=== PATIENT | female | born 1970 | race Caucasian/White ===

== ENCOUNTER 2022-01-08 14:00 | Emergency (ER) | payer OTHER, SELFPAY ==
[2022-01-08] VITALS (8 sets, daily range): BP systolic 130–135; BP diastolic 82–87; PULSE 94–114; RESP 18–20; TEMP 36.8; O2SAT 96–99
--- NOTE | ~2022-01-08 | CT_ITS ---
EXAMINATION: CTA chest PE protocol DATE: 01/08/2022 16:32 INDICATION: Shortness of breath and cough TECHNIQUE: Computed tomography angiography (CTA) of the chest was performed with 100 mL Omnipaque-350 intravenous contrast timed to evaluate the pulmonary arteries. Coronal maximum intensity projection 3D-reconstructions were created by the technologist. The dose-length product (DLP) was 297.07 mGy-cm. Automated exposure control and iterative reconstruction technique were employed. COMPARISON: None. FINDINGS: The pulmonary arteries are well-opacified. No pulmonary embolism is identified. Respiratory motion artifact somewhat limits evaluation for emboli in the lower lung zones. There is moderate emp hysema. No pleural effusion or pneumothorax. No pathologically enlarged thoracic lymph nodes are iden tified. The heart size is normal. There is a small sliding hiatal hernia. There is moderate thoracic spondylosis. IMPRESSION: 1. No pulmonary embolism or acute cardiopulmonary abnormality. 2. Moderate emphysema. Reviewed, dictated and finalized at location B. MEN PLANT OPERATOR
--- NOTE | ~2022-01-08 | XR_ITS ---
EXAMINATION: XR chest 2V DATE: 01/08/2022 14:57 INDICATION: Shortness of breath. TECHNIQUE: Frontal and lateral views of the chest were obtained. COMPARISON: Chest single view 06/05/15 FINDINGS: There are airspace opacities in lingula. No pleural effusion or pneumothorax. The heart siz e is normal. There are surgical clips in left neck. There is a disc replacement in cervical spine. IMPRESSION: 1. Airspace opacities in lingula, consistent with atelectasis versus pneumonia. Reviewed, dictated and finalized at location A. ER MACHINE OPERATOR
--- NOTE | 2022-01-08 14:24 | ED.SOB ---
HPI - SOB/Dyspnea General Chief Complaint: Shortness of Breath/Dyspnea Stated Complaint: Trouble breathing/doctor referred Time Seen by Provider: 01/08/22 14:22 Source: patient Mode of arrival: ambulatory History of Present Illness HPI Narrative: 51-year-old female, ex-smoker with a history of COPD presents to the ER with a 10 day history of -- cough which is productive of yellow sputum -- worsening shortness of breath -- dysphonia the patient saw primary care physician and received prednisone she had a similar episode 2 months ago for which she received antibiotics and steroids. MD elicited complaint: shortness of breath, cough and anxiety Pertinent past history: COPD Onset (ago): day(s) ( Started approximately 10 days ago.) Timing: constant Severity: moderate Exacerbating factors: nothing Relieving factors: nothing Known history of: COPD Associated symptoms: denies other symptoms, cough and sputum production Treatment prior to arrival: none Related Data Home Medications Medication Instructions Recorded Confirmed albuterol sulfate 90 mcg/actuation 2 puff inhalation PRN 02/22/19 01/08/22 aerosol inhaler ipratropium bromide 17 2 puff inhalation QID 02/22/19 01/08/22 mcg/actuation HFA aerosol inhaler (Atrovent HFA) buspirone 30 mg tablet 30 mg PO BID 01/08/22 01/08/22 famotidine 40 mg tablet 40 mg PO DAILY 01/08/22 01/08/22 fluticasone fur. 100 mcg-umeclid 1 inh inhalation BID 01/08/22 01/08/22 62.5 mcg-vilant 25 mcg inhalat.powder (Trelegy Ellipta) hydroxyzine HCl 25 mg tablet 25 mg PO BID 01/08/22 01/08/22 meloxicam 15 mg tablet 15 mg PO DAILY 01/08/22 01/08/22 montelukast 10 mg tablet 10 mg PO DAILY 01/08/22 01/08/22 Allergies Allergy/AdvReac Type Severity Reaction Status Date / Time latex Allergy Unknown Verified 01/08/22 16:00 Review of Systems Review of Systems: All systems reviewed & are unremarkable except as noted in HPI and below Constitutional: Constitutional: Reports as per HPI and Reports no additional constitutional complaints Eyes: Eyes: Reports as per HPI and Reports no additional eye complaints ENT: Reports system reviewed and no additional complaints, except as documented and Reports as per HPI Cardiovascular: Cardiovascular: Reports as per HPI and Reports no additional cardiovascular complaints Respiratory: Respiratory: Reports as per HPI and Reports no additional respiratory complaints Gastrointestinal: Gastrointestinal: Reports as per HPI and Reports no additional gastrointestinal complaints Genitourinary: Genitourinary: Reports no additional female genitourinary complaints Musculoskeletal: Musculoskeletal: Reports no additional musculoskeletal complaints and Reports as per HPI Integumentary/Breasts: Skin/Breast: Reports system reviewed and no additional complaints, except as docu and Reports as per HPI Neurologic: Reports system reviewed and no additional complaints, except as documented and Reports as per HPI Psychiatric: Psychiatric: Reports no additional psychiatric complaints and Reports as per HPI Endocrine: Endocrine: Reports no additional endocrine complaints Hematologic/Lymphatic: Hematologic/Lymphatic: Reports no additional hematologic/lymphatic complaints and Reports as per HPI Allergic/Immunologic: Allergic/Immunologic: Reports no additional allergic/immunologic complaints and Reports as per HPI Exam Const: General: ill appearing Orientation/consciousness: patient oriented x3 Limitations: no limitations Other: Extremely anxious dysphonic HENMT: Head: normal to inspection Ears: external ears normal Face/Nose/Sinus: Normal external nose present Face and sinus: normal facial exam Mouth: Yes Normal oral and palatal mucosa present Throat: posterior oropharynx normal Eyes: Conjunctivae: conjunctivae normal Pupils: Equal, round and reactive pupils present EOM: EOMs intact bilaterally Direct Ophthalmoscopy: no photophobia Neck: Neck: normal visua
--- NOTE | 2022-01-08 14:39 | ECG_ITS ---
Measurements Intervals [place] Rate: 99 P: 85 [place]: 117 QRS: 92 QRSD: 76 T: 73 QT: 263 QTc: 339 Interpretive Statements SINUS RHYTHM WITH SHORT [place] INTERVAL POSSIBLE RIGHT ATRIAL ENLARGEMENT DELAYED PRECORDIAL R/S TRANSITION BASELINE ARTIFACT- I, II, AVL, AVF, V4-V6 BORDERLINE ECG NO PREVIOUS ECG AVAILABLE FOR COMPARISON Electronically Signed On 01-08-2022 15:35:33 WEB OPERATIONS SPECIALIST by Kvng Mendez D.O.
[2022-01-08] MEDS: IPRATROPIUM 0.5 MG/ALBUTEROL SULFATE 2.5 MG AMPUL.NEB 3 ML INHALATION (15:07)
[2022-01-08 15:11] LABS: Basophils Absolute Auto 0.04 K/mm3 (0.00-0.10); Basophils Percent Auto 0.4 % (0.0-1.0); Eosinophils Absolute Auto 0.32 K/mm3 (0.02-0.50); Eosinophils Percent Auto 2.9 % (1.0-6.0); Hematocrit 35.3 % (35.0-49.0); Hemoglobin 11.5 g/dL (12.0-15.0); Immature Granulocyte Absolute 0.03 K/mm3 (0.00-0.00); Immature Granulocyte Percent A 0.3 % (0.0-0.0); Lymphocytes Absolute Auto 3.12 K/mm3 (1.10-4.50); Lymphocytes Percent Auto 28.6 % (18.0-42.0); Mean Corpuscular HGB Conc 32.6 g/dL (32.0-36.0); Mean Corpuscular Hemoglobin 29.2 pg (27.0-31.0); Mean Corpuscular Volume 89.6 fL (78.0-102.0); Mean Platelet Volume 9.1 fl (9.2-11.8); Monocytes Absolute Auto 1.06 K/mm3 (0.10-0.90); Monocytes Percent Auto 9.7 % (2.0-11.0); Neutrophils Absolute Auto 6.3 K/mm3 (1.7-7.2); Neutrophils Percent Auto 58.1 % (50.0-70.0); Platelet Count Result 428 K/mm3 (150-420); Red Blood Count 3.94 M/mm3 (4.20-5.40); White Blood Count 10.9 K/mm3 (4.8-10.8)
[2022-01-08 15:29] LABS: Lactic Acid Reflex 0.8 mmol/L (0.4-2.0)
[2022-01-08 15:32] LABS: D Dimer 0.61 mg/L (0.19-0.50)
[2022-01-08 15:39] LABS: Alanine Aminotransferase 22 U/L (14-59); Albumin Level 3.3 g/dL (3.4-5.0); Alkaline Phosphatase 67 U/L (46-116); Anion Gap 5 mmol/L (8-16); Aspartate Amino Transferase 19 U/L (15-37); Bilirubin,Total 0.3 mg/dL (0.00-1.00); Blood Urea Nitrogen 15 mg/dL (7-18); Calcium 8.6 mg/dL (8.5-10.1); Carbon Dioxide 31 mmol/L (21-32); Chloride 105 mmol/L (98-108); Estimated CRCL calculation 71 ml/min; Estimated Glomerular Filt Rate > 60; Glucose 102 mg/dL (70-99); Osmolality Calculated 292 mOsm/kg (285-295); Potassium 2.9 mmol/L (3.5-5.1); Sodium 141 mmol/L (136-145); Total Protein 7.4 g/dL (6.4-8.2); Troponin I < 4.0 ng/L (0.00-60.4)
[2022-01-08 15:39] LABS: NT Pro B Type Natriuretic Pept 336 pg/mL (0-125)
[2022-01-08 15:46] LABS: Influenza A QL RT-PCR Negative (Negative); Influenza B QL RT-PCR Negative (Negative); SARS-CoV-2 RNA PCR Negative (Negative)
[2022-01-08 15:47] LABS: RSV RNA, RT-PCR Negative (Negative)
[2022-01-08 16:12] LABS: Base Excess ABG 3.8 mmol/L (0-2); HCO3 ABG 27.7 mmol/L (23-29); Oxygen Content ABG 15.1 %vol (16.0-22.0); Oxygen Saturation ABG 91.4 % (95-97); Oxyhemoglobin 89.4 % (94-100); PCO2 ABG 39.4 mmHg (35-45); PO2 ABG 57.7 mmHg (80-90); pH ABG 7.47 (7.35-7.45)
[2022-01-08 16:13] LABS: Device ROOM AIR; Modified Allen's Test Pass; Site Drawn RIGHT RADIAL
[2022-01-08] MEDS: LACTATED RINGERS 1,000 ML 999 ML IV CONT (16:25)
[2022-01-08 17:00] LABS: Magnesium 1.5 mg/dL (1.8-2.4)
[2022-01-08] MEDS: POTASSIUM BICARBONATE 25 MEQ TABEF 50 MEQ PO (17:01)
[2022-01-08] MEDS: AZITHROMYCIN 250 MG TABLET 500 MG PO (17:01)
[2022-01-08] MEDS: MAGNESIUM SULF 2 GM/WATER 50ML 2 GM/50 ML BAG IVPB (17:16)
== END 2022-01-08 18:01 | disposition home or self-care (01) ==
PROVIDERS: Emergency Provider Internal Medicine Critical Care Medicine; PCP Physician Assistant
DX: J44.1 Chronic obstructive pulmonary disease with (acute) exacerbation (principal); E87.8 Other disorders of electrolyte and fluid balance, not elsewhere classified; F41.9 Anxiety disorder, unspecified; Z20.822 Contact with and (suspected) exposure to COVID-19
CPT/HCPCS: 36415; 36600; 71046; 71275; 80053; 82805; 83605; 83735; 83880; 84484; 85025; 85380; 87502; 87634; 93005; 94640; 96361; 96365; 99284; A9270; J3475; J7120; Q9967; U0003; U0005

== ENCOUNTER 2022-03-27 16:12 | Outpatient (CLI) | payer OTHER, SELFPAY | END 2022-03-27 16:13 | disposition home or self-care (01) | LOC: CHSLAB 16:13 | PROVIDERS: PCP Physician Assistant; Visit Provider Physician Assistant | DX: B80 Enterobiasis (principal) | CPT/HCPCS: 87177; 87209 ==

== ENCOUNTER 2022-12-22 15:50 | Emergency (ER) | payer OTHER, SELFPAY ==
[2022-12-22 16:05] VITALS: BP 132/77; PULSE 106; RESP 24; TEMP 36.6; O2SAT 93
--- NOTE | 2022-12-22 16:05 | ED.GENADULT ---
HPI - General Adult General Chief complaint: Wound/Laceration Stated complaint: right middle finger injury Time Seen by Provider: 12/22/22 16:05 Source: patient Mode of arrival: ambulatory Limitations: no limitations History of Present Illness HPI narrative: 52-year-old female with a history of COPD, arthritis, anxiety got stuck by a riri wire in the right middle finger 3 days ago. the patient feels that the pain from the right middle finger is extending up the right upper extremity. The patient has not had a tetanus immunization for the past 10 years. She presents to the ER for tetanus immunization. The patient has chronic shortness of breath. Onset (ago): day(s) ( Three days ago) Location: upper extremity Relieving factors: none Exacerbating factors: none Related Data Home Medications Medication Instructions Recorded Confirmed albuterol sulfate 90 mcg/actuation 2 puff inhalation PRN 02/22/19 01/08/22 aerosol inhaler ipratropium bromide 17 2 puff inhalation QID 02/22/19 01/08/22 mcg/actuation HFA aerosol inhaler (Atrovent HFA) buspirone 30 mg tablet 30 mg PO BID 01/08/22 01/08/22 famotidine 40 mg tablet 40 mg PO DAILY 01/08/22 01/08/22 fluticasone fur. 100 mcg-umeclid 1 inh inhalation BID 01/08/22 01/08/22 62.5 mcg-vilant 25 mcg inhalat.powder (Trelegy Ellipta) hydroxyzine HCl 25 mg tablet 25 mg PO BID 01/08/22 01/08/22 meloxicam 15 mg tablet 15 mg PO DAILY 01/08/22 01/08/22 montelukast 10 mg tablet 10 mg PO DAILY 01/08/22 01/08/22 Allergies Allergy/AdvReac Type Severity Reaction Status Date / Time latex Allergy Unknown Verified 12/22/22 16:05 Review of Systems Review of Systems: All systems reviewed & are unremarkable except as noted in HPI and below Constitutional: Constitutional: Reports as per HPI and Reports no additional constitutional complaints Eyes: Eyes: Reports as per HPI and Reports no additional eye complaints ENT: Reports system reviewed and no additional complaints, except as documented and Reports as per HPI Cardiovascular: Cardiovascular: Reports as per HPI and Reports no additional cardiovascular complaints Respiratory: Respiratory: Reports as per HPI, Reports no additional respiratory complaints, Reports cough and Reports dyspnea Comments: No worsening of her shortness of breath. No mucopurulent sputum or increased production of sputum. Gastrointestinal: Gastrointestinal: Reports as per HPI and Reports no additional gastrointestinal complaints Genitourinary: Genitourinary: Reports no additional female genitourinary complaints and Reports as per HPI Musculoskeletal: Musculoskeletal: Reports no additional musculoskeletal complaints and Reports as per HPI Integumentary/Breasts: Skin/Breast: Reports system reviewed and no additional complaints, except as docu and Reports as per HPI Neurologic: Reports system reviewed and no additional complaints, except as documented and Reports as per HPI Psychiatric: Psychiatric: Reports no additional psychiatric complaints and Reports as per HPI Endocrine: Endocrine: Reports no additional endocrine complaints and Reports as per HPI Hematologic/Lymphatic: Hematologic/Lymphatic: Reports no additional hematologic/lymphatic complaints and Reports as per HPI Allergic/Immunologic: Allergic/Immunologic: Reports no additional allergic/immunologic complaints and Reports as per HPI [facility] Past Medical History Medical History (Updated 12/22/22 @ 16:17 by Trevin Singer MD) Asthma exacerbation in COPD Exam Narrative: patient is saturating 93% on room air. Patient is tachycardic and has a respiratory rate of 24. Const: Orientation/consciousness: patient oriented x3 Limitations: no limitations HENMT: Head: normal to inspection Ears: external ears normal Face/Nose/Sinus: Normal external nose present Face and sinus: normal facial exam Mouth: Yes Normal oral and palatal mucosa present Throat: posterior oropharynx n
[2022-12-22] MEDS: TETANUS,DIPHTHERIA,AC PERTUSSIS ADULT 0.5 ML (ADACEL) IM (16:23)
== END 2022-12-22 16:26 | disposition home or self-care (01) ==
PROVIDERS: Emergency Provider Internal Medicine Critical Care Medicine; PCP Physician Assistant
DX: S61.232A Puncture wound without foreign body of right middle finger without damage to nail, initial encounter (principal); J41.0 Simple chronic bronchitis; Z23 Encounter for immunization; W45.8XXA Other foreign body or object entering through skin, initial encounter
CPT/HCPCS: 90471; 90715; 99282

== ENCOUNTER 2023-06-12 19:11 | Emergency (ER) | payer OTHER, SELFPAY ==
--- NOTE | ~2023-06-12 | CT_ITS ---
EXAMINATION: CT BRAIN W/O DATE: 06/12/2023 20:23 INDICATION: Neck pain after fall TECHNIQUE: Computed tomography (CT) of the head was performed without intravenous contrast. The dose- length product was 385.38 mGy-cm. Automated exposure control and iterative reconstruction technique w ere employed. COMPARISON: No prior studies for comparison. FINDINGS: Evaluation of the posterior fossa limited due to motion artifact. Normal brain parenchymal volume for age. Normal nicole-white differentiation. No acute intracranial hemorrhage, infarction, mass or mass effect. No ventriculomegaly or midline shift. Midline sagittal images demonstrate a normal corpus callosum, c raniovertebral junction and sella turcica. Basilar cisterns are patent. Paranasal sinuses and mastoids are pneumatized. No depressed skull fractures. IMPRESSION: 1. No acute intracranial abnormality. Reviewed, dictated and finalized at location A.
--- NOTE | ~2023-06-12 | CT_ITS ---
EXAMINATION: CT cervical spine wo con DATE: 06/12/2023 20:23 INDICATION: Neck pain after fall TECHNIQUE: Computed tomography (CT) of the cervical spine was performed without intravenous contrast. The dose-length product was 385 mGy-cm. Automated exposure control and iterative reconstruction tech nique were employed. COMPARISON: None FINDINGS: There is a prosthetic disc device at C6-7. Craniovertebral junction is normal. Odontoid pro cess within normal limits. Vertebral body heights are maintained. No acute fracture or traumatic juventino lignment. No evidence for perched facet. Motion artifact limits evaluation of the C6 vertebra posteri tonia. Spinous processes are normal. No paraspinal soft tissue abnormality. There is emphysema in the apices. IMPRESSION: 1. No acute abnormality of the cervical spine. Reviewed, dictated and finalized at location A.
--- NOTE | 2023-06-12 19:11 | PC.NURSE ---
c collar applied while in waiting room
[2023-06-12 19:23] VITALS: BP 149/94; PULSE 124; RESP 20; TEMP 36.9; O2SAT 95
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
[2023-06-12] MEDS: ALPRAZolam (*CRX) 0.5 MG TABLET PO (20:22)
[2023-06-12 21:13] VITALS: BP 128/83; PULSE 101; RESP 20; O2SAT 93
== END 2023-06-12 21:22 | disposition home or self-care (01) ==
PROVIDERS: Emergency Provider Internal Medicine Critical Care Medicine; PCP Physician Assistant
DX: M54.2 Cervicalgia (principal); V43.53XA Car driver injured in collision with pick-up truck in traffic accident, initial encounter; J44.9 Chronic obstructive pulmonary disease, unspecified; F41.9 Anxiety disorder, unspecified; Z79.51 Long term (current) use of inhaled steroids
CPT/HCPCS: 70450; 72125; 99284; A9270; L0150

== ENCOUNTER 2023-08-13 18:24 | Emergency (ER) | payer OTHER, SELFPAY ==
[2023-08-13] VITALS (48 sets, daily range): BP systolic 91–130; BP diastolic 60–90; PULSE 95–126; RESP 18–35; TEMP 36.9; O2SAT 87–100
--- NOTE | ~2023-08-13 | XR_ITS ---
EXAMINATION: XR chest 1V portable Exam Date/Time: 08/13/2023 18:45 CDT HISTORY: Dyspnea Comparison: 01/08/2022; x-ray RIBS 06/05/2015; CTPA 01/08/2022. RESULT: Lines, tubes, and devices: Cervical spine interbody device. Left neck surgical clips. Lungs and pleura: Clear. Cardiomediastinal silhouette: 2.5 x 1.7 cm right paratracheal opacity. Cardiac mediastinal silhouett e is otherwise normal and unchanged. Other: No acute osseous or upper abdominal finding. IMPRESSION: 2.5 x 1.7 cm right peritracheal opacity, new since the prior studies, may represent soft tissue nodul e or summation artifact. Consider CT of the chest with contrast for further evaluation. Reviewed, dictated and finalized at location K. IMPRESSION: 2.5 x 1.7 cm right peritracheal opacity, new since the prior studies, may repre sent soft tissue nodule or summation artifact. Consider CT of the chest with co ntrast for further evaluation.
--- NOTE | ~2023-08-13 | CT_ITS ---
EXAMINATION: CT diagnostic chest wo con DATE: 08/13/2023 19:53 INDICATION: paratracheal mass,ABN CXR,SOB,COUGH TECHNIQUE: Computed tomography (CT) of the chest was performed with 100 mL Omnipaque-350 intravenous contrast. Automated exposure control and iterative reconstruction technique were employed. The dose-l ength product was 167.85 mGy-cm. COMPARISON: X-ray chest, same date; CTPA 01/08/2022. FINDINGS: CHEST: Thoracic aorta: No significant dilation or calcification. Lung parenchyma and airways: Moderate emphysematous change, airways are clear. Thoracic inlet, axillae and chest wall: No thyroid or soft tissue mass. No axillary lymphadenopathy. Mediastinum: No mass or lymphadenopathy. Heart and pericardium: Normal heart size. No pericardial effusion. Coronary artery calcifications: Absent. Pleura: No effusion or mass. Upper abdomen: No significant finding. Thoracic bones: No acute osseous finding in the chest. IMPRESSION: No acute thoracic process detected. No rib fracture detected. No peritracheal or other mucosal mass. Prior radiograph findings likely related to summation artifact and vascular shadows. Reviewed, dictated and finalized at location K.
[2023-08-13] MEDS: IPRATROPIUM 0.5 MG/ALBUTEROL SULFATE 2.5 MG AMPUL.NEB 3 ML 12 ML INHALATION (18:41)
[2023-08-13 18:51] LABS: Basophils Absolute Auto 0.05 K/mm3 (0.00-0.10); Basophils Percent Auto 1.2 % (0.0-1.0); Eosinophils Absolute Auto 0.08 K/mm3 (0.02-0.50); Eosinophils Percent Auto 1.9 % (1.0-6.0); HCO3 VBG 30.1 mEq/l (24.0-30.0); Hematocrit 45.8 % (35.0-49.0); Hemoglobin 14.3 g/dL (12.0-15.0); Immature Granulocyte Absolute 0.01 K/mm3 (0.00-0.00); Immature Granulocyte Percent A 0.2 % (0.0-0.0); Lymphocytes Percent Auto 32.6 % (18.0-42.0); Mean Corpuscular HGB Conc 31.2 g/dL (32-36); Mean Corpuscular Hemoglobin 28.5 pg (27.0-31.0); Mean Corpuscular Volume 91.4 fL (78.0-102.0); Mean Platelet Volume 9.2 fl (9.2-11.8); Monocytes Absolute Auto 0.25 K/mm3 (0.10-0.90); Monocytes Percent Auto 5.8 % (2.0-11.0); Neutrophils Percent Auto 58.3 % (50.0-70.0); PCO2 VBG 55.7 mmHg (42.0-48.0); PO2 VBG 40.2 mmHg (35.0-45.0); Platelet Count Result 326 K/mm3 (150-420); Red Blood Count 5.01 M/mm3 (4.20-5.40); Red Cell Distribution Width 12.3 % (11.6-14.4); White Blood Count 4.3 K/mm3 (4.8-10.8); pH VBG 7.35 (7.33-7.43)
[2023-08-13 18:52] LABS: Device ROOM AIR
[2023-08-13] MEDS: SODIUM CHLORIDE 0.9% IV 1,000 ML 999 ML IV CONT (18:59)
[2023-08-13] MEDS: dexAMETHasone SOD PHOS INJ 10 MG/ML 1 ML VIAL IV PUSH (18:59)
[2023-08-13] MEDS: MAGNESIUM SULF 2 GM/WATER 50ML 2 GM/50 ML BAG IVPB (19:00)
[2023-08-13 19:05] LABS: Alanine Aminotransferase 21 U/L (14-59); Albumin Level 3.5 g/dL (3.4-5.0); Alkaline Phosphatase 90 U/L (46-116); Anion Gap 5 mmol/L (4-12); Aspartate Amino Transferase 21 U/L (15-37); Bilirubin,Total 0.2 mg/dL (0.00-1.00); Blood Urea Nitrogen 15 mg/dL (7-18); Calcium 8.8 mg/dL (8.5-10.1); Carbon Dioxide 32 mmol/L (21-32); Chloride 101 mmol/L (98-108); Estimated CRCL calculation 67 ml/min; Estimated Glomerular Filt Rate > 60; Glucose 158 mg/dL (70-99); Osmolality Calculated 289 mOsm/kg (285-295); Potassium 4.6 mmol/L (3.5-5.1); Sodium 138 mmol/L (136-145); Total Protein 7.4 g/dL (6.4-8.2)
--- NOTE | 2023-08-13 19:24 | ED.GENADULT ---
HPI - General Adult General Chief complaint: Shortness of Breath/Dyspnea Stated complaint: sob Time Seen by Provider: 08/13/23 19:19 History of Present Illness HPI narrative: This is a 53-year-old female with history of asthma and tobacco use presenting for difficulty breathing. symptoms started yesterday. Patient has had a productive cough. Denies fevers chills chest pain, URI symptoms or lower extremity edema. Patient states she quit using tobacco yesterday. She tried taking inhaler at home but the shortness of breath was too bad so she came straight to hospital. Related Data Home Medications Medication Instructions Recorded Confirmed albuterol sulfate 90 mcg/actuation 2 puff inhalation PRN 02/22/19 08/13/23 aerosol inhaler ipratropium bromide 17 2 puff inhalation QID 02/22/19 08/13/23 mcg/actuation HFA aerosol inhaler (Atrovent HFA) famotidine 40 mg tablet 40 mg PO DAILY 01/08/22 08/13/23 fluticasone fur. 100 mcg-umeclid 1 inh inhalation BID 01/08/22 08/13/23 62.5 mcg-vilant 25 mcg inhalat.powder (Trelegy Ellipta) hydroxyzine HCl 25 mg tablet 25 mg PO BID 01/08/22 08/13/23 meloxicam 15 mg tablet 15 mg PO DAILY 01/08/22 08/13/23 montelukast 10 mg tablet 10 mg PO DAILY 01/08/22 08/13/23 Allergies Allergy/AdvReac Type Severity Reaction Status Date / Time latex Allergy Rash Verified 08/13/23 18:32 [facility] Past Medical History Medical History Asthma exacerbation in COPD Surgical History Surgical History H/O neck surgery Exam Narrative: APPEARANCE: Respiratory distress Head: atraumatic. EYES: EOMI, NOSE: Atraumatic NECK: Trachea midline RESPIRATORY: tripoding, 3 word dyspnea, wheezing CARDIOVASCULAR: tachycardic, no peripheral edema ABDOMINAL: Non-distended MUSCULOSKELETAl: No obvious deformities NEURO: Alert. Moving 4/4 extremities SKIN:: Warm, dry. Normal color PSYCHIATRIC: tearful and emotionally distraught Course Vital Signs Vital signs: Vital Signs Pulse Rate 120 H 08/13/23 18:26 Respiratory Rate 29 H 08/13/23 18:26 Pulse Oximetry 87 L 08/13/23 18:26 Temperature 98.4 F 08/13/23 18:32 Pulse Rate 98 08/13/23 21:32 Respiratory Rate 28 H 08/13/23 21:32 Blood Pressure 114/68 08/13/23 21:16 Pulse Oximetry 100 08/13/23 21:32 Oxygen Delivery BiPAP 08/13/23 21:00 Oxygen Flow Rate 2 08/13/23 19:51 Medical Decision Making MDM Narrative Medical decision making narrative: -Course:53-year-old female with asthma presenting for difficulty breathing. Wheezing on exam. Patient is tachycardic and tachypneic hypoxic on arrival. Given an hour DuoNeb treatment with some improvement but still increased work of breathing. Chest x-ray and CT negative for pneumonia. VBG showed respiratory acidosis with metabolic compensation. On re-evaluation patient is still tachycardic, tachypneic and working to breathe. She will be placed on BiPAP. Given DuoNeb in-line nebulization. patient needs to be admitted for COPD exacerbation. We cannot admit NIPVV to this hospital. Patient will be transferred [place] for further management. -DDX includes but is not limited to: COPD, pneumonia, PE, Viral syndrome -Co-morbidities complicating care: Asthma, current smoker -Independent interpretation of studies: labs reviewed within normal limits. Chest x-ray and CT chest unremarkable viral swabs negative Independent EKG interpretation: Rhythm [sinus], Rate [97], [place] -[normal], [place] -[normal], QRS [narrow], QTC [normal], T waves -[negative for concerning inversions], ST Segments - [Negative for concerning elevations] Final interpretations: [Normal Sinus Rhythm] -Discussion of Management/Consultants: Chiara -Interventions:1 hr duo neb, Dexamethasone, magnesium, -Shared decision making / Disposition:t/f to [place] Vital Signs Vital Signs: Vital
[2023-08-13 19:30] LABS: SARS-CoV-2 RNA PCR Negative (Negative)
[2023-08-13 19:32] LABS: Influenza A QL RT-PCR Negative (Negative); Influenza B QL RT-PCR Negative (Negative); RSV RNA, RT-PCR Negative (Negative)
[2023-08-13 20:55] LABS: Appearance Urine Sl Cloudy (Clear); Bilirubin Urine Negative (Negative); Blood Urine Negative (Negative); Color Urine Light Yellow (Yellow); Glucose Urine UA Negative (Negative); Ketones Urine Negative (Negative); Leukocyte Esterase Ur Negative LEU/UL (Negative); Nitrate Urine Negative (Negative); Protein Urine Trace (Negative); Specific Grav Ur 1.025 (1.010-1.020); Urobilinogen Urine 0.2 mg/dL (0.2-1.0)
--- NOTE | 2023-08-13 20:58 | ECG_ITS ---
Test Date: 2023-08-13 21:03:07 Measurements Intervals [place] Rate: 97 P: 85 [place]: 126 QRS: 71 QRSD: 86 T: 74 QT: 337 QTc: 430 Interpretive Statements SINUS RHYTHM POSSIBLE RIGHT ATRIAL ENLARGEMENT [0.25mV P-WAVE] No previous ECG available for comparison Electronically Signed On 08-14-2023 11:33:04 CDT by Liz Hill M.D.
[2023-08-13 21:02] LABS: Add Urine Microscopic? YES; Bacteria Urine Trace /hpf; RBC Urine 0-2 /hpf (0-2); Squamous Epithelial Cell Urine Few /hpf (Few); WBC Urine 0-3 /hpf (0-3)
[2023-08-13 21:05] LABS: Amphetamine Screen Urine Negative (Negative); Barbiturate Screen Urine Negative (Negative); Benzodiazepines Screen Urine Negative (Negative); Cannabinoid Screen Urine Positive (Negative); Cocaine Screen Urine Negative (Negative); Methadone Screen Urine Negative (Negative); Phencyclidine Screen Urine Negative (Negative)
[2023-08-13 21:15] LABS: Opiate Screen Urine Negative (Negative)
[2023-08-13] MEDS: IPRATROPIUM 0.5 MG/ALBUTEROL SULFATE 2.5 MG AMPUL.NEB 3 ML 6 ML INHALATION (21:15)
[2023-08-13] MEDS: diazePAM INJ (*CRX) 10 MG/2 ML SYRINGE 5 MG IV PUSH (22:20)
--- NOTE | 2023-08-13 23:17 | PC.NURSE ---
This RN was called into patient room for suspected seizure like activity. Patient had some shaking to her body, but was awake and talking during this episode. Patient's son stated that patient was diagnosed with functional neurologic disorder a long time ago and does not currently take any medications for these episodes . Patient was given diazepam about 10 minutes prior to this episode because she was feeling claustrophobic and beginning to have an anxiety attack. Bipap was removed from patient and she was placed back on 2L O2 at this time. Patient has remained completely responsive and has calmed down and the shivering/shaking has gone away. Patient stated that she just began to panic because she was missing her mother and feels overwhelmed without her here. Extensive education provided to daughter, who at the time was yelling at staff, was provided after she calmed down. Patients vitals remained stable, no change in heart rate or respiratory rate during episode.
== END 2023-08-13 23:15 | disposition short-term general hospital (02) ==
PROVIDERS: Emergency Provider Emergency Medicine; PCP Physician Assistant
DX: J44.1 Chronic obstructive pulmonary disease with (acute) exacerbation (principal); J45.901 Unspecified asthma with (acute) exacerbation; F17.210 Nicotine dependence, cigarettes, uncomplicated; Z79.1 Long term (current) use of non-steroidal anti-inflammatories (NSAID); Z79.899 Other long term (current) drug therapy; Z20.822 Contact with and (suspected) exposure to COVID-19
CPT/HCPCS: 36415; 71045; 71250; 80053; 80307; 81001; 82803; 85025; 87637; 93005; 94640; 96365; 96375; 99285; J1100; J3360; J3475; J7030

== ENCOUNTER 2023-08-14 00:46 | Inpatient (IN) | payer OTHER, SELFPAY ==
[2023-08-14] VITALS (25 sets, daily range): BP systolic 101–165; BP diastolic 57–95; PULSE 69–112; RESP 18–28; TEMP 36.2–37.6; O2SAT 90–99; BMI 28.2
--- NOTE | 2023-08-14 00:51 | PM.IMHP ---
H&P: HPI History of Present Illness Date/Time: 08/14/23 00:51 Chief Complaint: sob Narrative: This is a 53 yo female with PMHx significant for COPD/Emphysema, Tobacco dependence, currently smokes 1 pack of cigarettes daily. comes to outside facility ED due to worsening sob, productive cough of copious yellowish bingham sputum, poor appetite.Required supplemental oxygen by [place].Transferred to our facility EXAMINATION: XR chest 1V portable Exam Date/Time: 08/13/2023 18:45 CDT HISTORY: Dyspnea Comparison: 01/08/2022; x-ray RIBS 06/05/2015; CTPA 01/08/2022. RESULT: Lines, tubes, and devices: Cervical spine interbody device. Left neck surgical clips. Lungs and pleura: Clear. Cardiomediastinal silhouette: 2.5 x 1.7 cm right paratracheal opacity. Cardiac mediastinal silhouette is otherwise normal and unchanged. Other: No acute osseous or upper abdominal finding. IMPRESSION: 2.5 x 1.7 cm right peritracheal opacity, new since the prior studies, may represent soft tissue nodule or summation artifact. Consider CT of the chest with contrast for further evaluation. EXAMINATION: CT diagnostic chest wo con DATE: 08/13/2023 19:53 INDICATION: paratracheal mass,ABN CXR,SOB,COUGH TECHNIQUE: Computed tomography (CT) of the chest was performed with 100 mL Omnipaque-350 intravenous contrast. Automated exposure control and iterative reconstruction technique were employed. The dose-length product was 167.85 mGy-cm. COMPARISON: X-ray chest, same date; CTPA 01/08/2022. FINDINGS: CHEST: Thoracic aorta: No significant dilation or calcification. Lung parenchyma and airways: Moderate emphysematous change, airways are clear. Thoracic inlet, axillae and chest wall: No thyroid or soft tissue mass. No axillary lymphadenopathy. Mediastinum: No mass or lymphadenopathy. Heart and pericardium: Normal heart size. No pericardial effusion. Coronary artery calcifications: Absent. Pleura: No effusion or mass. Upper abdomen: No significant finding. Thoracic bones: No acute osseous finding in the chest. IMPRESSION: No acute thoracic process detected. No rib fracture detected. No peritracheal or other mucosal mass. Prior radiograph findings likely related to summation artifact and vascular shadows. Review of Systems Review of Systems: sob, productive cough, chills Constitutional: Constitutional: Reports chills, Reports fatigue, Reports malaise, Reports night sweats, Reports poor appetite and Reports weakness Eyes: Eyes: Denies change in vision ENT: Denies dysphagia and Denies odynophagia Cardiovascular: Cardiovascular: Denies chest pain, Denies radiating jaw, neck or arm pain and Denies palpitations Respiratory: Respiratory: Reports change in phlegm color, Reports chest congestion, Reports cough, Reports excessive phlegm production, Reports dyspnea and Reports wheezing Gastrointestinal: Gastrointestinal: Denies abdominal pain, Denies nausea and Denies vomiting Genitourinary: Genitourinary: Denies flank pain Musculoskeletal: Musculoskeletal: Reports myalgias Integumentary/Breasts: Skin/Breast: Denies rash Neurologic: Denies focal weakness and Denies Sensory deficit (Neuro) Psychiatric: Psychiatric: Reports no additional psychiatric complaints and Reports as per HPI Endocrine: Endocrine: Denies cold intolerance, Denies heat intolerance, Denies polyphagia, Denies polydipsia, Denies polyuria and Denies palpitations Hematologic/Lymphatic: Hematologic/Lymphatic: Reports no additional hematologic/lymphatic complaints and Reports as per HPI Allergic/Immunologic: Allergic/Immunologic: Reports no additional allergic/immunologic complaints and Reports as per HPI PMFSH Past Medical History Medical History Asthma exacerbation in COPD Surgical History Surgical History H/O neck surgery Social History Social Hist
[2023-08-14] MEDS: ALBUTEROL SULFATE NEB 2.5 MG/3 ML INH INHALATION (01:18)
[2023-08-14] MEDS: IPRATROPIUM BR 0.02% INH SOLN 0.5 MG/2.5 ML VIAL INHALATION (01:18)
[2023-08-14 02:41] LABS: Basophils Percent Auto 0.2 % (0.2-1.2); Hematocrit 40.5 % (37.0-47.0); Hemoglobin 12.5 g/dL (12.0-15.0); Immature Granulocyte Absolute 0.02 K/mm3 (0.00-0.031); Immature Granulocyte Percent A 0.4 % (0-0.5); Lymphocytes Absolute Auto 0.54 K/mm3 (0.9-3.2); Lymphocytes Percent Auto 11.7 % (18.3-44.2); Mean Corpuscular HGB Conc 30.9 g/dl (32-36); Mean Corpuscular Hemoglobin 28.2 pg (26-34); Mean Corpuscular Volume 91.4 fl (80-100); Mean Platelet Volume 9.3 fl (7.4-10.4); Monocytes Absolute Auto 0.1 K/mm3 (0.1-0.6); Monocytes Percent Auto 1.9 % (2.6-8.5); Neutrophils Percent Auto 85.8 % (45.5-73.1); Platelet Count Result 342 k/mm3 (150-375); Red Blood Count 4.43 M/mm3 (4.2-5.4); Red Cell Distribution Width 12.5 % (11.5-14.5); White Blood Count 4.6 K/mm3 (4.5-10.0)
[2023-08-14 02:53] LABS: Anion Gap 8 mmol/L (4-12); Blood Urea Nitrogen 15 mg/dL (7-17); Calcium 9.1 mg/dL (8.4-10.2); Carbon Dioxide 26 mmol/L (22-30); Chloride 104 mmol/L (98-107); Estimated CRCL calculation 66 ml/min; Estimated Glomerular Filt Rate > 60; Glucose 160 mg/dL (65-110); Magnesium 2.2 mg/dL (1.6-2.3); Potassium 4.4 mmol/L (3.4-5.0); Sodium 138 mmol/L (137-145)
[2023-08-14 02:55] LABS: Partial Thromboplastin Time 31.4 Seconds (22.3-36.8); Prothrombin Time 13.4 Seconds (11.1-14.7)
[2023-08-14] MEDS: cefTRIAXone 2 GM/NS 100 ML 2 GM/100 ML BAG IVPB (04:17)
[2023-08-14] MEDS: AZITHROMYCIN 500 MG/NS 250 ML 500 MG/250 ML BAG 250 MG IVPB (04:18)
[2023-08-14] MEDS: IPRATROPIUM 0.5 MG/ALBUTEROL SULFATE 2.5 MG AMPUL.NEB 3 ML INHALATION ×6 (04:51→23:43)
--- NOTE | 2023-08-14 05:51 | PC.NURSE ---
Pt tx to room 204 with all belongings.
[2023-08-14] MEDS: methylPREDNISolone SOD SUCC 125 MG VIAL 60 MG IV PUSH ×3 (06:14→17:55)
[2023-08-14] MEDS: FLUTICASONE/UMECLIDIN/VILANTER 100-62.5-25 MCG ELLIPTA 1 PUFF INHALATION (08:26)
--- NOTE | 2023-08-14 08:48 | PM.IMPN ---
Progress Note: A&P Assessment and Plan (1) Acute hypoxic respiratory failure: Code(s): J96.01 - Acute respiratory failure with hypoxia Status: Acute Assessment and Plan: Admit to IMU on supplemental oxygen by [place] 2 L per minute, sating 96% Patient normally on room air and wears bipap at night. (2) COPD with exacerbation: Code(s): J44.1 - Chronic obstructive pulmonary disease with (acute) exacerbation Status: Acute Assessment and Plan: Started on Rocephin and Zithromax Respiratory panel negative Blood cultures pending Systemic steroids methpred 60 mg IVP Q 6 hours--still wheezing Duo nebs Q 4 hours scheduled Mucinex ordered BID Trelogy inhaler ordered Pulmonary rehab at d/c (3) Tobacco dependence: Code(s): F17.200 - Nicotine dependence, unspecified, uncomplicated Status: Acute Assessment and Plan: Nicotine patch as needed Encourage cessation and teaching surrounding tobacco abuse. Plan Feeding: regular diet Analgesia:tylenol Thromboembolic prophylaxis: lovenox Ulcer prophylaxis: pepcid Glycemic control: monitor blood glucose on BMP while on steroids Bowel regimen: n/a Lines: PIV Antibiotics: Rocephin, azithromycin Disposition: home when medically ready Subjective Date/time seen: 08/14/23 08:48 Interval history: This is a 53 yo female with PMHx significant for COPD/Emphysema, Tobacco dependence, currently smokes 1 pack of cigarettes daily. comes to outside facility ED due to worsening sob, productive cough of copious yellowish bingham sputum, poor appetite.Required supplemental oxygen by [place].Transferred to our facility. 08/13: Mrs. Harden is seen resting in bed on 2 L nasal cannula. She appears short of breath. She states that her breathing is improved from when she first presented to the hospital but she is still dyspneic at rest. Normally she does not wear oxygen and she can walk approximately 30-50 feet without becoming short of breath. She does have a BiPap that she wears at night but she is unsure of her settings. She denies productive sputum this morning. She still has expiratory wheezing present and she appears anxious. She is tolerating a diet and voiding without difficulty. The nurse states the patient has been tearful due to the recent loss of her mother. Review of Systems Review of Systems: All systems reviewed & are unremarkable except as noted in HPI and below Exam Narrative: General: chronically ill appearing, dyspneic, anxious, appears older than stated age. HEENT: normocephalic, atraumatic. Mucous membranes moist. EOMI, PERRLA, bilateral sclera anicteric, no conjunctival injection. Neck supple without JVD, lymphadenopathy, or bruit. Respiratory: clear-diminished on auscultation bilaterally. No rales/rhonic/+ expiratory wheeze to RML, RLL, LLL Cardiovascular: Regular rate and rhythm, normal S1-S2 upon auscultation. No murmurs, rubs, or clicks. PMI is nondisplaced, capillary refill less than 3 second. Abdomen: Soft, round, no pulsatile masses, nondistended and nontender. No rebound, no guarding. No CVA tenderness, no hepatosplenomegaly. Bowel sounds present to all four quadrants. No high pitch or tinkling sounds, resonant to percussion. Extremities: No cyanosis, + clubbing, no edema present. Pulses are palpable 2/2. Active ROM to all four extremities. Neuro: Alert and orientated x 4. PERRLA. Cranial nerves 2-12 intact without focal deficit. Skin: Warm, dry, and intact, without rash, erythema, or lesion. Lines: PIV Incisions: NA Psych: pleasant, cooperative, normal speech, normal affect, no hallucinations, no dysarthria, anxious Objective Data Vital Signs Vital Signs: Vital Signs - 24 hr 08/14/23 01:19 08/14/23 01:28 08/14/23 01:33 Temperature Pulse Rate 104 H 101 H 104 H Respiratory Rate 23 H 22 H 22 H Blood Pressure Pulse Oximetry 90 Oxygen Delivery Nasal Cannula Oxygen Flow Rate 3 Fraction of Inspired
[2023-08-14] MEDS: FAMOTIDINE 20 MG TABLET 40 MG PO (09:25)
[2023-08-14] MEDS: MELOXICAM 7.5 MG TABLET 15 MG PO (09:25)
[2023-08-14] MEDS: hydrOXYzine HCL 25 MG TABLET PO ×2 (09:25→17:54)
[2023-08-14] MEDS: ENOXAPARIN 40 MG/0.4 ML SYRINGE SUB-Q (09:26)
[2023-08-14] MEDS: NICOTINE (*PBKC) 21 MG PATCH 1 PATCH TRANSDERM (09:26)
[2023-08-14] MEDS: MONTELUKAST SODIUM 10 MG TABLET PO (09:26)
[2023-08-14] MEDS: ROFLUMILAST 500 MCG TABLET PO (09:26)
--- NOTE | 2023-08-14 12:22 | PC.NURSE ---
report given to DEJA [facility] on [facility] floor for transfer to room 302.
--- NOTE | 2023-08-14 12:57 | PC.NURSE ---
pt transferred to room 302 via wheelchair, oriented to new room and environment, pt resting comfortably, reviewed plan of care
[2023-08-14] MEDS: guaiFENesin 12 HR 600 MG TABCR 1200 MG PO ×2 (13:04→20:16)
[2023-08-14] MEDS: WATER FOR IRRIGATION, STERILE 1,000 ML BOTTLE 1000 ML (22:03)
[2023-08-15] VITALS (19 sets, daily range): BP systolic 99–118; BP diastolic 61–65; PULSE 84–107; RESP 18–20; TEMP 36.2–36.6; O2SAT 94–100
[2023-08-15] MEDS: cefTRIAXone 2 GM/NS 100 ML 2 GM/100 ML BAG IVPB (00:34)
[2023-08-15] MEDS: methylPREDNISolone SOD SUCC 125 MG VIAL 60 MG IV PUSH ×4 (00:34→17:53)
[2023-08-15] MEDS: AZITHROMYCIN 500 MG/NS 250 ML 500 MG/250 ML BAG 250 MG IVPB (01:25)
[2023-08-15] MEDS: ONDANSETRON INJ 4 MG/2 ML VIAL IV PUSH (01:58)
[2023-08-15] MEDS: IPRATROPIUM 0.5 MG/ALBUTEROL SULFATE 2.5 MG AMPUL.NEB 3 ML INHALATION ×5 (04:34→20:06)
--- NOTE | 2023-08-15 07:29 | PM.IMPN ---
Progress Note: A&P Assessment and Plan (1) Acute hypoxic respiratory failure: Code(s): J96.01 - Acute respiratory failure with hypoxia Status: Acute Assessment and Plan: Admit to IMU on supplemental oxygen by [place] 2 L per minute, sating 96% Patient normally on room air and wears bipap at night. 08/14: Transition to medical floor. Still requiring 2 L. BiPAP at night with home settings. (2) COPD with exacerbation: Code(s): J44.1 - Chronic obstructive pulmonary disease with (acute) exacerbation Status: Acute Assessment and Plan: Started on Rocephin and Zithromax Respiratory panel negative Blood cultures pending Systemic steroids methpred 60 mg IVP Q 6 hours--still wheezing Duo nebs Q 4 hours scheduled Mucinex ordered BID Trelogy inhaler ordered Pulmonary rehab at d/c 08/14: Continue IV steroids as she is still having expiratory wheeze. Continue nebulizers. Continue IV antibiotics. (3) Tobacco dependence: Code(s): F17.200 - Nicotine dependence, unspecified, uncomplicated Status: Acute Assessment and Plan: Nicotine patch as needed Encourage cessation and teaching surrounding tobacco abuse. Plan Feeding: regular diet Analgesia:tylenol Thromboembolic prophylaxis: lovenox Ulcer prophylaxis: pepcid Glycemic control: monitor blood glucose on BMP while on steroids Bowel regimen: n/a Lines: PIV Antibiotics: Rocephin, azithromycin Disposition: home when medically ready Subjective Date/time seen: 08/15/23 07:29 Interval history: This is a 53 yo female with PMHx significant for COPD/Emphysema, Tobacco dependence, currently smokes 1 pack of cigarettes daily. comes to outside facility ED due to worsening sob, productive cough of copious yellowish bingham sputum, poor appetite.Required supplemental oxygen by [place].Transferred to our facility. 08/13: Mrs. Harden is seen resting in bed on 2 L nasal cannula. She appears short of breath. She states that her breathing is improved from when she first presented to the hospital but she is still dyspneic at rest. Normally she does not wear oxygen and she can walk approximately 30-50 feet without becoming short of breath. She does have a BiPap that she wears at night but she is unsure of her settings. She denies productive sputum this morning. She still has expiratory wheezing present and she appears anxious. She is tolerating a diet and voiding without difficulty. The nurse states the patient has been tearful due to the recent loss of her mother. 08/14: No acute events overnight. Patient was transition out of the IMU to medical floor. She appears in no acute distress at rest. She still requiring 2 L of oxygen and is still having expiratory wheezing. There is some improvement to her dyspnea per her reports. Review of Systems Review of Systems: All systems reviewed & are unremarkable except as noted in HPI and below Exam Narrative: General: chronically ill appearing, appears older than stated age. HEENT: normocephalic, atraumatic. Mucous membranes moist. EOMI, PERRLA, bilateral sclera anicteric, no conjunctival injection. Neck supple without JVD, lymphadenopathy, or bruit. Respiratory: clear-diminished on auscultation bilaterally. No rales/rhonic/+ expiratory wheeze to RML, RLL, LLL Cardiovascular: Regular rate and rhythm, normal S1-S2 upon auscultation. No murmurs, rubs, or clicks. PMI is nondisplaced, capillary refill less than 3 second. Abdomen: Soft, round, no pulsatile masses, nondistended and nontender. No rebound, no guarding. No CVA tenderness, no hepatosplenomegaly. Bowel sounds present to all four quadrants. No high pitch or tinkling sounds, resonant to percussion. Extremities: No cyanosis, + clubbing, no edema present. Pulses are palpable 2/2. Active ROM to all four extremities. Neuro: Alert and orientated x 4. PERRLA. Cranial nerves 2-12 intact without focal deficit. Skin: Warm, dry, and intact, without rash, e
[2023-08-15] MEDS: FLUTICASONE/UMECLIDIN/VILANTER 100-62.5-25 MCG ELLIPTA 1 PUFF INHALATION ×2 (08:45→20:15)
[2023-08-15] MEDS: hydrOXYzine HCL 25 MG TABLET PO ×2 (09:45→17:53)
[2023-08-15] MEDS: MONTELUKAST SODIUM 10 MG TABLET PO (09:45)
[2023-08-15] MEDS: guaiFENesin 12 HR 600 MG TABCR 1200 MG PO ×2 (09:45→20:39)
[2023-08-15] MEDS: FAMOTIDINE 20 MG TABLET 40 MG PO (09:45)
[2023-08-15] MEDS: MELOXICAM 7.5 MG TABLET 15 MG PO (09:45)
[2023-08-15] MEDS: ENOXAPARIN 40 MG/0.4 ML SYRINGE SUB-Q (09:46)
[2023-08-15] MEDS: ROFLUMILAST 500 MCG TABLET PO (09:46)
[2023-08-15] MEDS: NICOTINE (*PBKC) 21 MG PATCH 1 PATCH TRANSDERM (09:46)
[2023-08-15] MEDS: HYDROcodone/acetaminophen (*CRX) 5-325 MG TABLET 1 TAB PO ×2 (09:47→21:00)
[2023-08-15 10:07] LABS: Basophils Percent Auto 0.1 % (0.2-1.2); Hematocrit 39.4 % (37.0-47.0); Immature Granulocyte Absolute 0.09 K/mm3 (0.00-0.031); Immature Granulocyte Percent A 0.7 % (0-0.5); Lymphocytes Absolute Auto 1.14 K/mm3 (0.9-3.2); Lymphocytes Percent Auto 8.6 % (18.3-44.2); Mean Corpuscular HGB Conc 30.5 g/dl (32-36); Mean Corpuscular Hemoglobin 28.2 pg (26-34); Mean Corpuscular Volume 92.5 fl (80-100); Mean Platelet Volume 9.7 fl (7.4-10.4); Monocytes Absolute Auto 0.3 K/mm3 (0.1-0.6); Monocytes Percent Auto 2.5 % (2.6-8.5); Neutrophils Absolute Auto 11.6 K/mm3 (1.3-6.7); Neutrophils Percent Auto 88.1 % (45.5-73.1); Platelet Count Result 360 k/mm3 (150-375); Red Blood Count 4.26 M/mm3 (4.2-5.4); White Blood Count 13.2 K/mm3 (4.5-10.0)
[2023-08-15 10:21] LABS: Alanine Aminotransferase 17 U/L (6-35); Albumin Level 3.9 g/dL (3.5-5.1); Alkaline Phosphatase 64 U/L (38-126); Anion Gap 8 mmol/L (4-12); Aspartate Amino Transferase 23 U/L (14-36); Bilirubin,Total 0.3 mg/dL (0.2-1.3); Blood Urea Nitrogen 27 mg/dL (7-17); Calcium 8.7 mg/dL (8.4-10.2); Carbon Dioxide 29 mmol/L (22-30); Chloride 102 mmol/L (98-107); Estimated CRCL calculation 67 ml/min; Estimated Glomerular Filt Rate > 60; Glucose 152 mg/dL (65-110); Potassium 4.4 mmol/L (3.4-5.0); Sodium 139 mmol/L (137-145)
[2023-08-16] VITALS (22 sets, daily range): BP systolic 99–136; BP diastolic 59–80; PULSE 82–131; RESP 16–20; TEMP 35.8–36.6; O2SAT 87–99
[2023-08-16] MEDS: IPRATROPIUM 0.5 MG/ALBUTEROL SULFATE 2.5 MG AMPUL.NEB 3 ML INHALATION ×7 (00:13→23:46)
[2023-08-16] MEDS: AZITHROMYCIN 500 MG/NS 250 ML 500 MG/250 ML BAG 250 MG IVPB (00:43)
[2023-08-16] MEDS: cefTRIAXone 2 GM/NS 100 ML 2 GM/100 ML BAG IVPB (00:43)
[2023-08-16] MEDS: methylPREDNISolone SOD SUCC 125 MG VIAL 60 MG IV PUSH ×4 (00:43→16:58)
--- NOTE | 2023-08-16 07:28 | PM.IMPN ---
Progress Note: A&P Assessment and Plan (1) Acute hypoxic respiratory failure: Code(s): J96.01 - Acute respiratory failure with hypoxia Status: Acute Assessment and Plan: Admit to IMU on supplemental oxygen by [place] 2 L per minute, sating 96% Patient normally on room air and wears bipap at night. 08/14: Transition to medical floor. Still requiring 2 L. BiPAP at night with home settings. 08/15: Continues with oxygen. She is sating 90% on room air and needs oxygen with activity. Walking study completed and she will require oxygen at 2 L NC with activity. Venous blood gas showed PH 7.392 , pCO2 54.4, pO2 34.2, HCO3 32.3 (2) COPD with exacerbation: Code(s): J44.1 - Chronic obstructive pulmonary disease with (acute) exacerbation Status: Acute Assessment and Plan: Started on Rocephin and Zithromax Respiratory panel negative Blood cultures pending Systemic steroids methpred 60 mg IVP Q 6 hours--still wheezing Duo nebs Q 4 hours scheduled Mucinex ordered BID Trelegy inhaler ordered Pulmonary rehab at d/c 08/14: Continue IV steroids as she is still having expiratory wheeze. Continue nebulizers. Continue IV antibiotics. 08/15: Continue with IV steroids. Added Pulmicort inhaler. (3) Tobacco dependence: Code(s): F17.200 - Nicotine dependence, unspecified, uncomplicated Status: Acute Assessment and Plan: Nicotine patch as needed Encourage cessation and teaching surrounding tobacco abuse. Plan Feeding: regular diet Analgesia:tylenol Thromboembolic prophylaxis: lovenox Ulcer prophylaxis: pepcid Glycemic control: monitor blood glucose on BMP while on steroids Bowel regimen: n/a Lines: PIV Antibiotics: Rocephin, azithromycin Disposition: home when medically ready Subjective Date/time seen: 08/16/23 07:28 Interval history: This is a 53 yo female with PMHx significant for COPD/Emphysema, Tobacco dependence, currently smokes 1 pack of cigarettes daily. comes to outside facility ED due to worsening sob, productive cough of copious yellowish bingham sputum, poor appetite.Required supplemental oxygen by [place].Transferred to our facility. 08/13: Mrs. Harden is seen resting in bed on 2 L nasal cannula. She appears short of breath. She states that her breathing is improved from when she first presented to the hospital but she is still dyspneic at rest. Normally she does not wear oxygen and she can walk approximately 30-50 feet without becoming short of breath. She does have a BiPap that she wears at night but she is unsure of her settings. She denies productive sputum this morning. She still has expiratory wheezing present and she appears anxious. She is tolerating a diet and voiding without difficulty. The nurse states the patient has been tearful due to the recent loss of her mother. 08/14: No acute events overnight. Patient was transition out of the IMU to medical floor. She appears in no acute distress at rest. She still requiring 2 L of oxygen and is still having expiratory wheezing. There is some improvement to her dyspnea per her reports. 08/15: Still having headache this morning. The patient had said that she wears BiPAP at night but today she tells me she only uses CPAP at home and she is here to get a BiPAP. She was sent initially to [facility] for BiPAP needs for elevated CO2. She has continued with nasal cannula 2 LPM. She states her breathing is better. She is still having expiratory wheezing to LLL. Continue IV steroids today. Review of Systems Review of Systems: All systems reviewed & are unremarkable except as noted in HPI and below Exam Narrative: General: chronically ill appearing, appears older than stated age. HEENT: normocephalic, atraumatic. Mucous membranes moist. EOMI, PERRLA, bilateral sclera anicteric, no conjunctival injection. Neck supple without JVD, lymphadenopathy, or bruit. Respiratory: clear-diminished on auscultation bilaterally. No rales/rhoni
[2023-08-16 07:41] LABS: Basophils Percent Auto 0.1 % (0.2-1.2); Hematocrit 36.3 % (37.0-47.0); Hemoglobin 11.4 g/dL (12.0-15.0); Immature Granulocyte Absolute 0.12 K/mm3 (0.00-0.031); Immature Granulocyte Percent A 1.1 % (0-0.5); Lymphocytes Absolute Auto 1.15 K/mm3 (0.9-3.2); Lymphocytes Percent Auto 10.4 % (18.3-44.2); Mean Corpuscular HGB Conc 31.4 g/dl (32-36); Mean Corpuscular Hemoglobin 28.7 pg (26-34); Mean Corpuscular Volume 91.4 fl (80-100); Mean Platelet Volume 9.9 fl (7.4-10.4); Monocytes Absolute Auto 0.4 K/mm3 (0.1-0.6); Monocytes Percent Auto 3.4 % (2.6-8.5); Neutrophils Absolute Auto 9.4 K/mm3 (1.3-6.7); Platelet Count Result 353 k/mm3 (150-375); Red Blood Count 3.97 M/mm3 (4.2-5.4); Red Cell Distribution Width 12.9 % (11.5-14.5); White Blood Count 11.1 K/mm3 (4.5-10.0)
[2023-08-16] MEDS: HYDROcodone/acetaminophen (*CRX) 5-325 MG TABLET 1 TAB PO (07:57)
[2023-08-16] MEDS: NICOTINE (*PBKC) 21 MG PATCH 1 PATCH TRANSDERM (08:00)
[2023-08-16] MEDS: MELOXICAM 7.5 MG TABLET 15 MG PO (08:00)
[2023-08-16] MEDS: ENOXAPARIN 40 MG/0.4 ML SYRINGE SUB-Q (08:00)
[2023-08-16] MEDS: ROFLUMILAST 500 MCG TABLET PO (08:00)
[2023-08-16] MEDS: MONTELUKAST SODIUM 10 MG TABLET PO (08:01)
[2023-08-16] MEDS: FAMOTIDINE 20 MG TABLET 40 MG PO (08:01)
[2023-08-16] MEDS: guaiFENesin 12 HR 600 MG TABCR 1200 MG PO ×2 (08:01→21:03)
[2023-08-16] MEDS: hydrOXYzine HCL 25 MG TABLET PO ×2 (08:01→16:58)
[2023-08-16 08:02] LABS: Alanine Aminotransferase 42 U/L (6-35); Albumin Level 3.4 g/dL (3.5-5.1); Alkaline Phosphatase 61 U/L (38-126); Anion Gap 5 mmol/L (4-12); Aspartate Amino Transferase 44 U/L (14-36); Bilirubin,Total 0.2 mg/dL (0.2-1.3); Blood Urea Nitrogen 28 mg/dL (7-17); Calcium 8.7 mg/dL (8.4-10.2); Carbon Dioxide 31 mmol/L (22-30); Chloride 102 mmol/L (98-107); Estimated CRCL calculation 67 ml/min; Estimated Glomerular Filt Rate > 60; Glucose 151 mg/dL (65-110); Potassium 4.2 mmol/L (3.4-5.0); Sodium 138 mmol/L (137-145)
[2023-08-16] MEDS: FLUTICASONE/UMECLIDIN/VILANTER 100-62.5-25 MCG ELLIPTA 1 PUFF INHALATION ×2 (08:57→20:36)
--- NOTE | 2023-08-16 11:55 | HOMEO2EVAL ---
Evaluation was performed at [facility] Home Oxygen Evaluation RC: Home Oxygen (O2) Evaluation Start: 08/16/23 11:52 Freq: ONCE Status: Active Protocol: RPE Activity Type Activity Date Activity User E-sign Co-sign Detail Recorded Client Recorded Date Recorded By Document 08/16/23 11:10 DJO [email or web address] 08/16/23 11:55 DJO Document 08/16/23 11:10 [email or web address] [email or web address] 08/16/23 11:55 DJO Document 08/16/23 11:15 [email or web address] [email or web address] 08/16/23 11:55 DJO Document 08/16/23 11:20 [email or web address] [email or web address] 08/16/23 11:55 DJO Document 08/16/23 11:40 [email or web address] [email or web address] 08/16/23 11:55 DJO 08/16/23 08/16/23 08/16/23 11:10 11:10 11:15 Home O2 Evaluation [Oxygen] -Test Phase Resting Exercise Exercise -Oxygen Delivery Room Air Room Air Nasal Cannula -Oxygen Flow Rate (L/min) 1 [Pulse Oximetry] -Pulse Oximetry (90-100 %) 90 87 L 88 L [Pulse Rate] -Pulse Rate (60-100 beats/min) 105 H 128 H 110 H [Evaluation] -Activity Tolerance [Charges] -Evaluation Charges O2 Evaluation by Pulmonary 08/16/23 08/16/23 11:20 11:40 Home O2 Evaluation [Oxygen] -Test Phase Exercise Resting -Oxygen Delivery Nasal Cannula Room Air -Oxygen Flow Rate (L/min) 2 [Pulse Oximetry] -Pulse Oximetry (90-100 %) 91 90 [Pulse Rate] -Pulse Rate (60-100 beats/min) 131 H 104 H [Evaluation] -Activity Tolerance Good [Charges] -Evaluation Charges
[2023-08-16 12:24] LABS: Device NASAL CANNULA; Fractional Inspired Oxygen 28 %; HCO3 VBG 32.3 mEq/l (24.0-30.0); PCO2 VBG 54.4 mmHg (42.0-48.0); PO2 VBG 34.2 mmHg (35.0-45.0); pH VBG 7.392 (7.300-7.400)
[2023-08-16] MEDS: ACETAMINOPHEN/BUTALBITAL/CAFFEINE 325-50-40 MG TABLET (FIORICET) 1 TAB PO (12:26)
[2023-08-16] MEDS: BUDESONIDE RESPULE NEB 0.5 MG/2 ML AMP INHALATION (20:27)
[2023-08-16] MEDS: ALPRAZolam (*CRX) 0.25 MG TABLET PO (21:03)
[2023-08-17] VITALS (9 sets, daily range): BP systolic 115–131; BP diastolic 79–96; PULSE 87–115; RESP 16–22; TEMP 36.1–36.3; O2SAT 94–98
[2023-08-17] MEDS: methylPREDNISolone SOD SUCC 125 MG VIAL 60 MG IV PUSH ×2 (01:15→06:11)
[2023-08-17] MEDS: ONDANSETRON INJ 4 MG/2 ML VIAL IV PUSH (01:15)
[2023-08-17] MEDS: AZITHROMYCIN 500 MG/NS 250 ML 500 MG/250 ML BAG 250 MG IVPB (01:16)
[2023-08-17] MEDS: cefTRIAXone 2 GM/NS 100 ML 2 GM/100 ML BAG IVPB (01:16)
--- NOTE | 2023-08-17 04:18 | PC.NURSE ---
Patient c/o burning/stinging pain to IV site while azithromycin infusing. Slowed rate, patient cont to c/o pain. Paused infusion at this time. Patient then refused to complete antibiotics.
[2023-08-17] MEDS: IPRATROPIUM 0.5 MG/ALBUTEROL SULFATE 2.5 MG AMPUL.NEB 3 ML INHALATION ×3 (04:25→11:13)
[2023-08-17 06:59] LABS: Alanine Aminotransferase 115 U/L (6-35); Albumin Level 3.3 g/dL (3.5-5.1); Alkaline Phosphatase 55 U/L (38-126); Anion Gap 3 mmol/L (4-12); Aspartate Amino Transferase 55 U/L (14-36); Bilirubin,Total 0.2 mg/dL (0.2-1.3); Blood Urea Nitrogen 29 mg/dL (7-17); Calcium 8.4 mg/dL (8.4-10.2); Carbon Dioxide 32 mmol/L (22-30); Chloride 102 mmol/L (98-107); Estimated CRCL calculation 76 ml/min; Estimated Glomerular Filt Rate > 60; Glucose 128 mg/dL (65-110); Magnesium 2.1 mg/dL (1.6-2.3); Potassium 4.3 mmol/L (3.4-5.0); Sodium 137 mmol/L (137-145)
[2023-08-17 07:11] LABS: Basophils Percent Auto 0.2 % (0.2-1.2); Hematocrit 35.8 % (37.0-47.0); Hemoglobin 11.2 g/dL (12.0-15.0); Immature Granulocyte Absolute 0.17 K/mm3 (0.00-0.031); Immature Granulocyte Percent A 1.9 % (0-0.5); Lymphocytes Absolute Auto 1.21 K/mm3 (0.9-3.2); Lymphocytes Percent Auto 13.5 % (18.3-44.2); Mean Corpuscular HGB Conc 31.3 g/dl (32-36); Mean Corpuscular Hemoglobin 28.5 pg (26-34); Mean Corpuscular Volume 91.1 fl (80-100); Mean Platelet Volume 9.9 fl (7.4-10.4); Monocytes Absolute Auto 0.5 K/mm3 (0.1-0.6); Monocytes Percent Auto 5.2 % (2.6-8.5); Neutrophils Absolute Auto 7.1 K/mm3 (1.3-6.7); Neutrophils Percent Auto 79.2 % (45.5-73.1); Platelet Count Result 361 k/mm3 (150-375); Red Blood Count 3.93 M/mm3 (4.2-5.4); Red Cell Distribution Width 12.7 % (11.5-14.5)
[2023-08-17] MEDS: BUDESONIDE RESPULE NEB 0.5 MG/2 ML AMP INHALATION (07:46)
[2023-08-17] MEDS: FLUTICASONE/UMECLIDIN/VILANTER 100-62.5-25 MCG ELLIPTA 1 PUFF INHALATION (07:47)
[2023-08-17] MEDS: ACETAMINOPHEN/BUTALBITAL/CAFFEINE 325-50-40 MG TABLET (FIORICET) 1 TAB PO (08:46)
[2023-08-17] MEDS: ENOXAPARIN 40 MG/0.4 ML SYRINGE SUB-Q (08:47)
[2023-08-17] MEDS: NICOTINE (*PBKC) 21 MG PATCH 1 PATCH TRANSDERM (08:47)
[2023-08-17] MEDS: FAMOTIDINE 20 MG TABLET 40 MG PO (08:48)
[2023-08-17] MEDS: guaiFENesin 12 HR 600 MG TABCR 1200 MG PO (08:48)
[2023-08-17] MEDS: MELOXICAM 7.5 MG TABLET 15 MG PO (08:48)
[2023-08-17] MEDS: ROFLUMILAST 500 MCG TABLET PO (08:48)
[2023-08-17] MEDS: MONTELUKAST SODIUM 10 MG TABLET PO (08:48)
[2023-08-17] MEDS: hydrOXYzine HCL 25 MG TABLET PO (08:48)
--- NOTE | 2023-08-20 17:03 | PM.DS ---
DS: Admitting Diagnosis Discharge Date 08/17/23 Admitting Diagnosis shortness of breath DS: Discharge Diagnosis Discharge Diagnosis (1) Acute hypoxic respiratory failure: Code(s): J96.01 - Acute respiratory failure with hypoxia Status: Acute Assessment and Plan: Admit to IMU on supplemental oxygen by NC 2 L per minute, sating 96% Patient normally on room air and wears bipap at night. 08/14: Transition to medical floor. Still requiring 2 L. BiPAP at night with home settings. 08/15: Continues with oxygen. She is sating 90% on room air and needs oxygen with activity. Walking study completed and she will require oxygen at 2 L NC with activity. Venous blood gas showed PH 7.392 , pCO2 54.4, pO2 34.2, HCO3 32.3 (2) COPD with exacerbation: Code(s): J44.1 - Chronic obstructive pulmonary disease with (acute) exacerbation Status: Acute Assessment and Plan: Started on Rocephin and Zithromax Respiratory panel negative Blood cultures pending Systemic steroids methpred 60 mg IVP Q 6 hours--still wheezing Duo nebs Q 4 hours scheduled Mucinex ordered BID Trelegy inhaler ordered Pulmonary rehab at d/c 08/14: Continue IV steroids as she is still having expiratory wheeze. Continue nebulizers. Continue IV antibiotics. 08/15: Continue with IV steroids. Added Pulmicort inhaler. (3) Tobacco dependence: Code(s): F17.200 - Nicotine dependence, unspecified, uncomplicated Status: Acute Assessment and Plan: Nicotine patch as needed Encourage cessation and teaching surrounding tobacco abuse. Plan Feeding: regular diet Analgesia:tylenol Thromboembolic prophylaxis: lovenox Ulcer prophylaxis: pepcid Glycemic control: monitor blood glucose on BMP while on steroids Bowel regimen: n/a Lines: PIV Antibiotics: Rocephin, azithromycin Disposition: home when medically ready DS: Summary Hospital Course Reason for hospitalization: COPD exacerbation Hospital Course: This is a 53 yo female with PMHx significant for COPD/Emphysema, Tobacco dependence, currently smokes 1 pack of cigarettes daily. comes to outside facility ED due to worsening sob, productive cough of copious yellowish bingham sputum, poor appetite.Required supplemental oxygen by [place].Transferred to our facility. 08/13: Mrs. Harden is seen resting in bed on 2 L nasal cannula. She appears short of breath. She states that her breathing is improved from when she first presented to the hospital but she is still dyspneic at rest. Normally she does not wear oxygen and she can walk approximately 30-50 feet without becoming short of breath. She does have a BiPap that she wears at night but she is unsure of her settings. She denies productive sputum this morning. She still has expiratory wheezing present and she appears anxious. She is tolerating a diet and voiding without difficulty. The nurse states the patient has been tearful due to the recent loss of her mother. 08/14: No acute events overnight. Patient was transition out of the IMU to medical floor. She appears in no acute distress at rest. She still requiring 2 L of oxygen and is still having expiratory wheezing. There is some improvement to her dyspnea per her reports. 08/15: Still having headache this morning. The patient had said that she wears BiPAP at night but today she tells me she only uses CPAP at home and she is here to get a BiPAP. She was sent initially to [facility] for BiPAP needs for elevated CO2. She has continued with nasal cannula 2 LPM. She states her breathing is better. She is still having expiratory wheezing to LLL. Continue IV steroids today. 08/16: Wheezing resolved, shortness of breath resolved. Breathing is back to baseline. Time Spent with Patient Time attestation: Total time spent providing and/or coordinating discharge services:66 Exam Narrative: General: chronically ill appearing, appears older than stated age. HEENT: normocephalic, atraumat
== END 2023-08-17 13:20 | disposition home or self-care (01) | DRG 140 ==
LOC: ANHICU 02:49 → ANHIMU 05:05 → ANH3MEDSUR 12:45
PROVIDERS: Admitting Provider Internal Medicine; PCP Physician Assistant; Visit Provider Nurse Practitioner Acute Care
DX: J44.1 Chronic obstructive pulmonary disease with (acute) exacerbation (principal); J96.01 Acute respiratory failure with hypoxia; F17.210 Nicotine dependence, cigarettes, uncomplicated
CPT/HCPCS: 36415; 80048; 80053; 82803; 83735; 84100; 85025; 85610; 85730; 87040; 94618; 94640; 94660; 94669; A9270; J0456; J0696; J1650; J2405; J2919

== ENCOUNTER 2023-11-23 06:52 | Outpatient (CLI) | payer OTHER, SELFPAY ==
--- NOTE | ~2023-11-23 | MR_ITS ---
EXAMINATION: MR cervical spine wo con DATE: 11/23/2023 07:57 INDICATION: Radiculopathy. Neck pain. TECHNIQUE: Magnetic resonance imaging (MRI) of the cervical spine was performed without intravenous c ontrast. Sequences included sagittal T2-weighted FSE, sagittal T2-weighted FS FSE, sagittal T1-weight ed FSE, axial MERGE, and axial T2-weighted FSE. COMPARISON: CT cervical spine 06/12/2023 FINDINGS: Bone alignment is normal. There are changes of disc replacement at C6-C7. Vertebral body he ights are normal. Intervertebral disc heights are normal. The spinal cord signal intensity is normal. The following disc levels are specifically discussed: C2-C3: There is a central protrusion. There is no uncovertebral joint osteoarthritis. There is modera te right and mild left facet joint osteoarthritis. There is no neural foraminal stenosis. There is no central canal stenosis. C3-C4: There is a central extrusion. There is no uncovertebral joint osteoarthritis. There is severe right and moderate left facet joint osteoarthritis. There is mild bilateral neural foraminal stenosis . There is no central canal stenosis. C4-C5: There is a central extrusion. There is mild bilateral uncovertebral joint osteoarthritis. Ther e is severe right and mild left facet joint osteoarthritis. There is mild right neural foraminal sten osis. There is mild central canal stenosis with ventral indentation of the spinal cord. C5-C6: There is a central extrusion. There is mild bilateral uncovertebral joint osteoarthritis. Ther e is mild bilateral facet joint osteoarthritis. There is mild right neural foraminal stenosis. There is mild central canal stenosis. C6-C7: There is no uncovertebral joint hypertrophy. There is no facet joint osteoarthritis. There is no neural foraminal stenosis. There is no central canal stenosis. C7-T1: There is a central extrusion. There is no uncovertebral joint osteoarthritis. There is moderat e bilateral facet joint osteoarthritis. There is mild bilateral neural foraminal stenosis. There is n o central canal stenosis. IMPRESSION: 1. Mild cervical spondylosis. 2. Disc replacement at C6-C7. Reviewed, dictated and finalized at location A.
== END 2023-11-23 06:53 | disposition home or self-care (01) ==
LOC: CHSIMG 06:53
PROVIDERS: PCP Physician Assistant; Visit Provider Physician Assistant
DX: M54.12 Radiculopathy, cervical region (principal); M43.02 Spondylolysis, cervical region
CPT/HCPCS: 72141

== ENCOUNTER 2024-04-04 18:53 | Emergency (ER) | payer OTHER, SELFPAY ==
[2024-04-04] VITALS (12 sets, daily range): BP systolic 121–148; BP diastolic 72–106; PULSE 96–114; RESP 20; TEMP 36.4; O2SAT 94–100
--- NOTE | ~2024-04-04 | XR_ITS ---
EXAMINATION: XR chest 1V portable Exam Date/Time: 04/04/2024 19:25 FILM AND VIDEO EDITOR HISTORY: shortness of beath Comparison: X-ray and CT chest 08/13/2023. RESULT: Lines, tubes, and devices: Cervical interbody device. Lungs and pleura: Clear. Cardiomediastinal silhouette: Decreased prominence of the right paratracheal opacity. Other: No acute osseous or upper abdominal finding. IMPRESSION: No acute cardiopulmonary process. Reviewed, dictated and finalized at location K. AND VIDEO EDITOR
--- OUTSIDE RECORDS SUMMARY | 2024-04-04 18:56 | XMS_ITS | Encounter Summary ---
Author Organization [facility] Address [address] [place] [address] Phone Care Team Providers Care Junior Qa Analyst Name Role Phone Janes Elkins Naveen FAITH Primary Care Provider [phone] Veda Motley APRN, EMERGENCY WORKER Unavailable Miriam Aquino APRN, EMERGENCY WORKER Unavailable Sergio Hussein MD Unavailable Reason for Visit * Reason Comments Medication Refill Encounter Details Date Type Department Care Team (Late st Contact Info) Description 10/21/2023 Refill [facility] - [facility] #2 [place] [id number] Miriam Aquino APRN, EMERGENCY WORKER [address] [place] [address] Medication Refill Social History Tobacco Use Types Packs/Day Years Used Date Smoking Tobacco: Every Day Cigarettes 1 43.1 Started: 1981 Smokeless Tobacco: Never Alcohol Use Standard Drinks/Week Comments No 0 (1 standard drink = 0.6 oz pur e alcohol) Sexually Active Control Partners Comments Yes Post-menopausal Male 2020 (early) Comments No Sex and Gender Information Value Date Recorded Sex Assigned at Not on file Legal Sex Female 8:47 PM CDT Gender Identity Not on file Sexual Orientation Not on file documented as of this encounter Miscellaneous Notes * Telephone Encounter - Joann Adames RN - 10/23/2023 3:24 PM CDT Medication refilled and signed per [facility] chronic medication standing order for pediatric and adult patients. documented in this encounter Plan of Treatment Upcoming Encounters Date Type Department Care Team (Late st Contact Info) Description 04/16/2024 3:00 PM BAKERY HELPER Office Visit [facility] - Pulmonology & [facility] Medicine - [place] [address] [place] [address] Veda Motley APRN, EMERGENCY WORKER #[address] [address] documented as of this encounter Visit Diagnoses Not on filedocumented in this encounter Care Teams Junior Qa Analyst Relationship Specialty Start Date End Date Janes Elkins PAC [address] [place] [id number] PCP - General Physician Cash Accountant 04/07/21 Veda Motley APRN, MEHNAZ #[address] [address] Nurse Practitioner Advanced Practice Nurse 05/18/21 Miriam Aquino APRN, EMERGENCY WORKER [address] [place] [address] Nurse Practitioner Advanced Practice Nurse 05/26/22 Sergio Hussein MD #[address] [address] Consulting Physician Colon and Rectal Surgery 07/24/23 documented as of this encounter
--- OUTSIDE RECORDS SUMMARY | 2024-04-04 18:56 | XMS_ITS | Clinical Summary ---
Author Organization [facility] Address [address] [place] [address] Phone Care Team Providers Care Advertising Solicitor Name Role Phone Janes Elkins Naveen FAITH Primary Care Provider [phone] Veda Motley APRN, CLINICAL CODER Unavailable [phone] Miriam Aquino APRN, CLINICAL CODER Unavailable Sergio Hussein MD Unavailable Allergies Active Allergy Reactions Criticality Noted Date Comments Latex Rash 05/30/2015 Medications ALBUTEROL IN take by inhalation. Active Respiratory Therapy Supplies (NEBULIZER) by Does not apply route. Active albuterol (PROVENTIL, VENTOLIN) (2.5 MG/3ML) 0.083% Nebulizer Soln 3 mL by Nebulization route every 6 hours as needed for Wheezing. 25 Vial 0 05/30/19 16 Active tiZANidine (ZANAFLEX) 2 MG Tablet Take 1 Tab by mouth 3 times daily. 90 Tab 0 07/19/19 16 Active Additional Information Patient not taking.Reported on 11/27/2021 busPIRone (BUSPAR) 10 MG Tablet Take 10 mg by mouth every morning. 04/19/19 Active famotidine (PEPCID) 40 MG Tablet Take 40 mg by mouth 2 times daily. 04/19/19 Active hydrOXYzine (ATARAX) 25 MG Tablet Take 25 mg by mouth every 8 hours as needed for Anxiety. 04/19/19 22 Active ipratropium-alb uterol (DUO-NEB) 0.5-2.5 (3) MG/3ML Solution 05/03/19 Active ipratropium-alb uterol (DUO-NEB) 0.5-2.5 (3) MG/3ML Solution 04/19/19 Active loratadine (CLARITIN) 10 MG Tablet Take 10 mg by mouth daily. 05/06/19 Active Multiple Vitamin (MULTI-VITAMIN PO) Take by mouth daily. HOLD FOR 5 DAYS PRIOR TO PROCEDURE Active nicotine (NICOTROL) 10 MG InhalerIndicati ons:Other emphysema (HCC) take 1 Puff by inhalation as needed for Smoking cessation. To not exceed 16 inhalations per day. 1 Each 3 02/16/20 22 Active Additional Information Patient not taking.Reported on 03/19/2023 Varenicline Tartrate, Starter, 0.5 MG X 11 & 1 MG X 42 Tablet Therapy Pack Follow direction on box 53 Each 04/06/19 Active Additional Information Patient not taking.Reported on 10/15/2023 albuterol 108 (90 Base) MCG/ACT Aerosol Solution take 2 Puffs by inhalation every 6 hours as needed for Wheezing. 18 g 3 06/13/19 23 Active meloxicam (MOBIC) 15 MG Tablet 06/02/19 23 Active benzonatate (TESSALON) 100 MG Capsule TAKE ONE CAPSULE BY MOUTH THREE TIMES A DAY NEEDED FOR COUGH 30 Capsule 1 10/16/19 23 Active Additional Information Patient taking differently: 200 mg, Reported on 10/19/2022 omeprazole (PriLOSEC) 40 MG CAPSULE DELAYED RELEASE Take 1 Capsule by mouth daily. 90 Capsule 3 10/20/19 23 Active Fluticasone-Ume clidin-Vilant (Trelegy Ellipta) 100-62.5-25 MCG/ACT AEROSOL POWDER, BREATH ACTIVATEDIndica tions:Centrilob ular emphysema (HCC) take 1 Puff by inhalation daily. 60 Each 5 01/08/20 23 Active Additional Information Patient not taking.Reported on 07/12/2023 ondansetron (ZOFRAN-ODT) 4 MG TABLET DISPERSIBLEIndi cations:Nausea and vomiting, unspecified vomiting type TAKE ONE TABLET BY MOUTH EVERY EIGHT HOURS NEEDED FOR NAUSEA 20 Tablet 02/08/20 23 Active penciclovir (DENAVIR) 1 % CreamIndication s:Cold sore Apply every 2 hours. Application Site: nasal sore (Description and Location) 5 g 1 03/19/19 24 Active Additional Information Patient not taking.Reported on 07/12/2023 Fluticasone-Ume clidin-Vilant (Trelegy Ellipta) 100-62.5-25 MCG/ACT AEROSOL POWDER, BREATH ACTIVATEDIndica tions:Centrilob ular emphysema (HCC) take 1 Puff by inhalation daily. 06/13/19 24 Active celecoxib (CeleBREX) 200 MG Capsule Active capsaicin (ZOSTRIX) 0.025 % Cream APPLY TO THE AFFECTED AREA(S) BY TOPICAL ROUTE 3 TIMES PER DAY Active valACYclovir (VALTREX) 1 GM Tablet Take 1 tablet every 12 hours by oral route for 5 days. Active promethazine (PHENERGAN) 12.5 MG SuppositoryIndi cations:Nausea and vomiting, unspecified vomiting type 1 Suppository by Rectal route every 6 hours as needed for Nausea - 1st line. 12 Suppository 1 07/12/19 24 Active dicyclomine (BENTYL) 20 MG Tablet TAKE ONE TABLET BY MOUTH THREE TIMES A DAY 90 Tablet 2 10/23/19 24 Active roflumilast (DALIRESP) 500 MCG TabletIndicatio ns:Other emphysema (HCC) TAKE ONE TABLET BY MOUTH DAILY 30 Tablet 5 02/03/20 24 Active dicyclomine (BENTYL) 10 MG CapsuleIndicati ons:Generalized abdominal pain TAKE ONE CAPSULE BY MOUTH TWICE A DAY 60 Capsule 1 10/13/19 23 Discontin ued(Dose adjustmen t) Active Problems Problem Noted Date Diagnosed Date Chronic respiratory failure with hypoxia 024 Cold sore 03/19/2023 Irritable bowel syndrome 03/18/2023 Mixed anxiety and depressive disorder 03/18/2023 Overview (07/12/2023): seeing counsellor at [facility] 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 Subacute cough 02/15/2022 Mixed simple and mucopurulent chronic bronchitis 08/17/2021 Personal history of tobacco use 05/18/2021 SOB (shortness of breath) 05/18/2021 Centrilobular emphysema 05/18/2021 Encounters Date Type Department Care Team Description 02/21/2024 Results Follow-Up [facility] Pulmonology & Sleep Medicine [facility] [address] [place] [address] Veda Motley APRN, CNP Lung nodule (Primary Dx) 02/13/2024 10:00 AM GATE CLERK - 02/13/2024 11:59 PM GATE CLERK [facility] [address] [place] [address] Veda Motley APRN, CNP Discharge Disposition: Discharged to home or Selfcare 02/13/2024 Travel 02/01/2024 [facility] [address] [place] [address] Veda Motley APRN, CNP Medication Refill from Last 3 Months Family History Medical History Relation Name Comments Other-comment Daughter 2 stomach issues Diabetes Father Heart Disease Father Hypertension Father Cancer Maternal Grandfather pancrea tic Cancer Maternal Grandmother Heart Attack Mother Heart Disease Mother Other-comment Mother FIBROMYALGIA Rheumatoid Arthritis Mother Cancer Paternal Grandmother Relation Name Status Comments Daughter 1 Alive Daughter 2 Alive Father Alive Half-Brother Alive Maternal Grandfather Maternal Grandmother Mother Paternal Grandmother Sister Alive Son Alive Social History Tobacco Use Types Packs/Day Years Used Date Smoking Tobacco: Every Day Cigarettes 1 43.1 Started: 1981 Smokeless Tobacco: Never Tobacco Cessation:Ready to Q uit: Not Asked; Counseling Given: Not Answered Alcohol Use Standard Drinks/Week Comments No 0 (1 standard drink = 0.6 oz pur e alcohol) Sexually Active Control Partners Comments Yes Post-menopausal Male 2020 (early) Comments No Sex and Gender Information Value Date Recorded Sex Assigned at Not on file Legal Sex Female 8:47 PM CDT Gender Identity Not on file Sexual Orientation Not on file Last Filed Vital Signs Vital Sign Reading Time Taken Comments Blood Pressure 122/64 10/15/2023 2:18 PM CDT Pulse 89 10/15/2023 2:18 PM CDT Temperature 36.3 ??C (97.3 ??F) 10/15/2023 2:18 PM CD T Respiratory Rate 16 10/15/2023 2:18 PM CDT Oxygen Saturation 97% 10/15/2023 2:18 PM CDT Inhaled Oxygen Concentration - - Weight 69.4 kg (153 lb) 11/13/2023 2:06 PM CDT Height 157.5 cm (5' 2 ) 11/13/2023 2:06 PM CDT Body Mass Index 27.98 11/13/2023 2:06 PM CDT Plan of Treatment Upcoming Encounters Date Type Department Care Team (Late st Contact Info) Description 04/16/2024 3:00 PM GATE CLERK Office Visit [facility] - Pulmonology & Sleep Medicine - [place] [address] [place] [address] Veda Motley, TELE GROUT SEWER LINE REPAIRER, CLINICAL CODER #2 [facility] [address] [place] [address] Health Maintenance Due Date Last Done Comments Hepatitis C Virus (HCV) Screening 1971 Hepatitis B Immunization (1 of 3 - 19+ 3-dose series) 1990 Pneumococcal Immunization (50+ years) (1 of 2 - PCV) 1990 Pap Smear 02/17/1992 Cervical Cancer Screening (CCS) 2001 HPV/Cotest 2001 Cologuard 2021 Immunochemical Fecal Occult Blood 2021 Zoster Immunization (1 of 2) 2021 Influenza Immunization (#1) 2023 SARS-COV-2 Immunization ( - season) 2023 Lung Cancer Screening 02/12/2025 02/13/2024 , 10/28/2023, 07/11/2022, Additional history exists Mammogram 04/10/2025 04/10/2023 Colonoscopy 12/06/2028 12/06/2021, 12/06/2021 Colorectal Cancer Screening 12/06/2028 Respiratory Syncytial Virus (RSV) Immunization (Adult) (1 - 1-dose 75+ series) 2046 12/06/2021, 12/06/2021 DTaP/Tdap/Td Immunization Discontinued 12/22/2022, 10/2015 TdaP Immunization Completed 12/22/2022, 02/09/2016 Meningococcal Immunization (ACWY) Aged Out No longer eligible based on patient's age to complete this topic Rotavirus Immunization Aged Out No lo nger eligible based on patient's age to complete this topic Procedures Procedure Name Priority Date/Time Associated Diagnosis Comments CT CHEST W/O CONTRAST Routine 02/13/2024 10:23 AM GATE CLERK Lung nodule from Last 3 Months Results * CT CHEST W/O CONTRAST (02/13/2024 10:23 AM GATE CLERK) Anatomical Region Laterality Modality Chest N/A Computed Tomogra phy 02/20/2024 1:40 PM GATE CLERK Impressions 02/20/2024 1:43 PM GATE CLERK IMPRESSION: ?? 1. ?? Interval decrease in density of wedge-shaped area of nodular opacity within the posterior aspect of the left lower lobe. ??Grossly stable in size. ??Continued attention on follow-up recommended. 2. ?? Interval development of filling defect within right lower lobe bronchus, favored to represent secretions. ??Three-month follow-up CT recommended. 3. ?? Several additional nodules, either stable or decreased in size compared to the prior examination. ??No new suspicious nodule present. 4. ?? No lymphadenopathy. Narrative 02/20/2024 1:43 PM GATE CLERK EXAM DESCRIPTION: ?? CT CHEST W/O CONTRAST REASON FOR STUDY: ?? follow up lung nodule seen on screening recommends PET. prior PET on 11/13/23 noted low grade neoplasm not excluded follow up CT. ?? TECHNIQUE: CT scan of the chest performed without intravenous contrast using helical scanning technique. Reconstructed coronal and sagittal MPR images reviewed. ??All images stored on PACS. ??Automated exposure control was used as a dose optimization technique for this examination. COMPARISON: ?? PET-CT 11/13/2023, and CT dated 10/28/2023 and 07/11/2022 FINDINGS: The sensitivity for detection of solid visceral lesions is diminished without the use of intravenous contrast. LUNGS: ?? There is a background of emphysema, stable. ??There is bronchial wall thickening as can be seen in the setting of chronic bronchitis. ??There is some filling defect within right lower lobe bronchi on axial image number 150, new compared to prior examination in November 2023, and favored to represent secretions. ??Attention on short interval follow-up CT in 3 months recommended. Previously documented nodules are as follows: Interval resolution of the 3 mm nodule on image 31 within the right upper lobe on prior study. 4 mm nodule central right upper lobe image 29, stable. Interval resolution of 4 mm right middle lobe nodule on image [address] Wedge-shaped nodule superior segment left lower lobe image 56 measures 1.3 x 1.2 cm, previously 1.4 x 1.3 cm. ??It is less dense than on the prior examination. 4 mm irregular nodule central left upper lobe image 59, previously 6 mm. 3 mm nodule medial superior segment left lower lobe image 70, stable. There is a 4 mm nodule in the right apex on image number 24, previously 6 mm. 4 mm nodule posterior left upper lobe image 47, stable. 5 mm ground-glass nodule lateral right upper lobe image 56, grossly stable in size. No pneumonic consolidation. PLEURA: ?? No effusion. No pneumothorax. MEDIASTINUM/LILLIE: ?? No mediastinal or hilar lymphadenopathy. ?? Equivocal wall thickening versus decompression in the distal esophagus. ??Correlate with any history of reflux or esophagitis. HEART: ?? The heart is normal in size without pericardial effusion. CORONARY ARTERY CALCIFICATION: ??Present VASCULATURE: ?? Thoracic aorta is within normal limits in caliber. AXILLA: ?? No axillary lymphadenopathy. CHEST WALL: ?? Portions of the chest wall are excluded on this study. HARDWARE/LINES/TUBES: ?? None. UPPER ABDOMEN: ?? The visualized upper abdomen reveals significant incidental findings. MUSCULOSKELETAL: ?? Thoracic spondylosis. ??Degenerative disc disease. No acute osseous abnormality. OTHER: ?? No other significant abnormality. THIS IS AN ELECTRONICALLY VERIFIED FINAL REPORT 02/20/2024 1:40 PM - Electronically signed by ??Shira Ch M.D. TW: ROGELIO D: ??02/20/2024 1:40 PM T: ??02/20/2024 1:40 PM Report ID: [id number] Reading Location: ??[id number] Procedure Note Shira Ch MD - 02/20/2024 EXAM DESCRIPTION: CT CHEST W/O CONTRAST REASON FOR STUDY: follow up lung nodule seen on screening recommends PET. prior PET on 11/13/23 noted low grade neoplasm not excluded follow up CT. TECHNIQUE: CT scan of the chest performed without intravenous contrast using helical scanning technique. Reconstructed coronal and sagittal MPR images reviewed. All images stored on PACS. Automated exposure control was used as a dose optimization technique for this examination. COMPARISON: PET-CT 11/13/2023, and CT dated 10/28/2023 and 07/11/2022 FINDINGS: The sensitivity for detection of solid visceral lesions is diminished without the use of intravenous contrast. LUNGS: There is a background of emphysema, stable. There is bronchial wall thickening as can be seen in the setting of chronic bronchitis. There is some filling defect within right lower lobe bronchi on axial image number 150, new compared to prior examination in November 2023, and favored to represent secretions. Attention on short interval follow-up CT in 3 months recommended. Previously documented nodules are as follows: Interval resolution of the 3 mm nodule on image 31 within the right upper lobe on prior study. 4 mm nodule central right upper lobe image 29, stable. Interval resolution of 4 mm right middle lobe nodule on image [address] Wedge-shaped nodule superior segment left lower lobe image 56 measures 1.3 x 1.2 cm, previously 1.4 x 1.3 cm. It is less dense than on the prior examination. 4 mm irregular nodule central left upper lobe image 59, previously 6 mm. 3 mm nodule medial superior segment left lower lobe image 70, stable. There is a 4 mm nodule in the right apex on image number 24, previously 6 mm. 4 mm nodule posterior left upper lobe image 47, stable. 5 mm ground-glass nodule lateral right upper lobe image 56, grossly stable in size. No pneumonic consolidation. PLEURA: No effusion. No pneumothorax. MEDIASTINUM/LILLIE: No mediastinal or hilar lymphadenopathy. Equivocal wall thickening versus decompression in the distal esophagus. Correlate with any history of reflux or esophagitis. HEART: The heart is normal in size without pericardial effusion. CORONARY ARTERY CALCIFICATION: Present VASCULATURE: Thoracic aorta is within normal limits in caliber. AXILLA: No axillary lymphadenopathy. CHEST WALL: Portions of the chest wall are excluded on this study. HARDWARE/LINES/TUBES: None. UPPER ABDOMEN: The visualized upper abdomen reveals significant incidental findings. MUSCULOSKELETAL: Thoracic spondylosis. Degenerative disc disease. No acute osseous abnormality. OTHER: No other significant abnormality. THIS IS AN ELECTRONICALLY VERIFIED FINAL REPORT 02/20/2024 1:40 PM - Electronically signed by Shira Ch M.D. TW: TW Report ID: [id number] Reading Location: [id number] IMPRESSION: 1. Interval decrease in density of wedge-shaped area of nodular opacity within the posterior aspect of the left lower lobe. Grossly stable in size. Continued attention on follow-up recommended. 2. Interval development of filling defect within right lower lobe bronchus, favored to represent secretions. Three-month follow-up CT recommended. 3. Several additional nodules, either stable or decreased in size compared to the prior examination. No new suspicious nodule present. 4. No lymphadenopathy. Veda Motley APRN, CNP IMYue CT ORDERABLES Fin al Result from Last 3 Months Insurance MEDICAID [place] Care Teams Advertising Solicitor Relationship Specialty Start Date End Date Janes Elkins PAC [address] [place] [id number] PCP - General Physician Reservation Manager 04/07/21 Veda Motley APRN, CNP #[address] [address] Nurse Practitioner Advanced Practice Nurse 05/18/21 Miriam Aquino APRN, CLINICAL CODER [address] [place] [address] Nurse Practitioner Advanced Practice Nurse 05/26/22 Sergio Hussein MD #[address] [address] Consulting Physician Colon and Rectal Surgery 07/24/23
--- OUTSIDE RECORDS SUMMARY | 2024-04-04 18:56 | XMS_ITS | Encounter Summary ---
Author Organization [facility] Address [address] [place] [address] Phone Care Team Providers Care Treasury Associate Name Role Phone Janes Elkins Naveen FAITH Primary Care Provider Veda Motley APRN, COPY WORKER Unavailable Miriam Aquino APRN, COPY WORKER Unavailable Sergio Hussein MD Unavailable Reason for Visit * Reason Comments Medication Refill Encounter Details Date Type Department Care Team (Late st Contact Info) Description 06/13/2023 Refill [facility] - Pulmonology & Sleep Medicine [facility] #2 [place] [id number] Veda Motley APRN, MEHNAZ #[address] [address] Medication Refill Social History Tobacco Use Types Packs/Day Years Used Date Smoking Tobacco: Former Cigarettes 0.3 41.4 1 982 - 08/03/2022 Smokeless Tobacco: Never Alcohol Use Standard Drinks/Week [...] encounter Miscellaneous Notes * Telephone Encounter - Stacie Akhtar RN - 06/13/2023 11:04 AM CDT Medication failed the protocol, provider to review and approve the medication order if appropriate. Requested Prescriptions Pending Prescriptions Disp Refills roflumilast (DALIRESP) 500 MCG Tablet [Pharmacy Med Name: ROFLUMILAST 500 MCG] 30 Tablet 5 Sig: TAKE ONE TABLET BY MOUTH DAILY Not Delegated - Off Protocol Failed - 06/13/2023 10:54 AM Failed - This refill cannot be delegated Passed - Visit with relevant provider in past 12 months or upcoming 90 days Recent Visits Date Type Provider Dept 03/19/23 Office Visit Veda Motley APRN, CNP [facility] [place] 08/24/22 Office Visit Veda Motley APRN, CNP [facility] Showing recent visits within past 365 days and meeting all other requirements Future Appointments Date Type Provider Dept 09/03/23 Appointment Veda Motley APRN, CNP [facility] Showing future appointments within next 90 days and meeting all other requirements documented in this encounter Plan of Treatment Upcoming Encounters Date Type Department Care Team (Late st Contact Info) Description 04/16/2024 3:00 PM WINDING OPERATOR Office Visit [facility] - [facility]ology & [facility] Medicine - [place] [address] [place] [address] Veda Motley APRN, MEHNAZ #[address] [address] documented as of this encounter Visit Diagnoses Diagnosis Other emphysema (HCC) Other emphysema documented in this encounter Care Teams Treasury Associate Relationship Specialty Start Date End Date Janes Elkins, [facility] [address] [place] [id number] PCP - General Physician Benefits Specialist Recruiter 04/07/21 Veda Motley APRN, COPY WORKER #2 [facility] [address] [place] [address] Nurse Practitioner Advanced Practice Nurse 05/18/21 Miriam Aquino APRN, COPY WORKER #2 [place] [address] Nurse Practitioner Advanced Practice Nurse 05/26/22 Sergio Hussein MD #2 [facility] [address] [place] [address] Consulting Physician Colon and Rectal Surgery 07/24/23 documented as of this encounter
--- OUTSIDE RECORDS SUMMARY | 2024-04-04 18:56 | XMS_ITS | Encounter Summary ---
Author Organization [facility] Address [address] [place] [address] Phone Care Team Providers Care Print Production Coordinator Name Role Phone Janes Elkins Naveen FAITH Primary Care Provider Veda Motley APRN, MEDICAL INTERN Unavailable Miriam Aquino APRN, MEDICAL INTERN Unavailable Sergio Hussein MD Unavailable Reason for Visit * Reason Comments Medication Refill Encounter Details Date Type Department Care Team (Late st Contact Info) Description 10/12/2022 Refill [facility] - Pulmonology & Sleep Medicine [facility]2 [place] [phone] Veda Motley APRN, MEHNAZ [address] [address] Medication Refill Social History Tobacco Use Types [...] encounter Miscellaneous Notes * Telephone Encounter - Vianey Morrell RN - 10/12/2022 10:38 AM CDT Medication failed the protocol, provider to review and approve the medication order if appropriate. Requested Prescriptions Pending Prescriptions Disp Refills roflumilast (DALIRESP) 500 MCG Tablet [Pharmacy Med Name: ROFLUMILAST 500 MCG] 30 Tablet 5 Sig: TAKE ONE TABLET BY MOUTH DAILY Not Delegated - Off Protocol Failed - 10/12/2022 10:28 AM Failed - This refill cannot be delegated Passed - Visit with relevant provider in past 12 months or upcoming 90 days Recent Visits Date Type Provider Dept 08/24/22 Office Visit Veda Motley APRN, MEHNAZ [facility] [address] 02/15/22 Office Visit Veda Motley APRN, MEHNAZ [facility] [place] [facility] [address] Showing recent visits within past 365 days and meeting all other requirements Future Appointments No visits were found meeting these conditions. Showing future appointments within next 90 days and meeting all other requirements benzonatate (TESSALON) 100 MG Capsule [Pharmacy Med Name: BENZONATATE 100 MG CAPSULE] 30 Capsule 1 Sig: TAKE ONE CAPSULE BY MOUTH THREE TIMES A DAY NEEDED FOR COUGH Not Delegated - Anti-Tussives Protocol Failed - 10/12/2022 10:30 AM Failed - This refill cannot be delegated Passed - Visit with relevant provider in past 12 months or upcoming 90 days Recent Visits Date Type Provider Dept 08/24/22 Office Visit Veda Motley APRN, CNP [facility] [place] [address] 02/15/22 Office Visit Veda Motley APRN, MEHNAZ [facility] [place] [address] Showing recent visits within past 365 days and meeting all other requirements Future Appointments No visits were found meeting these conditions. Showing future appointments within next 90 days and meeting all other requirements documented in this encounter Plan of Treatment Upcoming Encounters Date Type Department Care Team (Late st Contact Info) Description 04/16/2024 3:00 PM APPRENTICE LINEMAN THIRD STEP Office Visit [facility] - Pulmonology & Sleep Medicine - [place] [address]2 [place] [address] Veda Motley APRN, MEDICAL INTERN #2 [facility] [address] [place] [address] documented as of this encounter Visit Diagnoses Diagnosis Other emphysema (HCC) Other emphysema documented in this encounter Additional Health Concerns Infection Onset Date Last Indicated Resolved Time COVID - 19 04/08/2023 04/10/2023 04/20/2023 12:1 6 AM APPRENTICE LINEMAN THIRD STEP documented as of this encounter Care Teams Print Production Coordinator Relationship Specialty Start Date End Date Janes Elkins, VIANNEY [address] [place] [address] PCP - General Physician Private Investigator Surveillance 04/07/21 Veda Motley APRN, MEDICAL INTERN #2 [facility] [address] [place] [address] Nurse Practitioner Advanced Practice Nurse 05/18/21 Miriam Aquino APRN, MEDICAL INTERN #2 [place] [address] Nurse Practitioner Advanced Practice Nurse 05/26/22 Sergio Hussein MD #[address] [address] Consulting Physician Colon and Rectal Surgery 07/24/23 documented as of this encounter
--- OUTSIDE RECORDS SUMMARY | 2024-04-04 18:56 | XMS_ITS | Encounter Summary ---
Author Organization [facility] Address [address] [place] [address] Phone Care Team Providers Care Brand Mgr Name Role Phone Janes Elkins Naveen FAITH Primary Care Provider [phone] Veda Motley APRN, CENTRIFUGAL SCREEN TENDER Unavailable Miriam Aquino APRN, CENTRIFUGAL SCREEN TENDER Unavailable Sergio Hussein MD Unavailable Reason for Visit * Reason Comments Medication Refill Encounter Details Date Type Department Care Team (Late st Contact Info) Description 11/13/2021 Refill [facility] - Pulmonology & Sleep Medicine [facility] #2 [place] [phone] Veda Motley APRN, MEHNAZ [address] [address] Medication Refill Social History Tobacco Use Types Packs/Day Years Used Date Smoking Tobacco: Every Day Cigarettes 0.5 43.1 Started: 1980 Smokeless Tobacco: Never Alcohol Use Standard Drinks/Week Comments No 0 (1 standard drink = 0.6 oz pur e alcohol) Sexually Active Control Partners Comments Yes Post-menopausal Male 2020 (early) Comments No Sex and Gender Information Value Date Recorded Sex Assigned at Not on file Legal Sex Female 8:47 PM CDT Gender Identity Not on file Sexual Orientation Not on file COVID-19 Exposure Response Date Recorded In the last 10 days, have yo u been in contact with someone who was confirmed or suspected to have Coronavirus/COVID-19? No / Unsure 10/30/2021 2:32 PM CDT documented as of this encounter Miscellaneous Notes * Telephone Encounter - Jessica Goldberg RN - 11/13/2021 11:11 AM CDT Medication failed the protocol, provider to review and approve the medication order if appropriate. Requested Prescriptions Pending Prescriptions Disp Refills benzonatate (TESSALON) 100 MG Capsule [Pharmacy Med Name: BENZONATATE 100 MG CAPSULE] 30 Capsule 0 Sig: TAKE ONE CAPSULE BY MOUTH THREE TIMES A DAY FOR TEN DAYS NEEDED Not Delegated - Anti-Tussives Protocol Failed - 11/13/2021 11:00 AM Failed - This refill cannot be delegated Passed - Visit with relevant provider in past 12 months or upcoming 90 days Recent Visits Date Type Provider Dept 08/17/21 Office Visit Veda Motley APRN, CNP [facility] [place] 05/18/21 Office Visit Veda Motley APRN, CNP [facility] Pul & Sleep [facility] Showing recent visits within past 365 days and meeting all other requirements Future Appointments No visits were found meeting these conditions. Showing future appointments within next 90 days and meeting all other requirements documented in this encounter Plan of Treatment Upcoming Encounters Date Type Department Care Team (Late st Contact Info) Description 04/16/2024 3:00 PM MAIL ROOM CLERK [facility] - Pulmonology & Sleep Medicine - [place] #2 [place] [address] Veda Motley APRN, CENTRIFUGAL SCREEN TENDER #[address] [address] documented as of this encounter Visit Diagnoses Not on filedocumented in this encounter Additional Health Concerns Infection Onset Date Last Indicated Resolved Time COVID - 19 02/15/2022 02/15/2022 02/25/2022 12:1 6 AM MAIL ROOM CLERK Respiratory Rule-Out 02/15/2022 02/15/2022 022 4:32 PM MAIL ROOM CLERK COVID - 19 04/08/2023 04/10/2023 04/20/2023 12:1 6 AM MAIL ROOM CLERK documented as of this encounter Care Teams Brand Mgr Relationship Specialty Start Date End Date Janes Elkins, [facility] [address] [place] [address] PCP - General Physician Redrawer 04/07/21 Veda Motley APRN, CENTRIFUGAL SCREEN TENDER #2 [facility] [address] [place] [address] Nurse Practitioner Advanced Practice Nurse 05/18/21 Miriam Aquino APRN, CENTRIFUGAL SCREEN TENDER #2 [place] [address] Nurse Practitioner Advanced Practice Nurse 05/26/22 Sergio Hussein MD #2 [facility] [address] [place] [address] Consulting Physician Colon and Rectal Surgery 07/24/23 documented as of this encounter
--- OUTSIDE RECORDS SUMMARY | 2024-04-04 18:56 | XMS_ITS | Encounter Summary ---
Author Organization [facility] Address [address] [place] [address] Phone Care Team Providers Care Transitions Rn Care Coordinator Name Role Phone Janes Elkins Naveen FAITH Primary Care Provider [phone] Veda Motley APRN, LONG HAUL TRUCK DRIVER Unavailable Miriam Aquino APRN, LONG HAUL TRUCK DRIVER Unavailable Sergio Hussein MD Unavailable Reason for Visit * Reason Comments Medication Refill Encounter Details Date Type Department Care Team (Late st Contact Info) Description 2022 Refill [facility] - Pulmonology & Sleep Medicine [facility] #2 [place] [phone] Veda Motley APRN, MEHNAZ #[address] [address] Medication Refill Social History Tobacco Use Types Packs/Day Years Used Date Smoking Tobacco: Every Day Cigarettes 0.3 43.1 Started: 1980 Smokeless Tobacco: Never Alcohol [...] suspected to have Coronavirus/COVID-19? No / Unsure 02/15/2022 2:55 PM LINING PARTS SEWER documented as of this encounter Miscellaneous Notes * Telephone Encounter - Jessica Goldberg RN - 2022 3:24 PM LINING PARTS SEWER Medication failed the protocol, provider to review and approve the medication order if appropriate. Requested Prescriptions Pending Prescriptions Disp Refills benzonatate (TESSALON) 100 MG Capsule [Pharmacy Med Name: BENZONATATE 100 MG CAPSULE] 30 Capsule 0 Sig: TAKE ONE CAPSULE BY MOUTH THREE TIMES A DAY FOR TEN DAYS NEEDED Not Delegated - Anti-Tussives Protocol Failed - 2022 3:05 PM Failed - This refill cannot be delegated Passed - Visit with relevant provider in past 12 months or upcoming 90 days Recent Visits Date Type Provider Dept 02/15/22 Office Visit Veda Motley APRN, MEHNAZ [facility] & Sleep [place] [facility] 08/17/21 Office Visit Veda Motley APRN, CNP [facility] [place] [facility] 05/18/21 Office Visit Veda Motley APRN, MEHNAZ [facility] Showing recent visits within past 365 days and meeting all other requirements Future Appointments No visits were found meeting these conditions. Showing future appointments within next 90 days and meeting all other requirements NG PARTS SEWER documented in this encounter Plan of Treatment Upcoming Encounters Date Type Department Care Team (Late st Contact Info) Description 04/16/2024 3:00 PM LINING PARTS SEWER [facility] - Pulmonology & Sleep Medicine - [place] [address]2 [place] [address] Veda Motley APRN, LONG HAUL TRUCK DRIVER #[address] [address] documented as of this encounter Visit Diagnoses Not on filedocumented in this encounter Additional Health Concerns Infection Onset Date Last Indicated Resolved Time COVID - 19 02/15/2022 02/15/2022 02/25/2022 12:1 6 AM LINING PARTS SEWER COVID - 19 04/08/2023 04/10/2023 04/20/2023 12:1 6 AM LINING PARTS SEWER documented as of this encounter Care Teams Transitions Rn Care Coordinator Relationship Specialty Start Date End Date Janes Elkins, [facility] [address] [place] [address] PCP - General Physician Gallery Director 04/07/21 Veda Motley APRN, LONG HAUL TRUCK DRIVER #2 [facility] [address] [place] [address] Nurse Practitioner Advanced Practice Nurse 05/18/21 Miriam Aquino APRN, LONG HAUL TRUCK DRIVER #2 [place] [address] Nurse Practitioner Advanced Practice Nurse 05/26/22 Sergio Hussein MD #2 [facility] [address] [place] [address] Consulting Physician Colon and Rectal Surgery 07/24/23 documented as of this encounter
--- OUTSIDE RECORDS SUMMARY | 2024-04-04 18:56 | XMS_ITS | Encounter Summary ---
Author Organization [facility] Address [address] [place] [address] Phone Care Team Providers Care Leaf Conditioner Helper Name Role Phone Janes Elkins Naveen FAITH Primary Care Provider Veda Motley APRN, TRANSFER CAR OPERATOR Unavailable Miriam Aquino APRN, TRANSFER CAR OPERATOR Unavailable Sergio Hussein MD Unavailable Reason for Visit * Reason Comments Medication Refill Encounter Details Date Type Department Care Team (Late st Contact Info) Description 02/03/2023 Refill [facility] - Pulmonology & Sleep Medicine [facility] #2 [place] [phone] Veda Motley APRN, MEHNAZ #[address] [address] Medication Refill Social History Tobacco Use Types [...] Miscellaneous Notes * Telephone Encounter - Stacie Akhtar, RN - 02/04/2023 8:02 AM CST Refill too soon SOMNOGRAPHIC TECH documented in this encounter Plan of Treatment Upcoming Encounters Date Type Department Care Team (Late st Contact Info) Description 04/16/2024 3:00 PM POLYSOMNOGRAPHIC TECH Office Visit [facility] - Pulmonology & Sleep Medicine [facility] #2 [place] [address] Veda Motley APRN, MEHNAZ #[address] [address] documented as of this encounter Visit Diagnoses Diagnosis Centrilobular emphysema (HCC) Other emphysema documented in this encounter Additional Health Concerns Infection Onset Date Last Indicated Resolved Time COVID - 19 04/08/2023 04/10/2023 04/20/2023 12:1 6 AM POLYSOMNOGRAPHIC TECH documented as of this encounter Care Teams Leaf Conditioner Helper Relationship Specialty Start Date End Date Janes Elkins PAC [address] [place] [address] PCP - General Physician Linux Unix Engineer 04/07/21 Veda Motley APRN, MEHNAZ #[address] [address] Nurse Practitioner Advanced Practice Nurse 05/18/21 Miriam Aquino APRN, TRANSFER CAR OPERATOR #2 [place] [address] Nurse Practitioner Advanced Practice Nurse 05/26/22 Sergio Hussein MD #[address] [facility] [address] [address] Consulting Physician Colon and Rectal Surgery 07/24/23 documented as of this encounter
--- OUTSIDE RECORDS SUMMARY | 2024-04-04 18:56 | XMS_ITS | Encounter Summary ---
Author Organization [facility] Address [address] [place] [address] Phone Care Team Providers Care Business Executive Name Role Phone Janes Elkins Naveen FAITH Primary Care Provider [phone] Veda Motley APRN, COMMODITY SUPERVISOR Unavailable Miriam Aquino APRN, COMMODITY SUPERVISOR Unavailable Sergio Hussein MD Unavailable Reason for Visit * Reason Comments Medication Refill Encounter Details Date Type Department Care Team (Late st Contact Info) Description 12/06/2022 [facility]ill [facility] #2 [place] [phone] Miriam Aquino APRN, COMMODITY SUPERVISOR #2 [place] [address] Medication Refill Social History Tobacco Use Types [...] Telephone Encounter - Joann Adames RN - 12/07/2022 9:26 AM CDT Medication failed the protocol, provider to review and approve the medication order if appropriate. Requested Prescriptions Pending Prescriptions Disp Refills ondansetron (ZOFRAN-ODT) 4 MG TABLET DISPERSIBLE [Pharmacy Med Name: ONDANSETRON ODT 4 MG TABLET] 20 Tablet 0 Sig: TAKE ONE TABLET BY MOUTH EVERY EIGHT HOURS NEEDED FOR NAUSEA Not Delegated - 5-HT3 Antagonists Protocol Failed - 12/06/2022 4:07 PM Failed - This refill cannot be delegated Passed - Visit with relevant provider in past 12 months or upcoming 90 days Recent Visits Date Type Provider Dept 07/06/22 Office Visit Miriam Aquino APRN, MEHNAZ [facility] Gastro [place] Showing recent visits within past 365 days and meeting all other requirements Future Appointments No visits were found meeting these conditions. Showing future appointments within next 90 days and meeting all other requirements documented in this encounter Plan of Treatment Upcoming Encounters Date Type Department Care Team (Late st Contact Info) Description 04/16/2024 3:00 PM DISTRIBUTION ACCOUNTING CLERK [facility] Visit [facility] - Pulmonology & Sleep Medicine - [place] #2 [place] [address] Veda Motley APRN, MEHNAZ #[address] [address] documented as of this encounter Visit Diagnoses Diagnosis Nausea and vomiting, unspecified vomiting type documented in this encounter Additional Health Concerns Infection Onset Date Last Indicated Resolved Time COVID - 19 04/08/2023 04/10/2023 04/20/2023 12:1 6 AM DISTRIBUTION ACCOUNTING CLERK documented as of this encounter Care Teams Business Executive Relationship Specialty Start Date End Date Janes Elkins, VIANNEY [address] [place] [address] PCP - General Physician Automobile Bumper Straightener 04/07/21 Veda Motley APRN, COMMODITY SUPERVISOR #2 [facility] [address] [place] [address] Nurse Practitioner Advanced Practice Nurse 05/18/21 Miriam Aquino APRN, COMMODITY SUPERVISOR #2 [place] [address] Nurse Practitioner Advanced Practice Nurse 05/26/22 Sergio Hussein MD #2 [facility] [address] [place] [address] Consulting Physician Colon and Rectal Surgery 07/24/23 documented as of this encounter
--- OUTSIDE RECORDS SUMMARY | 2024-04-04 18:56 | XMS_ITS | Encounter Summary ---
Author Organization [facility] Address [address] [place] [address] Phone Care Team Providers Care Wax Blender Name Role Phone Janes Elkins Naveen FAITH Primary Care Provider Veda Motley APRN, CHEST PAINTING LEADER Unavailable Miriam Aquino APRN, CHEST PAINTING LEADER Unavailable Sergio Hussein MD Unavailable Reason for Visit * Reason Comments Medication Refill Encounter Details Date Type Department Care Team (Late st Contact Info) Description 09/23/2021 Refill [facility] - Pulmonology & Sleep Medicine [facility] #2 [place] [phone] Veda Motley APRN, MEHNAZ #[address] [address] Medication Refill Social History Tobacco Use Types Packs/Day Years Used Date Smoking Tobacco: Every Day Cigarettes Smokeless Tobacco: Never Comments:quite -2021 Alcohol Use Standard Drinks/Week Comments No 0 (1 standard drink = 0.6 oz pur e alcohol) Sexually Active Control Partners Comments Yes Male Comments No Sex and Gender Information Value Date Recorded Sex Assigned at Not on file Legal Sex Female 8:47 PM CDT Gender Identity Not on file Sexual Orientation Not on file COVID-19 Exposure Response Date Recorded In the last 10 days, have yo u been in contact with someone who was confirmed or suspected to have Coronavirus/COVID-19? No / Unsure 09/08/2021 9:17 AM CDT documented as of this encounter Miscellaneous Notes * Telephone Encounter - Jessica Goldberg RN - 09/25/2021 8:00 AM CDT Medication failed the protocol, provider to review and approve the medication order if appropriate. Requested Prescriptions Pending Prescriptions Disp Refills benzonatate (TESSALON) 100 MG Capsule [Pharmacy Med Name: BENZONATATE 100 MG CAPSULE] 30 Capsule Sig: TAKE ONE CAPSULE BY MOUTH THREE TIMES A DAY NEEDED UP TO 10 DAYS. Not Delegated - Anti-Tussives Protocol Failed - 09/23/2021 11:55 AM Failed - This refill cannot be delegated Failed - Active on medication list Passed - Visit with relevant provider in past 12 months or upcoming 90 days Recent Visits Date Type Provider Dept 08/17/21 Office Visit Veda Motley APRN, MEHNAZ [facility] 05/18[facility]21 Office Visit Veda Motley APRN, CNP [facility] Pul & Sleep [facility] Showing recent visits within past 365 days and meeting all other requirements Future Appointments No visits were found meeting these conditions. Showing future appointments within next 90 days and meeting all other requirements documented in this encounter Plan of Treatment Upcoming Encounters Date Type Department Care Team (Late st Contact Info) Description 04/16/2024 3:00 PM COILER OPERATOR [facility] - Pulmonology & Sleep Medicine - [place] [address] [place] [address] Veda Motley APRN, CHEST PAINTING LEADER #[address] [address] documented as of this encounter Visit Diagnoses Not on filedocumented in this encounter Additional Health Concerns Infection Onset Date Last Indicated Resolved Time COVID - 19 02/15/2022 02/15/2022 02/25/2022 12:1 6 AM COILER OPERATOR Respiratory Rule-Out 02/15/2022 02/15/2022 022 4:32 PM COILER OPERATOR COVID - 19 04/08/2023 04/10/2023 04/20/2023 12:1 6 AM COILER OPERATOR documented as of this encounter Care Teams Wax Blender Relationship Specialty Start Date End Date Janes Elkins, [facility] [address] [place] [address] PCP - General Physician User Experience Developer 04/07/21 Veda Motley APRN, CHEST PAINTING LEADER #[address] [facility] [address] [place] [address] Nurse Practitioner Advanced Practice Nurse 05/18/21 Miriam Aquino APRN, CHEST PAINTING LEADER #2 [place] [address] Nurse Practitioner Advanced Practice Nurse 05/26/22 Sergio Hussein MD #[address] [facility] [address] [place] [address] Consulting Physician Colon and Rectal Surgery 07/24/23 documented as of this encounter
--- OUTSIDE RECORDS SUMMARY | 2024-04-04 18:56 | XMS_ITS | Encounter Summary ---
Author Organization [facility] Address [address] [place] [address] Phone Care Team Providers Care [id number] Armor Crewman Name Role Phone Janes Elkins Naveen FAITH Primary Care Provider [phone] Veda Motley APRN, CNP Unavailable Miriam Aquino APRN, MEHNAZ Unavailable Sergio Hussein MD Unavailable Reason for Referral * Radiology Services (Routine) - Open Specialty Diagnoses / Procedures Referred By Troy melissa Referred To Contact Radiology Diagnoses Lung nodule Procedures CT CHEST W/O CONTRAST Veda Motley APRN, CNP #[address] [address] Phone: tel: fax: Referral ID Status Reason Start Date Expiration Date Visits Re quested Visits Authorized [id number] Open 02/21/2024 1 1 CLEANER Encounter Details Date Type Department Care Team (Late st Contact Info) Description 02/21/2024 Results Follow-Up [facility] - [facility]monology & Sleep Medicine - [place] #2 [place] [address] Veda Motley APRN, MEHNAZ #[address] [address] Lung nodule (Primary Dx) Social History Tobacco Use Types Packs/Day Years [...] Telephone Encounter - Stacie Akhtar RN - 02/21/2024 11:20 AM CST Patient is aware and verbalizes understanding. Order for CT chest placed CLEANER documented in this encounter Plan of Treatment Upcoming Encounters Date Type Department Care Team (Late st Contact Info) Description 04/16/2024 3:00 PM ROOM CLEANER Office Visit [facility] - Pulmonology & Sleep Medicine - [place] #2 [place] [address] Veda Motley APRN, CNP #[address] [address] Scheduled Orders Name Type Priority Associated Diagnoses Orde r Schedule CT CHEST W/O CONTRAST Imaging Routine Lung nodule Expected: 05/21/2024, Expires: 02/20/2025 documented as of this encounter Visit Diagnoses Diagnosis Lung nodule- Primary Solitary pulmonary nodule documented in this encounter Care Teams [id number] Armor Crewman Relationship Specialty Start Date End Date Janes Elkins PAC [address] [place] [address] PCP - General Physician Machine Tack Puller 04/07/21 Veda Motley APRN, CNP #[address] [address] Nurse Practitioner Advanced Practice Nurse 05/18/21 Miriam Aquino APRN, MEHNAZ #2 [place] [address] Nurse Practitioner Advanced Practice Nurse 05/26/22 Sergio Hussein MD #[address] [address] Consulting Physician Colon and Rectal Surgery 07/24/23 documented as of this encounter
--- OUTSIDE RECORDS SUMMARY | 2024-04-04 18:56 | XMS_ITS | Clinical Summary ---
Author Organization [facility] Address [address] [place] [address] Care Team Providers Care Religion Instructor Name Role Phone Janes Elkins Primary Care Provider [phone] Arleth Morris MD Unavailable [phone] Allergies Active Allergy Reactions Criticality Noted Date Comments Latex Rash Medium Medications promethazine-DM (PROMETHAZINE-DM) 1.25-3 mg/mL syrup Take 5 mL by mouth 4 (four) times a day as needed for cough. 118 mL 9 Active ondansetron ODT (ZOFRAN-ODT) 4 mg disintegrating tablet Dissolve 1 tablet for mild to moderate nausea or vomiting or 2 tablets for severe nausea or vomiting oral twice a day as needed. 15 tablet 9 Active albuterol HFA (PROVENTIL HFA,VENTOLIN HFA,PROAIR HFA) 90 mcg/actuation inhaler Inhale 1-2 puffs every 6 (six) hours as needed for wheezing 1 Inhaler 9 Active ipratropium-albute roL (DUO-NEB) 0.5-2.5 mg/3 mL nebulizer solution INHALE 1 VIAL VIA NEBULIZER 4 TIMES DAILY NEEDED FOR 1 MONTH 1 Active loratadine (CLARITIN) 10 mg tablet Take 1 tablet (10 mg total) by mouth daily 1 Active famotidine (PEPCID) 40 mg tablet Take 1 tablet (40 mg total) by mouth 2 (two) times a day 2 Active pediatric multivitamin-iron tablet,chewable Take by mouth daily Active benzonatate (TESSALON) 200 mg capsule Take 1 capsule (200 mg total) by mouth 3 (three) times a day as needed 4 Active meloxicam (MOBIC) 15 mg tablet Take 1 tablet (15 mg total) by mouth daily 5 Active Trelegy Ellipta 100-62.5-25 mcg inhaler Inhale 1 puff daily Taking 200 now 3 Active ibuprofen (ADVIL,MOTRIN) 600 mg tablet Take 1 tablet (600 mg total) by mouth every 6 (six) hours as needed for pain 20 tablet 4 Active medroxyPROGESTERon e (PROVERA) 10 mg tablet TAKE 1 TABLET (10 MG TOTAL) BY MOUTH NIGHTLY FOR 20 DAYS AND THEN 10 DAYS OFF. 20 tablet 11 4 Active cyclobenzaprine (FLEXERIL) 10 mg tablet Take 1 tablet (10 mg total) by mouth 3 (three) times a day as needed for muscle spasms Active lactulose solution 10 gram/15mL Take 30 mL (20 g total) by mouth 3 (three) times a day Active Active Problems Problem Noted Date Diagnosed Date Chronic pelvic pain in female 11/27/2023 Overview (01/08/2024): -Patient with 5-6 year history of diffuse lower abdominal/pelvic pain. PMHx notable for endometriosis, IBS-C, GERD, COPD, h/o multiples MIs and CVAs -Primary OB in [place] - offered hyst/BSO given patient concern for gynecologic cause of symptoms. Evaluated by pulmonology and determined to be high risk for anesthesia given severe COPD. Referred to [facility] for further consideration of future surgical management. -Followed by GI ([facility]) for chronic abdominal pain/ IBS-C: last seen 07/12/23. Had EGD/Colonoscopy completed in 2022 that were both normal. Also had CT A/P was unremarkable. She had a HIDA scan completed that demonstrated gallbladder EF 99% which could demonstrate dysfunctional/overactive gallbladder so she was subsequently referred to general surgery (see below). Gastric emptying study was normal. Per last GI note, concern that chronic constipation is likely large portion of current symptoms. She has been on multiple medications including aggressive bowel regimens with suppositories and enemas. Had previously been on Bentyl, which worked for a short period of time but no longer controls her symptoms. Most recently increased lactulose suspension to TID. Notably per patient report has history of Crohn's but no available documentation of this and she is not on any treatment. -General surgery([facility]) 07/30/23: Low concern for biliary etiology at this time given presentation (all lower abdominal pain) - deferred cholecystectomy. Concern for hyperemesis cannabis syndrome given chronic N/V, counseled on limiting use Counseling 11/24: Patient extensively counseled that she is not a good surgical candidate given her multiple co-morbidities. Also discussed that hyst is unlikely to resolve or improve her symptoms given the clinical nature of her symptoms as well as her post- menopausal state. Pelvic exam in office notable for diffuse TTP in lower quadrants, otherwise unremarkable. Discussed that there is a low suspicion for a purely gynecologic cause of her chronic pain in the setting of her known endometriosis and post- menopausal state. -Discussed patient case with [facility]- agreed that patient unlikely to benefit from surgical intervention, could consider pelvic MRI for more extensive workup, however as patient not a surgical candidate no indication for more extensive imaging. Recommended pelvic floor PT, consider referral to pain psychology -01/06: TVUS completed with normal uterus and endometrium, no adnexal masses. Extensive discussion with patient about normal results and no current indication that a surgical intervention would be beneficial or would address her pain. Again reiterated significant surgical and anesthesia risks to patient in the setting of her co-morbidities. Discussed that non-operative interventions including referrals to pain management, psychology, and pelvic floor PT would be the best available interventions. Patient extremely frustrated, stating that she is willing to try these interventions but does not believe that they will adequately address her concerns. Repeatedly stated that she believes surgery is the only definitive option for her, stating that she is at the end of the line with regards to her pain. Counseled patient that in order for interventions like pelvic floor PT or pain management to work she must consistently attend appointments and actively participate in her care Plan: [] Provided with resources for pelvic floor PT including PT forest fire fighter for options closer to her home [] Referrals placed for pain management, [facility], and pain psychology - message also sent to specific provider recommended by NADER (Cassy Guevara) [] Encouraged continued follow up with GI Routine screening for STI (sexually transmitted infection) 06/10/2023 Overview (11/27/2023): 11/25/23: patient requesting STI screening. Urine GC/CT/Trich ordered. Offered HIV screening, patient declined. Assessment & Plan (06/10/2023 3:39 PM CDT): Due in March for repeat Pap smear Postmenopausal bleeding 05/02/2023 Overview (01/08/2024): -FSH 69.9 in 01/2023, patient with ~1 year of intermittent vaginal spotting, occasionally with bright red blood -underwent hsc/D&C at [place] in 05/2023, pathology benign -provera per primary OB - had minimal withdrawal bleeding -discussed discontinuing provera as no plans for hysterectomy -TVUS 01/06 with thin endometrial stripe, normal appearing uterus -PMB completely resolved as of 01/06 Assessment & Plan (09/12/2023 3:43 PM CDT): To hyst and bso Will try to control bleeding with provera until then. Will need medical clearance with pulmonology. Assessment & Plan (06/10/2023 3:37 PM CDT): Doing well postoperatively She will continue to follow with her other doctors for her abdominal pain We will watch to see if she has anymore bleed Assessment & Plan (05/21/2023 6:33 AM CDT): To return to do endometrial sampling in the OR Assessment & Plan (05/20/2023 3:34 PM CDT): Ultrasound was reviewed With her history I do not think that she is a good candidate for EMB in the office She does not want to do EMB in the office We will arrange to go to the OR so she can have MyoSure Procedure reviewed along with risk, benefits and alternatives as they pertain to her specifically. Questions answered Post op pain management discussed. She voices understanding and desired to proceed. Chronic obstructive lung disease 03/18/2023 Irritable bowel syndrome 03/18/2023 Mixed anxiety and depressive disorder 03/18/2023 Decreased libido 01/30/2023 Assessment & Plan (01/30/2023 1:02 PM ENGINE SPECIALIST): Discussed possible causes of decreased sexual desire including physiological reasons such as dyspareunia, vaginal dryness, and low testosterone levels. Mental and environmental stressors, as well as medications (particularly SSRIs) can also have a direct impact on sexual desire. Offered to check testosterone levels if patient desires. Can consider replacement with bio-identical testosterone cream if needed/desired. Abscess 03/02/2017 Encounters Date Type Department Care Team Description 03/11/2024 Telephone [facility] Neurosurgery [address] [place] [address] 4th [address] [place] [address] Marge Weathers 01/23/2024 Telephone Obstetrics and Gynecology Clinic [address] [place] [address] 3rd [address] [place] [address] Mame Moroe 01/15/2024 Telephone [facility] [address] [place] [address] [address] [place] [address] Karen Vazquez 01/13/2024 Telephone [facility] [address] [place] [address] [address] [place] [address] Nina Lorenzo 01/07/2024 3:45 PM ENGINE SPECIALIST Office Visit Obstetrics and Gynecology Clinic [address] [place] [address] [address] [place] [address] Dayanna Fitzgerald MD Follow-up exam (Primary Dx); Postmenopausal bleeding; Chronic pelvic pain in female 01/07/2024 3:00 PM ENGINE SPECIALIST - 01/07/2024 11:59 PM ENGINE SPECIALIST Hospital Encounter [facility] - Ultrasound [address] [place] [address] Chronic pelvic pain in female Discharge Disposition: Discharge to home or self care from Last 3 Months Surgical History Surgery Date Site/Laterality Comments NECK SURGERY SECTION ECTOPIC SURGERY Medical History Medical History Date Comments History of multiple strokes Heart attack (HCC) Fibromyalgia Cervical cancer (CMS/HCC) (HCC) 1992 Throat cancer (HCC) 2016 Cryopathy Smoking Sleep apnea Lung disease Cough Irritable bowel syndrome GERD (gastroesophageal reflux disease) Stroke (HCC) Ectopic Family History Medical History Relation Name Comments Lung cancer Maternal Grandfather Lung cancer Maternal Grandmother lung cancer Maternal Grandmother Arthritis Mother Lung cancer Paternal Grandfather Breast cancer Neg Hx Ovarian cancer Neg Hx Thyroid cancer Neg Hx Relation Name Status Comments Maternal Grandfather Maternal Grandmother Mother Paternal Grandfather Social History Tobacco Use Types Packs/Day Years Used Date Smoking Tobacco: Former Cigarettes Q uit: 11/09/2018 Smokeless Tobacco: Never Tobacco Cessation:Counseling Given: Yes Alcohol Use Standard Drinks/Week Comments Not Currently 0 (1 standard drink = 0.6 oz pur e alcohol) Humiliation, Afraid, Rape, and Kick questionnair e Answer Date Recorded Within the last year, have y ou been afraid of your partner or ex-partner? No 03/18/2023 Within the last year, have y ou been humiliated or emotionally abused in other ways by your partner or ex-partner? No Within the last year, have y ou been kicked, hit, slapped, or otherwise physically hurt by your partner or ex-partner? No 03/18/2023 Within the last year, have y ou been raped or forced to have any kind of sexual activity by your partner or ex-partner? No 03/18/2023 AUDIT-C Answer Date Recorded Q1: How often do you have a drink containing alcohol? Never 05/20/2023 Q2: How many drinks containi ng alcohol do you have on a typical day when you are drinking? Patient does not drink Q3: How often do you have si x or more drinks on one occasion? Never 05/20/2023 PHQ-2 Answer Date Recorded PHQ-2 Total Score 0 05/02/2023 Hunger Vital Sign Answer Date Recorded Within the past 12 months, y ou worried that your food would run out before you got the money to buy more. Never true 11/25/19 24 Within the past 12 months, t he food you bought just didn't last and you didn't have money to get more. Never true 11/25/2023 Personal Safety Answer Date Recorded Have you ever been in or are you currently in a harmful physical or emotional relationship or is someone making you feel afraid or unsafe? Denies 05/22/2023 Comments No Sex and Gender Information Value Date Recorded Sex Assigned at Not on file Legal Sex Female 10:34 AM ENGINE SPECIALIST Gender Identity Not on file Sexual Orientation Not on file Obstetrics History Para Term AB IAB SAB Ectopic Multiple Livin g Live Births 21 3 0 18 18 3 3 Date Outcome GA Total Labor Labor/2nd/3rd Weight Sex Type Anes PTL Farheen A1 A5 Name Clin Para C-Sec tion Living Para C-Sec tion Living Para C-Sec tion Living SAB SAB SAB SAB SAB SAB SAB SAB SAB SAB SAB SAB SAB SAB SAB SAB SAB SAB Comments 18 SABs per patient report, unclear if biochemical vs clinical losses Last Filed Vital Signs Vital Sign Reading Time Taken Comments Blood Pressure 116/64 01/07/2024 4:30 PM ENGINE SPECIALIST Pulse 114 01/07/2024 4:30 PM ENGINE SPECIALIST pt expresses anxiety and is visibly emotional at appointment. Temperature 36.3 ??C (97.4 ??F) 05/22/2023 1 :24 PM CDT Respiratory Rate 16 05/22/2023 1:24 PM CDT Oxygen Saturation 93% 01/07/2024 4:3 0 PM ENGINE SPECIALIST Rn discussed with pt. Per pt, she is to be on 2L with activity. 93 is baseline per pt. Inhaled Oxygen Concentration - - Weight 67.4 kg (148 lb 9.6 oz) 01/07/2024 4:30 PM ENGINE SPECIALIST Height 157.5 cm (5' 2 ) 05/22/2023 9:31 AM CDT Body Mass Index 27.18 05/22/2023 9:31 AM CDT Plan of Treatment Health Maintenance Due Date Last Done Comments Cervical Cancer Screening 1971 Colon Cancer Screening-Colonoscopy 1971 Hepatitis C Screening 1971 Pneumococcal vaccine <65 (1 of 2 - PCV) 1977 Hepatitis B Screening 1989 Zoster Vaccine (1 of 2) 2021 Influenza Vaccine (#1) 2023 Regular Well Visit/Exam 18-64 03/18/2024 03/18/2023 Breast Cancer Screening-Mammogram 04/10/2024 04/10/2023, 04/10/2023, 02/04/2013 Depression Screening 05/01/2024 05/02/2023, 03/18/19 24 DTaP/Tdap/Td Vaccine (3 - Td or Tdap) 12/22/2032, 02/09/2016 Procedures Procedure Name Priority Date/Time Associated Diagnosis Comments US PELVIS COMPLETE Schedule Routine, Read Routine (OP Routine) 01/07/2024 3:23 PM ENGINE SPECIALIST Chronic pelvic pain in female SCREENING MAMMOGRAM BILATERAL W KEVIN Schedule Routine, Read Routine (OP Routine) 04/10/2023 8:07 AM ENGINE SPECIALIST Encounter for screening mammogram for malignant neoplasm of breast from Last 3 Months or Most Recently Relevant to Health Maintenance Results * US Pelvis Complete (01/07/2024 3:23 PM ENGINE SPECIALIST) Cul de Sac No free fluid visualized VIEWPOINT Endometrial Thickness 3.8 mm&millim eters VIEWPOINT Anatomical Region Laterality Modality Pelvis N/A Ultrasound 01/07/2024 3:23 PM ENGINE SPECIALIST Impressions 01/07/2024 4:04 PM ENGINE SPECIALIST 1- Normal appearing uterus. No endometrial thickening is apparent.2- Small non- cystic right ovary.3- Non-visualization of the left ovary.4- No adnexal masses are identified. Narrative Procedure Note Ayaz Swanson MD - 01/07/2024 IMPRESSION: 1- Normal appearing uterus. No endometrial thickening is apparent.2- Smallnon- cystic right ovary.3- Non-visualization of the left ovary.4- Noadnexal masses are identified. us Dayanna Fitzgerald MD IMG US PROCEDURES Fi nal Result * Screening Mammogram Bilateral W Kevin (04/10/2023 8:07 AM ENGINE SPECIALIST) Anatomical Region Laterality Modality Breast Bilateral Mammography 04/10/2023 8:21 AM ENGINE SPECIALIST Impressions 04/10/2023 8:21 AM ENGINE SPECIALIST There is no mammographic evidence of malignancy. A 1 year screening mammogram is recommended. BI-RADS: 1 - Negative. The patient has been or will be contacted. The patient will be entered into a reminder system with a target due date of 1 year for her next mammogram. Electronically signed by: Felipe Leo M.D. Narrative 04/10/2023 8:21 AM ENGINE SPECIALIST EXAMINATION: SCREENING MAMMOGRAM BILATERAL W KEVIN ORDERING HEALTHCARE PROVIDER: HIRAM MOULTON HISTORY: Routine screening mammography. COMPARISON: ??03/03/2013, 02/04/2013, 01/02/2012, 11/17/2008 TECHNIQUE: CC and MLO views of the bilateral breasts were obtained with digital technique using breast tomosynthesis with C view. Computer aided detection was utilized. FINDINGS: DENSITY: There are scattered fibroglandular elements in the bilateral breasts. BREASTS: There are no suspicious masses, suspicious calcifications, or other suspicious findings in either breast. There has been no suspicious interval change. Hiram Moulton UNIVERSITY EXTENSION SPECIALIST IMG MAMMO PROCEDURES Final Result from Last 3 Months or Most Recently Relevant to Health Maintenance Insurance [facility] [place] [employer] Care Teams Religion Instructor Relationship Specialty Start Date End Date Janes Elkins PA [address] [place] [address] PCP - General 12/15/19 Arleth Morris MD [address] [facility] [address] [place] [address] [place] [id number] Consulting Physician Obstetrics and Gynecology 05/22/23
--- OUTSIDE RECORDS SUMMARY | 2024-04-04 18:56 | XMS_ITS | Clinical Summary ---
Author Organization [facility] Address [address] [place] [address]. [place], [place] [id number] [place] [address] Care Team Providers Care Architecture Technician Name Role Phone None, Provider MD Primary Care Provider Unavaila ble Social History Tobacco Use Types Packs/Day Years Used Date Smoking Tobacco: Never Assessed Comments Unknown Sex and Gender Information Value Date Recorded Sex Assigned at Not on file Legal Sex Female 10:01 AM CDT Gender Identity Not on file Sexual Orientation Not on file Plan of Treatment Health Maintenance Due Date Last Done Comments Cervical Cancer Screening Pa p Smear (Age 30 to 64) Every 3 Years 1971 Colorectal Cancer Screening Colonoscopy (10 Years) 1971 Annual Physical 1974 Hepatitis C 1989 DTaP, Tdap and Td Vaccines ( 1 - Tdap) 1990 Hepatitis B Vaccines (1 of 3 - 19+ 3-dose series) 1990 Cervical Cancer Screening Pa p with HPV Testing (Age 30 to 64) Every 5 Years 2001 Cervical Cancer Screening with HPV 2001 Mammogram Screening 2011 Zoster Vaccines (1 of 2) 2021 COVID-19 Vaccine (2023-2 5 season) 2023 Influenza Adult (#1) 2023 Meningococcal B Vaccine Aged Out No l onger eligible based on patient's age to complete this topic Meningococcal Vaccine Aged Out No gricelda chloé eligible based on patient's age to complete this topic Pneumococcal Vaccine: Pediat rics (0 to 5 Years) and At-Risk Patients (6 to 64 Years) Aged Out No longer eligible b ased on patient's age to complete this topic RSV Immunizations Under 20 Months Aged Out No longer eligible based on patient's age to complete this topic Insurance Care Teams Architecture Technician Relationship Specialty Start Date End Date None, Provider, PCP - General 09/11/18
--- OUTSIDE RECORDS SUMMARY | 2024-04-04 18:56 | XMS_ITS | Encounter Summary ---
Author Organization [facility] Address [address] [place] [address] Phone Care Team Providers Care Frame Catcher Name Role Phone Janes Elkins Naveen FAITH Primary Care Provider Veda Motley APRN, FOLDER MACHINE ADJUSTER Unavailable Miriam Aquino APRN, FOLDER MACHINE ADJUSTER Unavailable Sergio Hussein MD Unavailable Reason for Visit * Reason Comments Medication Refill Encounter Details Date Type Department Care Team (Late st Contact Info) Description 01/29/2023 Refill [facility] - Gastroenterology [facility] [address] [place] [id number] Miriam Aquino APRN, FOLDER MACHINE ADJUSTER [address] [place] [address] Medication Refill Social History Tobacco Use Types [...] Telephone Encounter - Joann Adames RN - 02/07/2023 8:45 AM SUPERVISOR TOY PARTS FORMER Medication failed the protocol, provider to review and approve the medication order if appropriate. Requested Prescriptions Pending Prescriptions Disp Refills ondansetron (ZOFRAN-ODT) 4 MG TABLET DISPERSIBLE [Pharmacy Med Name: ONDANSETRON ODT 4 MG TABLET] 20 Tablet 0 Sig: TAKE ONE TABLET BY MOUTH EVERY EIGHT HOURS NEEDED FOR NAUSEA Not Delegated - 5-HT3 Antagonists Protocol Failed - 01/29/2023 10:16 AM Failed - This refill cannot be delegated Passed - Visit with relevant provider in past 12 months or upcoming 90 days Recent Visits Date Type Provider Dept 07/06/22 Office Visit Miriam Aquino APRN, MEHNAZ [facility] Showing recent visits within past 365 days and meeting all other requirements Future Appointments No visits were found meeting these conditions. Showing future appointments within next 90 days and meeting all other requirements [employer] FORMER documented in this encounter Plan of Treatment Upcoming Encounters Date Type Department Care Team (Late st Contact Info) Description 04/16/2024 3:00 PM SUPERVISOR TOY PARTS FORMER Office Visit [facility] - Pulmonology & Sleep Medicine - [place] [address] [place] [address] Veda Motley APRN, MEHNAZ [address] [address] documented as of this encounter Visit Diagnoses Diagnosis Nausea and vomiting, unspecified vomiting type documented in this encounter Additional Health Concerns Infection Onset Date Last Indicated Resolved Time COVID - 19 04/08/2023 04/10/2023 04/20/2023 12:1 6 AM SUPERVISOR TOY [employer]S FORMER documented as of this encounter Care Teams Frame Catcher Relationship Specialty Start Date End Date Janes Elkins, PAC [address] [place] [id number] PCP - General Physician Mat Packer 04/07/21 Veda Motley APRN, FOLDER MACHINE ADJUSTER [address] [facility] [address] [place] [address] Nurse Practitioner Advanced Practice Nurse 05/18/21 Miriam Aquino APRN, FOLDER MACHINE ADJUSTER [address] [place] [address] Nurse Practitioner Advanced Practice Nurse 05/26/22 Sergio Hussein MD [address] [facility] [address] [place] [address] Consulting Physician Colon and Rectal Surgery 07/24/23 documented as of this encounter
--- OUTSIDE RECORDS SUMMARY | 2024-04-04 18:56 | XMS_ITS | Encounter Summary ---
Author Organization [facility] Address [address] [place] [address] Phone Care Team Providers Care Plant Pathology Teacher Name Role Phone Janes Elkins Naveen FAITH Primary Care Provider Veda Motley APRN, PROCUREMENT SERVICES MANAGER Unavailable Miriam Aquino APRN, PROCUREMENT SERVICES MANAGER Unavailable Sergio Hussein MD Unavailable Reason for Visit * Reason Comments Medication Refill Encounter Details Date Type Department Care Team (Late st Contact Info) Description 10/18/2021 Refill [facility] - [facility]ology & [facility] Medicine [facility] #2 [place] [phone] Veda Motley APRN, MEHNAZ #[address] [address] Medication Refill Social History Tobacco Use Types [...] Telephone Encounter - Jessica Goldberg RN - 10/19/2021 7:55 AM CDT Medication failed the protocol, provider to review and approve the medication order if appropriate. Requested Prescriptions Pending Prescriptions Disp Refills benzonatate (TESSALON) 100 MG Capsule [Pharmacy Med Name: BENZONATATE 100 MG CAPSULE] 30 Capsule 0 Sig: TAKE ONE CAPSULE BY MOUTH THREE TIMES A DAY FOR TEN DAYS NEEDED Not Delegated - Anti-Tussives Protocol Failed - 10/18/2021 4:59 PM Failed - This refill cannot be delegated Passed - Visit with relevant provider in past 12 months or upcoming 90 days Recent Visits Date Type Provider Dept 08/17/21 Office Visit Veda Motley APRN, MEHNAZ [facility] [place] [facility] [place] 05/18/21 Office Visit Veda Motley APRN, CNP [facility] Showing recent visits within past 365 days and meeting all other requirements Future Appointments No visits were found meeting these conditions. Showing future appointments within next 90 days and meeting all other requirements documented in this encounter Plan of Treatment Upcoming Encounters Date Type Department Care Team (Late st Contact Info) Description 04/16/2024 3:00 PM SKIP OPERATOR [facility] - [place] [address] [place] [address] Veda Motley APRN, MEHNAZ #[address] [address] documented as of this encounter Visit Diagnoses Not on filedocumented in this encounter Additional Health Concerns Infection Onset Date Last Indicated Resolved Time COVID - 19 02/15/2022 02/15/2022 02/25/2022 12:1 6 AM SKIP OPERATOR Respiratory Rule-Out 02/15/2022 02/15/2022 022 4:32 PM SKIP OPERATOR COVID - 19 04/08/2023 04/10/2023 04/20/2023 12:1 6 AM SKIP OPERATOR documented as of this encounter Care Teams Plant Pathology Teacher Relationship Specialty Start Date End Date Janes Elkins PAC [address] [place] [address] PCP - General Physician Human Services Instructor 04/07/21 Veda Motley APRN, PROCUREMENT SERVICES MANAGER #2 [facility] [address] [place] [address] Nurse Practitioner Advanced Practice Nurse 05/18/21 Miriam Aquino APRN, PROCUREMENT SERVICES MANAGER #2 [place] [address] Nurse Practitioner Advanced Practice Nurse 05/26/22 Sergio Hussein MD #2 [facility] [address] [place] [address] Consulting Physician Colon and Rectal Surgery 07/24/23 documented as of this encounter
--- OUTSIDE RECORDS SUMMARY | 2024-04-04 18:56 | XMS_ITS | Referral Summary ---
Author Organization [facility] Address [address] [place] [address] Care Team Providers Care Decal Maker Name Role Phone Janes Elkins Primary Care Provider [phone] Arleth Morris MD Unavailable [phone] Encounters Date Type Department Care Team Description 03/11/2024 Telephone [facility] Neurosurgery [address] [place] [address] 4th Floor [address] [place] [address] Marge Weathers 01/23/2024 Telephone Obstetrics and Gynecology Clinic [address] [place] [address] 3rd Floor [address] [place] [address] Mame Moore 01/15/2024 Telephone [facility] [address] [place] [address] 3rd Floor [address] [place] [address] Karen Vazquez 01/13/2024 Telephone [facility] [address] [place] [address] 3rd Floor [address] [place] [address] Nina Lorenzo 01/07/2024 3:45 PM RESISTOR INSPECTOR Office Visit [facility] [address] [place] [address] 3rd [address] [place] [address] Dayanna Fitzgerald MD Follow-up exam (Primary Dx); Postmenopausal bleeding; Chronic pelvic pain in female 01/07/2024 3:00 PM RESISTOR INSPECTOR - 01/07/2024 11:59 PM RESISTOR INSPECTOR Hospital Encounter [facility] Outpatient [facility] - Ultrasound [address] [place] [address] [place] [address] Chronic pelvic pain in female Discharge Disposition: Discharge to home or self care from Last 3 Months Allergies Active Allergy Reactions Criticality Noted Date [...] multiples MIs and CVAs -Primary OB in [place] - offered hyst/BSO given patient concern for gynecologic cause of symptoms. Evaluated by pulmonology and determined to be high risk for anesthesia given severe COPD. Referred to [facility] for further consideration of future surgical management. -[facility]/ IBS-C: last [...] she is not on any treatment. -[facility] 07[facility]23: Low concern for biliary etiology [...] post- menopausal state. -[facility] agreed that patient unlikely to benefit from [...] resources for pelvic floor PT including PT rn transition for options closer to her home [] [...] with bright red blood -underwent hsc/D&C at [place] in 05/2023, pathology benign -provera per primary [...] 01/30/2023 Assessment & Plan (01/30/2023 1:02 PM RESISTOR INSPECTOR): Discussed possible causes of decreased sexual desire including physiological reasons such as dyspareunia, vaginal dryness, and low testosterone levels. Mental and environmental stressors, as well as medications (particularly SSRIs) can also have a direct impact on sexual desire. Offered to check testosterone levels if patient desires. Can consider replacement with bio-identical testosterone cream if needed/desired. Abscess 03/02/2017 Social History Tobacco Use Types Packs/Day Years [...] on file Legal Sex Female 10:34 AM RESISTOR INSPECTOR Gender Identity Not on file Sexual Orientation Not on file Last Filed Vital Signs Vital Sign Reading Time Taken Comments Blood Pressure 116/64 01/07/2024 4:30 PM RESISTOR INSPECTOR Pulse 114 01/07/2024 4:30 PM RESISTOR INSPECTOR pt expresses anxiety and is visibly emotional at appointment. Temperature 36.3 ??C (97.4 ??F) 05/22/2023 1 :24 PM CDT Respiratory Rate 16 05/22/2023 1:24 PM CDT Oxygen Saturation 93% 01/07/2024 4:3 0 PM RESISTOR INSPECTOR Rn discussed with pt. Per pt, she is to be on 2L with activity. 93 is baseline per pt. Inhaled Oxygen Concentration - - Weight 67.4 kg (148 lb 9.6 oz) 01/07/2024 4:30 PM RESISTOR INSPECTOR Height 157.5 cm (5' 2 ) 05/22/2023 9:31 AM CDT Body Mass Index 27.18 05/22/2023 9:31 AM CDT Plan of Treatment Not on file Procedures Procedure Name Priority Date/Time Associated Diagnosis Comments US PELVIS COMPLETE Schedule Routine, Read Routine (OP Routine) 01/07/2024 3:23 PM RESISTOR INSPECTOR Chronic pelvic pain in female SCREENING MAMMOGRAM BILATERAL W KEVIN Schedule Routine, Read Routine (OP Routine) 04/10/2023 8:07 AM RESISTOR INSPECTOR Encounter for screening mammogram for malignant neoplasm of breast from Last 3 Months or Most Recently Relevant to Health Maintenance Results * US Pelvis Complete (01/07/2024 3:23 PM RESISTOR INSPECTOR) Cul de Sac No free fluid visualized VIEWPOINT Endometrial Thickness 3.8 mm&millim eters VIEWPOINT Anatomical Region Laterality Modality Pelvis N/A Ultrasound 01/07/2024 3:23 PM RESISTOR INSPECTOR Impressions 01/07/2024 4:04 PM RESISTOR INSPECTOR 1- Normal appearing uterus. No endometrial thickening [...] Mammogram Bilateral W Kevin (04/10/2023 8:07 AM RESISTOR INSPECTOR) Anatomical Region Laterality Modality Breast Bilateral Mammography 04/10/2023 8:21 AM RESISTOR INSPECTOR Impressions 04/10/2023 8:21 AM RESISTOR INSPECTOR There is no mammographic evidence of malignancy. A 1 year screening mammogram is recommended. BI-RADS: 1 - Negative. The patient has been or will be contacted. The patient will be entered into a reminder system with a target due date of 1 year for her next mammogram. Electronically signed by: Felipe Leo M.D. Narrative 04/10/2023 8:21 AM RESISTOR INSPECTOR EXAMINATION: SCREENING MAMMOGRAM BILATERAL W KEVIN ORDERING [...] been no suspicious interval change. Hiram Moulton DIGITAL MARKETING ASSOCIATE IMG MAMMO PROCEDURES Final Result from Last 3 Months or Most Recently Relevant to Health Maintenance Insurance [facility] [place] [employer] Care Teams Decal Maker Relationship Specialty Start Date End Date Janes Elkins PA [address] [place] [address] PCP - General 12/15/19 Arleth Morris MD [address] [place] [address] DR V[place]LEGAS [address] [place] [address] Consulting Physician Obstetrics and Gynecology 05/22/23
--- OUTSIDE RECORDS SUMMARY | 2024-04-04 18:56 | XMS_ITS | Encounter Summary ---
Author Organization [facility] Address [address] [place] [address] Phone Care Team Providers Care Hemmer Automatic Name Role Phone Janes Elkins Naveen FAITH Primary Care Provider Veda Motley APRN, SPORT SHOE SPIKE ASSEMBLER Unavailable [phone] Miriam Aquino APRN, SPORT SHOE SPIKE ASSEMBLER Unavailable Sergio Hussein MD Unavailable Reason for Visit * Reason Comments Medication Refill Encounter Details Date Type Department Care Team (Late st Contact Info) Description 03/11/2023 Refill [facility] #2 [place] [phone] Miriam Aquino APRN, SPORT SHOE SPIKE ASSEMBLER [address]2 [place] [address] Medication Refill Social History Tobacco Use Types [...] Telephone Encounter - Joann Adames RN - 03/11/2023 10:39 AM MEDICAL RECEPTIONIST BILLER Per nursing clinical judgement, provider to review and approve the medication(s) order(s) if appropriate. Requested Prescriptions Pending Prescriptions Disp Refills dicyclomine (BENTYL) 20 MG Tablet [Pharmacy Med Name: DICYCLOMINE HCL 20MG TABLET] 90 Tablet 2 Sig: TAKE ONE TABLET BY MOUTH THREE TIMES A DAY Antispasmodic Agents Protocol Passed - 03/11/2023 9:47 AM Passed - Visit with relevant provider in past 12 months or upcoming 90 days Recent Visits Date Type Provider Dept 07/06/22 Office Visit Miriam Aquino APRN, SPORT SHOE SPIKE ASSEMBLER [facility] Show[facility] recent visits within past 365 days and meeting all other requirements Future Appointments No visits were found meeting these conditions. Showing future appointments within next 90 days and meeting all other requirements CAL RECEPTIONIST BILLER documented in this encounter Plan of Treatment Upcoming Encounters Date Type Department Care Team (Late st Contact Info) Description 04/16/2024 3:00 PM MEDICAL RECEPTIONIST BILLER [facility] Visit [facility] - Pulmonology & Sleep Medicine - [place] #[address] [place] [address] Veda Motley APRN, SPORT SHOE SPIKE ASSEMBLER #[address] [address] documented as of this encounter Visit Diagnoses Not on filedocumented in this encounter Additional Health Concerns Infection Onset Date Last Indicated Resolved Time COVID - 19 04/08/2023 04/10/2023 04/20/2023 12:1 6 AM MEDICAL RECEPTIONIST BILLER documented as of this encounter Care Teams Hemmer Automatic Relationship Specialty Start Date End Date Janes Elkins PAC [address] [place] [address] PCP - General Physician Tallow Pumper 04/07/21 Veda Motley APRN, SPORT SHOE SPIKE ASSEMBLER #[address] [address] Nurse Practitioner Advanced Practice Nurse 05/18/21 Miriam Aquino APRN, SPORT SHOE SPIKE ASSEMBLER #2 [place] [address] Nurse Practitioner Advanced Practice Nurse 05/26/22 Sergio Hussein MD #[address] [address] Consulting Physician Colon and Rectal Surgery 07/24/23 documented as of this encounter
--- OUTSIDE RECORDS SUMMARY | 2024-04-04 18:56 | XMS_ITS | Encounter Summary ---
Author Organization [facility] Address [address] [place] [address] Phone Care Team Providers Care Lmsw Name Role Phone Janes Elkins Naveen FAITH Primary Care Provider Veda Motley APRN, TUBE KNITTER Unavailable Miriam Aquino APRN, TUBE KNITTER Unavailable Sergio Hussein MD Unavailable Reason for Visit * Reason Comments Medication Refill Encounter Details Date Type Department Care Team (Late st Contact Info) Description 12/05/2021 Refill [facility] - Pulmonology & Sleep Medicine [facility] #2 [place] [phone] Veda Motley APRN, MEHNAZ #[address] [address] Medication Refill Social History Tobacco Use Types [...] suspected to have Coronavirus/COVID-19? No / Unsure 12/08/2021 2:15 PM CDT documented as of this encounter Miscellaneous Notes * Telephone Encounter - Jessica Goldberg RN - 12/06/2021 8:14 AM CDT Medication failed the protocol, provider to review and approve the medication order if appropriate. Requested Prescriptions Pending Prescriptions Disp Refills benzonatate (TESSALON) 100 MG Capsule [Pharmacy Med Name: BENZONATATE 100 MG CAPSULE] 30 Capsule 0 Sig: TAKE ONE CAPSULE BY MOUTH THREE TIMES A DAY FOR TEN DAYS NEEDED Not Delegated - Anti-Tussives Protocol Failed - 12/05/2021 3:00 PM Failed - This refill cannot be delegated Passed - Visit with relevant provider in past 12 months or upcoming 90 days Recent Visits Date Type Provider Dept 08/17/21 Office Visit Veda Motley APRN, CNP [facility] [place] 05/18/21 Office Visit Veda Motley APRN, CNP [facility] [place] Showing recent visits within past 365 days and meeting all other requirements Future Appointments Date Type Provider Dept 02/15/22 Appointment Veda Motley APRN, CNP [facility] [place] Showing future appointments within next 90 days and meeting all other requirements documented in this encounter Plan of Treatment Upcoming Encounters Date Type Department Care Team (Late st Contact Info) Description 04/16/2024 3:00 PM TECHNICAL BUSINESS ANALYST [facility] Visit [facility] - Pulmonology & Sleep Medicine - [place] [address] [place] [address] Veda Motley APRN, TUBE KNITTER #[address] [address] documented as of this encounter Visit Diagnoses Not on filedocumented in this encounter Additional Health Concerns Infection Onset Date Last Indicated Resolved Time COVID - 19 02/15/2022 02/15/2022 02/25/2022 12:1 6 AM TECHNICAL BUSINESS ANALYST Respiratory Rule-Out 02/15/2022 02/15/2022 022 4:32 PM TECHNICAL BUSINESS ANALYST COVID - 19 04/08/2023 04/10/2023 04/20/2023 12:1 6 AM TECHNICAL BUSINESS ANALYST documented as of this encounter Care Teams Lmsw Relationship Specialty Start Date End Date Janes Elkins, [facility] [address] [place] [address] PCP - General Physician Division Officer Weapons Department 04/07/21 Veda Motley APRN, TUBE KNITTER #[address] [address] Nurse Practitioner Advanced Practice Nurse 05/18/21 Miriam Aquino APRN, TUBE KNITTER #2 [place] [address] Nurse Practitioner Advanced Practice Nurse 05/26/22 Sergio Hussein MD #[address] [address] Consulting Physician Colon and Rectal Surgery 07/24/23 documented as of this encounter
--- OUTSIDE RECORDS SUMMARY | 2024-04-04 18:56 | XMS_ITS | Encounter Summary ---
Author Organization [facility] Address [address] [place] [address] Phone Care Team Providers Care Physician Asst Name Role Phone Janes Elkins Naveen FAITH Primary Care Provider Veda Motley APRN, COAL GETTER Unavailable Miriam Aquino APRN, COAL GETTER Unavailable Sergio Hussein MD Unavailable Reason for Visit * Reason Comments Medication Refill Encounter Details Date Type Department Care Team (Late st Contact Info) Description 01/27/2022 Refill [facility] - Pulmonology & Sleep Medicine [facility] #2 [place] [phone] Veda Motley APRN, MEHNAZ #[address] [address] Medication Refill Social History Tobacco Use Types [...] Telephone Encounter - Jessica Goldberg RN - 01/29/2022 8:22 AM BEVEL FACE STONER AND POLISHER Medication failed the protocol, provider to review and approve the medication order if appropriate. Requested Prescriptions Pending Prescriptions Disp Refills benzonatate (TESSALON) 100 MG Capsule [Pharmacy Med Name: BENZONATATE 100 MG CAPSULE] 30 Capsule 0 Sig: TAKE ONE CAPSULE BY MOUTH THREE TIMES A DAY FOR TEN DAYS NEEDED Not Delegated - Anti-Tussives Protocol Failed - 01/27/2022 10:38 AM Failed - This refill cannot be delegated Passed - Visit with relevant provider in past 12 months or upcoming 90 days Recent Visits Date Type Provider Dept 08/17/21 Office Visit Veda Motley APRN, CNP [facility] [place] 05/18/21 Office Visit Veda Motley APRN, CNP [facility] [place] [facility] Showing recent visits within past 365 days and meeting all other requirements Future Appointments Date Type Provider Dept 02/15/22 Appointment Veda Motley APRN, CNP [facility] [place] Showing future appointments within next 90 days and meeting all other requirements L FACE STONER AND POLISHER documented in this encounter Plan of Treatment Upcoming Encounters Date Type Department Care Team (Late st Contact Info) Description 04/16/2024 3:00 PM BEVEL FACE STONER AND POLISHER Office Visit [facility] - Pulmonology & Sleep Medicine - [place] [address] [place] [address] Veda Motley APRN, MEHNAZ [address] [address] documented as of this encounter Visit Diagnoses Not on filedocumented in this encounter Additional Health Concerns Infection Onset Date Last Indicated Resolved Time COVID - 19 02/15/2022 02/15/2022 02/25/2022:1 6 AM BEVEL FACE STONER AND POLISHER Respiratory Rule-Out 02/15/2022 02/15/2022 022 4:32 PM BEVEL FACE STONER AND POLISHER COVID - 19 04/08/2023 04/10/2023 04/20/2023 12:1 6 AM BEVEL FACE STONER AND POLISHER documented as of this encounter Care Teams Physician Asst Relationship Specialty Start Date End Date Janes Elkins, [facility] [address] [place] [address] PCP - General Physician Senior Credit Officer 04/07/21 Veda Motley APRN, COAL GETTER #[address] [address] Nurse Practitioner Advanced Practice Nurse 05/18/21 Miriam Aquino APRN, COAL GETTER #2 [place] [address] Nurse Practitioner Advanced Practice Nurse 05/26/22 Sergio Hussein MD #[address] [address] Consulting Physician Colon and Rectal Surgery 07/24/23 documented as of this encounter
--- OUTSIDE RECORDS SUMMARY | 2024-04-04 18:56 | XMS_ITS | Encounter Summary ---
Author Organization [facility] Address [address] [place] [address] Phone Care Team Providers Care Script Worker Name Role Phone Janes Elkins Naveen FAITH Primary Care Provider [phone] Veda Motley APRN, PUBLIC HEALTH MICROBIOLOGIST Unavailable Miriam Aquino APRN, PUBLIC HEALTH MICROBIOLOGIST Unavailable Sergio Hussein MD Unavailable Reason for Visit * Reason Comments Medication Refill Encounter Details Date Type Department Care Team (Late st Contact Info) Description 10/12/2022 Refill [facility] #2 [place] [phone] Miriam Aquino APRN, PUBLIC HEALTH MICROBIOLOGIST [address]2 [place] [address] Medication Refill Social History Tobacco Use Types [...] Telephone Encounter - Joann Adames RN - 10/12/2022 11:58 AM CDT Medication refilled and signed per [facility] [place] [place] chronic medication standing order for pediatric and adult patients. documented in this encounter Plan of Treatment Upcoming Encounters Date Type Department Care Team (Late st Contact Info) Description 04/16/2024 3:00 PM ORDNANCE KEEPER [facility] #2 [place] [address] Veda Motley APRN, PUBLIC HEALTH MICROBIOLOGIST #[address] [address] documented as of this encounter Visit Diagnoses Diagnosis Generalized abdominal pain Abdominal pain, generalized documented in this encounter Additional Health Concerns Infection Onset Date Last Indicated Resolved Time COVID - 19 04/08/2023 04/10/2023 04/20/2023 12:1 6 AM ORDNANCE KEEPER documented as of this encounter Care Teams Script Worker Relationship Specialty Start Date End Date Janes Elkins PAC [address] [place] [address] PCP - General Physician Jerker 04/07/21 Veda Motley APRN, MEHNAZ #[address] [address] Nurse Practitioner Advanced Practice Nurse 05/18/21 Miriam Aquino APRN, PUBLIC HEALTH MICROBIOLOGIST #2 [place] [address] Nurse Practitioner Advanced Practice Nurse 05/26/22 Sergio Hussein MD [address] [address] Consulting Physician Colon and Rectal Surgery 07/24/23 documented as of this encounter
--- OUTSIDE RECORDS SUMMARY | 2024-04-04 18:56 | XMS_ITS | Data Portability ---
Author Organization [facility] Address [address] [place] [address] Care Team Providers Care Firer Boiler Name Role Phone ALVIN ELKINS Primary Care Provider Assessment No assessment recorded. Plan of Treatment Reminders Order Date Submit Date Provider Last Modified By Organization Details Last Modified Time Details Appointments None recorded. Lab HbA1c (hemoglobi n A1c), blood 2023 [facility] In-Office Order, Internal Use Only DO Not Attach Compendium DO Not Attach Compendium, Do Not Delete/merge, [id number] 16:48:40 Referral neurologic al surgeon referral 2023 [facility], [address] [place] [address], [id number], 5 11:08:33 Procedures None recorded. Surgeries None recorded. Imaging MRI, lumbar spine, w/o contrast - PA Started 2023 024 [facility], [address] [place] [address], [id number], 4 09:34:42 MRI, cervical spine, w/o contrast - PA Started 2023 024 [facility], [address] [place] [address], [id number], 4 09:34:32 Medication Orders montelukas t 10 mg tablet 2023 024 [facility], [address], [place], [place], [id number], 4 15:42:14 albuterol sulfate HFA 90 mcg/actuat ion aerosol inhaler 2023 024 [facility], [address], [place], [place], [id number], 4 15:42:32 Trelegy Ellipta 200 mcg-62.5 mcg-25 mcg powder for inhalation 2023 024 [facility], [facility] [address], [place], [place], [id number], 4 15:41:49 citalopram 40 mg tablet 2023 [facility], [facility] [address], [place], [place], [id number], 4 15:42:02 bupropion HCl SR 150 mg tablet,12 hr sustained- release 2023 [facility], [facility] [address], [id number], 4 11:15:39 azithromyc in 500 mg tablet 2023 024 [facility], [facility] [address], [id number], 4 15:51:42 Medrol (Peng) 4 mg tablets in a dose pack 2023 024 [facility], [facility] [address], [id number], 4 15:51:40 Patient TargetsNo targets recorded. Patient Instructions Encounter Date Encounter Id Patient Instructions Last Modified By Organization Details Last Modified Time 06/27/2023 [id number] A healthy lifestyle: care instructions jnanney Not available 06/27/2023 15:45:58 whiplash: care instructions jnanney Not available 06/27/2023 15:45:58 08/23/2023 [id number] A healthy lifestyle: care instructions jnanney Not available 08/23/2023 15:39:41 11/14/2023 [id number] A healthy lifestyle: care instructions jnanney Not available 11/14/2023 11:14:50 01/01/2024 [id number] A healthy lifestyle: care instructions jnanney Not available 01/01/2024 15:51:39 Reason for Referral Neurological Surgeon Referra l for Cervical radiculopathy Referring Physician: Alvin Elkins, Family Medicine, Encounter Date: 02/11/2024 Results Created Date Observation Date Name Description Value Unit Range Abnormal Flag Note LastModifiedBy Organization Detail LastModifiedTime 06/07/19 24 06/07/2023 influ brandi virus A + B + SARS- CoV-2 (COVI D19) Ag panel , rapid IA, upper respi rator y speci men Flu A negati ve Not Available In-Office Order Internal Use Only DO Not Attach Compendium DO Not Attach Compendium, Do Not Delete/merge, [id number] 06/07/2023 17:41:35 06/07/1906/07/2023 influ brandi virus A + B + SARS- CoV-2 (COVI D19) Ag panel , rapid IA, upper respi rator y speci men Flu B negati ve Not Available In-Office Order Internal Use Only DO Not Attach Compendium DO Not Attach Compendium, Do Not Delete/merge, [id number] 06/07/2023 17:41:35 06/07/19 24 06/07/2023 influ brandi virus A + B + SARS- CoV-2 (COVI D19) Ag panel , rapid IA, upper respi rator y speci men Rapid SARS CoV 2 Ag, QL IA, respiratory specimen negati ve Not Available In-Office Order Internal Use Only DO Not Attach Compendium DO Not Attach Compendium, Do Not Delete/merge, [id number] 06/07/2023 17:41:35 02/11/20 24 02/11/2024 HbA1c (hemo globi n A1c), blood HbA1c 6.1 Not Available In-Office Order Internal Use Only DO Not Attach Compendium DO Not Attach Compendium, Do Not Delete/merge, [id number] 02/10/2024 17:50:50 06/12/19 24 06/12/2023 CT, brain , w/o contr ast No observ ation record ed. [facility] [address] [place], [id number], 03/10/2024 10:20:28 06/12/19 24 06/12/2023 CT, cervi nathen spine , w/o contr ast No observ ation record ed. [facility] [address] [place], [address], 03/10/2024 10:20:22 08/13/19 24 08/13/2023 XR, chest No observ ation record ed. [facility] [address] [place], [address], 03/10/2024 10:20:16 08/13/19 24 08/13/2023 CT, chest , w/o contr ast No observ ation record ed. [facility] [address] [place], [address], 03/10/2024 10:20:10 11/23/19 24 11/23/2023 MRI, cervi nathen spine , w/o contr ast No observ ation record ed. [facility] [address] [place], [id number], 03/10/2024 10:20:04 Result Notes None recorded. Problems Name Problem SNOMED Code Status Onset Date Resolution Date Notes Provider Name and Address Organization Details Recorded Time Neck pain 94900422 Active s/p sx - pt is seeing spine specialis t Jeanne Moreno MA [facility], [place] - SI 15:27:43 Abscess 132264698 Active 2016 Jeanne Moreno MA null, [place] - [facility] 0 14:51:00 Chronic obstruct mai pulmonar y disease 44905506 Active Jeanne Moreno MA null, [place] - [facility] 1 15:27:42 Vaginal odor 171473801 Completed 02/09/2016 Emma Salinas MD Attn: Joelle stinson,[address] [place], [address], [place] - [facility] 6 09:10:21 Infectio n by Trichomo barbra 44553546 Active Jeanne Moreno [place] null, [place] [facility] 15:27:43 Bacteria l vaginosi s 531062447 Active Jeanne More[place], [place] [facility] 15:27:43 Mixed anxiety and depressi ve disorder 911752509 Active seeing counsello r at [facility] Jeanne Moreno [place] null, [place] [facility] 15:27:43 Irritabl e bowel syndrome 36333558 Active Jeanne Moreno [place], [place] [facility] 1 15:27:43 Dysuria 35279077 Completed 12/25/2016 Emma Salinas MD Attn: Joelle stinson,[address] [place], [address], [place] [facility] 7 12:37:55 Urinary tract infectio us disease 29167084 Completed 02/09/2016 Emma Salinas MD Attn: Joelle stinson,[address] [place], [address], [place] [facility] 6 09:10:10 Smells of urine 17003883 Completed 02/09/2016 Emma Salinas MD Attn: Joelle stinson,[address] [place], [address], [place] [facility] 6 09:10:14 Disorder of vagina 17321454 Active Jeanne Moreno [place] null, [place] - [facility] 1 15:27:43 Candidia sis of vagina 54242391 Active Jeanne Moreno MA null, [facility] 15:27:43 Problem Notes None recorded. Procedures Surgical History Date Name Laterality Status Provider Name and Address Organization Details Recorded Time 05/24/19 24 Dilation and curettage completed Kendra Quinn MA [facility] 06/07/2023 17:16:36 04/10/19 24 Date of Last Mammogram completed Jeanne Moreno MA [facility] 06/27/2023 15:31:03 04/04/19 24 Date of Last Pap Smear completed Jeanne Moreno MA [facility] 06/27/2023 15:31:19 12/07/19 22 colonoscopy completed Jeanne Moreno MA [facility] 12/08/2021 09:10:21 12/07/19 15 Other completed Mari Echeverria MA [facility] 01/06/2015 10:22:25 Caesarean Section completed Josie Calloway MA [facility] 04/07/2014 15:26:15 Tubal Ligation completed Mari Echeverria MA [facility] 01/06/2015 10:22:25 Imaging Results Imaging Date Name Status LastModified by Organiz ation Details LastModified Time 06/12/2023 CT, brain, w/o contrast completed [facility] [address] [place], [address], 03/10/2024 10:20:28 06/12/2023 CT, cervical spine, w/o contrast completed [facility] [address] [place], [address], 03/10/2024 10:20:22 08/13/2023 XR, chest completed [facility] [address] [place], [address], 03/10/2024 10:20:16 08/13/2023 CT, chest, w/o contrast completed [facility] [address] [place], [address], 03/10/2024 10:20:10 11/23/2023 MRI, cervical spine, w/o contrast completed [facility] [address] [place], [address], 03/10/2024 10:20:04 Procedure Notes None recorded. Medical Equipment None Reported. Allergies Allergen ID Allergen Name Allergen Category Reaction Reaction Severity Criticality Documentation Date Start Date Code Code System Note Provider Name and Address Organization Details Recorded Time [id number] latex environme nt,medica tion hives severe Not available 04/13/2016 [id number] RxNorm Not Available Not Available Not Available Medications Name Sig Start Date Stop Date Status Note LastModified by Organization Details LastModified Time celecoxib 200 mg capsule active Not Available Not Available Not Available cyclobenza kira 10 mg tablet active Not Available Not Available No t Available amoxicilli n 500 mg capsule 07/20 completed Not Available Not Available Not Available medroxypro gesterone 10 mg tablet active Not Available Not Available Not Available bupropion HCl SR 150 mg tablet,12 hr sustained- release Take 1 tablet twice a day by oral route for 30 days. active Not Available Not Available No t Available promethazi ne-DM 6.25 mg-15 mg/5 mL oral syrup Take 5 mL by oral route. 07/05 completed Not Available Not Available Not Available prednisone 10 mg tablet 06/25 completed Not Available Not Available Not Available doxycyclin e hyclate 100 mg capsule 06/11 completed Not Available Not Available Not Available ipratropiu m 0.5 mg-albuter ol 3 mg (2.5 mg base)/3 mL nebulizati on soln INHALE ONE VIAL FOUR TIMES A DAY NEEDED active Not Available Not Available No t Available tizanidine 2 mg tablet TAKE 1 TAB BY MOUTH 3 TIMES DAILY. 02/08 completed Not Available Not Available Not Available citalopram 40 mg tablet TAKE ONE TABLET BY MOUTH DAILY 2023 active Not Available Not Available Not Avai lable azithromyc in 250 mg tablet TAKE 2 TABLETS (500 MG) BY ORAL ROUTE ONCE DAILY FOR 1 DAY THEN 1 TABLET (250 MG) BY ORAL ROUTE ONCE DAILY FOR 4 DAYS FOR COPD EXACERBA TION 06/11 completed Not Available Not Available Not Available Lidocaine Viscous 2 % mucosal solution Take 10 mL 3 times a day by oral route as needed for 5 days. 01/12 completed Not Available Not Available Not Available tizanidine 4 mg tablet 02/08 completed Not Available Not Available Not Available fluconazol e 150 mg tablet TAKE BY MOUTH ONCE DAILY 06/03 completed Not Available Not Available Not Available benzonatat e 200 mg capsule TAKE ONE CAPSULE BY MOUTH THREE TIMES A DAY NEEDED active Not Available Not Available No t Available valacyclov ir 1 gram tablet TAKE ONE TABLET BY MOUTH EVERY TWELVE HOURS FOR 5 DAYS active Not Available Not Available No t Available hydrocodon e 5 mg-acetami nophen 325 mg tablet 02/08 completed Not Available Not Available Not Available ondansetro n HCl 8 mg tablet TAKE ONE TABLET BY MOUTH TWICE A DAY FOR 10 DAYS 12/12 completed Not Available Not Available Not Available fluconazol e 200 mg tablet Take 1 tablet every 72 hours by oral route. 01/12 completed Not Available Not Available Not Available meloxicam 15 mg tablet TAKE 1 TABLET BY MOUTH NEEDED WITH FOOD FOR PAIN active Not Available Not Available No t Available phenazopyr idine 200 mg tablet Take 1 tablet 3 times a day by oral route after meals for 2 days. 02/08 completed Not Available Not Available Not Available metronidaz ole 0.75 % (37.5 mg/5 gram) vaginal gel Insert 1 applicat orful every day by vaginal route at bedtime for 5 days. 04/13 completed Not Available Not Available Not Available famotidine 40 mg tablet TAKE ONE TABLET BY MOUTH DAILY active Not Available Not Available No t Available prednisone 20 mg tablet 11/13 completed Not Available Not Available Not Available terconazol e 0.8 % vaginal cream Insert 1 applicat orful every day by vaginal route for 3 days. 02/08 completed Not Available Not Available Not Available metronidaz ole 500 mg tablet TAKE 4 TABLETS BY MOUTH DAILY DIRECTED FOR 1 DAY 06/03 completed Not Available Not Available Not Available acetaminop hen 300 mg-codeine 30 mg tablet 05/05 completed Not Available Not Available Not Available ciprofloxa terell 250 mg tablet Take 1 tablet twice a day by oral route as directed for 5 days. 02/08 completed Not Available Not Available Not Available ciprofloxa terell 500 mg tablet Take 1 tablet every 12 hours by oral route for 10 days. 01/02 completed Not Available Not Available Not Available sulfametho xazole 800 mg-trimeth oprim 160 mg tablet 1 {tbl} twice a day by oral route. 12/16 completed Not Available Not Available Not Available omeprazole 40 mg capsule,de layed release active Not Available Not Available Not Available Nicotrol 10 mg inhalation cartridge 08/22 completed Not Available Not Available Not Available tramadol 50 mg tablet 02/08 completed Not Available Not Available Not Available acetaminop hen 500 mg tablet 01/20 completed Not Available Not Available Not Available butalbital -acetamino phen-caffe ine 50 mg-325 mg-40 mg tablet TAKE ONE TABLET BY MOUTH EVERY FOUR HOURS NEEDED 05/05 completed not taking Not Available Not Available Not Available amoxicilli n 500 mg tablet Take 1 tablet 3 times a day by oral route for 7 days. 04/13 completed Not Available Not Available Not Available acyclovir 800 mg tablet Take 1 tablet 5 times a day by oral route for 5 days. 09/07 completed Not Available Not Available Not Available terconazol e 80 mg vaginal suppositor y Insert 1 supposit ory every day by vaginal route for 3 days. 07/05 completed Not Available Not Available Not Available hydrocorti sone 2.5 % topical cream with perineal applicator APPLY A THIN LAYER TO THE AFFECTED AREA(S) BY TOPICAL ROUTE 2-4 TIMESDAI LY active Not Available Not Available No t Available amoxicilli n 875 mg tablet Take 1 tablet every 12 hours by oral route for 10 days. 12/12 completed Not Available Not Available Not Available citalopram 20 mg tablet Take 1 tablet every day by oral route for 90 days. active Not Available Not Available No t Available famotidine 20 mg tablet TAKE 1 TABLET BY MOUTH TWICE A DAY 07/05 completed Not Available Not Available Not Available amitriptyl ine 25 mg tablet active Not Available Not Available Not Available prednisolo ne acetate 1 % eye drops,susp ension 01/13 completed Not Available Not Available Not Available methocarba mol 750 mg tablet active Not Available Not Available Not Available dicyclomin e 20 mg tablet active Not Available Not Available Not Available benzonatat e 100 mg capsule Take 1 capsule twice a day by oral route as needed for cough. 06/26 completed Not Available Not Available Not Available doxycyclin e monohydrat e 100 mg capsule Take 1 capsule twice a day by oral route. 02/13 completed not taking Not Available Not Available Not Available hydrocodon e 7.5 mg-acetami nophen 325 mg tablet active Not Available Not Available No t Available buspirone 30 mg tablet Take 1 tablet twice a day by oral route for 90 days. 05/05 completed Not Available Not Available Not Available nitrofuran toin macrocryst al 100 mg capsule Take 1 capsule twice a day by oral route as directed for 7 days. 02/08 completed Not Available Not Available Not Available ranitidine 150 mg tablet TAKE 1 TABLET(S ) TWICE A DAY BY ORAL ROUTE. 01/13 completed Not Available Not Available Not Available buspirone 10 mg tablet TAKE ONE TABLET BY MOUTH TWICE A DAY FOR THIRTY DAYS 12/12 completed Not Available Not Available Not Available prednisone 50 mg tablet Take 1 tablet every day by oral route for 5 days, for COPD exacerba tion. 06/26 completed Not Available Not Available Not Available albuterol sulfate 2 mg/5 mL oral syrup TAKE 5 ML BY MOUTH THREE TIMES A DAY active Not Available Not Available No t Available nicotine 21 mg/24 hr daily transderma l patch Apply 1 patch every day by transder mal route for 30 days. 12/12 completed Not Available Not Available Not Available fluoxetine 10 mg capsule Take 1 capsule every day by oral route. 02/08 completed Not Available Not Available Not Available gabapentin 300 mg capsule active Not Available Not Available Not Available hydrocorti sone 2.5 % topical cream APPLY A THIN LAYER TO THE AFFECTED AREA(S) BY TOPICAL ROUTE 2 TIMES PER DAY 2023 active Not Available Not Available Not Avai lable montelukas t 10 mg tablet TAKE ONE TABLET BY MOUTH DAILY active Not Available Not Available No t Available hydroxyzin e HCl 25 mg tablet TAKE ONE TABLET BY MOUTH THREE TIMES A DAY 06/26 completed Not Available Not Available Not Available codeine 10 mg-guaifen esin 100 mg/5 mL oral liquid Take 10 mL every 4 hours by oral route as needed. 06/26 completed Not Available Not Available Not Available capsaicin 0.025 % topical cream APPLY TO THE AFFECTED AREA(S) BY TOPICAL ROUTE 3 TIMES PER DAY active Not Available Not Available No t Available permethrin 1 % topical liquid APPLY A SUFFICIE NT AMOUNT OF SHAMPOO BY TOPICAL ROUTE ONCE ALLOW TO REMAIN ON HAIR FOR 10 MINUTES BEFORE RINSING OFF WITH WATER 02/08 completed Not Available Not Available Not Available gabapentin 100 mg capsule TAKE 1 CAPSULE BY MOUTH THREE TIMES A DAY 07/20 completed Not Available Not Available Not Available ergocalcif farshad (vitamin D2) 1,250 mcg (50,000 unit) capsule 12/12 completed Not Available Not Available Not Available ibuprofen 600 mg tablet 01/20 completed Not Available Not Available Not Available levofloxac in 500 mg tablet Take 1 tablet every day by oral route for 5 days. 02/03 completed Not Available Not Available Not Available levofloxac in 750 mg tablet 750 mg by oral route. 11/19 completed Not Available Not Available Not Available methylpred nisolone 4 mg tablets in a dose pack Take 1 dose pk by oral route as directed . active Not Available Not Available No t Available albuterol sulfate HFA 90 mcg/actuat ion aerosol inhaler INHALE 2 PUFFS BY MOUTH FOUR TIMES A DAY NEEDED active Not Available Not Available No t Available ketorolac 60 mg/2 mL intramuscu lar solution Inject 2 mL by intramus cular route. 07/20 completed Not Available Not Available Not Available ondansetro n 4 mg disintegra ting tablet DISSOLVE ONE TABLET ON TONGUE EVERY EIGHT HOURS NEEDED FOR NAUSEA active Not Available Not Available No t Available fluticason e propionate 50 mcg/actuat ion nasal spray,susp ension [place] 1 spray every day by intranas al route. active Not Available Not Available No t Available dicyclomin e 10 mg capsule 06/26 completed Not Available Not Available Not Available loratadine 10 mg tablet TAKE 1 TABLET BY MOUTH EVERY DAY active Not Available Not Available No t Available naproxen 500 mg tablet Take 500 mg twice a day by oral route. 06/03 completed Not Available Not Available Not Available amoxicilli n 875 mg-potassi um clavulanat e 125 mg tablet 11/13 completed Not Available Not Available Not Available azithromyc in 500 mg tablet Take 1 tablet every day by oral route for 3 days. active Not Available Not Available No t Available Promethega n 12.5 mg rectal suppositor y active Not Available Not Available Not Available duloxetine 30 mg capsule,de layed release TAKE 1 CAPSULE BY MOUTH EVERY DAY 05/07 completed not taking Not Available Not Available Not Available lactulose 10 gram/15 mL oral solution active Not Available Not Available Not Available Atrovent HFA 17 mcg/actuat ion aerosol inhaler INHALE 1 PUFF BY MOUTH 3 TIMES A DAY 12/12 completed Not Available Not Available Not Available vareniclin e tartrate 0.5 mg (11)-1 mg (42) tablets in a dose pack 06/26 completed not taking Not Available Not Available Not Available Symbicort 160 mcg-4.5 mcg/actuat ion HFA aerosol inhaler INHALE TWO PUFFS BY MOUTH TWICE A DAY 12/12 completed Not Available Not Available Not Available roflumilas t 500 mcg tablet active Not Available Not Available Not Available Linzess 145 mcg capsule Take 1 capsule every day by oral route as needed for 30 days. 08/22 completed Not Available Not Available Not Available Trelegy Ellipta 100 mcg-62.5 mcg-25 mcg powder for inhalation 09/01 completed Not Available Not Available Not Available Wixela Inhub 250 mcg-50 mcg/dose powder for inhalation TAKE 1 PUFF BY MOUTH TWICE A DAY 01/20 completed Not Available Not Available Not Available Trelegy Ellipta 200 mcg-62.5 mcg-25 mcg powder for inhalation INHALE 1 PUFF BY INHALATI ON ROUTE DAILY active Not Available Not Available No t Available Vitals Date Recorded Body height Provider Name an d Address Organization Details Last Updated DateTime 06/27/2023 157.48 cm Jeanne Moreno MA [place] - [facility] 06/27/19 24 15:27:48 Date Recorded Body mass index (BMI) Body weight Provider Name and Address Organization Details Last Updated DateTime 06/27/2023 28.9 kg/m2 73759.59 g Jeanne Moreno MA [facility] 06/27/2023 15:27:55 Date Recorded Oxygen saturation Oxygen saturation in Arterial blood by Pulse oximetry Provider Name and Address Organization Details Last Updated DateTime 06/27/2023 92 % 92 % Jeanne Moreno MA [facility] 06/27/2023 15:33:55 Date Recorded Heart rate Provider Name an d Address Organization Details Last Updated DateTime 06/27/2023 120 /min Jeanne Moreno MA [facility] 06/27/19 15:33:57 Date Recorded Body height Provider Name an d Address Organization Details Last Updated DateTime 08/23/2023 157.48 cm Enedina Carr MA [facility] 08/23/19 15:08:22 Date Recorded Body mass index (BMI) Body weight Provider Name and Address Organization Details Last Updated DateTime 08/23/2023 29.3 kg/m2 03390.88 g Enedina Carr MA [facility] 08/23/2023 15:09:01 Date Recorded Oxygen saturation Oxygen saturation in Arterial blood by Pulse oximetry Provider Name and Address Organization Details Last Updated DateTime 08/23/2023 89 % 89 % Enedina Carr MA [facility] 08/23/2023 15:09:53 Date Recorded Heart rate Provider Name an d Address Organization Details Last Updated DateTime 08/23/2023 127 /min Enedina Carr MA [facility] 08/23/19 15:10:08 Date Recorded Body height Provider Name an d Address Organization Details Last Updated DateTime 11/14/2023 157.48 cm Enedina Carr MA [facility] 11/14/19 10:57:44 Date Recorded Body mass index (BMI) Body weight Provider Name and Address Organization Details Last Updated DateTime 11/14/2023 27.5 kg/m2 32065.96 [address] Carr MA [facility] 11/14/2023 10:57:50 Date Recorded Oxygen saturation Oxygen saturation in Arterial blood by Pulse oximetry Provider Name and Address Organization Details Last Updated DateTime 11/14/2023 96 % 96 % Enedina Carr MA [facility] 11/14/2023 11:00:39 Date Recorded Heart rate Provider Name an d Address Organization Details Last Updated DateTime 11/14/2023 111 /min Enedina Carr MA [facility] 11/14/19 11:00:42 Date Recorded Body height Provider Name an d Address Organization Details Last Updated DateTime 01/01/2024 157.48 cm Enedina Carr MA [facility] 01/01/20 15:34:13 Date Recorded Body mass index (BMI) Body weight Provider Name and Address Organization Details Last Updated DateTime 01/01/2024 27.8 kg/m2 08996.04 [address] Carr MA [facility] 01/01/2024 15:34:16 Date Recorded Oxygen saturation Oxygen saturation in Arterial blood by Pulse oximetry Provider Name and Address Organization Details Last Updated DateTime 01/01/2024 96 % 96 % Enedina Carr MA [facility] 01/01/2024 15:36:36 Date Recorded Heart rate Provider Name an d Address Organization Details Last Updated DateTime 01/01/2024 94 /min Enedina Carr MA [facility] 01/01/20 15:36:40 Date Recorded Body height Provider Name an d Address Organization Details Last Updated DateTime 02/11/2024 157.48 cm Enedina Carr MA [facility] 02/11/20 16:35:15 Date Recorded Body mass index (BMI) Body weight Provider Name and Address Organization Details Last Updated DateTime 02/11/2024 26.4 kg/m2 74146.[address] [facility] 02/11/2024 16:35:21 Date Recorded Heart rate Provider Name an d Address Organization Details Last Updated DateTime 02/11/2024 114 /min Enedina Carr MA [facility] 02/11/20 16:37:38 Date Recorded Oxygen saturation Oxygen saturation in Arterial blood by Pulse oximetry Provider Name and Address Organization Details Last Updated DateTime 02/11/2024 97 % 97 % Enedina Carr MA [facility] 02/11/2024 16:37:41 Date Recorded Systolic blood pressure Diastolic blood pressure Provider Name and Address Organization Details Last Updated DateTime 06/27/2023 110 mm[Hg] 70 mm[Hg] Jeanne Moreno MA [facility] 06/27/2023 15:33:51 Date Recorded Systolic blood pressure Diastolic blood pressure Provider Name and Address Organization Details Last Updated DateTime 08/23/2023 118 mm[Hg] 70 mm[Hg] Enedina Carr MA [facility] 08/23/2023 15:19:25 Date Recorded Systolic blood pressure Diastolic blood pressure Provider Name and Address Organization Details Last Updated DateTime 11/14/2023 97 mm[Hg] 67 mm[Hg] Enedina Carr MA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
--- OUTSIDE RECORDS SUMMARY | 2024-04-04 18:56 | XMS_ITS | Encounter Summary ---
Author Organization [facility] Address [address] [place] [address] Care Team Providers Care Restaurant Greeter Name Role Phone Janes Elkins Primary Care Provider [phone] Arleth Morris MD Unavailable [phone] Encounter Details Date Type Department Care Team (Late st Contact Info) Description 06/13/[address] [address] Lauren Lerner, RT Social History Tobacco Use Types Packs/Day Years Used Date Smoking Tobacco: Former Cigarettes Q uit: 11/09/2018 Smokeless Tobacco: Never Alcohol Use Standard Drinks/Week Comments Not Currently 0 (1 standard drink = 0.6 oz pur e alcohol) Comments No Sex and Gender Information Value Date Recorded Sex Assigned at Not on file Legal Sex Female 10:34 AM FAST FOODS WORKER Gender Identity Not on file Sexual Orientation Not on file documented as of this encounter Plan of Treatment Not on file documented as of this encounter Visit Diagnoses Not on filedocumented in this encounter Additional Health Concerns Infection Onset Date Last Indicated Resolved Time 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
--- NOTE | 2024-04-04 19:25 | ECG_ITS ---
Test Date: 2024-04-04 19:32:01 Measurements Intervals [place] Rate: 105 P: 87 DE: 126 QRS: 91 QRSD: 80 T: 69 QT: 320 QTc: 424 Interpretive Statements SINUS TACHYCARDIA POSSIBLE RIGHT ATRIAL ENLARGEMENT BASELINE ARTIFACT- I, II, III, AVR, AVL, AVF, V2 BORDERLINE ECG Compared to ECG 08/13/2023 21:03:07 HEART RATE HAS INCREASED Electronically Signed On 04-05-2024 08:27:01 POULTRY HATCHERY MAN by Kvng Mendez D.O.
--- NOTE | 2024-04-04 19:29 | ED_ITS ---
HPI - SOB/Dyspnea General Chief Complaint: Shortness of Breath/Dyspnea Stated Complaint: sob x1 week Time Seen by Provider: 04/04/24 19:24 Source: patient Mode of arrival: ambulatory Limitations: no limitations History of Present Illness HPI Narrative: 54-year-old female, smoker a history of COPD on home oxygen, status post neck surgery presents to ED with multiple weeks history of -- cough with mucopurulent sputum -- worsening shortness of breath the past 3 weeks -- right buttock abscess no chest pain no fever or chills patient was admitted last year on 08/14/2023 for COPD exacerbation to [facility]. elicited complaint: shortness of breath and cough Pertinent past history: COPD Onset (ago): day(s) ( worse for the past 3 days) Timing: constant Severity: severe Exacerbating factors: exertion Relieving factors: bronchodilators Known history of: COPD Associated symptoms: cough, wheezing and sputum production Treatment prior to arrival: oxygen and bronchodilator Related Data Home oxygen amount: 2 liters Home Medications ?Medication ?Instructions ?Recorded ?Confirmed ?Last Taken ?Type albuterol sulfate 90 mcg/actuation 2 puff inhalation Q4H PRN 02/22/19 08/14/23 08/13/23 History aerosol inhaler Shortness Of Breath Or Wheezing ipratropium bromide 17 2 puff inhalation QID 02/22/19 08/14/23 06/12/23 History mcg/actuation HFA aerosol inhaler (Atrovent HFA) famotidine 40 mg tablet 40 mg PO DAILY 01/08/22 08/14/23 08/13/23 History fluticasone fur. 100 mcg-umeclid 1 inh inhalation BID 01/08/22 08/14/23 08/13/23 History 62.5 mcg-vilant 25 mcg inhalat.powder (Trelegy Ellipta) hydroxyzine HCl 25 mg tablet 25 mg PO BID 01/08/22 08/14/23 08/13/23 History meloxicam 15 mg tablet 15 mg PO DAILY 01/08/22 08/14/23 08/13/23 History montelukast 10 mg tablet 10 mg PO DAILY 01/08/22 08/14/23 08/13/23 History roflumilast 500 mcg tablet 500 mcg PO DAILY 08/14/23 08/14/23 08/13/23 History Allergies Allergy/AdvReac Type Severity Reaction Status Date / Time latex Allergy Rash Verified 08/13/23 18:32 Review of Systems 2 Review of Systems: All systems reviewed & are unremarkable except as noted in HPI and below Constitutional: Constitutional: Reports as per HPI and Reports no additional constitutional complaints Eyes: Eyes: Reports as per HPI and Reports no additional eye complaints ENT: Reports system reviewed and no additional complaints, except as documented and Reports as per HPI Cardiovascular: Cardiovascular: Reports as per HPI and Reports no additional cardiovascular complaints Respiratory: Respiratory: Reports as per HPI, Reports no additional respiratory complaints, Reports chest congestion, Reports cough, Reports dyspnea and Reports wheezing Gastrointestinal: Gastrointestinal: Reports as per HPI and Reports no additional gastrointestinal complaints Genitourinary: Genitourinary: Reports no additional female genitourinary complaints and Reports as per HPI Musculoskeletal: Musculoskeletal: Reports no additional musculoskeletal complaints and Reports as per HPI Integumentary/Breasts: Skin/Breast: Reports system reviewed and no additional complaints, except as docu and Reports as per HPI Comments: Right gluteal abscess Neurologic: Reports system reviewed and no additional complaints, except as documented and Reports as per HPI Psychiatric: Psychiatric: Reports no additional psychiatric complaints, Reports as per HPI and Reports anxiety Endocrine: Endocrine: Reports no additional endocrine complaints and Reports as per HPI Hematologic/Lymphatic: Hematologic/Lymphatic: Reports no additional hematologic/lymphatic complaints and Reports as per HPI Allergic/Immunologic: Allergic/Immunologic: Reports no additional allergic/immunologic complaints and Reports as per HPI [facility] Past Medical History Medical History Asthma exacerbation in COPD Surgical History Surgical History H/O neck surgery Social History Social History Smoking status: Former smoker Alcohol intake: former Substance use: former Substance use type: marijuana Do You Feel Safe in your Home?: No Lack of Transportation: No Lack of Food: Never True Current Housing: I Have Housing Concerned About Future Housing: No Difficulty Paying Gas/Electric Bills: No Difficulty Paying for Meds: No Currently Unemployed: No Education: Decline to Answer Difficulty w/ Childcare or Family Care: No Spiritual care concerns: No Exam 2 Narrative: rate of 113 Const: Nutritional Appearance: well nourished Orientation/consciousness: p atient oriented x3 HENMT: Head: normal to inspection Ears: external ears normal F nathaniel/Nose/Sinus: Normal external nose present Face and sinus: normal facial exam Mouth: Yes Normal oral and palatal mucosa present Throat: posterior oropharynx normal Eyes: Conjunctivae: conjunctivae normal Pupils: Equal, round and reactive pupils present EOM: EOMs intact bilaterally Direct Ophthalmoscopy: no photophobia Neck: Neck: normal visual inspection, no lymphadenopathy and no meningeal signs Chest: Chest palpation & inspection: normal inspection of the chest Resp: Effort & Inspection: tachypneic and uses accessory muscles A uscultation: wheezes and diminished lung sounds Cardio: Rate: tachycardic Rhythm: regular rhythm GI: GI Palp: Yes Soft to palpation Auscultation: normal bowel sounds O ther: no tenderness/rigidity /rebound : General: Yes no CVA tenderness Back/Spine/Pelvis: Back: no CVA tenderness Skin: General skin exam: normal color Other: right buttock has folliculitis-- 5 mm erythematous spot. nontender. appears to have drained Neuro: General: patient oriented x3, moves all extremities, no meningeal signs, no focal motor deficits and CN's II-XI intact bilaterally Cranial nerves: Yes Nystagmus not present Speech: normal speech Extrem: General: normal to inspection and no clubbing, cyanosis or edema Psych: Affect: Anxious affect present Course Course Emergency Course: right buttock folliculitis COPD exacerbation-- chest x-ray did not show any acute findings. Patient tested positive for influenza. Patient had negative troponin and proBNP. anxiety Vital Signs Vital signs: Vital Signs Temperature 36.4 C L 04/04/24 18:53 Pulse Rate 113 H 04/04/24 18:53 Respiratory Rate 20 04/04/24 18:53 Blood Pressure 133/72 04/04/24 18:53 Pulse Oximetry 97 04/04/24 18:53 Oxygen Delivery Nasal Cannula 04/04/24 18:53 Oxygen Flow Rate 2 04/04/24 18:53 Temperature 36.4 C L 04/04/24 18:53 Pulse Rate 103 H 04/04/24 19:28 Respiratory Rate 20 04/04/24 18:53 Blood Pressure 133/72 04/04/24 18:53 Pulse Oximetry 94 04/04/24 19:28 Oxygen Delivery Nasal Cannula 04/04/24 19:28 Oxygen Flow Rate 3 04/04/24 19:28 MDM - SOB/Dyspnea MDM Narrative Medical decision making narrative: Buttock folliculitis influenza a COPD exacerbation Differential Diagnosis Differential diagnosis: Likely congestive heart failure and community acquired pneumonia Medical Records Attestation: I reviewed the patient's medical records. Lab Data Attestation: I reviewed the patient's lab results. 04/04/24 20:33 04/04/24 20:33 Labs: Lab Results 04/04/24 04/04/24 Range/Units 19: 20:33 WBC 9.5 (4.8-10.8) K/mm3 RBC 4.18 L (4.20-5.40) M/mm3 Hgb 12.0 (12.0-15.0) g/dL Hct 37.4 (35.0-49.0) % MCV 89.5 (78.0-102.0) fL MCH 28.7 (27.0-31.0) pg MCHC 32.1 (32-36) g/dL RDW 12.6 (11.6-14.4) % Plt Count 381 (150-420) K/mm3 MPV 9.2 (9.2-11.8) fl Immature Gran % (Auto) 0.2 H (0.0-0.0) % Neut % (Auto) 53.7 (50.0-70.0) % Lymph % (Auto) 27.0 (18.0-42.0) % Bryan % (Auto) 10.1 (2.0-11.0) % Eos % (Auto) 7.9 H (1.0-6.0) % Baso % (Auto) 1.1 H (0.0-1.0) % Lymph # (Auto) 2.56 (1.10-4.50) K/mm3 Bryan # (Auto) 0.96 H (0.10-0.90) K/mm3 Eos # (Auto) 0.75 H (0.02-0.50) K/mm3 Baso # (Auto) 0.10 (0.00-0.10) K/mm3 Abs Immat Gran (auto) 0.02 H (0.00-0.00) K/mm3 Absolute Neuts (auto) 5.08 (1.70-7.20) K/mm3 Absolute Nucleated RBC 0.00 (0.00-0.00) K/mm3 Nucleated RBC % 0.0 (0-0.0) % Sodium 142 (136-145) mmol/L Potassium 3.4 L (3.5-5.1) mmol/L Chloride 103 (98-108) mmol/L Carbon Dioxide 30 (21-32) mmol/L Anion Gap 9 (4-12) mmol/L BUN 9 (7-18) mg/dL Creatinine 0.73 (0.55-1.02) mg/dL Estim Creat Clear Calc 68 ml/min Estimated GFR > 60 (59 - ) Glucose 86 (70-99) mg/dL Calculated Osmolality 291 (285-295) mOsm/kg Lactic Acid 0.5 (0.4-2.0) mmol/L Calcium 8.8 (8.5-10.1) mg/dL Total Bilirubin 0.3 (0.00-1.00) mg/dL AST 18 (15-37) U/L ALT 24 (14-59) U/L Alkaline Phosphatase 94 (46-116) U/L Troponin I 4.4 (0.00-60.4) ng/L NT-Pro-B Natriuret Pep 324 H (0-125) pg/mL Total Protein 6.9 (6.4-8.2) g/dL Albumin 3.7 (3.4-5.0) g/dL Influenza A (RT-PCR) Positive A (Negative) Influenza B (RT-PCR) Negative (Negative) RSV (RT-PCR) Negative (Negative) SARS-CoV-2 RNA (RT-PCR) Negative (Negative) ECG Data EKG #1: ECG completion date: 04/04/24 ECG completion time: 19:32 Interpretation: sinus tachycardia with a heart rate of 105. Normal axis. No ST elevation. Discharge Plan Discharge Clinical Impression: COPD with exacerbation, Influenza A, Folliculitis Patient Disposition: Home, Self-Care Condition: Stable Instructions: Antibiotic Form, Influenza (ED), COPD (Chronic Obstructive Pulmonary Disease) (DC) Patient Language: Kazakh Prescriptions: New amoxicillin-pot clavulanate 875-125 mg tablet 1 tablet PO Q12H Qty: 14 0RF prednisone 20 mg tablet 20 mg PO BID Qty: 10 0RF No Action albuterol sulfate 90 mcg/actuation HFA aerosol inhaler 2 puff INHALATION Q4H PRN (Reason: Shortness Of Breath Or Wheezing) Atrovent HFA 17 mcg/actuation HFA aerosol inhaler 2 puff INHALATION QID meloxicam 15 mg tablet 15 mg PO DAILY famotidine 40 mg tablet 40 mg PO DAILY montelukast 10 mg tablet 10 mg PO DAILY hydroxyzine HCl 25 mg tablet 25 mg PO BID Trelegy Ellipta 100-62.5-25 mcg blister with device 1 inh INHALATION BID roflumilast 500 mcg tablet 500 mcg PO DAILY guaifenesin [Mucus Relief ER] 600 mg Tablet Extended Release 12hr 1,200 mg PO Q12HR Qty: 14 0RF azithromycin 500 mg tablet 500 mg PO DAILY 3 Days Qty: 3 0RF amoxicillin-pot clavulanate 875-125 mg tablet 1 tablet PO Q12H Qty: 6 0RF prednisone 20 mg tablet 40 mg PO DAILY Qty: 14 0RF Follow-up/Referrals: Severo,GAYE Cuenca [Primary Care Provider] - Time of Disposition: 21:51
--- NOTE | 2024-04-04 19:38 | PC.NURSE ---
COVID PCR obtained and [facility] lab
--- OUTSIDE RECORDS SUMMARY | 2024-04-04 19:46 | XMS_ITS | Referral Summary ---
Author Organization [facility] Address [address] [place] [address] Care Team Providers Care Branch Service Leader Name Role Phone Janes Elkins Primary Care Provider [phone] Arleth Morris MD Unavailable [phone] Encounters Date Type Department Care Team Description 03/11/2024 Telephone [facility] Neurosurgery [address] [place] [address] 4th Floor [address] [place] [address] Marge Weathers 01/23/2024 Telephone Obstetrics and Gynecology Clinic [address] [place] [address] 3rd Floor [address] [place] [address] Mame Moore 01/15/2024 Telephone [facility] Clinic [address] [place] [address] 3rd Floor [address] [place] [address] Karen Vazquez 01/13/2024 Telephone [facility] Clinic [address] [place] [address] 3rd Floor [address] [place] [address] Nina Lorenzo 01/07/2024 3:45 PM ROD WELDER Office Visit Obstetrics and Gynecology Clinic [address] [place] [address] 3rd Floor [address] [place] [address] Dayanna Fitzgerald MD Follow-up exam (Primary Dx); Postmenopausal bleeding; Chronic pelvic pain in female 01/07/2024 3:00 PM ROD WELDER - 01/07/2024 11:59 PM ROD WELDER Hospital Encounter [facility] - Ultrasound [address] [place] [address] [place] [address] Chronic pelvic pain in female Discharge Disposition: [...] multiples MIs and CVAs -Primary OB in [place] - offered hyst/BSO given patient concern for gynecologic cause of symptoms. Evaluated by pulmonology and determined to be high risk for anesthesia given severe COPD. Referred to [facility] for further consideration of future surgical management. -[facility] for chronic abdominal pain/ IBS-C: last [...] she is not on any treatment. -[facility] 07/30/23: Low concern for biliary etiology [...] post- menopausal state. -[facility] agreed that patient unlikely to benefit from [...] resources for pelvic floor PT including PT pulmonary function technologist for options closer to her home [] [...] with bright red blood -underwent hsc/D&C at [place] in 05/2023, pathology benign -provera per primary [...] 01/30/2023 Assessment & Plan (01/30/2023 1:02 PM ROD WELDER): Discussed possible causes of decreased sexual desire [...] on file Legal Sex Female 10:34 AM ROD WELDER Gender Identity Not on file Sexual Orientation Not on file Last Filed Vital Signs Vital Sign Reading Time Taken Comments Blood Pressure 116/64 01/07/2024 4:30 PM ROD WELDER Pulse 114 01/07/2024 4:30 PM ROD WELDER pt expresses anxiety and is visibly emotional at appointment. Temperature 36.3 ??C (97.4 ??F) 05/22/2023 1 :24 PM CDT Respiratory Rate 16 05/22/2023 1:24 PM CDT Oxygen Saturation 93% 01/07/2024 4:3 0 PM ROD WELDER Rn discussed with pt. Per pt, she is to be on 2L with activity. 93 is baseline per pt. Inhaled Oxygen Concentration - - Weight 67.4 kg (148 lb 9.6 oz) 01/07/2024 4:30 PM ROD WELDER Height 157.5 cm (5' 2 ) 05/22/2023 9:31 AM CDT Body Mass Index 27.18 05/22/2023 9:31 AM CDT Plan of Treatment Not on file Procedures Procedure Name Priority Date/Time Associated Diagnosis Comments US PELVIS COMPLETE Schedule Routine, Read Routine (OP Routine) 01/07/2024 3:23 PM ROD WELDER Chronic pelvic pain in female SCREENING MAMMOGRAM BILATERAL W KEVIN Schedule Routine, Read Routine (OP Routine) 04/10/2023 8:07 AM ROD WELDER Encounter for screening mammogram for malignant neoplasm of breast from Last 3 Months or Most Recently Relevant to Health Maintenance Results * US Pelvis Complete (01/07/2024 3:23 PM ROD WELDER) Cul de Sac No free fluid visualized VIEWPOINT Endometrial Thickness 3.8 mm&millim eters VIEWPOINT Anatomical Region Laterality Modality Pelvis N/A Ultrasound 01/07/2024 3:23 PM ROD WELDER Impressions 01/07/2024 4:04 PM ROD WELDER 1- Normal appearing uterus. No endometrial thickening [...] Mammogram Bilateral W Kevin (04/10/2023 8:07 AM ROD WELDER) Anatomical Region Laterality Modality Breast Bilateral Mammography 04/10/2023 8:21 AM ROD WELDER Impressions 04/10/2023 8:21 AM ROD WELDER There is no mammographic evidence of malignancy. A 1 year screening mammogram is recommended. BI-RADS: 1 - Negative. The patient has been or will be contacted. The patient will be entered into a reminder system with a target due date of 1 year for her next mammogram. Electronically signed by: Felipe Leo M.D. Narrative 04/10/2023 8:21 AM ROD WELDER EXAMINATION: SCREENING MAMMOGRAM BILATERAL W KEVIN ORDERING [...] been no suspicious interval change. Hiram Moulton A [facility] IMG MAMMO PROCEDURES Final Result from Last 3 Months or Most Recently Relevant to Health Maintenance Insurance [facility] [employer] [facility] [employer] Care Teams Branch Service Leader Relationship Specialty Start Date End Date Janes Elkins PA [address] [place] [address] PCP - General 12/15/19 Arleth Morris MD [address] [place] [address] DR [address] [place] [address] Consulting Physician Obstetrics and Gynecology 05/22/23
--- OUTSIDE RECORDS SUMMARY | 2024-04-04 19:46 | XMS_ITS | Encounter Summary ---
Author Organization [facility] Address [address] [place] [address] Phone Care Team Providers Care Net Mender Name Role Phone Janes Elkins Naveen FAITH Primary Care Provider Veda Motley APRN, HEALTH CARE ASSISTANT Unavailable [phone] Miriam Aquino APRN, HEALTH CARE ASSISTANT Unavailable Sergio Hussein MD Unavailable Reason for Visit * Reason Comments Medication Refill Encounter Details Date Type Department Care Team (Late st Contact Info) Description 10/18/[address] [facility] [place] [facility] - Pulmonology & Sleep Medicine [facility] [address] [place] [id number] Veda Motley APRN, MEHNAZ [address] [address] Medication Refill Social History Tobacco Use Types [...] 08/17/21 Office Visit Veda Motley APRN, MEHNAZ [facility] 05/18/21 Office Visit Veda Motley APRN, CNP [facility] & Sleep [facility] Showing recent visits within past 365 days and meeting all other requirements Future Appointments No visits were found meeting these conditions. Showing future appointments within next 90 days and meeting all other requirements documented in this encounter Plan of Treatment Upcoming Encounters Date Type Department Care Team (Late st Contact Info) Description 04/16/2024 3:00 PM LINK KNITTING MACHINE OPERATOR [facility] - [address] [place] [address] Veda Motley APRN, MEHNAZ [address] [address] documented as of this encounter Visit Diagnoses Not on filedocumented in this encounter Additional Health Concerns Infection Onset Date Last Indicated Resolved Time COVID - 19 02/15/2022 02/15/2022 02/25/2022 12:1 6 AM LINK KNITTING MACHINE OPERATOR Respiratory Rule-Out 02/15/2022 02/15/2022 022 4:32 PM LINK KNITTING MACHINE OPERATOR COVID - 19 04/08/2023 04/10/2023 04/20/2023 12:1 6 AM LINK KNITTING MACHINE OPERATOR documented as of this encounter Care Teams Net Mender Relationship Specialty Start Date End Date Janes Elkins PAC [address] [place] [address] PCP - General Physician Outdoor Power Equipment Mechanic 04/07/21 Veda Motley APRN, HEALTH CARE ASSISTANT #2 [facility] [address] [place] [address] Nurse Practitioner Advanced Practice Nurse 05/18/21 Miriam Aquino APRN, HEALTH CARE ASSISTANT [address] [place] [address] Nurse Practitioner Advanced Practice Nurse 05/26/22 Sergio Hussein MD #2 [facility] [address] [place] [address] Consulting Physician Colon and Rectal Surgery 07/24/23 documented as of this encounter
--- OUTSIDE RECORDS SUMMARY | 2024-04-04 19:46 | XMS_ITS | Encounter Summary ---
Author Organization [facility] Address [address] [place] [address] Phone Care Team Providers Care Mattress Packer Name Role Phone Janes Elkins Naveen FAITH Primary Care Provider Veda Motley APRN, SUPERVISOR CARBON PAPER COATING Unavailable Miriam Aquino APRN, SUPERVISOR CARBON PAPER COATING Unavailable Sergio Hussein MD Unavailable Reason for Visit * Reason Comments Medication Refill Encounter Details Date Type Department Care Team (Late st Contact Info) Description 06/13/[address] [facility] - Pulmonology & Sleep Medicine [facility] #2 [place] [phone] Veda Motley APRN, MEHNAZ #[address] [address] Medication Refill Social History Tobacco Use Types [...] Motley APRN, CNP [facility] [place] 08/24/22 Office Visit Veda Motley APRN, CNP [facility] [place] [facility] Showing recent visits within past 365 days and meeting all other requirements Future Appointments Date Type Provider Dept 09/03/23 Appointment Veda Motley APRN, CNP [facility] [place] Showing future appointments within next 90 days and meeting all other requirements documented in this encounter Plan of Treatment Upcoming Encounters Date Type Department Care Team (Late st Contact Info) Description 04/16/2024 3:00 PM ELECTRONIC LAB TECHNICIAN [facility] - Pulmonology & Sleep Medicine - [place] [address] [place] [address] Veda Motley APRN, MEHNAZ #[address] [address] documented as of this encounter Visit Diagnoses Diagnosis Other emphysema (HCC) Other emphysema documented in this encounter Care Teams Mattress Packer Relationship Specialty Start Date End Date Janes Elkins, [facility] [address] [place] [address] PCP - General Physician Leather Currier 04/07/21 Veda Motley APRN, SUPERVISOR CARBON PAPER COATING #2 [facility] [address] [place] [address] Nurse Practitioner Advanced Practice Nurse 05/18/21 Miriam Aquino APRN, SUPERVISOR CARBON PAPER COATING #2 [place] [address] Nurse Practitioner Advanced Practice Nurse 05/26/22 Sergio Hussein MD #2 [facility] [address] [place] [address] Consulting Physician Colon and Rectal Surgery 07/24/23 documented as of this encounter
--- OUTSIDE RECORDS SUMMARY | 2024-04-04 19:46 | XMS_ITS | Clinical Summary ---
Author Organization [facility] Address [address] [place] [address]. [place], [place] [address] [place] [address] Care Team Providers Care Pick And Shovel Worker Name Role Phone None, Provider MD Primary [...] to complete this topic Insurance Care Teams Pick And Shovel Worker Relationship Specialty Start Date End Date None, Provider, PCP - General 09/11/18
--- OUTSIDE RECORDS SUMMARY | 2024-04-04 19:46 | XMS_ITS | Encounter Summary ---
Author Organization [facility] Address [address] [place] [address] Phone Care Team Providers Care Travel Administrator Name Role Phone Janes Elkins Naveen FAITH Primary Care Provider Veda Motley APRN, PT SITTER Unavailable Miriam Aquino APRN, PT SITTER Unavailable Sergio Hussein MD Unavailable Reason for Visit * Reason Comments Medication Refill Encounter Details Date Type Department Care Team (Late st Contact Info) Description 10/12/2022 Refill [facility] G[facility] #2 [place] [phone] Miriam Aquino APRN, PT SITTER #2 [place] [address] Medication Refill Social History Tobacco Use Types [...] AM CDT Medication [facility] for pediatric and adult patients. documented in this encounter Plan of Treatment Upcoming Encounters Date Type Department Care Team (Late st Contact Info) Description 04/16/2024 3:00 PM MANAGER [place] [facility] #2 [place] [address] Veda Motley APRN, PT SITTER #[address] [address] documented as of this encounter Visit Diagnoses Diagnosis Generalized abdominal pain Abdominal pain, generalized documented in this encounter Additional Health Concerns Infection Onset Date Last Indicated Resolved Time COVID - 19 04/08/2023 04/10/2023 04/20/2023 12:1 6 AM MANAGER [place] documented as of this encounter Care Teams Travel Administrator Relationship Specialty Start Date End Date Janes Elkins PAC [address] [place] [address] PCP - General Physician Manager Pacu 04/07/21 Veda Motley APRN, MEHNAZ #[address] [address] Nurse Practitioner Advanced Practice Nurse 05/18/21 Miriam Aquino APRN, PT [place] #2 [place] [address] Nurse Practitioner Advanced Practice Nurse 05/26/22 Sergio Hussein MD #[address] [address] Consulting Physician Colon and Rectal Surgery 07/24/23 documented as of this encounter
--- OUTSIDE RECORDS SUMMARY | 2024-04-04 19:46 | XMS_ITS | Encounter Summary ---
Author Organization [facility] Address [address] [place] [address] Phone Care Team Providers Care Head Well Puller Name Role Phone Janes Elkins Naveen FAITH Primary Care Provider Veda Motley APRN, DEODORIZER OPERATOR Unavailable Miriam Aquino APRN, DEODORIZER OPERATOR Unavailable Sergio Hussein MD Unavailable Reason for Visit * Reason Comments Medication Refill Encounter Details Date Type Department Care Team (Late st Contact Info) Description 03/11/2023 Refill [facility] #2 [place] [phone] Miriam Aquino APRN, DEODORIZER OPERATOR #2 [place] [address] Medication Refill Social History Tobacco Use Types [...] Joann Adames RN - 03/11/2023 10:39 AM NURSING SERVICES MANAGER Per nursing clinical judgement, provider to review [...] Dept 07/06/22 Office Visit Miriam Aquino APRN, DEODORIZER OPERATOR [facility] Showing recent visits within past 365 days and meeting all other requirements Future Appointments No visits were found meeting these conditions. Showing future appointments within next 90 days and meeting all other requirements ING SERVICES MANAGER documented in this encounter Plan of Treatment Upcoming Encounters Date Type Department Care Team (Late st Contact Info) Description 04/16/2024 3:00 PM NURSING SERVICES MANAGER Office Visit [facility] - Pulmonology & Sleep Medicine - [place] #2 [place] [address] Veda Motley APRN, DEODORIZER OPERATOR #[address] [address] documented as of this encounter Visit Diagnoses Not on filedocumented in this encounter Additional Health Concerns Infection Onset Date Last Indicated Resolved Time COVID - 19 04/08/2023 04/10/2023 04/20/2023 12:1 6 AM NURSING SERVICES MANAGER documented as of this encounter Care Teams Head Well Puller Relationship Specialty Start Date End Date Janes Elkins PAC [address] [place] [address] PCP - General Physician Poultry Husbandry Teacher 04/07/21 Veda Motley APRN, DEODORIZER OPERATOR #[address] [address] Nurse Practitioner Advanced Practice Nurse 05/18/21 Miriam Aquino APRN, DEODORIZER OPERATOR #2 [place] [address] Nurse Practitioner Advanced Practice Nurse 05/26/22 Sergio Hussein MD #[address] [address] Consulting Physician Colon and Rectal Surgery 07/24/23 documented as of this encounter
--- OUTSIDE RECORDS SUMMARY | 2024-04-04 19:46 | XMS_ITS | Clinical Summary ---
Author Organization [facility] Address [address] [place] [address] Care Team Providers Care Supervisor Varnish Name Role Phone Janes Elkins Primary Care Provider [phone] Arleth Morris MD Unavailable [phone] Allergies Active Allergy Reactions Criticality Noted Date [...] multiples MIs and CVAs -Primary OB in [place] - offered hyst/BSO given patient concern for gynecologic cause of symptoms. Evaluated by pulmonology and determined to be high risk for anesthesia given severe COPD. Referred to [facility] for further consideration of future surgical management. -Followed by GI ([facility]) for chronic abdominal pain/ IBS-C: last seen [...] she is not on any treatment. -General surgery([facility]) 07/30/23: Low concern for biliary etiology at [...] post- menopausal state. -Discussed patient case with [facility]- agreed that patient unlikely to benefit from [...] resources for pelvic floor PT including PT picture frame maker for options closer to her home [] [...] with bright red blood -underwent hsc/D&C at [place] in 05/2023, pathology benign -provera per primary [...] 01/30/2023 Assessment & Plan (01/30/2023 1:02 PM CHUCK WAGON COOK): Discussed possible causes of decreased sexual desire [...] Description 03/11/2024 Telephone [facility] Neurosurgery [address] [place] [address] 4th [address] [place] [address] Marge Weathers 01/23/2024 Telephone Obstetrics and Gynecology Clinic [address] [place] [address] 3rd Floor [address] [place] [address] Mame Moore 01/15/2024 Telephone [facility] Clinic [address] [place] [address] 3rd Floor [address] [place] [address] Karen Vazquez 01/13/2024 Telephone [facility] [address] [place] [address] 3rd [address] [place] [address] Nina Lorenzo 01/07/2024 3:45 PM CHUCK WAGON COOK Office Visit [facility] [address] [place] [address] 3rd [address] [place] [address] Dayanna Fitzgerald MD Follow-up exam (Primary Dx); Postmenopausal bleeding; Chronic pelvic pain in female 01/07/2024 3:00 PM CHUCK WAGON COOK - 01/07/2024 11:59 PM CHUCK WAGON COOK Hospital Encounter [facility] Outpatient [facility] - Ultrasound [address] [place] [address] Chronic pelvic pain in female Discharge Disposition: [...] on file Legal Sex Female 10:34 AM CHUCK WAGON COOK Gender Identity Not on file Sexual Orientation [...] Comments Blood Pressure 116/64 01/07/2024 4:30 PM CHUCK WAGON COOK Pulse 114 01/07/2024 4:30 PM CHUCK WAGON COOK pt expresses anxiety and is visibly emotional at appointment. Temperature 36.3 ??C (97.4 ??F) 05/22/2023 1 :24 PM CDT Respiratory Rate 16 05/22/2023 1:24 PM CDT Oxygen Saturation 93% 01/07/2024 4:3 0 PM CHUCK WAGON COOK Rn discussed with pt. Per pt, she is to be on 2L with activity. 93 is baseline per pt. Inhaled Oxygen Concentration - - Weight 67.4 kg (148 lb 9.6 oz) 01/07/2024 4:30 PM CHUCK WAGON COOK Height 157.5 cm (5' 2 ) 05/22/2023 [...] Read Routine (OP Routine) 01/07/2024 3:23 PM CHUCK WAGON COOK Chronic pelvic pain in female SCREENING MAMMOGRAM BILATERAL W KEVIN Schedule Routine, Read Routine (OP Routine) 04/10/2023 8:07 AM CHUCK WAGON COOK Encounter for screening mammogram for malignant neoplasm of breast from Last 3 Months or Most Recently Relevant to Health Maintenance Results * US Pelvis Complete (01/07/2024 3:23 PM CHUCK WAGON COOK) Cul de Sac No free fluid visualized [facility]POINT Endometrial Thickness 3.8 mm&millim eters [facility] Anatomical Region Laterality Modality Pelvis N/A Ultrasound 01/07/2024 3:23 PM CHUCK WAGON COOK Impressions 01/07/2024 4:04 PM CHUCK WAGON COOK 1- Normal appearing uterus. No endometrial thickening [...] Mammogram Bilateral W Kevin (04/10/2023 8:07 AM CHUCK WAGON COOK) Anatomical Region Laterality Modality Breast Bilateral Mammography 04/10/2023 8:21 AM CHUCK WAGON COOK Impressions 04/10/2023 8:21 AM CHUCK WAGON COOK There is no mammographic evidence of malignancy. A 1 year screening mammogram is recommended. BI-RADS: 1 - Negative. The patient has been or will be contacted. The patient will be entered into a reminder system with a target due date of 1 year for her next mammogram. Electronically signed by: Felipe Leo M.D. Narrative 04/10/2023 8:21 AM CHUCK WAGON COOK EXAMINATION: SCREENING MAMMOGRAM BILATERAL W KEVIN ORDERING [...] been no suspicious interval change. Hiram Moulton DIRECTOR WORKFORCE MANAGEMENT IMG MAMMO PROCEDURES Final Result from Last 3 Months or Most Recently Relevant to Health Maintenance Insurance [facility] [place] [employer] Care Teams Supervisor Varnish Relationship Specialty Start Date End Date Janes Elkins PA [address] [place] [address] PCP - General 12/15/19 Arleth Morris MD [address] [facility] [address] [place] [address] [place] [address] Consulting Physician Obstetrics and Gynecology 05/22/23
--- OUTSIDE RECORDS SUMMARY | 2024-04-04 19:46 | XMS_ITS | Encounter Summary ---
Author Organization [facility] Address [address] [place] [address] Care Team Providers Care Hot Knife Cutter Name Role Phone Janes Elkins Primary Care Provider [phone] Arleth Morris MD Unavailable [phone] Encounter Details Date Type Department Care Team (Late st Contact Info) Description 06/13/[address] [address] Lauren Lerner, RT Social History Tobacco Use Types Packs/Day Years Used Date Smoking Tobacco: Former Cigarettes Q uit: 11/09/2018 Smokeless Tobacco: Never Alcohol Use Standard Drinks/Week Comments Not Currently 0 (1 standard drink = 0.6 oz pur e alcohol) Comments No Sex and Gender Information Value Date Recorded Sex Assigned at Not on file Legal Sex Female 10:34 AM CROCODILE FARMER Gender Identity Not on file Sexual Orientation Not on file documented as of this encounter Plan of Treatment Not on file documented as of this encounter Visit Diagnoses Not on filedocumented in this encounter Additional Health Concerns Infection Onset Date Last Indicated Resolved Time MRSA 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
--- OUTSIDE RECORDS SUMMARY | 2024-04-04 19:46 | XMS_ITS | Encounter Summary ---
Author Organization [facility] Address [address] [place] [address] Phone Care Team Providers Care Hospital Chief Executive Officer Name Role Phone Janes Elkins Naveen FAITH Primary Care Provider Veda Motley APRN, FORENSIC PSYCHIATRIST Unavailable Miriam Aquino APRN, FORENSIC PSYCHIATRIST Unavailable Sergio Hussein MD Unavailable Reason for Visit * Reason Comments Medication Refill Encounter Details Date Type Department Care Team (Late st Contact Info) Description 12/06/2022 Refill [facility] #2 [place] [phone] Miriam Aquino APRN, FORENSIC PSYCHIATRIST #2 [place] [address] Medication Refill Social History Tobacco Use Types [...] 07/06/22 Office Visit Miriam Aquino APRN, MEHNAZ [facility] [place] Showing recent visits within past 365 days and meeting all other requirements Future Appointments No visits were found meeting these conditions. Showing future appointments within next 90 days and meeting all other requirements documented in this encounter Plan of Treatment Upcoming Encounters Date Type Department Care Team (Late st Contact Info) Description 04/16/2024 3:00 PM NUCLEAR OFFICER Office Visit [facility] - Pulmonology & Sleep Medicine - [place] #[address] [place] [address] Veda Motley APRN, MEHNAZ #[address] [address] documented as of this encounter Visit Diagnoses Diagnosis Nausea and vomiting, unspecified vomiting type documented in this encounter Additional Health Concerns Infection Onset Date Last Indicated Resolved Time COVID - 19 04/08/2023 04/10/2023 04/20/2023 12:1 6 AM NUCLEAR OFFICER documented as of this encounter Care Teams Hospital Chief Executive Officer Relationship Specialty Start Date End Date Janes Elkins, VIANNEY [address] [place] [address] PCP - General Physician Airplane Mechanic Apprentice 04/07/21 Veda Motley APRN, FORENSIC PSYCHIATRIST #2 [facility] [address] [place] [address] Nurse Practitioner Advanced Practice Nurse 05/18/21 Miriam Aquino APRN, FORENSIC PSYCHIATRIST #2 [place] [address] Nurse Practitioner Advanced Practice Nurse 05/26/22 Sergio Hussein MD #2 [facility] [address] [place] [address] Consulting Physician Colon and Rectal Surgery 07/24/23 documented as of this encounter
--- OUTSIDE RECORDS SUMMARY | 2024-04-04 19:46 | XMS_ITS | Encounter Summary ---
Author Organization [facility] Address [address] [place] [address] Phone Care Team Providers Care Turret Punch Press Operator Name Role Phone Janes Elkins Naveen FAITH Primary Care Provider Veda Motley APRN, TELEPHONE OPERATOR Unavailable Miriam Aquino APRN, TELEPHONE OPERATOR Unavailable Sergio Hussein MD Unavailable Reason for Visit * Reason Comments Medication Refill Encounter Details Date Type Department Care Team (Late st Contact Info) Description 10/12/2022 Refill [facility] - Pulmonology & Sleep Medicine [facility] #2 [place] [phone] Veda Motley APRN, MEHNAZ #[address] [address] Medication Refill Social History Tobacco Use Types [...] Motley APRN, MEHNAZ [facility] [facility] [address] Showing recent visits within [...] Motley APRN, CNP [facility] [address] 02/15/22 Office Visit Veda Motley APRN, MEHNAZ [facility] [place] Showing recent visits within past 365 days and meeting all other requirements Future Appointments No visits were found meeting these conditions. Showing future appointments within next 90 days and meeting all other requirements documented in this encounter Plan of Treatment Upcoming Encounters Date Type Department Care Team (Late st Contact Info) Description 04/16/2024 3:00 PM COMMERCIAL REAL ESTATE ASSOCIATE Office Visit [facility] - Pulmonology & Sleep Medicine - [place] #2 [place] [address] Veda Motley APRN, TELEPHONE OPERATOR #2 [facility] [address] [place] [address] documented as of this encounter Visit Diagnoses Diagnosis Other emphysema (HCC) Other emphysema documented in this encounter Additional Health Concerns Infection Onset Date Last Indicated Resolved Time COVID - 19 04/08/2023 04/10/2023 04/20/2023 12:1 6 AM COMMERCIAL REAL ESTATE ASSOCIATE documented as of this encounter Care Teams Turret Punch Press Operator Relationship Specialty Start Date End Date Janes Elkins, VIANNEY [address] [place] [address] PCP - General Physician Orchard Manager 04/07/21 Veda Motley APRN, TELEPHONE OPERATOR #2 [facility] [address] [place] [address] Nurse Practitioner Advanced Practice Nurse 05/18/21 Miriam Aquino APRN, TELEPHONE OPERATOR #2 [place] [address] Nurse Practitioner Advanced Practice Nurse 05/26/22 Sergio Hussein MD #[address] [address] Consulting Physician Colon and Rectal Surgery 07/24/23 documented as of this encounter
--- OUTSIDE RECORDS SUMMARY | 2024-04-04 19:46 | XMS_ITS | Encounter Summary ---
Author Organization [facility] Address [address] [place] [address] Phone Care Team Providers Care Inspection Engineer Name Role Phone Janes Elkins Naveen FAITH Primary Care Provider Veda Motley APRN, NARCOTICS INVESTIGATOR Unavailable Miriam Aquino APRN, NARCOTICS INVESTIGATOR Unavailable Sergio Hussein MD Unavailable Reason for Visit * Reason Comments Medication Refill Encounter Details Date Type Department Care Team (Late st Contact Info) Description 09/23/2021 Refill [facility] - Pulmonology & Sleep Medicine [facility] #2 [place] [phone] Veda Motley APRN, MEHNAZ #[address] [address] Medication Refill Social History Tobacco Use Types [...] 08/17/21 Office Visit Veda Motley APRN, MEHNAZ [facility] 05/18/21 Office Visit Veda Motley APRN, CNP [facility] Showing recent visits within past 365 days and meeting all other requirements Future Appointments No visits were found meeting these conditions. Showing future appointments within next 90 days and meeting all other requirements documented in this encounter Plan of Treatment Upcoming Encounters Date Type Department Care Team (Late st Contact Info) Description 04/16/2024 3:00 PM TOP POLISHER [facility] Visit [facility] - Pulmonology & Sleep Medicine - [place] [address] [place] [address] Veda Motley APRN, NARCOTICS INVESTIGATOR [address] [address] documented as of this encounter Visit Diagnoses Not on filedocumented in this encounter Additional Health Concerns Infection Onset Date Last Indicated Resolved Time COVID - 19 02/15/2022 02/15/2022 02/25/2022 12:1 6 AM TOP POLISHER Respiratory Rule-Out 02/15/2022 02/15/2022 022 4:32 PM TOP POLISHER COVID - 19 04/08/2023 04/10/2023 04/20/2023 12:1 6 AM TOP POLISHER documented as of this encounter Care Teams Inspection Engineer Relationship Specialty Start Date End Date Janes Elkins, [facility] [address] [place] [address] PCP - General Physician Skilled Helper 04/07/21 Veda Motley APRN, NARCOTICS INVESTIGATOR #2 [facility] [address] [place] [address] Nurse Practitioner Advanced Practice Nurse 05/18/21 Miriam Aquino APRN, NARCOTICS INVESTIGATOR #2 [place] [address] Nurse Practitioner Advanced Practice Nurse 05/26/22 Sergio Hussein MD #2 [facility] [address] [place] [address] Consulting Physician Colon and Rectal Surgery 07/24/23 documented as of this encounter
--- OUTSIDE RECORDS SUMMARY | 2024-04-04 19:46 | XMS_ITS | Encounter Summary ---
Author Organization [facility] Address [address] [place] [address] Phone Care Team Providers Care Senior Construction Project Manager Name Role Phone Janes Elkins Naveen FAITH Primary Care Provider [phone] Veda Motley APRN, PAYROLL ACCOUNTING MANAGER Unavailable Miriam Aquino APRN, PAYROLL ACCOUNTING MANAGER Unavailable Sergio Hussein MD Unavailable Reason for Visit * Reason Comments Medication Refill Encounter Details Date Type Department Care Team (Late st Contact Info) Description 01/29/2023 [facility]ill [facility] #2 [place] [phone] Miriam Aquino APRN, PAYROLL ACCOUNTING MANAGER #2 [place] [address] Medication Refill Social History Tobacco Use Types [...] Joann Adames RN - 02/07/2023 8:45 AM ANGLE SHEAR OPERATOR Medication failed the protocol, provider to review [...] 07/06/22 Office Visit Miriam Aquino APRN, MEHNAZ [facility] Showing recent visits within past 365 days and meeting all other requirements Future Appointments No visits were found meeting these conditions. Showing future appointments within next 90 days and meeting all other requirements E SHEAR OPERATOR documented in this encounter Plan of Treatment Upcoming Encounters Date Type Department Care Team (Late st Contact Info) Description 04/16/2024 3:00 PM ANGLE SHEAR OPERATOR Office Visit [facility] - Pulmonology & Sleep Medicine - [place] #2 [place] [address] Veda Motley APRN, MEHNAZ #[address] [address] documented as of this encounter Visit Diagnoses Diagnosis Nausea and vomiting, unspecified vomiting type documented in this encounter Additional Health Concerns Infection Onset Date Last Indicated Resolved Time COVID - 19 04/08/2023 04/10/2023 04/20/2023 12:1 6 AM ANGLE SHEAR OPERATOR documented as of this encounter Care Teams Senior Construction Project Manager Relationship Specialty Start Date End Date Janes Elkins, PAC [address] [place] [address] PCP - General Physician Structural Metal Worker 04/07/21 Veda Motley APRN, PAYROLL ACCOUNTING MANAGER #2 [facility] [address] [place] [address] Nurse Practitioner Advanced Practice Nurse 05/18/21 Miriam Aquino APRN, PAYROLL ACCOUNTING MANAGER #2 [place] [address] Nurse Practitioner Advanced Practice Nurse 05/26/22 Sergio Hussein MD #2 [facility] [address] [place] [address] Consulting Physician Colon and Rectal Surgery 07/24/23 documented as of this encounter
--- OUTSIDE RECORDS SUMMARY | 2024-04-04 19:46 | XMS_ITS | Encounter Summary ---
Author Organization [facility] Address [address] [place] [address] Phone Care Team Providers Care Senior Engineering Team Leader Name Role Phone Janes Elkins Naveen FAITH Primary Care Provider Veda Motley APRN, WOOD ROOM SUPERVISOR Unavailable Miriam Aquino APRN, WOOD ROOM SUPERVISOR Unavailable Sergio Hussein MD Unavailable Reason for Visit * Reason Comments Medication Refill Encounter Details Date Type Department Care Team (Late st Contact Info) Description 02/03/2023 Refill [facility] - Pulmonology & Sleep Medicine [facility] #2 [place] [phone] Veda Motley APRN, MEHNAZ #[address] [address] Medication Refill Social History Tobacco Use Types [...] 02/04/2023 8:02 AM CST Refill too soon PRESSURE CLEANER documented in this encounter Plan of Treatment Upcoming Encounters Date Type Department Care Team (Late st Contact Info) Description 04/16/2024 3:00 PM HIGH PRESSURE CLEANER Office Visit [facility] - Pulmonology & Sleep Medicine [facility] #2 [place] [address] Veda Motley APRN, MEHNAZ #[address] [address] documented as of this encounter Visit Diagnoses Diagnosis Centrilobular emphysema (HCC) Other emphysema documented in this encounter Additional Health Concerns Infection Onset Date Last Indicated Resolved Time COVID - 19 04/08/2023 04/10/2023 04/20/2023 12:1 6 AM HIGH PRESSURE CLEANER documented as of this encounter Care Teams Senior Engineering Team Leader Relationship Specialty Start Date End Date Janes Elkins PAC [address] [place] [address] PCP - General Physician Gridcap Machine Operator 04/07/21 Veda Motley APRN, MEHNAZ #[address] [address] Nurse Practitioner Advanced Practice Nurse 05/18/21 Miriam Aquino APRN, WOOD ROOM SUPERVISOR #2 [place] [address] Nurse Practitioner Advanced Practice Nurse 05/26/22 Sergio Hussein MD #[address] [facility] [address] [address] [address] Consulting Physician Colon and Rectal Surgery 07/24/23 documented as of this encounter
--- OUTSIDE RECORDS SUMMARY | 2024-04-04 19:47 | XMS_ITS | Encounter Summary ---
Author Organization [facility] Address [address] [place] [address] Phone Care Team Providers Care Public Health Sanitarian Name Role Phone Janes Elkins Naveen FAITH Primary Care Provider [phone] Veda Motley APRN, PIGS FEET FINISHER Unavailable [phone] Miriam Aquino APRN, PIGS FEET FINISHER Unavailable Sergio Hussein MD Unavailable Reason for Visit * Reason Comments Medication Refill Encounter Details Date Type Department Care Team (Late st Contact Info) Description 12/05/2021 Refill [facility] - Pulmonology & Sleep Medicine [facility] #2 [place] [phone] Veda Motley APRN, MEHNAZ #[address] [address] Medication Refill Social History Tobacco Use Types [...] st Contact Info) Description 04/16/2024 3:00 PM TWX OPERATOR [facility] Visit [facility] - Pulmonology & Sleep Medicine - [place] #2 [place] [address] Veda Motley APRN, PIGS FEET FINISHER #[address] [address] documented as of this encounter Visit Diagnoses Not on filedocumented in this encounter Additional Health Concerns Infection Onset Date Last Indicated Resolved Time COVID - 19 02/15/2022 02/15/2022 02/25/2022 12:1 6 AM TWX OPERATOR Respiratory Rule-Out 02/15/2022 02/15/2022 022 4:32 PM TWX OPERATOR COVID - 19 04/08/2023 04/10/2023 04/20/2023 12:1 6 AM TWX OPERATOR documented as of this encounter Care Teams Public Health Sanitarian Relationship Specialty Start Date End Date Janes Elkins, [facility] [address] [place] [address] PCP - General Physician Communications Intern 04/07/21 Veda Motley APRN, PIGS FEET FINISHER #[address] [address] Nurse Practitioner Advanced Practice Nurse 05/18/21 Miriam Aquino APRN, PIGS FEET FINISHER #2 [place] [address] Nurse Practitioner Advanced Practice Nurse 05/26/22 Sergio Hussein MD #[address] [address] Consulting Physician Colon and Rectal Surgery 07/24/23 documented as of this encounter
--- OUTSIDE RECORDS SUMMARY | 2024-04-04 19:47 | XMS_ITS | Encounter Summary ---
Author Organization [facility] Address [address] [place] [address] Phone Care Team Providers Care Speech Teacher Name Role Phone Janes Elkins Naveen FAITH Primary Care Provider Veda Motley APRN, ORE DRESSING ENGINEER Unavailable [phone] Miriam Aquino APRN, ORE DRESSING ENGINEER Unavailable Sergio Hussein MD Unavailable Reason for Visit * Reason Comments Medication Refill Encounter Details Date Type Department Care Team (Late st Contact Info) Description 11/13/2021 Refill [facility] - Pulmonology & Sleep Medicine [facility] #2 [place] [address] Veda Motley APRN, MEHNAZ #[address] [address] Medication Refill Social History Tobacco Use Types [...] 08/17/21 Office Visit Veda Motley APRN, CNP [facility] Pul & Sleep [facility] 05/18/21 Office Visit Vead Motley APRN, CNP [facility] Pul & Sleep [facility] Showing recent visits within past 365 days and meeting all other requirements Future Appointments No visits were found meeting these conditions. Showing future appointments within next 90 days and meeting all other requirements documented in this encounter Plan of Treatment Upcoming Encounters Date Type Department Care Team (Late st Contact Info) Description 04/16/2024 3:00 PM MANAGER DELIVERY Office Visit [facility] - Pulmonology & Sleep Medicine - [place] #2 [place] [address] Veda Motley APRN, ORE DRESSING ENGINEER #[address] [address] documented as of this encounter Visit Diagnoses Not on filedocumented in this encounter Additional Health Concerns Infection Onset Date Last Indicated Resolved Time COVID - 19 02/15/2022 02/15/2022 02/25/2022 12:1 6 AM MANAGER DELIVERY Respiratory Rule-Out 02/15/2022 02/15/2022 022 4:32 PM MANAGER DELIVERY COVID - 19 04/08/2023 04/10/2023 04/20/2023 12:1 6 AM MANAGER DELIVERY documented as of this encounter Care Teams Speech Teacher Relationship Specialty Start Date End Date Janes Elkins, [facility] [address] [place] [address] PCP - General Physician Public Stenographer 04/07/21 Veda Motley APRN, ORE DRESSING ENGINEER #2 [facility] [address] [place] [address] Nurse Practitioner Advanced Practice Nurse 05/18/21 Miriam Aquino APRN, ORE DRESSING ENGINEER #2 [place] [address] Nurse Practitioner Advanced Practice Nurse 05/26/22 Sergio Hussein MD #2 [facility] [address] [place] [address] Consulting Physician Colon and Rectal Surgery 07/24/23 documented as of this encounter
--- OUTSIDE RECORDS SUMMARY | 2024-04-04 19:47 | XMS_ITS | Encounter Summary ---
Author Organization [facility] Address [address] [place] [address] Phone Care Team Providers Care Pv Installer Tech Name Role Phone Janes Elkins Naveen FAITH Primary Care Provider Veda Motley APRN, FABRICATOR SPECIAL ITEMS Unavailable Miriam Aquino APRN, FABRICATOR SPECIAL ITEMS Unavailable Sergio Hussein MD Unavailable Reason for Visit * Reason Comments Medication Refill Encounter Details Date Type Department Care Team (Late st Contact Info) Description 10/21/2023 Refill [facility] #2 [place] [phone] Miriam Aquino APRN, FABRICATOR SPECIAL ITEMS #2 [place] [address] Medication Refill Social History Tobacco Use Types [...] PM CDT Medication refilled and signed per [facility] chronic medication standing order for pediatric and adult patients. documented in this encounter Plan of Treatment Upcoming Encounters Date Type Department Care Team (Late st Contact Info) Description 04/16/2024 3:00 PM COTTON SAMPLER Office Visit [facility] - Pulmonology & Sleep Medicine - [place] #2 [place] [address] Veda Motley APRN, FABRICATOR SPECIAL ITEMS #[address] [address] documented as of this encounter Visit Diagnoses Not on filedocumented in this encounter Care Teams Pv Installer Tech Relationship Specialty Start Date End Date Janes Elkins PAC [address] [place] [address] PCP - General Physician Internet Consultant 04/07/21 Veda Motley APRN, MEHNAZ #[address] [address] Nurse Practitioner Advanced Practice Nurse 05/18/21 Miriam Aquino APRN, FABRICATOR SPECIAL ITEMS #2 [place] [address] Nurse Practitioner Advanced Practice Nurse 05/26/22 Sergio Hussein MD #[address] [address] Consulting Physician Colon and Rectal Surgery 07/24/23 documented as of this encounter
--- OUTSIDE RECORDS SUMMARY | 2024-04-04 19:47 | XMS_ITS | Clinical Summary ---
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 Subacute cough 02/15/2022 Mixed simple and mucopurulent chronic bronchitis 08/17/2021 Personal history of tobacco use 05/18/2021 SOB (shortness of breath) 05/18/2021 Centrilobular emphysema 05/18/2021 Encounters Date Type Department Care Team Description 02/21/2024 Results Follow-Up [facility] Pulmonology & Sleep Medicine [facility] #2 [place] [address] Veda Motley APRN, CNP Lung nodule (Primary Dx) 02/13/2024 10:00 AM MIDDLE SCHOOL BAND TEACHER - 02/13/2024 11:59 PM MIDDLE SCHOOL BAND TEACHER [facility] [address] [place] [address] Veda Motley APRN, CNP Discharge Disposition: Discharged to home or Selfcare 02/13/2024 Travel 02/01/2024 [facility] #2 [place] [address] Veda Motley APRN, CNP Medication Refill from [...] st Contact Info) Description 04/16/2024 3:00 PM MIDDLE SCHOOL BAND TEACHER Office Visit [facility] - Pulmonology & Sleep Medicine - [place] #2 [place] [address] Veda Motley, PARALLEL COMPUTING SOFTWARE ENGINEER, TOP FRAME FITTER #2 [facility] [address] [place] [address] Health Maintenance Due Date Last Done Comments [...] CHEST W/O CONTRAST Routine 02/13/2024 10:23 AM MIDDLE SCHOOL BAND TEACHER Lung nodule from Last 3 Months Results * CT CHEST W/O CONTRAST (02/13/2024 10:23 AM MIDDLE SCHOOL BAND TEACHER) Anatomical Region Laterality Modality Chest N/A Computed Tomogra phy 02/20/2024 1:40 PM MIDDLE SCHOOL BAND TEACHER Impressions 02/20/2024 1:43 PM MIDDLE SCHOOL BAND TEACHER IMPRESSION: ?? 1. ?? Interval decrease in [...] ?? No lymphadenopathy. Narrative 02/20/2024 1:43 PM MIDDLE SCHOOL BAND TEACHER EXAM DESCRIPTION: ?? CT CHEST W/O CONTRAST [...] PM T: ??02/20/2024 1:40 PM Report ID: [id number] Reading Location: ??[id number] Procedure Note Shira Ch MD - 02/20/2024 [...] Shira Ch M.D. TW: TW Report ID: [id number] Reading Location: [id number] IMPRESSION: 1. Interval decrease in density of [...] 3 Months Insurance MEDICAID [place] Care Teams Floor Care Specialist Relationship Specialty Start Date End Date Janes Elkins PAC [address] [place] [address] PCP - General Physician Silviculture Teacher 04/07/21 Veda Motley APRN, CNP #[address] [address] Nurse Practitioner Advanced Practice Nurse 05/18/21 Miriam Aquino APRN, TOP FRAME FITTER #2 [place] [address] Nurse Practitioner Advanced Practice Nurse 05/26/22 Sergio Hussein MD #[address] [address] Consulting Physician Colon and Rectal Surgery 07/24/23
--- OUTSIDE RECORDS SUMMARY | 2024-04-04 19:47 | XMS_ITS | Encounter Summary ---
Author Organization [facility] Address [address] [place] [address] Phone Care Team Providers Care Plant Superintendent Name Role Phone Janes Elkins Naveen FAITH Primary Care Provider Veda Motley APRN, SHIP HARBOR PILOT Unavailable Miriam Aquino APRN, SHIP HARBOR PILOT Unavailable Sergio Hussein MD Unavailable Reason for Visit * Reason Comments Medication Refill Encounter Details Date Type Department Care Team (Late st Contact Info) Description 01/27/2022 Refill [facility] - Pulmonology & Sleep Medicine [facility] #2 [place] [phone] Veda Motley APRN, MEHNAZ #[address] [address] Medication Refill Social History Tobacco Use Types [...] Jessica Goldberg RN - 01/29/2022 8:22 AM LOGISTICS DIRECTOR Medication failed the protocol, provider to review [...] Motley APRN, CNP [facility] Showing recent visits within past 365 days and meeting all other requirements Future Appointments Date Type Provider Dept 02/15/22 Appointment Veda Motley APRN, CNP [facility] [place] Showing future appointments within next 90 days and meeting all other requirements STICS DIRECTOR documented in this encounter Plan of Treatment Upcoming Encounters Date Type Department Care Team (Late st Contact Info) Description 04/16/2024 3:00 PM LOGISTICS DIRECTOR Office Visit [facility] - Pulmonology & Sleep Medicine - [place] [address] [place] [address] Veda Motley APRN, MEHNAZ [address] [address] documented as of this encounter Visit Diagnoses Not on filedocumented in this encounter Additional Health Concerns Infection Onset Date Last Indicated Resolved Time COVID - 19 02/15/2022 02/15/2022 02/25/2022:1 6 AM LOGISTICS DIRECTOR Respiratory Rule-Out 02/15/2022 02/15/2022 022 4:32 PM LOGISTICS DIRECTOR COVID - 19 04/08/2023 04/10/2023 04/20/2023 12:1 6 AM LOGISTICS DIRECTOR documented as of this encounter Care Teams Plant Superintendent Relationship Specialty Start Date End Date Janes Elkins, [facility] [address] [place] [address] PCP - General Physician Locker Room Clerk 04/07/21 Veda Motley APRN, SHIP HARBOR PILOT #[address] [address] Nurse Practitioner Advanced Practice Nurse 05/18/21 Miriam Aquino APRN, SHIP HARBOR PILOT #2 [place] [address] Nurse Practitioner Advanced Practice Nurse 05/26/22 Sergio Hussein MD #[address] [address] Consulting Physician Colon and Rectal Surgery 07/24/23 documented as of this encounter
--- OUTSIDE RECORDS SUMMARY | 2024-04-04 19:47 | XMS_ITS | Encounter Summary ---
Author Organization [facility] Address [address] [place] [address] Phone Care Team Providers Care Applications Programmer Name Role Phone Janes Elkins Naveen FAITH Primary Care Provider [phone] Veda Motley APRN, CNP Unavailable Miriam Aquino APRN, MEHNAZ Unavailable Sergio Hussein MD Unavailable Reason for Referral * Radiology Services (Routine) - Open Specialty Diagnoses / Procedures Referred By Troy melissa Referred To Contact Radiology Diagnoses Lung nodule Procedures CT CHEST W/O CONTRAST Veda Motley APRN, CNP #[address] [address] Phone: tel: fax: Referral ID Status Reason Start Date Expiration Date Visits Re quested Visits Authorized [id number] Open 02/21/2024 1 1 ICIDE CONTROL INSPECTOR Encounter Details Date Type Department Care Team (Late st Contact Info) Description 02/21/2024 Results Follow-Up [facility] - Pulmonology & Sleep Medicine - [place] #2 [place] [address] Veda Motley APRN, MEHNAZ #[address] [address] Lung nodule (Primary Dx) Social History Tobacco [...] verbalizes understanding. Order for CT chest placed ICIDE CONTROL INSPECTOR documented in this encounter Plan of Treatment Upcoming Encounters Date Type Department Care Team (Late st Contact Info) Description 04/16/2024 3:00 PM PESTICIDE CONTROL INSPECTOR Office Visit [facility] - Pulmonology & Sleep Medicine - [place] #2 [place] [address] Veda Motley APRN, CNP #[address] [address] Scheduled Orders Name Type Priority Associated Diagnoses Orde r Schedule CT CHEST W/O CONTRAST Imaging Routine Lung nodule Expected: 05/21/2024, Expires: 02/20/2025 documented as of this encounter Visit Diagnoses Diagnosis Lung nodule- Primary Solitary pulmonary nodule documented in this encounter Care Teams Applications Programmer Relationship Specialty Start Date End Date Janes Elkins PAC [address] [place] [address] PCP - General Physician Manager It Security 04/07/21 Veda Motley APRN, CNP #[address] [address] Nurse Practitioner Advanced Practice Nurse 05/18/21 Miriam Aquino APRN, MEHNAZ #2 [place] [address] Nurse Practitioner Advanced Practice Nurse 05/26/22 Sergio Hussein MD #[address] [address] Consulting Physician Colon and Rectal Surgery 07/24/23 documented as of this encounter
--- OUTSIDE RECORDS SUMMARY | 2024-04-04 19:47 | XMS_ITS | Encounter Summary ---
Author Organization [facility] Address [address] [place] [address] Phone Care Team Providers Care Water Jet Loom Fixer Name Role Phone Janes Elkins Naveen FAITH Primary Care Provider Veda Motley APRN, ELECTRIC BLASTING CAP ASSEMBLER Unavailable [phone] Miriam Aquino APRN, ELECTRIC BLASTING CAP ASSEMBLER Unavailable Sergio Hussein MD Unavailable Reason for Visit * Reason Comments Medication Refill Encounter Details Date Type Department Care Team (Late st Contact Info) Description 2022 Refill [facility] - Pulmonology & Sleep Medicine [facility] #2 [place] [address] Veda Motley APRN, MEHNAZ #[address] [address] Medication Refill Social History Tobacco Use Types [...] Coronavirus/COVID-19? No / Unsure 02/15/2022 2:55 PM MARINE DESIGN ENGINEER documented as of this encounter Miscellaneous Notes * Telephone Encounter - Jessica Goldberg RN - 2022 3:24 PM MARINE DESIGN ENGINEER Medication failed the protocol, provider to review [...] 02/15/22 Office Visit Veda Motley APRN, MEHNAZ [facility] 08/17/21 Office Visit Veda Motley APRN, CNP [facility] 05/18/21 Office Visit Veda Motley APRN, MEHNAZ [facility] Showing recent visits within past 365 days and meeting all other requirements Future Appointments No visits were found meeting these conditions. Showing future appointments within next 90 days and meeting all other requirements NE DESIGN ENGINEER documented in this encounter Plan of Treatment Upcoming Encounters Date Type Department Care Team (Late st Contact Info) Description 04/16/2024 3:00 PM MARINE DESIGN ENGINEER [facility] - Pulmonology & Sleep Medicine - [place] #2 [place] [address] Veda Motley APRN, ELECTRIC BLASTING CAP ASSEMBLER #[address] [address] documented as of this encounter Visit Diagnoses Not on filedocumented in this encounter Additional Health Concerns Infection Onset Date Last Indicated Resolved Time COVID - 19 02/15/2022 02/15/2022 02/25/2022 12:1 6 AM MARINE DESIGN ENGINEER COVID - 19 04/08/2023 04/10/2023 04/20/2023 12:1 6 AM MARINE DESIGN ENGINEER documented as of this encounter Care Teams Water Jet Loom Fixer Relationship Specialty Start Date End Date Janes Elkins, [facility] [address] [place] [address] PCP - General Physician Fuse Assembler 04/07/21 Veda Motley APRN, ELECTRIC BLASTING CAP ASSEMBLER #2 [facility] [address] [place] [address] Nurse Practitioner Advanced Practice Nurse 05/18/21 Miriam Aquino APRN, ELECTRIC BLASTING CAP ASSEMBLER #2 [place] [address] Nurse Practitioner Advanced Practice Nurse 05/26/22 Sergio Hussein MD #2 [facility] [address] [place] [address] Consulting Physician Colon and Rectal Surgery 07/24/23 documented as of this encounter
[2024-04-04] MEDS: methylPREDNISolone SOD SUCC 125 MG VIAL IM (20:01)
[2024-04-04 20:27] LABS: SARS-CoV-2 RNA PCR Negative (Negative)
[2024-04-04 20:35] LABS: Influenza A QL RT-PCR Positive (Negative); Influenza B QL RT-PCR Negative (Negative); RSV RNA, RT-PCR Negative (Negative)
[2024-04-04 20:40] LABS: Basophils Percent Auto 1.1 % (0.0-1.0); Eosinophils Absolute Auto 0.75 K/mm3 (0.02-0.50); Eosinophils Percent Auto 7.9 % (1.0-6.0); Hematocrit 37.4 % (35.0-49.0); Immature Granulocyte Absolute 0.02 K/mm3 (0.00-0.00); Immature Granulocyte Percent A 0.2 % (0.0-0.0); Lymphocytes Absolute Auto 2.56 K/mm3 (1.10-4.50); Mean Corpuscular HGB Conc 32.1 g/dL (32-36); Mean Corpuscular Hemoglobin 28.7 pg (27.0-31.0); Mean Corpuscular Volume 89.5 fL (78.0-102.0); Mean Platelet Volume 9.2 fl (9.2-11.8); Monocytes Absolute Auto 0.96 K/mm3 (0.10-0.90); Monocytes Percent Auto 10.1 % (2.0-11.0); Neutrophils Absolute Auto 5.08 K/mm3 (1.70-7.20); Neutrophils Percent Auto 53.7 % (50.0-70.0); Platelet Count Result 381 K/mm3 (150-420); Red Blood Count 4.18 M/mm3 (4.20-5.40); Red Cell Distribution Width 12.6 % (11.6-14.4); White Blood Count 9.5 K/mm3 (4.8-10.8)
[2024-04-04 21:02] LABS: Lactic Acid Reflex 0.5 mmol/L (0.4-2.0)
[2024-04-04 21:04] LABS: Alanine Aminotransferase 24 U/L (14-59); Albumin Level 3.7 g/dL (3.4-5.0); Alkaline Phosphatase 94 U/L (46-116); Anion Gap 9 mmol/L (4-12); Aspartate Amino Transferase 18 U/L (15-37); Bilirubin,Total 0.3 mg/dL (0.00-1.00); Blood Urea Nitrogen 9 mg/dL (7-18); Calcium 8.8 mg/dL (8.5-10.1); Carbon Dioxide 30 mmol/L (21-32); Chloride 103 mmol/L (98-108); Estimated CRCL calculation 68 ml/min; Estimated Glomerular Filt Rate > 60; Glucose 86 mg/dL (70-99); NT Pro B Type Natriuretic Pept 324 pg/mL (0-125); Osmolality Calculated 291 mOsm/kg (285-295); Potassium 3.4 mmol/L (3.5-5.1); Sodium 142 mmol/L (136-145); Total Protein 6.9 g/dL (6.4-8.2); Troponin I 4.4 ng/L (0.00-60.4)
[2024-04-04] MEDS: AMOXICILLIN/CLAVULANATE K 875-125 MG TAB 1 TABLET PO (21:51)
== END 2024-04-04 22:08 | disposition home or self-care (01) ==
PROVIDERS: Emergency Provider Internal Medicine Critical Care Medicine; PCP Physician Assistant
DX: J44.1 Chronic obstructive pulmonary disease with (acute) exacerbation (principal); J10.1 Influenza due to other identified influenza virus with other respiratory manifestations; L73.9 Follicular disorder, unspecified; Z99.81 Dependence on supplemental oxygen; Z87.891 Personal history of nicotine dependence; Z20.822 Contact with and (suspected) exposure to COVID-19
CPT/HCPCS: 36415; 71045; 80053; 83605; 83880; 84484; 85025; 87637; 93005; 96372; 99284; A9270; J2919

== ENCOUNTER 2024-06-25 12:21 | Emergency (ER) | payer OTHER, SELFPAY ==
[2024-06-25] VITALS (9 sets, daily range): BP systolic 129–175; BP diastolic 93–118; PULSE 106–119; RESP 16–32; TEMP 36.9; O2SAT 97–100
--- NOTE | ~2024-06-25 | XR_ITS ---
XR chest 1V portable Ordering provider: Mike Culver MD History: 54 years Female with . dyspnea,SOB . Comparison: April 04, 2024 FINDINGS: MEDIASTINUM: The cardiac silhouette is not enlarged. LUNGS: No infiltrates, effusions or pneumothorax. OTHER: No free air under the diaphragm. IMPRESSION: No acute cardiopulmonary pathology. Reviewed, dictated and finalized at location A.
--- NOTE | 2024-06-25 12:36 | ECG_ITS ---
Test Date: 2024-06-25 12:49:33 Measurements Intervals [place] Rate: 105 P: 88 LA: 119 QRS: 254 QRSD: 73 T: 82 QT: 332 QTc: 440 Interpretive Statements SINUS TACHYCARDIA RIGHT ATRIAL ENLARGEMENT POSSIBLE LEFT ATRIAL ENLARGEMENT POSSIBLE RIGHT VENTRICULAR CONDUCTION DELAY POOR R WAVE PROGRESSION BASELINE WANDER- I, II, III, V6 ABNORMAL ECG Compared to ECG 04/04/2024 19:32:01 NO SIGNIFICANT CHANGE Electronically Signed On 06-25-2024 13:09:47 CDT by Kvng eMndez D.O.
[2024-06-25 13:00] LABS: Basophils Absolute Auto 0.13 K/mm3 (0.00-0.10); Basophils Percent Auto 1.6 % (0.0-1.0); Eosinophils Absolute Auto 0.69 K/mm3 (0.02-0.50); Eosinophils Percent Auto 8.5 % (1.0-6.0); Hematocrit 45.2 % (35.0-49.0); Hemoglobin 14.1 g/dL (12.0-15.0); Immature Granulocyte Absolute 0.01 K/mm3 (0.00-0.00); Immature Granulocyte Percent A 0.1 % (0.0-0.0); Lymphocytes Absolute Auto 3.05 K/mm3 (1.10-4.50); Lymphocytes Percent Auto 37.7 % (18.0-42.0); Mean Corpuscular HGB Conc 31.2 g/dL (32-36); Mean Corpuscular Hemoglobin 28.3 pg (27.0-31.0); Mean Corpuscular Volume 90.8 fL (78.0-102.0); Mean Platelet Volume 9.2 fl (9.2-11.8); Monocytes Absolute Auto 0.97 K/mm3 (0.10-0.90); Neutrophils Absolute Auto 3.24 K/mm3 (1.70-7.20); Neutrophils Percent Auto 40.1 % (50.0-70.0); Platelet Count Result 433 K/mm3 (150-420); Red Blood Count 4.98 M/mm3 (4.20-5.40); Red Cell Distribution Width 12.4 % (11.6-14.4); White Blood Count 8.1 K/mm3 (4.8-10.8)
[2024-06-25 13:17] LABS: Prothrombin Time 11.1 Seconds (9.64-11.0)
[2024-06-25 13:21] LABS: Lactic Acid Reflex 0.9 mmol/L (0.4-2.0)
[2024-06-25 13:25] LABS: D Dimer 0.35 mg/L (0.19-0.50); Partial Thromboplastin Time 28.2 Sec (23.9-30.70)
--- OUTSIDE RECORDS SUMMARY | 2024-06-25 13:25 | XMS_ITS | Clinical Summary ---
Author Organization [facility] Address [address] [place] [address] Care Team Providers Care Life Insurance Specialist Name Role Phone Janes Elkins Primary Care Provider [phone] Arleth Morris MD Unavailable [phone] Allergies Active Allergy Reactions Criticality Noted Date [...] multiples MIs and CVAs -Primary OB in [place] - offered hyst/BSO given patient concern for gynecologic cause of symptoms. Evaluated by pulmonology and determined to be high risk for anesthesia given severe COPD. Referred to [facility] for further consideration of future surgical management. -Followed by GI ([facility]) for chronic abdominal pain/ IBS-C: last seen [...] she is not on any treatment. -General surgery([facility]) 07/30/23: Low concern for biliary etiology at [...] post- menopausal state. -Discussed patient case with [facility]- agreed that patient unlikely to benefit from [...] resources for pelvic floor PT including PT call center coordinator for options closer to her home [] [...] with bright red blood -underwent hsc/D&C at [place] in 05/2023, pathology benign -provera per primary [...] 01/30/2023 Assessment & Plan (01/30/2023 1:02 PM BIOSTATISTICS DIRECTOR): Discussed possible causes of decreased sexual desire [...] Encounters Date Type Department Care Team Description 04/14/2024 Telephone [facility] [facility] [address] [place] [address] Arleth Morris MD appointment follow up from Last 3 Months Surgical History Surgery Date Site/Laterality Comments NECK SURGERY SECTION ECTOPIC SURGERY Medical History Medical History Date Comments History of multiple strokes Heart attack (HCC) Fibromyalgia Cervical cancer (HCC) 1993 Throat cancer (HCC) 2016 Cryopathy Smoking Sleep [...] on file Legal Sex Female 10:34 AM BIOSTATISTICS DIRECTOR Gender Identity Not on file Sexual Orientation [...] Comments Blood Pressure 116/64 01/07/2024 4:30 PM BIOSTATISTICS DIRECTOR Pulse 114 01/07/2024 4:30 PM BIOSTATISTICS DIRECTOR pt expresses anxiety and is visibly emotional at appointment. Temperature 36.3 C (97.4 F) 05/22/2023 1:24 PM CDT Respiratory Rate 16 05/22/2023 1:24 PM CDT Oxygen Saturation 93% 01/07/2024 4:3 0 PM BIOSTATISTICS DIRECTOR Rn discussed with pt. Per pt, she is to be on 2L with activity. 93 is baseline per pt. Inhaled Oxygen Concentration - - Weight 67.4 kg (148 lb 9.6 oz) 01/07/2024 4:30 PM BIOSTATISTICS DIRECTOR Height 157.5 cm (5' 2 ) 05/22/2023 9:31 AM CDT Body Mass Index 27.18 05/22/2023 9:31 AM CDT Plan of Treatment Health Maintenance Due Date Last Done Comments Cervical Cancer Screening 1971 Colon Cancer Screening-Colonoscopy 1971 Hepatitis C Screening 1971 Hepatitis B Screening 1989 Pneumococcal vaccine <65 (1 of 2 - PCV) 1990 Zoster Vaccine (1 of 2) 2021 Regular Well Visit/Exam 18-64 03/18/2024 03/18/2023 Breast Cancer Screening-Mammogram 04/10/2024 04/10/2023, 04/10/2023, 02/04/2013 Depression Screening 05/01/2024 05/02/2023, 03/18/19 24 Influenza Vaccine (Season Ended) 2024 DTaP/Tdap/Td Vaccine (3 - Td or Tdap) 12/22/2032, 02/09/2016 Procedures Procedure Name Priority Date/Time Associated Diagnosis Comments SCREENING MAMMOGRAM BILATERAL W KEVIN Schedule Routine, Read Routine (OP Routine) 04/10/2023 8:07 AM BIOSTATISTICS DIRECTOR Encounter for screening mammogram for malignant neoplasm of breast from Last 3 Months or Most Recently Relevant to Health Maintenance Results * Screening Mammogram Bilateral W Kevin (04/10/2023 8:07 AM BIOSTATISTICS DIRECTOR) Anatomical Region Laterality Modality Breast Bilateral Mammography 04/10/2023 8:21 AM BIOSTATISTICS DIRECTOR Impressions 04/10/2023 8:21 AM BIOSTATISTICS DIRECTOR There is no mammographic evidence of malignancy. A 1 year screening mammogram is recommended. BI-RADS: 1 - Negative. The patient has been or will be contacted. The patient will be entered into a reminder system with a target due date of 1 year for her next mammogram. Electronically signed by: Felipe Leo M.D. Narrative 04/10/2023 8:21 AM BIOSTATISTICS DIRECTOR EXAMINATION: SCREENING MAMMOGRAM BILATERAL W KEVIN ORDERING HEALTHCARE PROVIDER: LIBERTAD MOULTON HISTORY: Routine screening mammography. COMPARISON: 03/03/2013, 02/04/2013, 01/02/2012, 11/17/2008 TECHNIQUE: CC and MLO views of the bilateral breasts were obtained with digital technique using breast tomosynthesis with C view. Computer aided detection was utilized. FINDINGS: DENSITY: There are scattered fibroglandular elements in the bilateral breasts. BREASTS: There are no suspicious masses, suspicious calcifications, or other suspicious findings in either breast. There has been no suspicious interval change. us Libertad Moulton GAMING CAGE CASHIER IMG MAMMO PROCEDURES Final Result from Last 3 Months or Most Recently Relevant to Health Maintenance Insurance [facility] [place] [employer] [facility] DIS[employer] Care Teams Life Insurance Specialist Relationship Specialty Start Date End Date Janes Elkins PA [address] [place] [address] PCP - General 12/15/19 Arleth Morris MD [address] [place] [address] [place] [address] Consulting Physician Obstetrics and Gynecology 05/22/23
--- OUTSIDE RECORDS SUMMARY | 2024-06-25 13:25 | XMS_ITS | Referral Summary ---
Author Organization [facility] Address [address] [place] [address] Care Team Providers Care Cardiograph Operator Name Role Phone Janes Elkins Primary Care Provider [phone] Arleth Morris MD Unavailable [phone] Encounters Date Type Department Care Team Description 04/14/2024 Telephone [facility] 4 [facility] [address] [place] [address] Arleth Morris MD appointment follow up from Last 3 Months Allergies Active Allergy [...] multiples MIs and CVAs -Primary OB in [place] - offered hyst/BSO given patient concern for gynecologic cause of symptoms. Evaluated by pulmonology and determined to be high risk for anesthesia given severe COPD. Referred to [facility] for further consideration of future surgical management. -Followed by GI ([facility]) for chronic abdominal pain/ IBS-C: last [...] she is not on any treatment. -General surgery([facility]) 07/30/23: Low concern for biliary etiology [...] post- menopausal state. -Discussed patient case with [facility]- agreed that patient unlikely to benefit from [...] resources for pelvic floor PT including PT fresh food manager for options closer to her home [] [...] with bright red blood -underwent hsc/D&C at [place] in 05/2023, pathology benign -provera per primary [...] 01/30/2023 Assessment & Plan (01/30/2023 1:02 PM LABORER CEMENT GUN PLACING): Discussed possible causes of decreased sexual desire [...] on file Legal Sex Female 10:34 AM LABORER CEMENT GUN PLACING Gender Identity Not on file Sexual Orientation Not on file Last Filed Vital Signs Vital Sign Reading Time Taken Comments Blood Pressure 116/64 01/07/2024 4:30 PM LABORER CEMENT GUN PLACING Pulse 114 01/07/2024 4:30 PM LABORER CEMENT GUN PLACING pt expresses anxiety and is visibly emotional at appointment. Temperature 36.3 C (97.4 F) 05/22/2023 1:24 PM CDT Respiratory Rate 16 05/22/2023 1:24 PM CDT Oxygen Saturation 93% 01/07/2024 4:3 0 PM LABORER CEMENT GUN PLACING Rn discussed with pt. Per pt, she is to be on 2L with activity. 93 is baseline per pt. Inhaled Oxygen Concentration - - Weight 67.4 kg (148 lb 9.6 oz) 01/07/2024 4:30 PM LABORER CEMENT GUN PLACING Height 157.5 cm (5' 2 ) 05/22/2023 9:31 AM CDT Body Mass Index 27.18 05/22/2023 9:31 AM CDT Plan of Treatment Not on file Procedures Procedure Name Priority Date/Time Associated Diagnosis Comments SCREENING MAMMOGRAM BILATERAL W KEVIN Schedule Routine, Read Routine (OP Routine) 04/10/2023 8:07 AM LABORER CEMENT GUN PLACING Encounter for screening mammogram for malignant neoplasm of breast from Last 3 Months or Most Recently Relevant to Health Maintenance Results * Screening Mammogram Bilateral W Kevin (04/10/2023 8:07 AM LABORER CEMENT GUN PLACING) Anatomical Region Laterality Modality Breast Bilateral Mammography 04/10/2023 8:21 AM LABORER CEMENT GUN PLACING Impressions 04/10/2023 8:21 AM LABORER CEMENT GUN PLACING There is no mammographic evidence of malignancy. A 1 year screening mammogram is recommended. BI-RADS: 1 - Negative. The patient has been or will be contacted. The patient will be entered into a reminder system with a target due date of 1 year for her next mammogram. Electronically signed by: Felipe Leo M.D. Narrative 04/10/2023 8:21 AM LABORER CEMENT GUN PLACING EXAMINATION: SCREENING MAMMOGRAM BILATERAL W KEVIN ORDERING [...] There has been no suspicious interval change. Libertad Moulton MONUMENT MASON IMG MAMMO PROCEDURES Final Result from Last 3 Months or Most Recently Relevant to Health Maintenance Insurance [facility] [place] [employer] DIS[employer] Care Teams Cardiograph Operator Relationship Specialty Start Date End Date Janes Elkins PA [address] [place] [address] PCP - General 12/15/19 Arleth Morris MD [address] [facility] [address] Consulting Physician Obstetrics and Gynecology 05/22/23
[2024-06-25 13:26] LABS: Alanine Aminotransferase 18 U/L (14-59); Albumin Level 3.6 g/dL (3.4-5.0); Alkaline Phosphatase 103 U/L (46-116); Anion Gap 6 mmol/L (4-12); Aspartate Amino Transferase 13 U/L (15-37); Bilirubin,Total 0.2 mg/dL (0.00-1.00); Blood Urea Nitrogen 11 mg/dL (7-18); Calcium 9.3 mg/dL (8.5-10.1); Carbon Dioxide 33 mmol/L (21-32); Chloride 104 mmol/L (98-108); Estimated CRCL calculation 55 ml/min; Estimated Glomerular Filt Rate > 60; Glucose 100 mg/dL (70-99); NT Pro B Type Natriuretic Pept 179 pg/mL (0-125); Osmolality Calculated 295 mOsm/kg (285-295); Potassium 3.6 mmol/L (3.5-5.1); Sodium 143 mmol/L (136-145); Total Protein 7.4 g/dL (6.4-8.2); Troponin I 5.3 ng/L (0.00-60.4)
--- OUTSIDE RECORDS SUMMARY | 2024-06-25 13:26 | XMS_ITS | Clinical Summary ---
Author Organization [facility] Address [address] [place] [address] Care Team Providers Care Outreach Director Name Role Phone None, Provider MD Primary [...] Screening with HPV 2001 Mammogram Screening 2011 Pneumococcal Vaccine: 50+ Ye ars (1 of 1 - PCV) 2021 Zoster Vaccines (1 of 2) 2021 COVID-19 Vaccine ( - 2023-2 5 season) 2023 Meningococcal B Vaccine Aged Out No l onger eligible based on patient's age to complete this topic Meningococcal Vaccine Aged Out No gricelda chloé eligible based on patient's age to complete this topic RSV Immunizations Under 20 Months Aged Out No longer eligible based on patient's age to complete this topic Insurance [employer] Care Teams Outreach Director Relationship Specialty Start Date End Date None, Provider, PCP - General 09/11/18
--- OUTSIDE RECORDS SUMMARY | 2024-06-25 13:26 | XMS_ITS | Clinical Summary ---
Author Organization [facility] Address [address] [place] [address] Phone Care Team Providers Care Director Oracle Name Role Phone Severo Janes FAITH Primary Care Provider [phone] Veda Motley APRN, [employer] Unavailable [phone] Miriam Aquino APRN, [employer] Unavailable Sergio Hussein MD Unavailable Allergies Active Allergy Reactions Criticality Noted Date Comments Latex Rash 05/30/2015 Medications Respiratory Therapy Supplies (NEBULIZER) by Does not apply route. Active albuterol (PROVENTIL, VENTOLIN) (2.5 MG/3ML) 0.083% Nebulizer Soln 3 mL by Nebulization route every 6 hours as needed for Wheezing. 25 Vial 0 05/30/19 16 Active famotidine (PEPCID) 40 MG Tablet Take 40 mg by mouth 2 times daily. 04/19/19 22 Active hydrOXYzine (ATARAX) 25 MG Tablet Take 25 mg by mouth every 8 hours as needed for Anxiety. 04/19/19 22 Active ipratropium-alb uterol (DUO-NEB) 0.5-2.5 (3) MG/3ML Solution 05/03/19 21 Active loratadine (CLARITIN) 10 MG Tablet Take 10 mg by mouth daily. 05/06/19 21 Active Multiple Vitamin (MULTI-VITAMIN PO) Take by mouth daily. HOLD FOR 5 DAYS PRIOR TO PROCEDURE Active albuterol 108 (90 Base) MCG/ACT Aerosol Solution take 2 Puffs by inhalation every 6 hours as needed for Wheezing. 18 g 3 06/13/19 23 Active meloxicam (MOBIC) 15 MG Tablet 06/02/19 23 Active benzonatate (TESSALON) 100 MG Capsule TAKE ONE CAPSULE BY MOUTH THREE TIMES A DAY NEEDED FOR COUGH 30 Capsule 1 10/16/19 23 Active Additional Information Patient not taking.Reported on 05/25/2024 omeprazole (PriLOSEC) 40 MG CAPSULE DELAYED RELEASE Take 1 Capsule by mouth daily. 90 Capsule 3 10/20/19 23 Active ondansetron (ZOFRAN-ODT) 4 MG TABLET DISPERSIBLEIndi cations:Nausea and vomiting, unspecified vomiting type TAKE ONE TABLET BY MOUTH EVERY EIGHT HOURS NEEDED FOR NAUSEA 20 Tablet 02/08/20 23 Active Fluticasone-Ume clidin-Vilant (Trelegy Ellipta) 100-62.5-25 [...] DAILY 30 Tablet 5 02/03/20 24 Active Dupilumab (DUPIXENT) 300 MG/2ML Solution Auto-injectorIn dications:Other eosinophilia,CO PD on long-term inhaled steroid therapy (HCC) 2 mL by Subcutaneous route every 14 days. 4 mL 5 05/29/19 25 Active dicyclomine (BENTYL) 10 MG CapsuleIndicati ons:Generalized abdominal pain TAKE ONE CAPSULE BY MOUTH TWICE A DAY 60 Capsule 1 10/13/19 23 Discontin ued(Dose adjustmen t) Dupilumab (DUPIXENT) 300 MG/2ML Solution Auto-injectorIn dications:Mixed simple and mucopurulent chronic bronchitis (HCC),Chronic respiratory failure with hypoxia (HCC),Other eosinophilia,CO PD on long-term inhaled steroid therapy (HCC) 2 mL by Subcutaneous route every 14 days. 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 Subacute cough 02/15/2022 Mixed simple and mucopurulent chronic bronchitis 08/17/2021 Personal history of tobacco use 05/18/2021 SOB (shortness of breath) 05/18/2021 Centrilobular emphysema 05/18/2021 Encounters Date Type Department Care Team Description 05/28/2024 Telephone [facility] - Pulmonology & Sleep Medicine [facility] [address] [place] [address] Veda Motley APRN, [employer] 05/27/2024 Telephone [facility] & [facility] Medicine [facility] [address] [place] [address] Veda Motley APRN, [employer] Prior Authorization (Dupixent) 05/25/2024 2:00 PM CDT Office Visit [facility] & [facility] [address] [place] [address] Veda Motley APRN, CNP Centrilobular emphysema (HCC) (Primary Dx); Mixed simple and mucopurulent chronic bronchitis (HCC); Personal history of tobacco use; Chronic respiratory failure with hypoxia (HCC); Other eosinophilia; COPD on long-term inhaled steroid therapy (HCC) Discharge Disposition: Discharged to home or Selfcare 05/25/2024 Results Follow-Up [facility] Pulmonology & Sleep Medicine [facility] [address] [place] [address] Veda Motley APRN, CNP CBC WITH AUTO DIFFERENTIAL 05/25/2024 Travel 05/04/2024 Telephone [facility] Pulmonology & Sleep [facility] [address] [place] [address] Veda Motley APRN, CNP Prior Authorization (Roflumilast) from Last 3 Months Family History Medical [...] Years Used Date Smoking Tobacco: Former Cigarettes 1 43.3 S tarted: 1982 Smokeless Tobacco: Never Tobacco Cessation:Counseling Given: No Alcohol Use Standard Drinks/Week Comments No 0 [...] Sign Reading Time Taken Comments Blood Pressure 116/66 05/25/2024 2:20 PM CDT Pulse 109 05/25/2024 2:20 PM CDT Temperature 36.3 C (97.3 F) 10/15/2023 2:18 PM CDT Respiratory Rate 18 05/25/2024 2:20 PM CDT Oxygen Saturation 98% 05/25/2024 2:20 PM CDT Inhaled Oxygen Concentration - - Weight 66.3 kg (146 lb 3.2 oz) 05/25/2024 2:20 P M CDT Height 157.5 cm (5' 2 ) 05/25/2024 2:20 PM CDT Body Mass Index 26.74 05/25/2024 2:20 PM CDT Plan of Treatment Upcoming Encounters Date Type Department Care Team (Late st Contact Info) Description 08/25/2024 1:00 PM CDT Office Visit [facility] - Pulmonology & [facility] Medicine - [place] [address] [place] [address] Veda Motley APRN, [employer] [address] [address] Health Maintenance Due Date Last Done Comments Hepatitis C Virus (HCV) Screening 1971 Hepatitis B Immunization (1 of 3 - 19+ 3-dose series) 1990 Pneumococcal Immunization (50+ years) (1 of 2 - PCV) 1990 Pap Smear 02/17/1992 Cervical Cancer Screening (CCS) 2001 HPV/Cotest 2001 Cologuard 2021 Immunochemical Fecal Occult Blood 2021 Zoster Immunization (1 of 2) 2021 SARS-COV-2 Immunization ( season) 2023 Mammogram 04/10/2024 04/10/2023 Influenza Immunization (Season Ended) 2024 Colonoscopy 12/06/2028 12/06/2021, 12/06/2021 Colorectal Cancer Screening 12/06/2028 Respiratory Syncytial Virus (RSV) Immunization (Adult) (1 - 1-dose 75+ series) 2046 12/06/2021, 12/06/2021 DTaP/Tdap/Td Immunization Discontinued 12/22/2022, 10/2015 TdaP Immunization Completed 12/22/2022, 02/09/2016 Lung Cancer Screening Discontinued 02/13/2024 , 10/28/2023, 07/11/2022, Additional history exists Meningococcal Immunization (ACWY) Aged Out No longer eligible based on patient's age to complete this topic Rotavirus Immunization Aged Out No lo nger eligible based on patient's age to complete this topic Procedures Procedure Name Priority Date/Time Associated Diagnosis Comments CBC WITH AUTO DIFFERENTIAL Routine 05/25/2024 2:55 PM CDT Mixed simple and mucopurulent chronic bronchitis (HCC) Chronic respiratory failure with hypoxia (HCC) COMPLETE BLOOD COUNT (CBC) WITH DIFF Routine 05/25/2024 2:55 PM CDT Mixed simple and mucopurulent chronic bronchitis (HCC) Chronic respiratory failure with hypoxia (HCC) CT CHEST W/O CONTRAST Routine 02/13/2024 10:23 AM CONTRACT ASSOCIATE MANAGER Lung nodule from Last 3 Months or Most Recently Relevant to Health Maintenance Results * (ABNORMAL) CBC WITH AUTO DIFFERENTIAL (05/25/2024 2:55 PM CDT) WBC 7.84 4.00 - 12.00 10(3)/mcL 05/25/2024 4:07 PM CDT [facility] RBC 4.71 3.80 - 5.30 10(6)/mcL 05/25/2024 4:07 PM CDT [facility] HEMOGLOBIN (HGB) 13.5 12.0 - 15.8 g/dL 05/25/2024 4:07 PM CDT [facility] HEMATOCRIT (HCT) 43.0 36.0 - 47.0 % 05/25/2024 4:07 PM CDT [facility] MCV 91.3 82.0 - 96.0 fL 05/25/2024 4:07 PM CDT [facility] MCH 28.7 26.0 - 34.0 pg 05/25/2024 4:07 PM CDT [facility] MCHC 31.4 31.0 - 36.0 g/dL 05/25/2024 4:07 PM CDT [facility] PLATELET COUNT 427 140 - 440 10(3)/mcL 05/25/2024 4:07 PM CDT [facility] RDW 12.7 11.8 - 15.5 % 05/25/2024 4:07 PM CDT [facility] MPV 9.4(L) 9.7 - 12.4 fL 05/25/2024 4:07 PM CDT [facility] NEUTROPHILS 43.4(L) 47.0 - 73.0 % 05/25/2024 4:07 PM CDT [facility] LYMPHOCYTES 35.7 18.0 - 42.0 % 05/25/2024 4:07 PM CDT [facility] MONOCYTES 10.5 4.0 - 12.0 % 05/25/2024 4:07 PM T [facility] EOSINOPHILS 9.1(H) 0.0 - 5.0 % 05/25/2024 4:07 PM T [facility] BASOPHILS 1.3(H) 0.0 - 1.0 % 05/25/2024 4[facility] [address] [facility] NEUTROPHIL[facility] 3.41 1.60 - 7.70 10(3)/[facility] 05/25/2024 4:07 PM [facility] ABSOLUTE LYMPHOCYTES 2.80 1.30 - 3.20 10(3)/[facility] 05/25/2024 4:07 PM [facility] ABSOLUTE MONOCYTES 0.82 0.20 - 1.00 10(3)/[facility] 05/25/2024 4:07 PM [facility] ABSOLUTE EOSINOPHIL 0.71(H) 0.00 - 0.40 10(3)/[facility] 05/25/2024 4:07 PM [facility] ABSOLUTE BASOPHILS 0.10 0.00 - 0.10 10(3)/[facility] 05/25/2024 4:07 PM [facility] NRBC PER 100 WBC 0 05/26/19 4:07 PM [facility] Blood Venipuncture / Unknown 05/25/2024 2:55 PM CDT 05/25/2024 4:04 PM CDT us Veda Motley APRN, CNP HEMATOLOGY ORDERABLES Final Result [facility] [address] [place] [address] * CT CHEST W/O CONTRAST (02/13/2024 10:23 AM CONTRACT ASSOCIATE MANAGER) Anatomical Region Laterality Modality Chest N/A Computed Tomogra phy 02/20/2024 1:40 PM CONTRACT ASSOCIATE MANAGER Impressions 02/20/2024 1:43 PM CONTRACT ASSOCIATE MANAGER IMPRESSION: 1. Interval decrease in density of [...] new suspicious nodule present. 4. No lymphadenopathy. Narrative 02/20/2024 1:43 PM CONTRACT ASSOCIATE MANAGER EXAM DESCRIPTION: CT CHEST W/O CONTRAST REASON [...] Electronically signed by Shira Ch M.D. TW: ROGELIO Report ID: [id number] Reading Location: [id number] Procedure Note Shira Ch MD - 02/20/2024 [...] Electronically signed by Shira Ch M.D. TW: ROGELIO Report ID: [id number] Reading Location: [place] [address] IMPRESSION: 1. Interval decrease in density of [...] Fin al Result from Last 3 Months or Most Recently Relevant to Health Maintenance Insurance MEDICAID [place] Care Teams Director Oracle Relationship Specialty Start Date End Date Janes Elkins PAC [address] [place] [address] PCP - General Physician Event Marketing Representative 04/07/21 Veda Motley APRN, [employer] [address] [address] Nurse Practitioner Advanced Practice Nurse 05/18/21 Miriam Aquino APRN, [employer] [address] [place] [address] Nurse Practitioner Advanced Practice Nurse 05/26/22 Sergio Hussein MD [address] [place] [address] Consulting Physician Colon and Rectal Surgery 07/24/23
--- OUTSIDE RECORDS SUMMARY | 2024-06-25 13:26 | XMS_ITS | Encounter Summary ---
Author Organization [facility] Address [address] [place] [address] Phone Care Team Providers Care General Passenger Agent Name Role Phone Janes Elkins Naveen FAITH Primary Care Provider Veda Motley APRN, QUALITY MANAGER Unavailable Miriam Aquino APRN, QUALITY MANAGER Unavailable Sergio Hussein MD Unavailable Reason for Visit * Reason Comments Medication Refill Encounter Details Date Type Department Care Team (Late st Contact Info) Description 03/11/2023 [facility]ill [facility] [address] [place] [phone] Miriam Aquino APRN, QUALITY MANAGER [address] [place] [address] Medication Refill Social History Tobacco Use Types [...] Joann Adames RN - 03/11/2023 10:39 AM BURNISHING MACHINE OPERATOR Per nursing clinical judgement, provider to review [...] Dept 07/06/22 Office Visit Miriam Aquino APRN, QUALITY MANAGER [facility] Showing recent visits within past 365 days and meeting all other requirements Future Appointments No visits were found meeting these conditions. Showing future appointments within next 90 days and meeting all other requirements ISHING MACHINE OPERATOR documented in this encounter Plan of Treatment Upcoming Encounters Date Type Department Care Team (Late st Contact Info) Description 08/25/2024 1:00 PM CDT [facility] Visit [facility] - Pulmonology & [facility] Medicine - [place] [address] [place] [address] Veda Motley APRN, QUALITY MANAGER [address] [address] documented as of this encounter Visit Diagnoses Not on filedocumented in this encounter Additional Health Concerns Infection Onset Date Last Indicated Resolved Time COVID - 19 04/08/2023 04/10/2023 04/20/2023 12:1 6 AM BURNISHING MACHINE OPERATOR documented as of this encounter Care Teams General Passenger Agent Relationship Specialty Start Date End Date Janes Elkins PAC [address] [place] [id number] PCP - General Physician Nutritional Services Host 2/4/22 Veda Motley APRN, QUALITY MANAGER [address] [address] Nurse Practitioner Advanced Practice Nurse 05/18/21 Miriam Aquino APRN, QUALITY MANAGER [address] [place] [address] Nurse Practitioner Advanced Practice Nurse 05/26/22 Sergio Hussein MD [address] [address] Consulting Physician Colon and Rectal Surgery 07/24/23 documented as of this encounter
--- OUTSIDE RECORDS SUMMARY | 2024-06-25 13:26 | XMS_ITS | Encounter Summary ---
Author Organization [facility] Address [address] [place] [address] Phone Care Team Providers Care Export Documents Clerk Name Role Phone Janes Elkins Naveen FAITH Primary Care Provider Veda Motley APRN, SHED WORKERS SUPERVISOR Unavailable Miriam Aquino APRN, SHED WORKERS SUPERVISOR Unavailable Sergio Hussein MD Unavailable Reason for Visit * Reason Comments Medication Refill Encounter Details Date Type Department Care Team (Late st Contact Info) Description 01/27/2022 Refill [facility] - Pulmonology & Sleep Medicine [facility] #2 [place] [phone] Veda Motley APRN, MEHNAZ #[address] [address] Medication Refill Social History Tobacco Use Types Packs/Day Years Used Date Smoking Tobacco: Every Day Cigarettes 0.2 43.3 Started: 1980 Smokeless Tobacco: Never Alcohol Use [...] Jessica Goldberg RN - 01/29/2022 8:22 AM ENVELOPE CUTTER Medication failed the protocol, provider to review [...] Motley APRN, CNP [facility] [place] Showing recent visits within past 365 days and meeting all other requirements Future Appointments Date Type Provider Dept 02/15/22 Appointment Veda Motley APRN, CNP [facility] [place] Showing future appointments within next 90 days and meeting all other requirements LOPE CUTTER documented in this encounter Plan of Treatment Upcoming Encounters Date Type Department Care Team (Late st Contact Info) Description 08/25/2024 1:00 PM CDT Office Visit [facility] - Pulmonology & Sleep Medicine - [place] [address] [place] [address] Veda Motley APRN, MEHNAZ [address] [address] documented as of this encounter Visit Diagnoses Not on filedocumented in this encounter Additional Health Concerns Infection Onset Date Last Indicated Resolved Time COVID - 19 02/15/2022 02/15/2022 02/25/2022 12:1 6 AM ENVELOPE CUTTER Respiratory Rule-Out 02/15/2022 02/15/2022 022 4:32 PM ENVELOPE CUTTER COVID - 19 04/08/2023 04/10/2023 04/20/2023 12:1 6 AM ENVELOPE CUTTER documented as of this encounter Care Teams Export Documents Clerk Relationship Specialty Start Date End Date Janes Elkins, [facility] [address] [place] [address] PCP - General Physician Senior Telecommunications Technician 04/07/21 Veda Motley APRN, SHED WORKERS SUPERVISOR #[address] [address] Nurse Practitioner Advanced Practice Nurse 05/18/21 Miriam Aquino APRN, SHED WORKERS SUPERVISOR #2 [place] [address] Nurse Practitioner Advanced Practice Nurse 05/26/22 Sergio Hussein MD #[address] [address] Consulting Physician Colon and Rectal Surgery 07/24/23 documented as of this encounter
--- OUTSIDE RECORDS SUMMARY | 2024-06-25 13:26 | XMS_ITS | Encounter Summary ---
Author Organization [facility] Healthcare Address [address] [place] [address] Care Team Providers Care Recruiting Associate Name Role Phone Janes Elkins Primary Care Provider [phone] Arleth Morris MD Unavailable [phone] Encounter Details Date Type Department Care Team (Late st Contact Info) Description 06/13/[address] [address] Lauren Lerner, RT Social History Tobacco Use Types Packs/Day Years Used Date Smoking Tobacco: Former Cigarettes Q uit: 11/09/2018 Smokeless Tobacco: Never Alcohol Use Standard Drinks/Week Comments Not Currently 0 (1 standard drink = 0.6 oz pur e alcohol) Comments No Sex and Gender Information Value Date Recorded Sex Assigned at Not on file Legal Sex Female 10:34 AM CLINICAL TRIALS ASSISTANT Gender Identity Not on file Sexual Orientation Not on file documented as of this encounter Plan of Treatment Not on file documented as of this encounter Visit Diagnoses Not on filedocumented in this encounter Additional Health Concerns Infection Onset Date Last Indicated Resolved Time MRSA 01/11/2017 03/02/2017 10/19/2020 5:00 AM CDT documented as of this encounter Care Teams Recruiting Associate Relationship Specialty Start Date End Date Janes Elkins PA [address] [place] [address] PCP - General 12/15/19 Arleth Morris MD [address] [place] [address] Consulting Physician Obstetrics and Gynecology 05/22/23 documented as of this encounter
--- OUTSIDE RECORDS SUMMARY | 2024-06-25 13:26 | XMS_ITS | Encounter Summary ---
Author Organization [facility] Address [address] [place] [address] Phone Care Team Providers Care Ehs Engineer Name Role Phone Janes Elkins Naveen FAITH Primary Care Provider [phone] Veda Motley APRN, MANAGER OF MAINTENANCE Unavailable Miriam Aquino APRN, MANAGER OF MAINTENANCE Unavailable Sergio Hussein MD Unavailable Reason for Visit * Reason Comments Medication Refill Encounter Details Date Type Department Care Team (Late st Contact Info) Description 02/03/2023 Refill [facility] - Pulmonology & Sleep Medicine [facility] #2 [place] [address] Veda Motley APRN, MEHNAZ #[address] [address] Medication Refill Social History Tobacco Use Types [...] 02/04/2023 8:02 AM CST Refill too soon TATION MANAGER documented in this encounter Plan of Treatment Upcoming Encounters Date Type Department Care Team (Late st Contact Info) Description 08/25/2024 1:00 PM CDT Office Visit [facility] - Pulmonology & Sleep Medicine - [place] #2 [place] [address] Veda Motley APRN, MEHNAZ #[address] [address] documented as of this encounter Visit Diagnoses Diagnosis Centrilobular emphysema (HCC) Other emphysema documented in this encounter Additional Health Concerns Infection Onset Date Last Indicated Resolved Time COVID - 19 04/08/2023 04/10/2023 04/20/2023 12:1 6 AM SANITATION MANAGER documented as of this encounter Care Teams Ehs Engineer Relationship Specialty Start Date End Date Janes Elkins PAC [address] [place] [address] PCP - General Physician Receiving Team Member 04/07/21 Veda Motley APRN, MEHNAZ #[address] [address] Nurse Practitioner Advanced Practice Nurse 05/18/21 Miriam Aquino APRN, MEHNAZ #2 [place] [address] Nurse Practitioner Advanced Practice Nurse 05/26/22 Sergio Hussein MD #[address] [facility] [address] [address] [address] Consulting Physician Colon and Rectal Surgery 07/24/23 documented as of this encounter
--- OUTSIDE RECORDS SUMMARY | 2024-06-25 13:26 | XMS_ITS | Encounter Summary ---
Author Organization [facility] Address [address] [place] [address] Phone Care Team Providers Care Geological E Logger Name Role Phone Janes Elkins Naveen FAITH Primary Care Provider [phone] Veda Motley APRN, BLENDING KETTLE TENDER Unavailable [phone] Miriam Aquino APRN, BLENDING KETTLE TENDER Unavailable Sergio Hussein MD Unavailable Reason for Visit * Reason Comments Medication Refill Encounter Details Date Type Department Care Team (Late st Contact Info) Description 10/18/2021 Refill [facility] - Pulmonology & Sleep Medicine [facility] #2 [place] [address] Veda Motley APRN, MEHNAZ #[address] [address] Medication Refill Social History Tobacco Use Types [...] 08/17/21 Office Visit Veda Motley APRN, MEHNAZ [facility] [place] 05/18/21 Office Visit Veda Motley APRN, CNP [facility] Showing recent visits within past 365 [...] Group - Pulmonology & Sleep Medicine - [place] #2 [place] [address] Veda Motley APRN, MEHNAZ #[address] [address] documented as of this encounter Visit Diagnoses Not on filedocumented in this encounter Additional Health Concerns Infection Onset Date Last Indicated Resolved Time COVID - 19 02/15/2022 02/15/2022 02/25/2022 12:1 6 AM TUMBLER MACHINE OPERATOR HELPER Respiratory Rule-Out 02/15/2022 02/15/2022 022 4:32 PM TUMBLER MACHINE OPERATOR HELPER COVID - 19 04/08/2023 04/10/2023 04/20/2023 12:1 6 AM TUMBLER MACHINE OPERATOR HELPER documented as of this encounter Care Teams Geological E Logger Relationship Specialty Start Date End Date Janes Elkins PAC [address] [place] [address] PCP - General Physician Bit Tapper 04/07/21 Veda Motley APRN, BLENDING KETTLE TENDER #2 [facility] [address] [place] [address] Nurse Practitioner Advanced Practice Nurse 05/18/21 Miriam Aquino APRN, BLENDING KETTLE TENDER #2 [place] [address] Nurse Practitioner Advanced Practice Nurse 05/26/22 Sergio Hussein MD #2 [facility] [address] [place] [address] Consulting Physician Colon and Rectal Surgery 07/24/23 documented as of this encounter
--- OUTSIDE RECORDS SUMMARY | 2024-06-25 13:26 | XMS_ITS | Encounter Summary ---
Author Organization [facility] Address [address] [place] [address] Phone Care Team Providers Care Riffler Tender Name Role Phone Janes Elkins Naveen FAITH Primary Care Provider [phone] Veda Motley APRN, ACCOUNT EXECUTIVE AGRIBUSINESS Unavailable Miriam Aquino APRN, ACCOUNT EXECUTIVE AGRIBUSINESS Unavailable Sergio Hussein MD Unavailable Reason for Visit * Reason Comments Medication Refill Encounter Details Date Type Department Care Team (Late st Contact Info) Description 09/23/2021 Refill [facility] - Pulmonology & Sleep Medicine [facility] #2 [place] [phone] Veda Motley APRN, MEHNAZ #[address] [address] Medication Refill Social History Tobacco Use Types [...] 08/17/21 Office Visit Veda Motley APRN, MEHNAZ [facility] 05/18/21 Office Visit Veda Motley APRN, CNP [facility] Showing recent visits within past 365 days [...] Group - Pulmonology & Sleep Medicine - [place] #2 [place] [address] Veda Motley APRN, ACCOUNT EXECUTIVE AGRIBUSINESS #[address] [address] documented as of this encounter Visit Diagnoses Not on filedocumented in this encounter Additional Health Concerns Infection Onset Date Last Indicated Resolved Time COVID - 19 02/15/2022 02/15/2022 02/25/2022 12:1 6 AM CREW DIRECTOR Respiratory Rule-Out 02/15/2022 02/15/2022 022 4:32 PM CREW DIRECTOR COVID - 19 04/08/2023 04/10/2023 04/20/2023 12:1 6 AM CREW DIRECTOR documented as of this encounter Care Teams Riffler Tender Relationship Specialty Start Date End Date Janes Elkins, [facility] [address] [place] [address] PCP - General Physician Mineral Industry Teacher 04/07/21 Veda Motley APRN, ACCOUNT EXECUTIVE AGRIBUSINESS #2 [facility] [address] [place] [address] Nurse Practitioner Advanced Practice Nurse 05/18/21 Miriam Aquino APRN, ACCOUNT EXECUTIVE AGRIBUSINESS #2 [place] [address] Nurse Practitioner Advanced Practice Nurse 05/26/22 Sergio Hussein MD #2 [facility] [address] [place] [address] Consulting Physician Colon and Rectal Surgery 07/24/23 documented as of this encounter
--- OUTSIDE RECORDS SUMMARY | 2024-06-25 13:26 | XMS_ITS | Encounter Summary ---
Author Organization [facility] Address [address] [place] [address] Phone Care Team Providers Care Lockstitch Hemmer Name Role Phone Janes Elkins Naveen FAITH Primary Care Provider [phone] Veda Motley APRN, BDR Unavailable Miriam Aquino APRN, BDR Unavailable Sergio Hussein MD Unavailable Reason for Visit * Reason Comments Medication Refill Encounter Details Date Type Department Care Team (Late st Contact Info) Description 2022 Refill [facility] - Pulmonology & Sleep Medicine [facility] #2 [place] [address] Veda Motley APRN, MEHNAZ #[address] [address] Medication Refill Social History Tobacco Use Types [...] Coronavirus/COVID-19? No / Unsure 02/15/2022 2:55 PM LICENSED PRACTICAL VOCATIONAL NURSE documented as of this encounter Miscellaneous Notes * Telephone Encounter - Jessica Goldberg RN - 2022 3:24 PM LICENSED PRACTICAL VOCATIONAL NURSE Medication failed the protocol, provider to review [...] Dept 02/15/22 Office Visit Veda Motley APRN, CNP [facility] 08/17/21 Office Visit Veda Motley APRN, CNP [facility] 05/18/21 Office Visit Veda Motley APRN, MEHNAZ [facility] Showing recent visits within past 365 days and meeting all other requirements Future Appointments No visits were found meeting these conditions. Showing future appointments within next 90 days and meeting all other requirements NSED PRACTICAL VOCATIONAL NURSE documented in this encounter Plan of Treatment Upcoming Encounters Date Type Department Care Team (Late st Contact Info) Description 08/25/2024 1:00 PM CDT Office Visit [facility] - Pulmonology & Sleep Medicine - [place] #2 [place] [address] Veda Motley APRN, BDR #[address] [address] documented as of this encounter Visit Diagnoses Not on filedocumented in this encounter Additional Health Concerns Infection Onset Date Last Indicated Resolved Time COVID - 19 02/15/2022 02/15/2022 02/25/2022 12:1 6 AM LICENSED PRACTICAL VOCATIONAL NURSE COVID - 19 04/08/2023 04/10/2023 04/20/2023 12:1 6 AM LICENSED PRACTICAL VOCATIONAL NURSE documented as of this encounter Care Teams Lockstitch Hemmer Relationship Specialty Start Date End Date Janes Elkins, [facility] [address] [place] [address] PCP - General Physician Edi Analyst 04/07/21 Veda Motley APRN, BDR #2 [facility] [address] [place] [address] Nurse Practitioner Advanced Practice Nurse 05/18/21 Miriam Aquino APRN, BDR #2 [place] [address] Nurse Practitioner Advanced Practice Nurse 05/26/22 Sergio Hussein MD #2 [facility] [address] [place] [address] Consulting Physician Colon and Rectal Surgery 07/24/23 documented as of this encounter
--- OUTSIDE RECORDS SUMMARY | 2024-06-25 13:26 | XMS_ITS | Encounter Summary ---
Author Organization [facility] Address [address] [place] [address] Phone Care Team Providers Care Maintenance Person Name Role Phone Janes Elkins Naveen FAITH Primary Care Provider [phone] Veda Motley APRN, TIEDOWN OPERATOR Unavailable Miriam Aquino APRN, TIEDOWN OPERATOR Unavailable Sergio Hussein MD Unavailable Reason for Visit * Reason Comments Medication Refill Encounter Details Date Type Department Care Team (Late st Contact Info) Description 10/12/[address] [facility] - Pulmonology & Sleep Medicine [facility] #2 [place] [address] Veda Motley APRN, MEHNAZ #[address] [address] Medication Refill Social History Tobacco Use Types [...] Motley APRN, MEHNAZ [facility] [place] [facility] [address] Showing recent visits within [...] Motley APRN, CNP [facility] [address] 02/15/22 Office Visit Veda Motley APRN, MEHNAZ [facility] [place] [address] Showing recent visits within [...] Group - Pulmonology & Sleep Medicine - [place] #2 [place] [address] Veda Motley APRN, TIEDOWN OPERATOR #2 [facility] [address] [place] [address] documented as of this encounter Visit Diagnoses Diagnosis Other emphysema (HCC) Other emphysema documented in this encounter Additional Health Concerns Infection Onset Date Last Indicated Resolved Time COVID - 19 04/08/2023 04/10/2023 04/20/2023 12:1 6 AM BULB ASSEMBLER documented as of this encounter Care Teams Maintenance Person Relationship Specialty Start Date End Date Janes Elkins PAC [address] [place] [address] PCP - General Physician Powertrain Design Engineer 04/07/21 Veda Motley APRN, MEHNAZ #[address] [address] Nurse Practitioner Advanced Practice Nurse 05/18/21 Miriam Aquino APRN, TIEDOWN OPERATOR #2 [place] [address] Nurse Practitioner Advanced Practice Nurse 05/26/22 Sergio Hussein MD #[address] [address] Consulting Physician Colon and Rectal Surgery 07/24/23 documented as of this encounter
--- OUTSIDE RECORDS SUMMARY | 2024-06-25 13:26 | XMS_ITS | Encounter Summary ---
Author Organization [facility] Address [address] [place] [address] Phone Care Team Providers Care Kitchen Runner Name Role Phone Janes Elkins Naveen FAITH Primary Care Provider Veda Motley APRN, STAB SETTER AND DRILLER Unavailable Miriam Aquino APRN, STAB SETTER AND DRILLER Unavailable Sergio Hussein MD Unavailable Reason for Visit * Reason Comments Medication Refill Encounter Details Date Type Department Care Team (Late st Contact Info) Description 12/06/2022 [facility]ill [facility] #2 [place] [phone] Miriam Aquino APRN, STAB SETTER AND DRILLER #2 [place] [address] Medication Refill Social History Tobacco Use Types [...] 07/06/22 Office Visit Miriam Aquino APRN, MEHNAZ [facility] [place] Showing recent visits within past 365 days [...] Group - Pulmonology & Sleep Medicine - [place] #2 [place] [address] Veda Motley APRN, MEHNAZ #[address] [address] documented as of this encounter Visit Diagnoses Diagnosis Nausea and vomiting, unspecified vomiting type documented in this encounter Additional Health Concerns Infection Onset Date Last Indicated Resolved Time COVID - 19 04/08/2023 04/10/2023 04/20/2023 12:1 6 AM LAWN MOWER documented as of this encounter Care Teams Kitchen Runner Relationship Specialty Start Date End Date Janes Elkins, [facility] [address] [place] [address] PCP - General Physician Chain Saw Operator 04/07/21 Veda Motley APRN, STAB SETTER AND DRILLER #2 [facility] [address] [place] [address] Nurse Practitioner Advanced Practice Nurse 05/18/21 Miriam Aquino APRN, STAB SETTER AND DRILLER #2 [place] [address] Nurse Practitioner Advanced Practice Nurse 05/26/22 Sergio Hussein MD #[address] [address] Consulting Physician Colon and Rectal Surgery 07/24/23 documented as of this encounter
--- OUTSIDE RECORDS SUMMARY | 2024-06-25 13:26 | XMS_ITS | Encounter Summary ---
Author Organization [facility] Address [address] [place] [address] Phone Care Team Providers Care Equipment Analyst Name Role Phone Janes Elkins Naveen FAITH Primary Care Provider Veda Motley APRN, ELECTRICAL PROJECT ENGINEER Unavailable Miriam Aquino APRN, ELECTRICAL PROJECT ENGINEER Unavailable Sergio Hussein MD Unavailable Encounter Details Date Type Department Care Team (Late st Contact Info) Description 05/25/2024 Results Follow-Up [facility] - Pulmonology & Sleep Medicine [facility] #2 [place] [phone] Veda Motley APRN, ELECTRICAL PROJECT ENGINEER #[address] [address] CBC WITH AUTO DIFFERENTIAL Social History Tobacco Use Types Packs/Day Years Used Date Smoking Tobacco: Former Cigarettes 1 43.3 S tarted: 1982 Smokeless Tobacco: Never Alcohol Use Standard Drinks/Week [...] as of this encounter Plan of Treatment Upcoming Encounters Date Type Department Care Team (Late st Contact Info) Description 08/25/2024 1:00 PM CDT Office Visit [facility] - Pulmonology & Sleep Medicine - [place] #2 [place] [address] Veda Motley APRN, MEHNAZ #2 [facility] [address] [place] [address] documented as of this encounter Visit Diagnoses Not on filedocumented in this encounter Care Teams Equipment Analyst Relationship Specialty Start Date End Date Janes Elkins PAC [address] [place] [address] PCP - General Physician Recoil Spring Winder 04/07/21 Veda Motley APRN, MEHNAZ #[address] [address] Nurse Practitioner Advanced Practice Nurse 05/18/21 Miriam Aquino APRN, MEHNAZ #2 [place] [address] Nurse Practitioner Advanced Practice Nurse 05/26/22 Sergio Hussein MD #[address] [address] Consulting Physician Colon and Rectal Surgery 07/24/23 documented as of this encounter
--- OUTSIDE RECORDS SUMMARY | 2024-06-25 13:26 | XMS_ITS | Encounter Summary ---
Author Organization [facility] Address [address] [place] [address] Phone Care Team Providers Care Steamfitter Apprentice Name Role Phone Janes Elkins Naveen FAITH Primary Care Provider Veda Motley APRN, SALESPERSON WOMEN'S DRESSES Unavailable [phone] Miriam Aquino APRN, SALESPERSON WOMEN'S DRESSES Unavailable Sergio Hussein MD Unavailable Reason for Visit * Reason Comments Medication Refill Encounter Details Date Type Department Care Team (Late st Contact Info) Description 12/05/2021 Refill [facility] - Pulmonology & Sleep Medicine [facility] #2 [place] [phone] Veda Motley APRN, MEHNAZ #[address] [address] Medication Refill Social History Tobacco Use Types Packs/Day Years Used Date Smoking Tobacco: Every Day Cigarettes 0.5 43.3 Started: 1980 Smokeless Tobacco: Never Alcohol [...] Pulmonology & Sleep Medicine - [place] #2 [place] [address] Veda Motley APRN, SALESPERSON WOMEN'S DRESSES #[address] [address] documented as of this encounter Visit Diagnoses Not on filedocumented in this encounter Additional Health Concerns Infection Onset Date Last Indicated Resolved Time COVID - 19 02/15/2022 02/15/2022 02/25/2022 12:1 6 AM INJURY PREVENTION COORDINATOR Respiratory Rule-Out 02/15/2022 02/15/2022 022 4:32 PM INJURY PREVENTION COORDINATOR COVID - 19 04/08/2023 04/10/2023 04/20/2023 12:1 6 AM INJURY PREVENTION COORDINATOR documented as of this encounter Care Teams Steamfitter Apprentice Relationship Specialty Start Date End Date Janes Elkins, [facility] [address] [place] [address] PCP - General Physician Radiotelephone Technical Operator 04/07/21 Veda Motley APRN, SALESPERSON WOMEN'S DRESSES #[address] [address] Nurse Practitioner Advanced Practice Nurse 05/18/21 Miriam Aquino APRN, SALESPERSON WOMEN'S DRESSES #2 [place] [address] Nurse Practitioner Advanced Practice Nurse 05/26/22 Sergio Hussein MD #[address] [address] Consulting Physician Colon and Rectal Surgery 07/24/23 documented as of this encounter
--- OUTSIDE RECORDS SUMMARY | 2024-06-25 13:26 | XMS_ITS | Encounter Summary ---
Author Organization [facility] Address [address] [place] [address] Phone Care Team Providers Care Cdl Dedicated Truck Driver Name Role Phone Janes Elkins Naveen FAITH Primary Care Provider Veda Motley APRN, RAC SPECIALIST Unavailable Miriam Aquino APRN, RAC SPECIALIST Unavailable Sergio Hussein MD Unavailable Reason for Visit * Reason Comments Medication Refill Encounter Details Date Type Department Care Team (Late st Contact Info) Description 11/13/2021 Refill [facility] - Pulmonology & Sleep Medicine [facility] [address] [place] [phone] Veda Motley APRN, MEHNAZ [address] [address] Medication Refill Social History Tobacco Use Types [...] 08/17/21 Office Visit Veda Motley APRN, MEHNAZ [facility] Pul & Sleep [facility] 05/18/21 Office Visit Veda Motley APRN, CNP [facility] & Sleep [facility] Showing recent visits within past 365 [...] Pulmonology & Sleep Medicine - [place] [address] [place] [address] Veda Motley APRN, RAC SPECIALIST #[address] [address] documented as of this encounter Visit Diagnoses Not on filedocumented in this encounter Additional Health Concerns Infection Onset Date Last Indicated Resolved Time COVID - 19 02/15/2022 02/15/2022 02/25/2022 12:1 6 AM GUN STRIPER Respiratory Rule-Out 02/15/2022 02/15/2022 022 4:32 PM GUN STRIPER COVID - 19 04/08/2023 04/10/2023 04/20/2023 12:1 6 AM GUN STRIPER documented as of this encounter Care Teams Cdl Dedicated Truck Driver Relationship Specialty Start Date End Date Janes Elkins, [facility] [address] [place] [id number] PCP - General Physician Plow Mechanic 04/07/21 Veda Motley APRN, RAC SPECIALIST #2 [facility] [address] [place] [address] Nurse Practitioner Advanced Practice Nurse 05/18/21 Miriam Aquino APRN, RAC SPECIALIST [address] [place] [address] Nurse Practitioner Advanced Practice Nurse 05/26/22 Sergio Hussein MD #2 [facility] [address] [place] [address] Consulting Physician Colon and Rectal Surgery 07/24/23 documented as of this encounter
--- OUTSIDE RECORDS SUMMARY | 2024-06-25 13:26 | XMS_ITS | Encounter Summary ---
Author Organization [facility] Address [address] [place] [address] Phone Care Team Providers Care Hide Shaker Name Role Phone Janes Elkins Naveen FAITH Primary Care Provider [phone] Veda Motley APRN, PHARMACIST'S AIDE Unavailable Miriam Aquino APRN, PHARMACIST'S AIDE Unavailable Sergio Hussien MD Unavailable Reason for Visit * Reason Comments Medication Refill Encounter Details Date Type Department Care Team (Late st Contact Info) Description 01/29/2023 Refill [facility] - Gastroenterology [facility] [address] [place] [id number] Miriam Aquino APRN, PHARMACIST'S AIDE [address] [place] [address] Medication Refill Social History Tobacco Use Types [...] Adames RN - 02/07/2023 8:45 AM SUPERVISOR FINISH END Medication failed the protocol, provider to review [...] 07/06/22 Office Visit Miriam Aquino APRN, MEHNAZ [facility] Showing recent visits within past 365 days and meeting all other requirements Future Appointments No visits were found meeting these conditions. Showing future appointments within next 90 days and meeting all other requirements RVISOR FINISH END documented in this encounter Plan of Treatment Upcoming Encounters Date Type Department Care Team (Late st Contact Info) Description 08/25/2024 1:00 PM CDT Office Visit [facility] - Pulmonology & Sleep Medicine - [place] [address] [place] [address] Veda Motley APRN, MEHNAZ [address] [address] documented as of this encounter Visit Diagnoses Diagnosis Nausea and vomiting, unspecified vomiting type documented in this encounter Additional Health Concerns Infection Onset Date Last Indicated Resolved Time COVID - 19 04/08/2023 04/10/2023 04/20/2023 12:1 6 AM SUPERVISOR FINISH END documented as of this encounter Care Teams Hide Shaker Relationship Specialty Start Date End Date Janes Elkins, VIANNEY [address] [place] [address] PCP - General Physician Sr. Strategic Sourcing Manager 04/07/21 Veda Motley APRN, PHARMACIST'S AIDE #2 [facility] [address] [place] [address] Nurse Practitioner Advanced Practice Nurse 05/18/21 Miriam Aquino APRN, PHARMACIST'S AIDE [address] [place] [address] Nurse Practitioner Advanced Practice Nurse 05/26/22 Sergio Hussein MD #2 [facility] [address] [place] [address] Consulting Physician Colon and Rectal Surgery 07/24/23 documented as of this encounter
--- OUTSIDE RECORDS SUMMARY | 2024-06-25 13:26 | XMS_ITS | Data Portability ---
Author Organization [facility] Helene [facility] Address [address] [place] [address] Care Team Providers Care Cloth Opener Hand Name Role Phone ALVIN ELKINS Primary Care Provider [phone] Assessment No assessment recorded. Plan of Treatment Reminders Order Date Submit Date Provider Last Modified By Organization Details Last Modified Time Details Appointments NEW PATIENT 15 2024 01:00P Martine Kruger MD Not available Not available Not available Lab HbA1c (hemogl obin A1c), blood 2023 024 KEN In-Office Order, Internal Use Only DO Not Attach Compendium DO Not Attach Compendium, Do Not Delete/merge, [id number] 02/11/2024 16:48:40 Referral cardiol ogist referra l 2024 025 stuart Kruger MD, [address], [place], [address], 06/16/2024 16:38:11 neurolo gical surgeon referra l 2023 024 [facility] Referral [facility], [address] [place] [address], [address], 03/19/2024 11:08:33 Procedures None recorde d. Surgeries None recorde d. Imaging MRI, lumbar spine, w/o contras t - PA Started 2023 024 [facility] [address] [facility] [address] [address], [place], [address], 12/12/2023 09:34:42 MRI, cervica l spine, w/o contras t - PA Started 2023 024 [facility] [address] [place], [address], 11/23/2023 09:34:32 Medication Orders azithro mycin 500 mg tablet 2024 025 [facility], [address] [place], [id number], 06/11/2024 17:05:55 Medrol (Peng) 4 mg tablets in a dose pack [address] [facility], [facility] [address], [id number], 06/11/2024 17:06:47 azithro mycin 500 mg tablet [address] [facility], [address], [place], [id number], 06/11/2024 17:05:55 Medrol (Peng) 4 mg tablets in a dose pack 2023 024 [facility], [facility] [place], [id number], 06/11/2024 17:06:47 bupropi on HCl SR 150 mg tablet, 12 hr sustain ed-rele ase 2023 024 [facility], [facility] [place], [id number], 11/14/2023 11:15:39 Patient TargetsNo targets recorded. Patient Instructions Encounter Date Encounter Id Patient Instructions Last Modified By Organization Details Last Modified Time 11/14/2023 [id number] A healthy lifestyle: care instructions china Not available 11/14/2023 11:14:50 01/01/2024 [id number] A healthy lifestyle: care instructions jnanney Not available 01/01/2024 15:51:39 04/10/2024 [id number] A healthy lifestyle: care instructions jnanney Not available 04/10/2024 11:55:07 06/11/2024 [id number] A healthy lifestyle: care instructions jnanney Not available 06/11/2024 17:33:20 Reason for Referral Neurological Surgeon Referra l for Cervical radiculopathy Referring Physician: Alvin Elkins [facility], Encounter Date: 02/11/2024 Health Insurance Agent Referral for Dy spnea on exertion Referring Physician: Alvin Elkins [facility], Encounter Date: 06/11/2024 Results Created Date Observation Date Name Description Value Unit Range Abnormal Flag Note LastModifiedBy Organization Detail LastModifiedTime 02/11/20 24 02/11/2024 HbA1c (hemo globi n A1c), blood HbA1c 6.1 Not Available In-Office Order Internal Use Only DO Not Attach Compendium DO Not Attach Compendium, Do Not Delete/merge, [id number] 02/10/2024 17:50:50 05/26/1905/25/2024 CBC W Auto Diffe renti al panel - Blood leukocytes [#/volume] in blood by automated count 7.84 text: 4.00 - 12.00 10(3)/ mcL WBC 7.84 4.00 - 12.00 10(3) /mcL 05/25 4:07 PM CDT [facility] Not Available Not Available 05/28/2024 03:38:30 05/26/1905/25/2024 CBC W Auto Diffe renti al panel - Blood erythrocytes [#/volume] in blood by automated count 4.71 text: 3.80 - 5.30 10(6)/ mcL RBC 4.71 3.80 - 5.30 10(6) /mcL 05/25 4:07 PM CDT [facility] Not Available Not Available 05/28/2024 03:38:30 05/26/19 25 05/25/2024 CBC W Auto Diffe renti al panel - Blood hemoglobin [mass/volume ] in blood 13.5 g/dL low: 12g/dL high: 15.8g/ dL HEMOG LOBIN (HGB) 13.5 12.0 - 15.8 g/dL 05/25 4:07 PM CDT [facility] Not Available Not Available 05/28/2024 03:38:30 05/26/19 25 05/25/2024 CBC W Auto Diffe shari al panel - Blood hematocrit [volume fraction] of blood by automated count 43 % low: 36%hig h: 47% HEMAT OCRIT (HCT) 43.0 36.0 - 47.0 % 05/25 4:07 PM CDT [facility] Not Available Not Available 05/28/2024 03:38:30 05/26/19 25 05/25/2024 CBC W Auto Diffe shari al panel - Blood MCV [entitic volume] by automated count 91.3 fL low: 82fLhi gh: 96fL MCV 91.3 82.0 - 96.0 fL 05/25 4:07 PM CDT [facility] Not Available Not Available 05/28/2024 03:38:30 05/26/19 25 05/25/2024 CBC W Auto Diffe renti al panel - Blood MCH [entitic mass] by automated count 28.7 pg low: 26pghi gh: 34pg MCH 28.7 26.0 - 34.0 pg 05/25 4:07 PM CDT [facility] Not Available Not Available 05/28/2024 03:38:30 05/26/19 25 05/25/2024 CBC W Auto Diffe shari al panel - Blood MCHC [mass/volume ] by automated count 31.4 g/dL low: 31g/dL high: 36g/dL MCHC 31.4 31.0 - 36.0 g/dL 05/25 4:07 PM CD[facility] Not Available Not Available 05/28/2024 03:38:30 05/26/19 25 05/25/2024 CBC W Auto Diffe renti al panel - Blood platelets [#/volume] in blood 427 text: 140 - 440 10(3)/ mcL PLATE LET COUNT 427 140 - 440 10(3) /mcL 05/25 4:07 PM CDT [facility] Not Available Not Available 05/28/2024 03:38:30 05/26/19 25 05/25/2024 CBC W Auto Diffe renti al panel - Blood erythrocyte distribution width [ratio] by automated count 12.7 % low: 11.8%h igh: 15.5% RDW 12.7 11.8 - 15.5 % 05/25 4:07 PM CDT [facility] Not Available Not Available 05/28/2024 03:38:30 05/26/19 25 05/25/2024 CBC W Auto Diffe renti al panel - Blood platelet mean volume [entitic volume] in blood by automated count 9.4 fL low: 9.7fLh igh: 12.4fL low MPV 9.4 (L) 9.7 - 12.4 fL 05/25 4:07 PM CDT [facility] Not Available Not Available 05/28/2024 03:38:30 05/26/19 25 05/25/2024 CBC W Auto Diffe renti al panel - Blood neutrophils/ 100 leukocytes in blood by automated count 43.4 % low: 47%hig h: 73% low NEUTR OPHIL S 43.4 (L) 47.0 - 73.0 % 05/25 4:07 PM CDT [facility] Not Available Not Available 05/28/2024 03:38:30 05/26/19 25 05/25/2024 CBC W Auto Diffe renti al panel - Blood lymphocytes/ 100 leukocytes in blood by automated count 35.7 % low: 18%hig h: 42% LYMPH OCYTE S 35.7 18.0 - 42.0 % 05/25 4:07 PM CDT [facility] Not Available Not Available 05/28/2024 03:38:30 05/26/19 25 05/25/2024 CBC W Auto Diffe renti al panel - Blood monocytes/10 0 leukocytes in blood by automated count 10.5 % low: 4%high : 12% MONOC YTES 10.5 4.0 - 12.0 % 05/25 4:07 PM CDT [facility] Not Available Not Available 05/28/2024 03:38:30 05/26/19 25 05/25/2024 CBC W Auto Diffe renti al panel - Blood eosinophils/ 100 leukocytes in blood by automated count 9.1 % low: 0%high : 5% high EOSIN OPHIL S 9.1 (H) 0.0 - 5.0 % 05/25 4:07 PM CDT [facility] Not Available Not Available 05/28/2024 03:38:30 05/26/19 25 05/25/2024 CBC W Auto Diffe renti al panel - Blood basophils/10 0 leukocytes in blood by automated count 1.3 % low: 0%high : 1% high BASOP HILS 1.3 (H) 0.0 - 1.0 % 05/25 4:07 PM CDT [facility] Not Available Not Available 05/28/2024 03:38:30 05/26/19 25 05/25/2024 CBC W Auto Diffe renti al panel - Blood neutrophils [#/volume] in blood by automated count 3.41 text: 1.60 - 7.70 10(3)/ mcL ABSOL [place] NEUTR OPHIL S 3.41 1.60 - 7.70 10(3) /mcL 05/25 4:07 PM CDT [facility] Not Available Not Available 05/28/2024 03:38:30 05/26/19 25 05/25/2024 CBC W Auto Diffe renti al panel - Blood lymphocytes [#/volume] in blood by automated count 2.8 text: 1.30 - 3.20 10(3)/ mcL [place] LYMPH OCYTE S 2.80 1.30 - 3.20 10(3) /mcL 05/25 4:07 PM CDT [facility] Not Available Not Available 05/28/2024 03:38:30 05/26/19 25 05/25/2024 CBC W Auto Diffe renti al panel - Blood monocytes [#/volume] in blood by automated count 0.82 text: 0.20 - 1.00 10(3)/ mcL [place] MONOC YTES 0.82 0.20 - 1.00 10(3) /mcL 05/25 4:07 PM CDT [facility] Not Available Not Available 05/28/2024 03:38:30 05/26/19 25 05/25/2024 CBC W Auto Diffe renti al panel - Blood eosinophils [#/volume] in blood by automated count 0.71 text: 0.00 - 0.40 10(3)/ mcL high ABSOL [place] EOSIN OPHIL 0.71 (H) 0.00 - 0.40 10(3) /mcL 05/25 4:07 PM CDT [facility] Not Available Not Available 05/28/2024 03:38:30 05/26/19 25 05/25/2024 CBC W Auto Diffe renti al panel - Blood basophils [#/volume] in blood by automated count 0.1 text: 0.00 - 0.10 10(3)/ mcL [place]OL [place] BASOP HILS 0.10 0.00 - 0.10 10(3) /mcL 05/25 4:07 PM CDT [facility] Not Available Not Available 05/28/2024 03:38:30 05/26/19 25 05/25/2024 CBC W Auto Diffe renti al panel - Blood nucleated erythrocytes /100 leukocytes [ratio] in blood 0 NRBC PER 100 WBC 0 05/25 4:07 PM CDT [facility] Not Available Not Available 05/28/2024 03:38:30 05/26/19 25 05/25/2024 CBC W Auto Diffe renti al panel - Blood interpretati on and review of laboratory results Abnorm al Not Available Not Available 03:38:30 11/23/19 24 11/23/2023 MRI, cervi nathen spine , w/o contr ast No observ [facility]ion [facility] [address] [place], [address], 03/10/2024 10:20:04 04/04/19 25 04/04/2024 XR, chest [facility] observ [facility]ion [facility] [address] [place], [address], 04/06/2024 09:06:42 06/26/19 25 06/25/2024 XR, chest No observ [facility]ion [facility] [address] [place], [address], 06/25/2024 14:17:14 Result Notes None recorded. Problems Name Problem SNOMED Code Status Onset Date Resolution Date Notes Provider Name and Address Organization Details Recorded Time Neck pain 58764557 Active s/p sx - pt is seeing spine specialis t DONOVAN [place], [place] [facility] 15:27:43 Abscess 119878509 Active 2016 DONOVAN [place] [facility] 0 14:51:00 Chronic obstruct mai pulmonar y disease 33398760 Active Jeanne Moreno [place] null, [place] [facility] 15:27:42 Vaginal odor 667785324 Completed 02/09/2016 Emma Salinas MD Attn: Joelle stinson,[address] [place], [address] , [place] [facility] 6 09:10:21 Infectio n by Trichomo barbra 86961293 Active DONOVAN [place] [facility] 1 15:27:43 Bacteria l vaginosi s 298430500 Active DONOVAN [place] [facility] 15:27:43 Mixed anxiety and depressi ve disorder 514807939 Active [facility] Jeanne More[place] [facility] 15:27:43 Irritabl e bowel syndrome 87106500 Active Jeanne More[place] [facility] 15:27:43 Dysuria 78263412 Completed 12/25/2016 Emma Salinas MD Attn: Melodyciarra stinson,[address] [place], [address] , [place] [facility] 7 12:37:55 Urinary tract infectio us disease 98994806 Completed 02/09/2016 Emma Salinas MD Attn: Joelle shantell,[address] [place], [address] , [place] [facility] 6 09:10:10 Smells of urine 31795612 Completed 02/09/2016 Emma Salinas MD Attn: Joelle shantell,[address] [place], [address], [place] [facility] 6 09:10:14 Disorder of vagina 81614453 Active DONOVAN [place] [facility] 15:27:43 Candidia sis of vagina 39581934 Active Jeanne More[place] [facility] 15:27:43 Problem Notes None recorded. Procedures Surgical History Date Name Laterality Status Provider Name and Address Organization Details Recorded Time 05/24/19 24 Dilation and curettage completed Kendra Quinn [place] [facility] 06/07/2023 17:16:36 04/10/19 24 Date of Last Mammogram completed Jeanne Moreno [place] [facility] 06/27/2023 15:31:03 04/04/19 24 Date of Last Pap Smear completed DONOVAN Regalado - [facility] 06/27/2023 15:31:19 12/07/19 22 colonoscopy completed DONOVAN Regalado - [facility] 12/08/2021 09:10:21 12/07/19 15 Other completed Mari E[place]verria [place] [facility] 01/06/2015 10:22:25 Caesarean Section completed Josie Calloway [place] - [facility] 04/07/2014 15:26:15 Tubal Ligation completed Mari Echeverria [place] - [facility] 01/06/2015 10:22:25 Imaging Results Imaging Date Name Status LastModified by Organiz ation Details LastModified Time 11/23/2023 MRI, cervical spine, w/o contrast completed [facility] [address] [place], [address], 03/10/2024 10:20:04 04/04/2024 XR, chest completed [facility] [address] [place], [address], 04/06/2024 09:06:42 06/25/2024 XR, chest completed [facility] [address] [place], [address], 06/25/2024 14:17:14 Procedure Notes None recorded. Medical Equipment None Reported. Allergies Allergen ID Allergen Name Allergen Category Reaction Reaction Severity Criticality Documentation Date Start Date Code Code System Note Provider Name and Address Organization Details Recorded Time 76582 latex environme nt,medica tion hives severe Not available 04/13/2016 97426 91 RxNorm Not Available Not Available Not [...] Not Available medroxypro gesterone 10 mg tablet 06/11 completed Not Available Not Available Not Available bupropion [...] tablet TAKE ONE TABLET BY MOUTH DAILY 06/11 completed Not Available Not Available Not Available azithromyc in 250 mg tablet TAKE 2 [...] BY MOUTH THREE TIMES A DAY NEEDED 2024 active Not Available Not Available Not Avai lable valacyclov ir 1 gram tablet TAKE ONE TABLET BY MOUTH EVERY TWELVE HOURS FOR 5 DAYS 06/11 completed Not Available Not Available Not Available hydrocodon e 5 mg-acetami nophen 325 [...] tablet TAKE ONE TABLET BY MOUTH DAILY 2024 active Not Available Not Available Not Avai lable Medrol (Peng) 4 mg tablets in a dose pack Take 1 dose pk by oral route as directed . 06/11 completed Not Available Not Available Not Available prednisone 20 mg tablet 11/13 completed [...] AREA(S) BY TOPICAL ROUTE 2-4 TIMESDAI LY 06/11 completed Not Available Not Available Not Available amoxicilli n 875 mg tablet Take 1 tablet every 12 hours by oral route for 10 days. 12/12 completed Not Available Not Available Not Available citalopram 20 mg tablet Take 1 tablet every day by oral route for 90 days. 04/10 completed Not Available Not Available Not Available famotidine 20 mg tablet TAKE 1 [...] Not Available dicyclomin e 20 mg tablet 04/10 completed Not Available Not Available Not Available [...] BY TOPICAL ROUTE 2 TIMES PER DAY 06/11 completed Not Available Not Available Not Available montelukas t 10 mg tablet TAKE ONE [...] Available Not Available Not Available albuterol sulfate HFA 90 mcg/actuat ion aerosol inhaler INHALE 2 PUFFS BY MOUTH FOUR TIMES A DAY NEEDED 2024 active Not Available Not Available Not Avai lable ketorolac 60 mg/2 mL intramuscu lar solution Inject 2 mL by intramus cular route. 07/20 completed Not Available Not Available Not Available ondansetro n 4 mg disintegra ting tablet DISSOLVE ONE TABLET ON TONGUE EVERY EIGHT HOURS NEEDED FOR NAUSEA 2024 active Not Available Not Available Not Avai lable fluticason e propionate 50 mcg/actuat ion nasal spray,susp ension [place] 1 spray every day by intranas al [...] day by oral route for 3 days. 06/11 completed Not Available Not Available Not Available Promethega n 12.5 mg rectal suppositor [...] 1 PUFF BY INHALATI ON ROUTE DAILY 2024 active Not Available Not Available Not Avai lable Vitals Date Recorded Body height Body mass index (BMI) Body weight Oxygen saturation Oxygen saturation in Arterial blood by Pulse oximetry Heart rate Systolic blood pressure Diastolic blood pressure Provider Name and Address Organization Details Last Updated DateTime 4 157.48 cm 27.5 kg/m2 11236.9 6 g 96 % 96 % 111 /min 97 mm[Hg] 67 mm[Hg] Enedina Carr MA [facility] 4 11:00:45 Date Recorded Body height Body mass index (BMI) Body weight Oxygen saturation Oxygen saturation in Arterial blood by Pulse oximetry Heart rate Systolic blood pressure Diastolic blood pressure Provider Name and Address Organization Details Last Updated DateTime 4 157.48 cm 27.8 kg/m2 62363.0 4 g 96 % 96 % 94 /min 116 mm[Hg] 79 mm[Hg] Enedina Carr MA [facility] 4 15:38:26 Date Recorded Body height Body mass index (BMI) Body weight Heart rate Oxygen saturation Oxygen saturation in Arterial blood by Pulse oximetry Systolic blood pressure Diastolic blood pressure Provider Name and Address Organization Details Last Updated DateTime 4 157.48 cm 26.4 kg/m2 44259.1 g 114 /min 97 % 97 % 135 mm[Hg] 97 mm[Hg] Enedina Carr MA [facility] 4 16:37:44 Date Recorded Body height Body mass index (BMI) Body weight Oxygen saturation Oxygen saturation in Arterial blood by Pulse oximetry Inhaled oxygen flow rate Heart rate Systolic blood pressure Diastolic blood pressure Provider Name and Address Organization Details Last Updated DateTime 5 157.48 cm 28 kg/m2 54128.6 3 g 92 % 92 % 3 L/min 110 /min 110 mm[Hg] 66 mm[Hg] Jeanne Moreno MA [facility] 5 11:44:43 Date Recorded Body height Body mass index (BMI) Body weight Respiratory rate Oxygen saturation Oxygen saturation in Arterial blood by Pulse oximetry Heart rate Systolic blood pressure Diastolic blood pressure Provider Name and Address Organization Details Last Updated DateTime 5 157.48 cm 27.1 kg/m2 51250.1 1 g 18 /min 92 % 92 % 102 /min 108 mm[Hg] 68 mm[Hg] Pamela Martinez MA [facility] 5 17:10:02 Social History Question Answer Notes LastModified by Organizat ion Details LastModified Time Tobacco Smoking Status Former Smoker Ana Maria Clinton MA [facility], [facility] 10/09/2021 16:03:48 Do You Have An Advance [...] E-cigarettes Or Vape? Never Used Electronic Cigarettes Information not available 02/13/2019 Education 2 Year College Information not available 12/25/2016 What Is Your Occupation? [employer] Information not available 01/02/2023 Are There Any Guns Present In Your Home? No Information not available 01/13/2019 Marital Status Informatio n not available 02/09/2016 What Was The Date Of Your Most Recent Tobacco Screening? 06/11/2024 Information not available 06/11/2024 Performs Monthly Self-breast Exam? Yes Information not [...] Used Smokeless Tobacco? Never Used Smokeless Tobacco Information not available 02/13/2019 How Much Tobacco Do You Smoke? No Information not available 11/27/2021 General Stress Level High Depends On They Day Information not available 12/23/2019 Do You Feel Stressed (tense, Restless, Nervous, Or Anxious, Or Unable To Sleep At Night)? [id number] Information not available 09/14/2022 Do You Use Any Illicit Or Recreational Drugs? Yes Marijuana [email or web address] Information not available 06/25/2022 Do You Use Sunscreen Routinely? Yes Information not available 01/13/2019 Has Tobacco Cessation Counseling Been Provided? Yes Information not available 01/20/2021 On What Date Was Tobacco Cessation Counseling Provided? 06/11/2024 Information not available 06/11/2024 How Many Years Have You Smoked Tobacco? [...] Response Coronary Artery Disease N Other N High Blood Pressure N Atrial Fibrillation N Kidney or Bladder Problems N Thyroid Problems N GI Problems Y Depression Y COPD Y Blood Clots N Lung Disease Skin Problems N Anemia N Heart Attack (AK) Y Anxiety Disorder Y Diabetes N Muscle, Joint, or Bone Problems Y Seizures/Epilepsy Y Acid Reflux (GERD) Y Cancer N Stroke Y Asthma Y Allergies N High Cholesterol N Hepatitis N Liver Disease [...] Immunizations Vaccine Type Date Status Note Provider Nam e and Address Organization Details Recorded Time Tdap 02/09/2016 completed Not Available [employer] 03/21/2019 02:33:00 Tdap 12/22/2022 completed CLARISA BUSH MD Attn: Accounting,[address] [facility], [place], [address], [facility] 06/07/2023 17:49:59 Past Encounters Encounter ID Performer Location Encounter Start Date Encounter Closed Date Diagnosis/Indication Diagnosis SNOMED-CT Code Diagnosis ICD10 Code Diagnosis Note [id number] [facility] [address] [place] [address] 04/08/2014 14:27:46 04/08/2014 17:25:45 Neck pain 38110873 Heat therapy neck muscle exercises Mobic daily prn May add muscle relaxers in future if needed [id number] [facility] [address] [place] [address] 11/23/2014 14:04:34 11/23/2014 15:36:50 Pre-surgery evaluation 527089597 pt is going for cervical disc replacemen t on 12/06 check labs /EKG/CXR Chronic ob structive pulmonary disease 62819029 pt stopped smoking continue inhalrs [id number] MD Heather Wilder ([place] [address]) [address] [place] [address] 01/06/2015 09:55:19 01/06/2015 10:45:29 Gynecologic examination 30169941 Z01.419 Vaginal odor 089152592 N 89.8 [id number] DONOVAN Carey ([place] [address]) [address] [place] [address] 01/18/2015 17:06:11 01/19/2015 08:32:54 Infection by Trichomonas 66414267 A59.9 [id number] MD Heather Wilder ([place] [address]) [address] [place] [address] 03/11/2015 16:30:44 03/11/2015 17:24:19 Vaginal odor 194558561 N89.8 [id number] Emma Salinas MD [facility] (Adult Med) [address] [place] [address] 07/04/2015 12:08:27 07/04/2015 17:50:37 Chronic obstructive pulmonary disease 74355128 J44.9 pt to stop smoking continue inhalers Mixed anxi ety and depressive disorder 838728111 F41.8 start pt on Prozac 10 mg ( pt requested lowest dose ) Avoid BZ ( pt said she tried Xanax from her family member and it worked great per pt ) Irritable bowel syndrome 16494546 K58.9 Related to #1 [id number] MD Heather Wilder ([place] [address]) [address] [place] [address] 08/17/2015 11:58:53 08/24/2015 11:10:26 Drug of abuse screen 96499082 Z02.83 Vaginal odor 865322209 N 89.8 Dysuria 00306894 R30.0 [id number] MD Heather Wilder ([place] [address]) [address] [place] [address] 08/25/2015 14:00:57 08/25/2015 14:44:57 Dysuria 14638186 R30.0 Bacterial vaginosis 4197 77974 N76.0 [id number] MD Heather Wilder ([place] [address]) [address] [place] [address] 09/22/2015 16:48:02 09/22/2015 17:59:40 Smells of urine 18131676 R82.99 Disorder of vagina 98324 005 N89.9 [id number] MD Heather Wilder ([place] [address]) [address] [place] [address] 11/24/2015 09:03:55 11/24/2015 22:23:55 Urinary tract infectious disease 40984617 N39.0 Candidiasis of vagina 72 050461 B37.3 Venereal d isease screening 683615482 Z11.3 [id number] MD Heather Wilder ([place] [address]) [address] [place] [address] 12/14/2015 08:57:46 12/14/2015 12:07:12 Venereal disease screening 461442169 Z11.3 Urinary tr act infectious disease 10599574 N39.0 [id number] MD Heather Wilder ([place] [address]) [address] [place] [address] 12/22/2015 14:22:27 12/23/2015 22:45:41 Venereal disease screening 660222638 Z11.3 Trichomonal vaginitis 27 3439592 A59.00 Bacterial vaginosis 4197 48877 N76.0 [id number] MD Heather Wilder ([place] [address]) [address] [place] [address] 01/13/2016 15:30:10 01/14/2016 11:51:48 Screening mammography 89486192 Z12.31 Venereal d isease screening 969786236 Z11.3 [id number] [facility] [address] [place] [address] 02/09/2016 08:44:10 02/09/2016 09:44:21 Mixed anxiety and depressive disorder 279226701 F41.8 pt stopped meds on her own , declined to take meds because they do not work per pt - pt is seeing counsellor at [facility] every 2 wks , planning to see psychiatri .pt denied suicidal or homicidal thoughts -pt is aware that she needs to go to ER if problem worsen Administra tion of diphtheria, pertussis, and tetanus vaccine 586335817 Z23 Chronic ob structive pulmonary disease 43304924 J44.9 with bronchitis pt counselled on smokingcon tinue inhalers [id number] MD Summer Yee (Adult Med) [address] [place] [address] 03/14/2016 15:01:40 03/14/2016 16:56:26 Acute sinusitis 05188855 J01.90 [id number] MD Heather Wilder ([place] [address]) [address] [facility] [place] [address] 03/27/2016 16:49:18 03/27/2016 17:49:42 Vaginal discharge 558215391 N89.8 [id number] [facility] [address] [place] [address] 04/13/2016 09:21:24 04/13/2016 14:29:45 Chronic obstructive pulmonary disease 66948218 J44.9 with bronchitis pt counselled on smokingcon tinue inhalers Mixed anxi ety and depressive disorder 006075986 F41.8 pt stopped meds on her own , declined to take meds because they do not work per pt - pt is seeing counsellor at [facility] every 2 wks , planning to see psychiatri .pt denied suicidal or homicidal thoughts -pt is aware that she needs to go to ER if problem worsen Hyperlipid emia screening 834231015 Z13.170 [id number] [facility] [address] 2 [facility] [address] [place] [address] 12/14/2016 14:59:06 12/15/2016 10:59:56 Abnormal vaginal odor 78757434 N89.8 Venereal d isease screening 517318690 Z11.3 [id number] [facility] [address] [place] [address] 12/25/2016 12:05:51 12/25/2016 18:05:53 Chronic obstructive pulmonary disease 21420643 J44.9 continue inhalrs Mixed anxi ety and depressive disorder 057415809 F41.8 pt stopped meds on her own , declined to take meds because they do not work per pt - pt is seeing counsellor at [facility] -pt wants to see different counsellor , planning to see psychiatri st .pt denied suicidal or homicidal thoughts -pt is aware that she needs to go to ER if problem worsen Hyperlipid emia screening 929922625 Z13.732 [id number] MD Justine Yeehalto (Adult Med) [address] [place] [address] 10/14/2017 12:00:30 10/14/2017 14:27:40 Chronic obstructive pulmonary disease 79502436 J44.9 stablecont inue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
--- OUTSIDE RECORDS SUMMARY | 2024-06-25 13:26 | XMS_ITS | Encounter Summary ---
Author Organization [facility] Address [address] [place] [address] Phone Care Team Providers Care Inpatient Coder Name Role Phone Janes Elkins Naveen FAITH Primary Care Provider [phone] Veda Motley APRN, [employer] Unavailable Miriam Aquino APRN, [employer] Unavailable Sergio Hussein MD Unavailable Reason for Visit * Reason Comments Medication Refill Encounter Details Date Type Department Care Team (Late st Contact Info) Description 10/21/2023 Refill [facility] [address] [place] [phone] Miriam Aquino APRN, [employer] [address] [place] [address] Medication Refill Social History Tobacco Use Types Packs/Day Years Used Date Smoking Tobacco: Every Day Cigarettes 1 43.3 Started: 1980 Smokeless Tobacco: Never Alcohol [...] PM CDT Medication refilled and signed per [facility] chronic medication standing order for pediatric and adult patients. documented in this encounter Plan of Treatment Upcoming Encounters Date Type Department Care Team (Late st Contact Info) Description 08/25/2024 1:00 PM CDT Office Visit [facility] - Pulmonology & Sleep Medicine - [place] [address] [place] [address] Veda Motley APRN, [employer] [address] [address] documented as of this encounter Visit Diagnoses Not on filedocumented in this encounter Care Teams Inpatient Coder Relationship Specialty Start Date End Date Janes Elkins PAC [address] [place] [address] PCP - General Physician Group Leader Wafer Polishing 04/07/21 Veda Motley APRN, MEHNAZ #[address] [address] Nurse Practitioner Advanced Practice Nurse 05/18/21 Miriam Aquino APRN, [employer] [address] [place] [address] Nurse Practitioner Advanced Practice Nurse 05/26/22 Sergio Hussein MD #[address] [address] Consulting Physician Colon and Rectal Surgery 07/24/23 documented as of this encounter
--- OUTSIDE RECORDS SUMMARY | 2024-06-25 13:26 | XMS_ITS | Encounter Summary ---
Author Organization [facility] Address [address] [place] [address] Phone Care Team Providers Care Broach Grinder Name Role Phone Janes Elkins Naveen FAITH Primary Care Provider Veda Motley APRN, PERMIT AGENT Unavailable Miriam Aquino APRN, PERMIT AGENT Unavailable Sergio Hussein MD Unavailable Reason for Visit * Reason Comments Medication Refill Encounter Details Date Type Department Care Team (Late st Contact Info) Description 06/13/2023 Refill [facility] - Pulmonology & Sleep Medicine [facility] [address] [place] [phone] Veda Motley APRN, MEHNAZ [address] [address] Medication Refill Social History Tobacco Use Types [...] Miscellaneous Notes * Telephone Encounter - Stacie Ahktar RN - 06/13/2023 11:04 AM CDT Medication [...] Motley APRN, CNP [facility] [place] 08/24/22 Office Visit Veda Motley APRN, CNP [facility] [place] Showing recent visits within past 365 days and meeting all other requirements Future Appointments Date Type Provider Dept 09/03/23 Appointment Veda Motley APRN, CNP [facility] [place] [place] Showing future appointments within next 90 days and meeting all other requirements documented in this encounter Plan of Treatment Upcoming Encounters Date Type Department Care Team (Late st Contact Info) Description 08/25/2024 1:00 PM CDT Office Visit [facility] - Pulmonology & Sleep Medicine - [place] [address] [place] [address] Veda Motley APRN, MEHNAZ [address] [address] documented as of this encounter Visit Diagnoses Diagnosis Other emphysema (HCC) Other emphysema documented in this encounter Care Teams Broach Grinder Relationship Specialty Start Date End Date Janes Elkins, [facility] [address] [place] [address] PCP - General Physician Filling Carrier 04/07/21 Veda Motley APRN, PERMIT AGENT #2 [facility] [address] [place] [address] Nurse Practitioner Advanced Practice Nurse 05/18/21 Miriam Aquino APRN, PERMIT AGENT [address] [place] [address] Nurse Practitioner Advanced Practice Nurse 05/26/22 Sergio Hussein MD #2 [facility] [address] [place] [address] Consulting Physician Colon and Rectal Surgery 07/24/23 documented as of this encounter
--- OUTSIDE RECORDS SUMMARY | 2024-06-25 13:26 | XMS_ITS | Encounter Summary ---
Author Organization [facility] Address [address] [place] [address] Phone Care Team Providers Care Language Pathologist Name Role Phone Janes Elkins Naveen FAITH Primary Care Provider Veda Motley APRN, BRIM STRETCHING MACHINE OPERATOR Unavailable Miriam Aquino APRN, BRIM STRETCHING MACHINE OPERATOR Unavailable Sergio Hussein MD Unavailable Reason for Visit * Reason Comments Medication Refill Encounter Details Date Type Department Care Team (Late st Contact Info) Description 10/12/2022 Refill [facility] [address] [place] [phone] Miriam Auqino APRN, BRIM STRETCHING MACHINE OPERATOR [address] [place] [address] Medication Refill Social History Tobacco Use Types [...] AM CDT Medication refilled and signed per [facility] chronic medication standing order for pediatric and adult patients. documented in this encounter Plan of Treatment Upcoming Encounters Date Type Department Care Team (Late st Contact Info) Description 08/25/2024 1:00 PM CDT Office Visit [facility] - Pulmonology & Sleep Medicine [facility]3] [address] [place] [address] Veda Motley APRN, MEHNAZ [address] [address] documented as of this encounter Visit Diagnoses Diagnosis Generalized abdominal pain Abdominal pain, generalized documented in this encounter Additional Health Concerns Infection Onset Date Last Indicated Resolved Time COVID - 19 04/08/2023 04/10/2023 04/20/2023 12:1 6 AM ACCESSIONER documented as of this encounter Care Teams Language Pathologist Relationship Specialty Start Date End Date Janes Elkins PAC [address] [place] [address] PCP - General Physician Car Hiker 04/07/21 Veda Motley APRN, MEHNAZ [address] [address] Nurse Practitioner Advanced Practice Nurse 05/18/21 Miriam Aquino APRN, BRIM STRETCHING MACHINE OPERATOR [address] [place] [address] Nurse Practitioner Advanced Practice Nurse 05/26/22 Sergio Hussein MD [address] [address] Consulting Physician Colon and Rectal Surgery 07/24/23 documented as of this encounter
[2024-06-25 13:36] LABS: Influenza A QL RT-PCR Negative (Negative); Influenza B QL RT-PCR Negative (Negative); RSV RNA, RT-PCR Negative (Negative); SARS-CoV-2 RNA PCR Negative (Negative)
--- NOTE | 2024-06-25 13:44 | ED.SOB ---
HPI - SOB/Dyspnea General Chief Complaint: Shortness of Breath/Dyspnea Stated Complaint: shortness of breath Time Seen by Provider: 06/25/24 12:24 Source: patient and family Mode of arrival: wheelchair History of Present Illness HPI Narrative: this is a 54-year-old female that presents with a dyspnea and shortness of breath for the last 2 days with no chest pain no abdominal pain no fever chills no nausea vomiting no diarrhea constipation no dysuria or hematuria. Patient is on 3L of oxygen at home for COPD. Patient has an appointment with Cardiology within the next 2 to 3 days. MD elicited complaint: shortness of breath Pertinent past history: COPD Onset (ago): day(s) Context: recent illness Timing: improved Severity: mild Related Data Home Medications ?Medication ?Instructions ?Recorded ?Confirmed ?Last Taken ?Type albuterol sulfate 90 mcg/actuation 2 puff inhalation Q4H PRN 02/22/19 08/14/23 08/13/23 History aerosol inhaler Shortness Of Breath Or Wheezing ipratropium bromide 17 2 puff inhalation QID 02/22/19 08/14/23 06/12/23 History mcg/actuation HFA aerosol inhaler (Atrovent HFA) famotidine 40 mg tablet 40 mg PO DAILY 01/08/22 08/14/23 08/13/23 History fluticasone fur. 100 mcg-umeclid 1 inh inhalation BID 01/08/22 08/14/23 08/13/23 History 62.5 mcg-vilant 25 mcg inhalat.powder (Trelegy Ellipta) hydroxyzine HCl 25 mg tablet 25 mg PO BID 01/08/22 08/14/23 08/13/23 History meloxicam 15 mg tablet 15 mg PO DAILY 01/08/22 08/14/23 08/13/23 History montelukast 10 mg tablet 10 mg PO DAILY 01/08/22 08/14/23 08/13/23 History roflumilast 500 mcg tablet 500 mcg PO DAILY 08/14/23 08/14/23 08/13/23 History Allergies Allergy/AdvReac Type Severity Reaction Status Date / Time latex Allergy Rash Verified 08/13/23 18:32 Review of Systems Review of Systems: All systems reviewed & are unremarkable except as noted in HPI and below PMFSH Past Medical History Medical History Asthma exacerbation in COPD Surgical History Surgical History H/O neck surgery Social History Social History Smoking status: Former smoker Alcohol intake: former Substance use: former Substance use type: marijuana Do You Feel Safe in your Home?: No Lack of Transportation: No Lack of Food: Never True Current Housing: I Have Housing Concerned About Future Housing: No Difficulty Paying Gas/Electric Bills: No Difficulty Paying for Meds: No Currently Unemployed: No Education: Decline to Answer Difficulty w/ Childcare or Family Care: No Spiritual care concerns: No Exam Const: General: no acute distress Nutritional Appearance: well nourished Orientation/consciousness: patient oriented x3 Limitations: no limitations HENMT: Head: normal to inspection Eyes: Conjunctivae: conjunctivae normal Neck: Neck: normal visual inspection Chest: Chest palpation & inspection: normal inspection of the chest Resp: Effort & Inspection: normal respiratory effort Auscultation: clear to auscultation bilaterally Cardio: Rate: regular rate Rhythm: regular rhythm GI: GI Palp: Yes Soft to palpation Auscultation: normal bowel sounds : General: Yes bladder normal to palpation Skin: General skin exam: normal color Neuro: General: patient oriented x3, moves all extremities and no meningeal signs Extrem: General: normal to inspection Course Course Emergency Course: X-ray shows no acute cardiopulmonary abnormality, D-dimer is negative patient currently doing well does not feel anxious labs performed and reviewed with a negative head are normal D-dimer normal troponin. Vital Signs Vital signs: Vital Signs Temperature 36.9 C 06/25/24 12:21 Pulse Rate 116 H 06/25/24 12:21 Respiratory Rate 24 H 06/25/24 12:21 Blood Pressure 175/100 H 06/25/24 12:21 Pulse Oximetry 98 06/25/24 12:21 Oxygen Delivery Room Air 06/25/24 12:21 Temperature 36.9 C 06/25/24 12:21 Pulse Rate 109 H 06/25/24 13:31 Respiratory Rate 21 H 06/25/24 13:31 Blood Pressure 134/98 H 06/25/24 13:30 Pulse Oximetry 100 06/25/24 13:31 Oxygen Delivery Nasal Cannula 06/25/24 13:30 Oxygen Flow Rate 3 06/25/24 13:30 MDM - SOB/Dyspnea Lab Data 06/25/24 12:53 06/25/24 12:53 Labs: Lab Results 06/25/24 Range/Units 12:53 WBC 8.1 (4.8-10.8) K/mm3 RBC 4.98 (4.20-5.40) M/mm3 Hgb 14.1 (12.0-15.0) g/dL Hct 45.2 (35.0-49.0) % MCV 90.8 (78.0-102.0) fL MCH 28.3 (27.0-31.0) pg MCHC 31.2 L (32-36) g/dL RDW 12.4 (11.6-14.4) % Plt Count 433 H (150-420) K/mm3 MPV 9.2 (9.2-11.8) fl Immature Gran % (Auto) 0.1 H (0.0-0.0) % Neut % (Auto) 40.1 L (50.0-70.0) % Lymph % (Auto) 37.7 (18.0-42.0) % [place] % (Auto) 12.0 H (2.0-11.0) % Eos % (Auto) 8.5 H (1.0-6.0) % Baso % (Auto) 1.6 H (0.0-1.0) % Lymph # (Auto) 3.05 (1.10-4.50) K/mm3 [place] # (Auto) 0.97 H (0.10-0.90) K/mm3 Eos # (Auto) 0.69 H (0.02-0.50) K/mm3 Baso # (Auto) 0.13 H (0.00-0.10) K/mm3 Abs Immat Gran (auto) 0.01 H (0.00-0.00) K/mm3 Absolute Neuts (auto) 3.24 (1.70-7.20) K/mm3 Absolute Nucleated RBC 0.00 (0.00-0.00) K/mm3 Nucleated RBC % 0.0 (0-0.0) % PT 11.1 H (9.64-11.0) Seconds INR 1.0 APTT 28.2 (23.9-30.70) Sec D-Dimer 0.35 (0.19-0.50) mg/L Sodium 143 (136-145) mmol/L Potassium 3.6 (3.5-5.1) mmol/L Chloride 104 (98-108) mmol/L Carbon Dioxide 33 H (21-32) mmol/L Anion Gap 6 (4-12) mmol/L BUN 11 (7-18) mg/dL Creatinine 0.81 (0.55-1.02) mg/dL Estim Creat Clear Calc 55 ml/min Estimated GFR > 60 (59 - ) Glucose 100 H (70-99) mg/dL Calculated Osmolality 295 (285-295) mOsm/kg Lactic Acid 0.9 (0.4-2.0) mmol/L Calcium 9.3 (8.5-10.1) mg/dL Total Bilirubin 0.2 (0.00-1.00) mg/dL AST 13 L (15-37) U/L ALT 18 (14-59) U/L Alkaline Phosphatase 103 (46-116) U/L Troponin I 5.3 (0.00-60.4) ng/L NT-Pro-B Natriuret Pep 179 H (0-125) pg/mL Total Protein 7.4 (6.4-8.2) g/dL Albumin 3.6 (3.4-5.0) g/dL Influenza A (RT-PCR) Negative (Negative) Influenza B (RT-PCR) Negative (Negative) RSV (RT-PCR) Negative (Negative) SARS-CoV-2 RNA (RT-PCR) Negative (Negative) Critical Care Time Critical Care Time Critical Care Time: No Discharge Plan Discharge Clinical Impression: Acute upper respiratory infection Patient Disposition: Home Condition: Stable Instructions: Antibiotic Form, Upper Respiratory Infection (ED) Additional Instructions: advised to take medication as prescribed and continue her current medical regimen. Keep follow-up appointment with her curriculum development coordinator. Patient Language: Kyrgyz Prescriptions: New azithromycin [Zithromax Z-Peng] 250 mg tablet See Rx Instructions .ROUTE .COMPLEX Qty: 6 0RF Rx Instructions: For 250 mg dose pack: take 500 mg today (day 1), then 250 mg for 4 days (days 2-5) prednisone 20 mg tablet 20 mg PO DAILY 5 Days Qty: 5 0RF No Action albuterol sulfate 90 mcg/actuation HFA aerosol inhaler 2 puff INHALATION Q4H PRN (Reason: Shortness Of Breath Or Wheezing) Atrovent HFA 17 mcg/actuation HFA aerosol inhaler 2 puff INHALATION QID amoxicillin-pot clavulanate 875-125 mg tablet 1 tablet PO Q12H Qty: 14 0RF prednisone 20 mg tablet 20 mg PO BID Qty: 10 0RF meloxicam 15 mg tablet 15 mg PO DAILY famotidine 40 mg tablet 40 mg PO DAILY montelukast 10 mg tablet 10 mg PO DAILY hydroxyzine HCl 25 mg tablet 25 mg PO BID Trelegy Ellipta 100-62.5-25 mcg blister with device 1 inh INHALATION BID roflumilast 500 mcg tablet 500 mcg PO DAILY guaifenesin [Mucus Relief ER] 600 mg Tablet Extended Release 12hr 1,200 mg PO Q12HR Qty: 14 0RF azithromycin 500 mg tablet 500 mg PO DAILY 3 Days Qty: 3 0RF amoxicillin-pot clavulanate 875-125 mg tablet 1 tablet PO Q12H Qty: 6 0RF prednisone 20 mg tablet 40 mg PO DAILY Qty: 14 0RF Follow-up/Referrals: Severo,GAYE Cuenca [Primary Care Provider] - Time of Disposition: 13:49
--- NOTE | 2024-06-27 17:24 | PC.NURSE ---
Preliminary blood culture report; no growth to date
== END 2024-06-25 14:02 | disposition home or self-care (01) ==
PROVIDERS: Emergency Provider Emergency Medicine; PCP Physician Assistant
DX: J06.9 Acute upper respiratory infection, unspecified (principal); J44.9 Chronic obstructive pulmonary disease, unspecified; Z99.81 Dependence on supplemental oxygen; Z87.891 Personal history of nicotine dependence; Z20.822 Contact with and (suspected) exposure to COVID-19
CPT/HCPCS: 36415; 71045; 80053; 83605; 83880; 84484; 85025; 85380; 85610; 85730; 87040; 87637; 93005; 99284

== ENCOUNTER 2024-07-13 13:13 | Outpatient (RCR) | payer OTHER, SELFPAY ==
--- NOTE | 2024-07-15 13:25 | PCCPR ---
Patient arrived yesterday afternoon at 1pm for admission assessment for pulmonary rehab. Pt was exhibiting erratic behavior, emotional outbursts with episodes of crying. Rapid body movements, crossing legs back and forth, turning head side to side, very fast pressured speech, difficult to understand. 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 She mentioned that she was just wearing a heart monitor but she took it off early because it was too itchy. Asked what the monitor was for, states she had been having chest pain. Asked if she was seeing a meeting facilitator, she said yes, but couldn't remember the name, but she told me the location and I was able to look it up, confirmed it was Dr. Kruger in [place], [place]. Call placed to that office [phone], to determine need for cardiac clearance, confirmed she was a new patient there, has only been seen for one visit, to defer to referring MD for clearance. Call placed to referring MD office, Dr. Bhaskar Lind, discussed erratic behavior and nurse confirmed recent urine drug screen at [facility] last week was positive for amphetamines. Concern for active drug use and safety of patient and other patients present for exercise program, consulted with Dr. Mendez (certified medical biller) and it was determined that admission to the exercise program while actively using an illicit stimulant drug was contraindicated. Call placed to patient to inform of termination of program at this time, pt states, it is because of all these inhalers and nebulizers that makes those tests positive for meth and barbiturates . Informed patient that if she felt the test results were in error due to false positives, she could contest the results and request a confirmatory test. States, ya, well i'm not doing that, it's always the same thing. No start notification sent to referring Dr. Bhaskar RODRIGUEZ / Veda Motley APRN.
== END 2024-07-15 14:00 | disposition home or self-care (01) ==
PROVIDERS: PCP Physician Assistant; Visit Provider Nurse Practitioner Acute Care
DX: J44.9 Chronic obstructive pulmonary disease, unspecified (principal)
CPT/HCPCS: 99199

== ENCOUNTER 2024-09-30 13:00 | Outpatient (CLI) | payer OTHER, SELFPAY ==
--- NOTE | ~2024-09-30 | CT_ITS ---
EXAMINATION: CT sinus wo con DATE: 09/30/2024 13:40 INDICATION: Patient states she has box living her nose and sinus for past 6 months. TECHNIQUE: Computed tomography (CT) of the paranasal sinuses was performed without intravenous contra st. The dose-length product was 280.71 mGy-cm. Automated exposure control and iterative reconstructio n technique were employed. COMPARISON: CT dated 06/12/2023 FINDINGS: No significant mucosal thickening. No air-fluid levels. No mucoperiosteal reaction. Mastoid s are pneumatized. No nasal septal deviation. Mastoids are pneumatized. IMPRESSION: 1. No significant sinus disease. Reviewed, dictated and finalized at location B.
--- OUTSIDE RECORDS SUMMARY | 2024-09-30 13:13 | XMS_ITS | Referral Summary ---
Author Organization [facility] Address [address] [place] [address] Care Team Providers Care Process Eng Name Role Phone Janes Elkins Primary Care Provider [phone] Arleth Morris MD Unavailable [phone] Encounters Date Type Department Care Team Description 09/07/2024 Results Follow-Up [facility] [address] [facility] [address] [place] [id number] Hiram Moulton NP Pap with reflex to High Risk HPV and Genotyping (Cytology Component) 09/02/2024 11:50 AM CDT - 09/02/2024 11:59 PM [place] [address] Well woman exam Discharge Disposition: Discharge to home or self care 09/02/2024 11:00 AM CDT Office Visit [facility] [address] [facility] [address] [place] [phone] Hiram Moulton NP Well woman exam (Primary Dx); Encounter for screening mammogram for malignant neoplasm of breast 08/13/2024 2:01 PM CDT - 08/13/2024 11:59 PM CDT Hospital Encounter [facility] [address] [place] [address] Palpitations; SOB (shortness of breath); Precordial pain; Abnormal electrocardiogram (ECG) (EKG); Personal history of COVID-19 Discharge Disposition: Discharge to home or self care 07/31/2024 Telephone [facility] at [address] [address] Nadia Linda MA from Last 3 Months Allergies Active Allergy Reactions Criticality Noted Date Comments Latex Rash Medium Medications promethazine-DM (PROMETHAZINE-DM) 1.25-3 mg/mL syrup Take 5 mL by mouth 4 (four) times a day as needed for cough. 118 mL 05/04/19 19 Active Additional Information Patient not taking.Reported on 09/02/2024 ondansetron ODT (ZOFRAN-ODT) 4 mg disintegrating tablet Dissolve 1 tablet for mild to moderate nausea or vomiting or 2 tablets for severe nausea or vomiting oral twice a day as needed. 15 tablet 05/04/19 19 Active albuterol HFA (PROVENTIL HFA,VENTOLIN HFA,PROAIR HFA) 90 mcg/actuation inhaler Inhale 1-2 puffs every 6 (six) hours as needed for wheezing 1 Inhaler 12/09/19 19 Active ipratropium-albute roL (DUO-NEB) 0.5-2.5 mg/3 mL nebulizer solution INHALE 1 VIAL VIA NEBULIZER 4 TIMES DAILY NEEDED FOR 1 MONTH 05/03/19 21 Active loratadine (CLARITIN) 10 mg tablet Take 1 tablet (10 mg total) by mouth daily 05/06/19 21 Active famotidine (PEPCID) 40 mg tablet Take 1 tablet (40 mg total) by mouth 2 (two) times a day 04/19/19 22 Active pediatric multivitamin-iron tablet,chewable Take by mouth daily Active benzonatate (TESSALON) 200 mg capsule Take 1 capsule (200 mg total) by mouth 3 (three) times a day as needed 05/20/19 24 Active meloxicam (MOBIC) 15 mg tablet Take 1 tablet (15 mg total) by mouth daily 05/11/19 15 Active Trelegy Ellipta 100-62.5-25 mcg inhaler Inhale 1 puff daily Taking 200 now 01/08/20 23 Active ibuprofen (ADVIL,MOTRIN) 600 mg tablet Take 1 tablet (600 mg total) by mouth every 6 (six) hours as needed for pain 20 tablet 05/22/19 Active medroxyPROGESTERon e (PROVERA) 10 mg tablet TAKE 1 TABLET (10 MG TOTAL) BY MOUTH NIGHTLY FOR 20 DAYS AND THEN 10 DAYS OFF. 20 tablet 11 10/30/19 Active Additional Information Patient not taking.Reported on 09/02/2024 cyclobenzaprine (FLEXERIL) 10 mg tablet Take 1 [...] multiples MIs and CVAs -Primary OB in [place] - offered hyst/BSO given patient concern for gynecologic cause of symptoms. Evaluated by pulmonology and determined to be high risk for anesthesia given severe COPD. Referred to [facility] for further consideration of future surgical management. -Followed by GI ([facility]) for chronic abdominal pain/ IBS-C: last seen [...] not on any treatment. -General surgery([facility]) 07/30/23: Low concern for biliary etiology at this time given presentation (all lower abdominal pain) - deferred cholecystectomy. 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 -Discussed patient case with [facility]- agreed that patient unlikely to benefit from [...] resources for pelvic floor PT including PT phd internship for options closer to her home [] Referrals placed for pain management, [facility], and pain psychology - message also sent to specific provider [facility]Cassy Guevara) [] Encouraged continued follow up [...] with bright red blood -underwent hsc/D&C at [place] in 05/2023, pathology benign -provera per primary [...] 01/30/2023 Assessment & Plan (01/30/2023 1:02 PM PAPER BALING MACHINE OPERATOR): Discussed possible causes of decreased sexual desire [...] PHQ-2 Answer Date Recorded PHQ-2 Total Score (If total score is 3 or more points, staff should administer the PHQ-9) 0 09/02/2024 Hunger Vital Sign Answer Date Recorded Within [...] on file Legal Sex Female 10:34 AM PAPER BALING MACHINE OPERATOR Gender Identity Not on file Sexual Orientation Not on file Last Filed Vital Signs Vital Sign Reading Time Taken Comments Blood Pressure 120/78 09/02/2024 11:12 AM CDT Pulse 114 01/07/2024 4:30 PM PAPER BALING MACHINE OPERATOR pt expresses anxiety and is visibly emotional at appointment. Temperature 36.3 C (97.4 F) 05/22/2023 1:24 PM CDT Respiratory Rate 16 05/22/2023 1:24 PM CDT Oxygen Saturation 93% 01/07/2024 4:3 0 PM PAPER BALING MACHINE OPERATOR Rn discussed with pt. Per pt, she is to be on 2L with activity. 93 is baseline per pt. Inhaled Oxygen Concentration - - Weight 68.4 kg (150 lb 12.8 oz) 09/02/2024 11:12 AM CDT Height 157.5 cm (5' 2) 05/22/2023 9:31 AM CDT Body Mass Index 27.58 05/22/2023 9:31 AM CDT Plan of Treatment Not on file Procedures Procedure Name Priority Date/Time Associated Diagnosis Comments PAP WITH REFLEX TO HIGH RISK HPV Routine 09/02/2024 10:04 AM CDT Well woman exam THINPREP PROCESSING (MOLECULAR COMPONENT) Routine 09/02/2024 8:00 AM CDT Well woman exam TRANSTHORACIC ECHO (TTE) COMPLETE W DOPPLER/CF WO CONTRAST W BUBBLE Routine 08/13/2024 3:19 PM CDT Palpitations SOB (shortness of breath) Precordial pain Abnormal electrocardiogram (ECG) (EKG) Personal history of COVID-19 SCREENING MAMMOGRAM BILATERAL W KEVIN Schedule Routine, Read Routine (OP Routine) 04/10/2023 8:07 AM PAPER BALING MACHINE OPERATOR Encounter for screening mammogram for malignant neoplasm of breast from Last 3 Months or Most Recently Relevant to Health Maintenance Results * Pap with reflex to High Risk HPV and Genotyping (Cytology Component) (09/02/2024 10:04 AM CDT) Thin prep (Pap test) 09/02/2024 10:04 AM CDT 09/02/2024 10:04 AM CDT Narrative PATHOLOGY CH - 09/07/2024 1:24 PM CDT [facility] Department of Pathology [address] [place], [place] [id number] Final Report Note to Patients: This report may contain a detailed description of human tissue sent by a health care provider to the laboratory for pathologic evaluation. The content of this report is essential for diagnosis and may provide important critical findings. This information may be unfamiliar to patients to review without a medical professional present. It is advised that the patient review this report in the presence of a health care provider who can answer questions and explain the details. Patient Name: AFRICA HARDEN Address: [address] [place] [address]- Gender: F : 1970 (Age: 54) Service: Location: N : [id number] Hospital #: [id number] Patient Type: SPECIMEN Taken: 09/02/2024 Received: 09/02/2024 Accessioned:: 09/03/2024 Reported: 09/07/2024 Physician(s): LOGAN Royal WHNP Diagnosis: SOURCE OF SPECIMEN Imaged Thinprep Pap Test w/ Reflex HPV - Client Services Account Manager Cytologic Material: STATEMENT OF ADEQUACY - Specimen satisfactory for interpretation; endocervical/transformation zone component absent or insufficient GENERAL CATEGORIZATION: - Negative for intraepithelial lesion or malignancy FLORA Erazo(ASCP) Report Electronically Reviewed and Signed Out By FLORA Erazo(ASCP) 09/07/2024 13:24:05Specimen(s) Received: A: Imaged Thinprep Pap Test w/ Reflex HPV - Client Services Account Manager Cytologic Material Clinical History: The Pap test is a screening test used to aid in the detection of cervical cancer and its precursors. It should not be the sole means by which malignant and premalignant lesions are diagnosed. Both false negative and false positive results may occur. It also has poor sensitivity for the detection of endometrial lesions and should not be used to evaluate suspected endometrial abnormalities. For these reasons it is most important to obtain Pap tests at regular intervals. The performance characteristics of some immunohistochemical stains, fluorescence in-situ hybridization tests and immunophenotyping by flow cytometry cited in this report (if any) were determined by the Surgical Pathology Department at [facility] as part of an ongoing quality control engineer program and in compliance with federally mandated regulations drawn from the Clinical Laboratory Improvement Act of 1988 (CLIA '88). Some of these tests rely on the use of analyte specific reagents and are subject to specific labeling requirements by the US Food and Drug Administration. Such diagnostic tests may only be performed in a facility that is certified by the Department of Health and Human Services as a high complexity laboratory under CLIA '88. The FDA has determined that such clearance or approval is not necessary. This test is used for clinical purposes. It should not be regarded as investigational or for research. Nevertheless, federal rules concerning the medical use of analyte specific reagents require that the following disclaimer be attached to the report: This test was developed and its performance characteristics determined by the Surgical Pathology Department [facility]. It has not been cleared or approved by the U. S. Food and Drug Administration. Hiram Moulton NP LAB CYTOLOGY ORDERABLES Fin al Result PATHOLOGY [address] [place] [address] * ThinPrep processing (Molecular component) (09/02/2024 8:00 AM CDT) Pathologist [facility] ThinPrep processing (Molecular component) Specimen received for processing. [facility] Comment:Testing performed by : [facility], [address] [place]., [address] Endocervical 09/02/2024 8:00 AM CDT 09/03/2024 1:23 PM CDT Hiram Moulton NP LAB BODY FLUIDS AND STOOLS [place] [address] [address] Department [place] [address] [facility] * TRANSTHORACIC ECHO (TTE) COMPLETE W DOPPLER/CF WO CONTRAST W BUBBLE (08/13/2024 3:19 PM CDT) Pathologist [facility] Estimated EF 70 % CONS SCIMAGE Anatomical Region Laterality Modality Ultrasound 08/13/2024 2:33 PM CDT Narrative 08/13/2024 3:32 PM CDT [address] [place] [address] Echocardiogram Report Patient Name: AFRICA HARDEN : 1970 Study Date: 08/13/2024 2:33:41 PM Gender: F Tech: JUAN MANUEL Location: Echo Lab 2 Ref Provider: TRANSCRIBED ORDER, PROVIDER Height(Cm): BSA: Weight(Kg): Quality: Adequate Order Provider: TRANSCRIBED ORDER, PROVIDER PROCEDURES: Echocardiographic Report: Transthoracic echocardiogram with complete 2D, M-Mode, and color Doppler examination. INDICATIONS: alpitations [R00.2 (ICD-10-CM)]; SOB (shortness of breath) [R06.02 (ICD-10-CM)]; Precordial pain [R07.2 (ICD-10-CM)]; Abnormal electrocardiogram (ECG) (EKG) [R94.31 (ICD-10-CM)]; Personal history of COVID-19 [Z86.16 (ICD-10-CM)] R00.2 Palpitations, R06.02 Shortness of breath, R07.2 Precordial pain, R94.31 Abnormal electrocardiogram (ECG) (EKG), and Z86.16 Personal history of COVID-19. MEASUREMENTS: 2D/MM Value Range Doppler Value Range EF Teich MM 54.0 % [ 54.0 - 74.0 ] NORBERTO Vmax 3.28 cm2 Estimated EF 70 % AV Mean PG 2 mmHg LVIDd MM 5.50 cm [ 3.80 - 5.20 ] AV Peak Denis 0.98 m/s [ 1.00 - 1.70 ] LVIDs MM 4.00 cm [ 2.20 - 3.50 ] AV VTI 16.18 cm LVPWd MM 1.50 cm [ 0.60 - 0.90 ] LVOT Diam 2.13 cm IVSd MM 1.10 cm [ 0.60 - 0.90 ] LVOT Peak Denis 0.91 m/s [ 0.70 - 1.10 ] LVOT VTI 14.55 cm MV E Peak Denis 0.67 m/s [ 0.60 - 1.30 ] MV A Peak Denis 0.79 m/s [ 1.00 - 1.20 ] MV Mean PG 2 mmHg MV PHT 44 msec [ 20 - 100 ] MVA 5.00 MV Decel Time 153 msec [ 104 - 258 ] TR Peak Denis 2.64 m/s [ 1.00 - 2.80 ] TR Peak PG 28 mmHg RVSP 31.00 mmHg [ 10.00 - 36.00 ] E` 0.07 m/s E/E` 9.49 [ <= 10.00 ] PA Pressure 31.00 mmHg [ 10.00 - 36.00 ] 2D/MM Value Range Doppler Value Range - FINDINGS: Atrial Septum: The atrial septum is not well visualized. Left Ventricle: Normal left ventricular systolic function with no focal wall motion abnormalities. Normal left ventricular size. Normal left ventricular wall thickness. Impaired diastolic relaxation Grade I. Ejection Fraction is estimated to be 70 %. Left Atrium: The left atrium is normal in size. Right Ventricle: Normal right ventricular size. Normal right ventricular systolic function. Right Atrium: The right atrium is normal in size. Aortic Valve: Normal structure of the aortic valve. Mitral Valve: Normal structure of the mitral valve. Pulmonic Valve: Pulmonic valve not well visualized. Tricuspid Valve: Normal structure of the tricuspid valve. Right Ventricular Systolic Pressure could not be estimated due to inadequate visualization of TR jet. Pericardium: Normal pericardium with no significant pericardial effusion. Aorta: Normal aortic root. IVC: Normal size and normal respiratory collapse consistent with normal right atrial pressure (<5 mmHg). CONCLUSIONS: Normal left ventricular systolic function with no focal wall motion abnormalities. Normal left ventricular size. Normal left ventricular wall thickness. Impaired diastolic relaxation Grade I. Ejection Fraction is estimated to be 70 %. Normal right ventricular size. Normal right ventricular systolic function. Normal structure of the mitral valve. Normal structure of the aortic valve. Normal structure of the tricuspid valve. Right Ventricular Systolic Pressure could not be estimated due to inadequate visualization of TR jet. Technically difficult study with limited views. Electronically Signed By: Benny Del Real MD [facility] 08/13/2024 3:31:16 PM CDT Procedure Note Benny Del Real MD - 08/13/[address] [address] Echocardiogram Report Patient Name: AFRICA HARDEN : 1970 Study Date: 08/13/2024 2:33:41 PM Gender: F Tech: JUAN MANUEL Location: Echo Lab 2 Ref Provider: TRANSCRIBED ORDER, PROVIDER Height(Cm): BSA: Weight(Kg): Quality: Adequate Order Provider: TRANSCRIBED ORDER, PROVIDER PROCEDURES: Echocardiographic Report: Transthoracic echocardiogram with complete 2D, M-Mode, and color Dopplerexamination. INDICATIONS: alpitations [R00.2 (ICD-10-CM)]; SOB (shortness of breath) [R06.02(ICD-10-CM)]; Precordial pain [R07.2 (ICD-10-CM)]; Abnormal electrocardiogram (ECG)(EKG) [R94.31 (ICD-10-CM)]; Personal history of COVID-19 [Z86.16 (ICD-10-CM)] R00.2 Palpitations, R06.02 Shortness of breath, R07.2 Precordial pain,R94.31 Abnormal electrocardiogram (ECG) (EKG), and Z86.16 Personal history of COVID-19. MEASUREMENTS: 2D/MM Value Range Doppler ValueRange EF Teich MM 54.0 % [ 54.0 - 74.0 ] NORBERTO Vmax 3.28 cm2 Estimated EF 70 % AV Mean PG 2 mmHg LVIDd MM 5.50 cm [ 3.80 - 5.20 ] AV Peak Denis 0.98 m/s[ 1.00 - 1.70 ] LVIDs MM 4.00 cm [ 2.20 - 3.50 ] AV VTI 16.18 cm LVPWd MM 1.50 cm [ 0.60 - 0.90 ] LVOT Diam 2.13 cm IVSd MM 1.10 cm [ 0.60 - 0.90 ] LVOT Peak Denis 0.91 m/s[ 0.70 - 1.10 ] LVOT VTI 14.55 cm MV E Peak Denis 0.67 m/s [ 0.60 - 1.30 ] MV A Peak Denis 0.79 m/s [ 1.00 - 1.20 ] MV Mean PG 2 mmHg MV PHT 44 msec [ 20 - 100 ] MVA 5.00 MV Decel Time 153 msec [ 104 - 258 ] TR Peak Denis 2.64 m/s [ 1.00 - 2.80 ] TR Peak PG 28 mmHg RVSP 31.00 mmHg [ 10.00 - 36.00 ] E` 0.07 m/s E/E` 9.49 [ <= 10.00 ] PA Pressure 31.00 mmHg [ 10.00 - 36.00 ] 2D/MM Value Range Doppler ValueRange - FINDINGS: Atrial Septum: The atrial septum is not well visualized. Left Ventricle: Normal left ventricular systolic function with no focal wall motionabnormalities. Normal left ventricular size. Normal left ventricular wall thickness. Impaireddiastolic relaxation Grade I. Ejection Fraction is estimated to be 70 %. Left Atrium: The left atrium is normal in size. Right Ventricle: Normal right ventricular size. Normal right ventricular systolicfunction. Right Atrium: The right atrium is normal in size. Aortic Valve: Normal structure of the aortic valve. Mitral Valve: Normal structure of the mitral valve. Pulmonic Valve: Pulmonic valve not well visualized. Tricuspid Valve: Normal structure of the tricuspid valve. Right Ventricular SystolicPressure could not be estimated due to inadequate visualization of TR jet. Pericardium: Normal pericardium with no significant pericardial effusion. Aorta: Normal aortic root. IVC: Normal size and normal respiratory collapse consistent with normal rightatrial pressure (<5 mmHg). CONCLUSIONS: Normal left ventricular systolic function with no focal wall motionabnormalities. Normal left ventricular size. Normal left ventricular wall thickness. Impaireddiastolic relaxation Grade I. Ejection Fraction is estimated to be 70 %. Normal right ventricular size. Normal right ventricular systolicfunction. Normal structure of the mitral valve. Normal structure of the aortic valve. Normal structure of the tricuspid valve. Right Ventricular SystolicPressure could not be estimated due to inadequate visualization of TR jet. Technically difficult study with limited views. Electronically Signed By: Benny Del Real MD [facility] 08/13/2024 3:31:16 PM CDT us Provider Transcribed Order CV ECHO PROCEDURES Fi nal Result * Screening Mammogram Bilateral W Kevin (04/10/2023 8:07 AM PAPER BALING MACHINE OPERATOR) Anatomical Region Laterality Modality Breast Bilateral Mammography 04/10/2023 8:21 AM PAPER BALING MACHINE OPERATOR Impressions 04/10/2023 8:21 AM PAPER BALING MACHINE OPERATOR There is no mammographic evidence of malignancy. A 1 year screening mammogram is recommended. BI-RADS: 1 - Negative. The patient has been or will be contacted. The patient will be entered into a reminder system with a target due date of 1 year for her next mammogram. Electronically signed by: Felipe Leo M.D. Narrative 04/10/2023 8:21 AM PAPER BALING MACHINE OPERATOR EXAMINATION: SCREENING MAMMOGRAM BILATERAL W KEVIN ORDERING HEALTHCARE PROVIDER: HIRAM MOULTON HISTORY: Routine screening mammography. COMPARISON: 03/03/2013, [...] been no suspicious interval change. Hiram Moulton SQL SERVER DBA IMG MAMMO PROCEDURES Final Result from Last 3 Months or Most Recently Relevant to Health Maintenance Insurance [facility] [place] [employer] Care Teams Process Eng Relationship Specialty Start Date End Date Janes Elkins PA [address] [place] [address] PCP - General 12/15/19 Arleth Morris MD [address] [place] [address] DR V[address] [place] [address] Consulting Physician Obstetrics and Gynecology 05/22/23
--- OUTSIDE RECORDS SUMMARY | 2024-09-30 13:13 | XMS_ITS | Encounter Summary ---
Author Organization [facility] Healthcare Address [address] [place] [address] Care Team Providers Care Food Truck Caterer Name Role Phone Janes Elkins Primary Care Provider [phone] Arleth Morris MD Unavailable [phone] Encounter Details Date Type Department Care Team (Late st Contact Info) Description 09/07/2024 Results Follow-Up [facility] [address] [place] [address] [address] [place] [address] Libertad Barcenas, GROCERY STOCKER [address] [facility] [address] [place] [address] Pap with reflex to High Risk HPV and Genotyping (Cytology Component) Social History Tobacco Use Types Packs/Day Years [...] on file Legal Sex Female 10:34 AM ASSEMBLER BODY Gender Identity Not on file Sexual Orientation Not on file documented as of this encounter Plan of Treatment Not on file documented as of this encounter Visit Diagnoses Not on filedocumented in this encounter Care Teams Food Truck Caterer Relationship Specialty Start Date End Date Janes Elkins PA [address] [place] [address] PCP - General 12/15/19 Arleth Morris MD [address] [facility] [place] [address] Consulting Physician Obstetrics and Gynecology 05/22/23 documented as of this encounter
--- OUTSIDE RECORDS SUMMARY | 2024-09-30 13:13 | XMS_ITS | Encounter Summary ---
Author Organization [facility] Address [address] [place] [address] Phone Care Team Providers Care Raise Drill Operator Name Role Phone Janes Elkins Naveen FAITH Primary Care Provider Veda Motley APRN, DRAWING INSTRUCTOR Unavailable [phone] Miriam Aquino APRN, DRAWING INSTRUCTOR Unavailable Sergio Hussein MD Unavailable Reason for Visit * Reason Comments Medication Refill Encounter Details Date Type Department Care Team (Late st Contact Info) Description 02/03/2023 Refill [facility] - Pulmonology & [facility] [address] [place] [id number] Veda Motley APRN, MEHNAZ [address] [address] Medication Refill Social History Tobacco Use Types [...] 02/04/2023 8:02 AM CST Refill too soon NICAL AGRONOMIST documented in this encounter Plan of Treatment Upcoming Encounters Date Type Department Care Team (Late st Contact Info) Description 10/12/2024 1:30 PM CDT Office Visit [facility] - Pulmonology & [facility] Medicine - [place] [address] [place] [address] Veda Motley APRN, MEHNAZ [address] [address] documented as of this encounter Visit Diagnoses Diagnosis Centrilobular emphysema (HCC) Other emphysema documented in this encounter Additional Health Concerns Infection Onset Date Last Indicated Resolved Time COVID - 19 04/08/2023 04/10/2023 04/20/2023 12:1 6 AM TECHNICAL AGRONOMIST documented as of this encounter Care Teams Raise Drill Operator Relationship Specialty Start Date End Date Janes Elkins PAC [address] [place] [address] PCP - General Physician Aluminizer 04/07/21 Veda Motley APRN, MEHNAZ [address] [address] Nurse Practitioner Advanced Practice Nurse 05/18/21 Miriam Aquino APRN, MEHNAZ [address] [place] [address] Nurse Practitioner Advanced Practice Nurse 05/26/22 Sergio Hussein MD #[address] [address] Consulting Physician Colon and Rectal Surgery 07/24/23 documented as of this encounter
--- OUTSIDE RECORDS SUMMARY | 2024-09-30 13:13 | XMS_ITS | Clinical Summary ---
Author Organization [facility] Address [address] [place] [address] Care Team Providers Care Metal Rolling Mill Operator Name Role Phone None, Provider MD Primary [...] complete this topic Insurance [employer] Care Teams Metal Rolling Mill Operator Relationship Specialty Start Date End Date None, Provider, PCP - General 09/11/18
--- OUTSIDE RECORDS SUMMARY | 2024-09-30 13:13 | XMS_ITS | Encounter Summary ---
Author Organization [facility] Address [address] [place] [address] Phone Care Team Providers Care Boat Painter Name Role Phone Janes Elkins Naveen FAITH Primary Care Provider Veda Motley APRN, HUMAN RESOURCES SPECIALIST Unavailable Miriam Aquino APRN, HUMAN RESOURCES SPECIALIST Unavailable Sergio Hussein MD Unavailable Reason for Visit * Reason Comments Medication Refill Encounter Details Date Type Department Care Team (Late st Contact Info) Description 06/13/2023 Refill [facility] - Pulmonology & Sleep Medicine [facility] #2 [place] [phone] Veda Motley APRN, MEHNAZ #[address] [address] Medication Refill Social History Tobacco Use Types [...] Motley APRN, CNP [facility] 08/24/22 Office Visit Veda Motley APRN, CNP [facility] Showing recent visits within past 365 days and meeting all other requirements Future Appointments Date Type Provider Dept 09/03/23 Appointment Veda Motley APRN, CNP [facility] [place] [facility] Showing future appointments within next 90 days and meeting all other requirements documented in this encounter Plan of Treatment Upcoming Encounters Date Type Department Care Team (Late st Contact Info) Description 10/12/2024 1:30 PM CDT Office Visit [facility] - Pulmonology & Sleep Medicine - [place] #[address] [place] [address] Veda Motley APRN, MEHNAZ #[address] [address] documented as of this encounter Visit Diagnoses Diagnosis Other emphysema (HCC) Other emphysema documented in this encounter Care Teams Boat Painter Relationship Specialty Start Date End Date Janes Elkins, [facility] [address] [place] [address] PCP - General Physician Neurology Manager 04/07/21 Veda Motley APRN, HUMAN RESOURCES SPECIALIST #2 [facility] [address] [place] [address] Nurse Practitioner Advanced Practice Nurse 05/18/21 Miriam Aquino APRN, HUMAN RESOURCES SPECIALIST #2 [place] [address] Nurse Practitioner Advanced Practice Nurse 05/26/22 Sergio Hussein MD #2 [facility] [address] [place] [address] Consulting Physician Colon and Rectal Surgery 07/24/23 documented as of this encounter
--- OUTSIDE RECORDS SUMMARY | 2024-09-30 13:13 | XMS_ITS | Encounter Summary ---
Author Organization [facility] Address [address] [place] [address] Phone Care Team Providers Care Animated Cartoons Painter Name Role Phone Janes Elkins Naveen FAITH Primary Care Provider Veda Motley APRN, FRICTION PAINT MACHINE TENDER Unavailable Miriam Aquino APRN, FRICTION PAINT MACHINE TENDER Unavailable Sergio Hussein MD Unavailable Reason for Visit * Reason Comments Medication Refill Encounter Details Date Type Department Care Team (Late st Contact Info) Description 11/13/2021 Refill [facility] - Pulmonology & Sleep Medicine [facility] #2 [place] [phone] Veda Motley APRN, MEHNAZ #[address] [address] Medication Refill Social History Tobacco Use Types Packs/Day Years Used Date Smoking Tobacco: Every Day Cigarettes 0.5 43.6 Started: 1980 Smokeless Tobacco: Never Alcohol Use [...] 08/17/21 Office Visit Veda Motley APRN, MEHNAZ [facility] & Sleep [facility] 05/18/21 Office Visit Veda Motley APRN, CNP [facility] & Sleep [facility] Showing recent visits within past 365 days [...] Pulmonology & Sleep Medicine - [place] #2 [place] [address] Veda Motley APRN, FRICTION PAINT MACHINE TENDER #[address] [address] documented as of this encounter Visit Diagnoses Not on filedocumented in this encounter Additional Health Concerns Infection Onset Date Last Indicated Resolved Time COVID - 19 02/15/2022 02/15/2022 02/25/2022 12:1 6 AM DICE SPOTTER Respiratory Rule-Out 02/15/2022 02/15/2022 022 4:32 PM DICE SPOTTER COVID - 19 04/08/2023 04/10/2023 04/20/2023 12:1 6 AM DICE SPOTTER documented as of this encounter Care Teams Animated Cartoons Painter Relationship Specialty Start Date End Date Janes Elkins, [facility] [address] [place] [address] PCP - General Physician Casino Floorperson 04/07/21 Veda Motley APRN, FRICTION PAINT MACHINE TENDER #2 [facility] [address] [place] [address] Nurse Practitioner Advanced Practice Nurse 05/18/21 Miriam Aquino APRN, FRICTION PAINT MACHINE TENDER #2 [place] [address] Nurse Practitioner Advanced Practice Nurse 05/26/22 Sergio Hussein MD #2 [facility] [address] [place] [address] Consulting Physician Colon and Rectal Surgery 07/24/23 documented as of this encounter
--- OUTSIDE RECORDS SUMMARY | 2024-09-30 13:13 | XMS_ITS | Encounter Summary ---
Author Organization [facility] Address [address] [place] [address] Phone Care Team Providers Care Propagator Name Role Phone Janes Elkins Naveen FAITH Primary Care Provider Veda Motley APRN, NEWS AGENT Unavailable [phone] Miriam Aquino APRN, NEWS AGENT Unavailable Sergio Hussein MD Unavailable Reason for Visit * Reason Comments Medication Refill Encounter Details Date Type Department Care Team (Late st Contact Info) Description 10/12/2022 Refill [facility] - Pulmonology & Sleep Medicine [facility] #2 [place] [phone] Veda Motley APRN, MEHNAZ #[address] [address] Medication Refill Social History Tobacco Use Types [...] Motley APRN, MEHNAZ [facility] [address] Showing recent [...] Motley APRN, CNP [facility] [address] 02/15/22 Office Visit Veda Motley [...] Description 10/12/2024 1:30 PM CDT Office Visit [facility] - Pulmonology & Sleep Medicine - [place] #2 [place] [address] Veda Motley APRN, NEWS AGENT #2 [facility] [address] [place] [address] documented as of this encounter Visit Diagnoses Diagnosis Other emphysema (HCC) Other emphysema documented in this encounter Additional Health Concerns Infection Onset Date Last Indicated Resolved Time COVID - 19 04/08/2023 04/10/2023 04/20/2023 12:1 6 AM MANAGER EQUITY documented as of this encounter Care Teams Propagator Relationship Specialty Start Date End Date Janes Elkins, [facility] [address] [place] [address] PCP - General Physician Program Director Cable [employer] 04/07/21 Veda Motley APRN, MEHNAZ #[address] [address] Nurse Practitioner Advanced Practice Nurse 05/18/21 Miriam Aquino APRN, NEWS AGENT #2 [place] [address] Nurse Practitioner Advanced Practice Nurse 05/26/22 Sergio Hussein MD #[address] [address] Consulting Physician Colon and Rectal Surgery 07/24/23 documented as of this encounter
--- OUTSIDE RECORDS SUMMARY | 2024-09-30 13:13 | XMS_ITS | Encounter Summary ---
Author Organization [facility] Address [address] [place] [address] Phone Care Team Providers Care Licensed Optical Dispenser Name Role Phone Janes Elkins Naveen FAITH Primary Care Provider Veda Motley APRN, JOB SITE SUPERINTENDENT Unavailable Miriam Aquino APRN, JOB SITE SUPERINTENDENT Unavailable Sergio Hussein MD Unavailable Reason for Visit * Reason Comments Medication Refill Encounter Details Date Type Department Care Team (Late st Contact Info) Description 2022 Refill [facility] - Pulmonology & Sleep Medicine [facility] #2 [place] [phone] Veda Motley APRN, MEHNAZ #[address] [address] Medication Refill Social History Tobacco Use Types Packs/Day Years Used Date Smoking Tobacco: Every Day Cigarettes 0.3 43.6 Started: 1980 Smokeless Tobacco: Never Alcohol [...] Coronavirus/COVID-19? No / Unsure 02/15/2022 2:55 PM RETAIL FIELD MERCHANDISER documented as of this encounter Miscellaneous Notes * Telephone Encounter - Jessica Goldberg RN - 2022 3:24 PM RETAIL FIELD MERCHANDISER Medication failed the protocol, provider to review [...] 02/15/22 Office Visit Veda Motley APRN, CNP [facility] 08/17/21 Office Visit Veda Motley APRN, CNP [facility] 05/18/21 Office Visit Veda Motley APRN, MEHNAZ [facility] Showing recent visits within past 365 days and meeting all other requirements Future Appointments No visits were found meeting these conditions. Showing future appointments within next 90 days and meeting all other requirements [place] FIELD MERCHANDISER documented in this encounter Plan of Treatment Upcoming Encounters Date Type Department Care Team (Late st Contact Info) Description 10/12/2024 1:30 PM CDT [facility] - Pulmonology & Sleep Medicine - [place] #2 [place] [address] Veda Motley APRN, JOB SITE SUPERINTENDENT #[address] [address] documented as of this encounter Visit Diagnoses Not on filedocumented in this encounter Additional Health Concerns Infection Onset Date Last Indicated Resolved Time COVID - 19 02/15/2022 02/15/2022 02/25/2022 12:1 6 AM RETAIL FIELD MERCHANDISER COVID - 19 04/08/2023 04/10/2023 04/20/2023 12:1 6 AM RETAIL FIELD MERCHANDISER documented as of this encounter Care Teams Licensed Optical Dispenser Relationship Specialty Start Date End Date Janes Elkins, [facility] [address] [place] [address] PCP - General Physician Duck Bill Operator 04/07/21 Veda Motley APRN, JOB SITE SUPERINTENDENT #2 [facility] [address] [place] [address] Nurse Practitioner Advanced Practice Nurse 05/18/21 Miriam Aquino APRN, JOB SITE SUPERINTENDENT #2 [place] [address] Nurse Practitioner Advanced Practice Nurse 05/26/22 Sergio Hussein MD #2 [facility] [address] [place] [address] Consulting Physician Colon and Rectal Surgery 07/24/23 documented as of this encounter
--- OUTSIDE RECORDS SUMMARY | 2024-09-30 13:13 | XMS_ITS | Encounter Summary ---
Author Organization [facility] Address [address] [place] [address] Phone Care Team Providers Care Can Top Setter Name Role Phone Janes Elkins Naveen FAITH Primary Care Provider Veda Motley APRN, DISC PAD PLATE FILLER Unavailable Miriam Aquino APRN, DISC PAD PLATE FILLER Unavailable Sergio Hussein MD Unavailable Reason for Visit * Reason Comments Medication Refill Encounter Details Date Type Department Care Team (Late st Contact Info) Description 01/27/2022 Refill [facility] - Pulmonology & Sleep Medicine [facility] #2 [place] [phone] Veda Motley APRN, MEHNAZ #[address] [address] Medication Refill Social History Tobacco Use Types [...] Jessica Goldberg RN - 01/29/2022 8:22 AM ROLLER PICKER Medication failed the protocol, provider to review [...] Motley APRN, CNP [facility] Showing recent visits within past 365 days and meeting all other requirements Future Appointments Date Type Provider Dept 02/15/22 Appointment Veda Motley APRN, CNP [facility] [place] Showing future appointments within next 90 days and meeting all other requirements ER PICKER documented in this encounter Plan of Treatment Upcoming Encounters Date Type Department Care Team (Late st Contact Info) Description 10/12/2024 1:30 PM CDT [facility] - Pulmonology & Sleep Medicine - [place] [address] [place] [address] Veda Motley APRN, MEHNAZ #[address] [address] [address] documented as of this encounter Visit Diagnoses Not on filedocumented in this encounter Additional Health Concerns Infection Onset Date Last Indicated Resolved Time COVID - 19 02/15/2022 02/15/2022 02/25/2022 12:1 6 AM ROLLER PICKER Respiratory Rule-Out 02/15/2022 02/15/2022 022 4:32 PM ROLLER PICKER COVID - 19 04/08/2023 04/10/2023 04/20/2023 12:1 6 AM ROLLER PICKER documented as of this encounter Care Teams Can Top Setter Relationship Specialty Start Date End Date Janes Elkins, [facility] [address] [place] [address] PCP - General Physician Group Leader Semiconductor Processing 04/07/21 Veda Motley APRN, DISC PAD PLATE FILLER #[address] [address] Nurse Practitioner Advanced Practice Nurse 05/18/21 Miriam Aquino APRN, DISC PAD PLATE FILLER #2 [place] [address] Nurse Practitioner Advanced Practice Nurse 05/26/22 Sergio Hussein MD #[address] [address] Consulting Physician Colon and Rectal Surgery 07/24/23 documented as of this encounter
--- OUTSIDE RECORDS SUMMARY | 2024-09-30 13:13 | XMS_ITS | Encounter Summary ---
Author Organization [facility] Address [address] [place] [address] Phone Care Team Providers Care Sports Director Name Role Phone Janes Elkins Naveen FAITH Primary Care Provider Veda Motley APRN, ARMATURE WINDER HELPER REPAIR Unavailable Miriam Aquino APRN, ARMATURE WINDER HELPER REPAIR Unavailable Sergio Hussein MD Unavailable Reason for Visit * Reason Comments Medication Refill Encounter Details Date Type Department Care Team (Late st Contact Info) Description 06/30/2024 Refill [facility]ology [facility] #2 [place] [address] Miriam Aquino APRN, ARMATURE WINDER HELPER REPAIR #2 [place] [address] Medication Refill Social History Tobacco Use Types Packs/Day Years Used Date Smoking Tobacco: Former Cigarettes 1 43.6 S tarted: 1982 Smokeless Tobacco: Never Alcohol [...] Telephone Encounter - Joann Adames RN - 07/02/2024 10:39 AM CDT Medication refilled and signed per [facility] chronic medication standing order for pediatric and adult patients. * Telephone Encounter - Joann Adames RN - 07/02/2024 10:30 AM CDT Pharmacy requesting refill of: Requested Prescriptions Pending Prescriptions Disp Refills dicyclomine (BENTYL) 20 MG Tablet [Pharmacy Med Name: DICYCLOMINE 20 MG TABLETS] 90 Tablet 2 Sig: TAKE ONE TABLET BY MOUTH THREE TIMES A DAY Last fill: 10/23/2023 Patients last OV with GI: 07/12/2023 Next Office Visit with GI: none scheduled. Spoke with patient. Appt scheduled for 07/13/2024. documented in this encounter Plan of Treatment Upcoming Encounters Date Type Department Care Team (Late st Contact Info) Description 10/12/2024 1:30 PM CDT [facility] - Pulmonology & Sleep Medicine [facility] #2 [place] [address] Veda Motley APRN, ARMATURE WINDER HELPER REPAIR #[address] [address] documented as of this encounter Visit Diagnoses Not on filedocumented in this encounter Care Teams Sports Director Relationship Specialty Start Date End Date Janes Elkins PAC [address] [place] [address] PCP - General Physician Supervisor Curing Room 04/07/21 Veda Motley APRN, CNP #[address] [address] Nurse Practitioner Advanced Practice Nurse 05/18/21 Miriam Aquino APRN, ARMATURE WINDER HELPER REPAIR #2 [place] [address] Nurse Practitioner Advanced Practice Nurse 05/26/22 Sergio Hussein MD #[address] [address] Consulting Physician Colon and Rectal Surgery 07/24/23 documented as of this encounter
--- OUTSIDE RECORDS SUMMARY | 2024-09-30 13:13 | XMS_ITS | Encounter Summary ---
Author Organization [facility] Address [address] [place] [address] Phone Care Team Providers Care Dealer Account Manager Name Role Phone Janes Elkins Naveen FAITH Primary Care Provider Veda Motley APRN, BILLING MACHINE OPERATOR Unavailable Miriam Aquino APRN, BILLING MACHINE OPERATOR Unavailable Sergio Hussein MD Unavailable Reason for Visit * Reason Comments Medication Refill Encounter Details Date Type Department Care Team (Late st Contact Info) Description 10/21/2023 Refill [facility]ology [facility] #2 [place] [phone] Miriam Aquino APRN, BILLING MACHINE OPERATOR #2 [place] [address] Medication Refill Social History Tobacco Use Types Packs/Day Years Used Date Smoking Tobacco: Every Day Cigarettes 1 43.6 Started: 1980 Smokeless Tobacco: Never Alcohol [...] Description 10/12/2024 1:30 PM CDT Office Visit [facility] - Pulmonology & Sleep Medicine - [place] #2 [place] [address] Veda Motley APRN, BILLING MACHINE OPERATOR #[address] [address] documented as of this encounter Visit Diagnoses Not on filedocumented in this encounter Care Teams Dealer Account Manager Relationship Specialty Start Date End Date Janes Elkins PAC [address] [place] [address] PCP - General Physician Journeyman Welder 04/07/21 Veda Motley APRN, MEHNAZ #[address] [address] Nurse Practitioner Advanced Practice Nurse 05/18/21 Miriam Aquino APRN, BILLING MACHINE OPERATOR #2 [place] [address] Nurse Practitioner Advanced Practice Nurse 05/26/22 Sergio Hussein MD #[address] [address] Consulting Physician Colon and Rectal Surgery 07/24/23 documented as of this encounter
--- OUTSIDE RECORDS SUMMARY | 2024-09-30 13:13 | XMS_ITS | Encounter Summary ---
Author Organization [facility] Address [address] [place] [address] Phone Care Team Providers Care Camera Systems Engineer Name Role Phone Janes Elkins Naveen FAITH Primary Care Provider [phone] Veda Motley APRN, WEEDER THINNER Unavailable Miriam Aquino APRN, WEEDER THINNER Unavailable Sergio Hussein MD Unavailable Reason for Visit * Reason Comments Medication Refill Encounter Details Date Type Department Care Team (Late st Contact Info) Description 01/29/2023 Refill [facility] #2 [place] [phone] Miriam Aquino APRN, WEEDER THINNER #2 [place] [address] Medication Refill Social History Tobacco Use Types [...] Joann Adames RN - 02/07/2023 8:45 AM TOPSTITCHER LOCKSTITCH Medication failed the protocol, provider to review [...] 07/06/22 Office Visit Miriam Aquino APRN, MEHNAZ [facility] Showing recent visits within past 365 days and meeting all other requirements Future Appointments No visits were found meeting these conditions. Showing future appointments within next 90 days and meeting all other requirements TITCHER LOCKSTITCH documented in this encounter Plan of Treatment Upcoming Encounters Date Type Department Care Team (Late st Contact Info) Description 10/12/2024 1:30 PM CDT Office Visit [facility] - Pulmonology & Sleep Medicine - [place] #2 [place] [address] Veda Motley APRN, MEHNAZ #[address] [address] documented as of this encounter Visit Diagnoses Diagnosis Nausea and vomiting, unspecified vomiting type documented in this encounter Additional Health Concerns Infection Onset Date Last Indicated Resolved Time COVID - 19 04/08/2023 04/10/2023 04/20/2023 12:1 6 AM TOPSTITCHER LOCKSTITCH documented as of this encounter Care Teams Camera Systems Engineer Relationship Specialty Start Date End Date Janes Elkins, VIANNEY [address] [place] [address] PCP - General Physician Iron Worker 04/07/21 Veda Motley APRN, WEEDER THINNER #2 [facility] [address] [place] [address] Nurse Practitioner Advanced Practice Nurse 05/18/21 Miriam Aquino APRN, WEEDER THINNER #2 [place] [address] Nurse Practitioner Advanced Practice Nurse 05/26/22 Sergio Hussein MD #2 [facility] [address] [place] [address] Consulting Physician Colon and Rectal Surgery 07/24/23 documented as of this encounter
--- OUTSIDE RECORDS SUMMARY | 2024-09-30 13:13 | XMS_ITS | Encounter Summary ---
Author Organization [facility] Address [address] [place] [address] Phone Care Team Providers Care Wire Stitcher Operator Name Role Phone Janes Elkins Naveen FAITH Primary Care Provider Veda Motley APRN, MANAGER ROUTE Unavailable Miriam Aquino APRN, MANAGER ROUTE Unavailable Sergio Hussein MD Unavailable Reason for Visit * Reason Comments Medication Refill Encounter Details Date Type Department Care Team (Late st Contact Info) Description 03/11/2023 Refill [facility]ology [facility] #2 [place] [phone] Miriam Aquino APRN, MANAGER ROUTE #2 [place] [address] Medication Refill Social History Tobacco Use Types [...] Joann Adames RN - 03/11/2023 10:39 AM CONTAINER WASHER MACHINE Per nursing clinical judgement, provider to review [...] Dept 07/06/22 Office Visit Miriam Aquino APRN, MANAGER ROUTE [facility] Showing recent visits within past 365 days and meeting all other requirements Future Appointments No visits were found meeting these conditions. Showing future appointments within next 90 days and meeting all other requirements AINER WASHER MACHINE documented in this encounter Plan of Treatment Upcoming Encounters Date Type Department Care Team (Late st Contact Info) Description 10/12/2024 1:30 PM CDT Office Visit [facility] - Pulmonology & Sleep Medicine - [place] #2 [place] [address] Veda Motley APRN, MANAGER ROUTE #[address] [address] documented as of this encounter Visit Diagnoses Not on filedocumented in this encounter Additional Health Concerns Infection Onset Date Last Indicated Resolved Time COVID - 19 04/08/2023 04/10/2023 04/20/2023 12:1 6 AM CONTAINER WASHER MACHINE documented as of this encounter Care Teams Wire Stitcher Operator Relationship Specialty Start Date End Date Janes Elkins PAC [address] [place] [address] PCP - General Physician Addictions Recovery Specialist 2/4/22 Veda Motley APRN, MANAGER ROUTE #[address] [address] Nurse Practitioner Advanced Practice Nurse 05/18/21 Miriam Aquino APRN, MANAGER ROUTE #2 [place] [address] Nurse Practitioner Advanced Practice Nurse 05/26/22 Sergio Hussein MD #[address] [address] Consulting Physician Colon and Rectal Surgery 07/24/23 documented as of this encounter
--- OUTSIDE RECORDS SUMMARY | 2024-09-30 13:13 | XMS_ITS | Clinical Summary ---
Author Organization [facility] Address [address] [place] [address] Phone Care Team Providers Care Lap Winding Machine Operator Name Role Phone Severo Janes FAITH Primary Care Provider [phone] Veda Motley APRN, CUSTOMS ENTRY CLERK Unavailable [phone] Miriam Aquino APRN, CUSTOMS ENTRY CLERK Unavailable Sergio Hussein MD Unavailable Allergies Active [...] line. 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 Subacute cough 02/15/2022 Mixed simple and mucopurulent chronic bronchitis 08/17/2021 Personal history of tobacco use 05/18/2021 SOB (shortness of breath) 05/18/2021 Centrilobular emphysema 05/18/2021 Encounters Date Type Department Care Team Description 07/20/2024 Telephone [facility] [place] [address] [place] [address] Miriam Aquino APRN, CUSTOMS ENTRY CLERK 07/13/2024 Telephone [facility] Pulmonology [facility] - [place] [address]2 [place] [address] Veda Motley APRN, CUSTOMS ENTRY CLERK 07/05/2024 7:08 PM CDT - 07/05/2024 7:47 PM CDT Emergency [facility] Emergency [address] [place] [address] Nancy Villela APRN, CUSTOMS ENTRY CLERK Methamphetamine use Discharge Disposition: Discharged to home or Selfcare 07/05/2024 Travel from Last 3 Months Family History Medical [...] 43.6 S tarted: 1982 Smokeless Tobacco: Never Tobacco [...] Sign Reading Time Taken Comments Blood Pressure 131/80 07/05/2024 7:45 PM CDT Pulse 101 07/05/2024 7:45 PM CDT Temperature 37.2 C (99 F) 07/05/2024 7:04 PM CDT Respiratory Rate 16 07/05/2024 7:45 PM CDT Oxygen Saturation 97% 07/05/2024 7:45 PM CDT Inhaled Oxygen Concentration - - Weight 66.3 kg (146 lb 2.6 oz) 07/05/2024 7:04 P M CDT Height 157.5 cm (5' 2) 07/05/2024 7:04 PM CDT Body Mass Index 26.73 07/05/2024 7:04 PM CDT Plan of Treatment Upcoming Encounters Date Type Department Care Team (Late st Contact Info) Description 10/12/2024 1:30 PM CDT Office Visit [facility] Medicine [facility] #2 [place] [address] Veda Motley, SHELL FREEZING MACHINE OPERATOR, CUSTOMS ENTRY CLERK #[address] [address] Health Maintenance Due Date Last Done Comments Hepatitis C Virus (HCV) Screening 1971 Hepatitis B Immunization (1 of 3 - 19+ 3-dose series) 1990 Pneumococcal Immunization (50+ years) (1 of 2 - PCV) 1990 Pap Smear 02/17/1992 Cervical Cancer Screening (CCS) 2001 HPV/Cotest 2001 Cologuard 02/17/2016 Immunochemical Fecal Occult Blood 02/17/2016 Zoster Immunization (1 of 2) 2021 SARS-COV-2 Immunization ( - season) 2023 Mammogram 04/10/2024 04/10/2023 Influenza Immunization (#1) 2024 Colonoscopy 12/06/2028 12/06/2021, 12/06/2021 Colorectal Cancer Screening 12/06/2028 Respiratory Syncytial Virus (RSV) Immunization (Adult) (1 - 1-dose 75+ series) 2046 DTaP/Tdap/Td Immunization Discontinued 12/22/2022, 10/2015 TdaP Immunization Completed 12/22/2022, 02/09/2016 Lung Cancer Screening Discontinued 02/13/2024 , 10/28/2023, 07/11/2022, Additional history exists Human Papillomavirus (HPV) Immunization Aged Out No longer eligible based on patient's age to complete this topic Meningococcal Immunization (ACWY) Aged Out No longer eligible based on patient's age to complete this topic Rotavirus Immunization Aged Out No lo nger eligible based on patient's age to complete this topic Procedures Procedure Name Priority Date/Time Associated Diagnosis Comments URINE DRUG SCREEN STAT 07/05/2024 7:[address] CHEST W/O CONTRAST Routine 02/13/2024 10:23 AM FLIGHT TOWER DISPATCHER Lung nodule from Last 3 Months or Most Recently Relevant to Health Maintenance Results * (ABNORMAL) Urine Drug Screen (07/05/2024 7:25 PM CDT) UR AMPHETAMINE DETECTED(A) NON DETECTED 07/05/2024 7:44 PM CDT [facility] Comment: FOR MEDICAL USE ONLY. CUTOFF CONCENTRATION FOR DETECTED RESULT: AMPHETAMINE: 500 NG/ML UR BENZODIAZEPINES NON DETECTED NON DETECTED 07/05/2024 7:44 PM CDT [facility] Comment: FOR MEDICAL USE ONLY. CUTOFF CONCENTRATION FOR DETECTED RESULT: BENZODIAZAPINE: 200 NG/ML UR COCAINE METABOLITE NON DETECTED NON DETECTED 07/05/2024 7:44 PM CDT [facility] Comment: FOR MEDICAL USE ONLY. CUTOFF CONCENTRATION FOR DETECTED RESULT: COCAINE: 150 NG/ML UR OPIATES NON DETECTED NON DETECTED 07/05/2024 7:44 PM CDT [facility] Comment: FOR MEDICAL USE ONLY. CUTOFF CONCENTRATION FOR DETECTED RESULT: OPIATES: 300 NG/ML UR PHENCYCLIDINE NON DETECTED NON DETECTED 07/05/2024 7:44 PM CDT [facility] Comment: FOR MEDICAL USE ONLY. CUTOFF CONCENTRATION FOR DETECTED RESULT: PCP: 25 NG/ML UR CANNABINOID DETECTED(A) NON DETECTED 07/05/2024 7:44 PM CDT [facility] Comment: FOR MEDICAL USE ONLY. CUTOFF CONCENTRATION FOR DETECTED RESULT: THC (MARIJUANA): 50 NG/ML UR BARBITURATE NON DETECTED NON DETECTED 07/05/2024 7:44 PM CDT [facility] Comment: FOR MEDICAL USE ONLY. CUTOFF CONCENTRATION FOR DETECTED RESULT: BARBITUATES: 200 NG/ML UR FENTANYL NON DETECTED NON DETECTED 07/05/2024 7:44 PM CDT [facility] Comment: FOR MEDICAL USE ONLY. CUTOFF CONCENTRATION FOR DETECTED RESULT: FENTANYL: 1.0 NG/ML Urine Non-Phlebotomy Collection / Unknown 07/05/2024 7:25 PM CDT 07/05/2024 7:32 PM CDT us Nancy Villela SHELL FREEZING MACHINE OPERATOR, CUSTOMS ENTRY CLERK URINE ORDERABLES F inal Result [facility] #1 [place] [address] * CT CHEST W/O CONTRAST (02/13/2024 10:23 AM FLIGHT TOWER DISPATCHER) Anatomical Region Laterality Modality Chest N/A Computed Tomogra phy 02/20/2024 1:40 PM FLIGHT TOWER DISPATCHER Impressions 02/20/2024 1:43 PM FLIGHT TOWER DISPATCHER IMPRESSION: 1. Interval decrease in density of [...] 4. No lymphadenopathy. Narrative 02/20/2024 1:43 PM FLIGHT TOWER DISPATCHER EXAM DESCRIPTION: CT CHEST W/O CONTRAST REASON [...] Shira Ch M.D. TW: ROGELIO Report ID: [id number] Reading Location: [id number] Procedure Note Shira Ch MD - 02/20/2024 [...] Shira Ch M.D. TW: ROGELIO Report ID: [id number] Reading Location: [id number] IMPRESSION: 1. Interval decrease in density of [...] present. 4. No lymphadenopathy. Veda Motley APRN, MEHNAZ IMG CT ORDERABLES Fin al Result from Last 3 Months or Most Recently Relevant to Health Maintenance Insurance [place]ID [place] Care Teams Lap Winding Machine Operator Relationship Specialty Start Date End Date Janes Elkins PAC [address] [place] [address] PCP - General Physician Garage Hand 04/07/21 Vdea Motley APRN, CUSTOMS ENTRY CLERK #2 [facility] [address] [place] [address] Nurse Practitioner Advanced Practice Nurse 05/18/21 Miriam Aquino APRN, CUSTOMS ENTRY CLERK #2 [place] [address] Nurse Practitioner Advanced Practice Nurse 05/26/22 Sergio Hussein MD #2 [facility] [address] [place] [address] Consulting Physician Colon and Rectal Surgery 07/24/23
--- OUTSIDE RECORDS SUMMARY | 2024-09-30 13:13 | XMS_ITS | Clinical Summary ---
Author Organization [facility] Address 1 [place] [address] Care Team Providers Care Wound Care Coordinator Name Role Phone Janes Elkins Primary Care Provider [phone] Arleth Morris MD Unavailable [phone] Allergies Active Allergy Reactions Criticality Noted Date [...] as needed for pain 20 tablet 05/22/19 24 Active medroxyPROGESTERon e (PROVERA) 10 mg tablet TAKE 1 TABLET (10 MG TOTAL) BY MOUTH NIGHTLY FOR 20 DAYS AND THEN 10 DAYS OFF. 20 tablet 11 10/30/19 24 Active Additional Information Patient not taking.Reported [...] multiples MIs and CVAs -Primary OB in [place] - offered hyst/BSO given patient concern for gynecologic cause of symptoms. Evaluated by pulmonology and determined to be high risk for anesthesia given severe COPD. Referred to [facility] for further consideration of future surgical management. -Followed by GI ([facility]) for chronic abdominal pain/ IBS-C: last [...] she is not on any treatment. -General surgery([facility]) 07/30/23: Low concern for biliary etiology [...] post- menopausal state. -Discussed patient case with [facility]IG[facility]- agreed that patient unlikely to benefit from [...] resources for pelvic floor PT including PT security alarm installer for options closer to her home [] Referrals placed for pain management, [facility], and pain psychology - message also sent to specific provider recommended by MIGMarcelo (Cassy Guevara) [] Encouraged continued follow up [...] with bright red blood -underwent hsc/D&C at [place] in 05/2023, pathology benign -provera per primary [...] 01/30/2023 Assessment & Plan (01/30/2023 1:02 PM ELECTRODE CLEANING MACHINE OPERATOR): Discussed possible causes of decreased [...] Department Care Team Description 09/07/2024 Results Follow-Up [place] [facility] [address] [place] [address] Hiram Moulton NP Pap with reflex to High Risk HPV and Genotyping (Cytology Component) 09/02/2024 11:50 AM CDT - 09/02/2024 11:59 PM CDT Hospital Encounter [address] [address] Well woman exam Discharge Disposition: Discharge to home or self care 09/02/2024 11:00 AM CDT Office Visit [facility] [address] [place] [address] Hiram Moulton NP Well woman exam (Primary Dx); Encounter for screening mammogram for malignant neoplasm of breast 08/13/2024 2:01 PM CDT - 08/13/2024 11:59 PM CDT Hospital Encounter [facility] Cardiology 1 [place] [address] Palpitations; SOB (shortness of breath); Precordial pain; Abnormal electrocardiogram (ECG) (EKG); Personal history of COVID-19 Discharge Disposition: Discharge to home or self care 07/31/2024 Telephone [facility] Care at [address] [address] Nadia Linda MA from Last 3 Months Surgical History Surgery Date Site/Laterality Comments NECK SURGERY SECTION ECTOPIC SURGERY Medical History Medical History Date Comments History of multiple strokes Heart attack (HCC) Fibromyalgia Cervical cancer (HCC) 1992 Throat cancer (HCC) 2016 Cryopathy [...] on file Legal Sex Female 10:34 AM ELECTRODE CLEANING MACHINE OPERATOR Gender Identity Not on file [...] AM CDT Pulse 114 01/07/2024 4:30 PM ELECTRODE CLEANING MACHINE OPERATOR pt expresses anxiety and is visibly emotional at appointment. Temperature 36.3 C (97.4 F) 05/22/2023 1:24 PM CDT Respiratory Rate 16 05/22/2023 1:24 PM CDT Oxygen Saturation 93% 01/07/2024 4:3 0 PM ELECTRODE CLEANING MACHINE OPERATOR Rn discussed with pt. Per [...] Health Maintenance Due Date Last Done Comments Colon Cancer Screening-Colonoscopy 1971 Hepatitis C Screening 1971 Hepatitis B Screening 1989 Pneumococcal vaccine <65 (1 of 2 - PCV) 1990 Zoster Vaccine (1 of 2) 2021 Breast Cancer Screening-Mammogram 04/10/2024 024, 02/04/2013 Influenza Vaccine (#1) 2024 Cervical Cancer Screening 09/02/2025 09/02/2024 Depression Screening 09/02/2025 09/02/2024, 05/02/2023, 03/18/2023 Regular Well Visit/Exam 18-64 09/02/2025 09/02/2024, 03/18/2023 DTaP/Tdap/Td Vaccine (3 - Td or Tdap) [...] Read Routine (OP Routine) 04/10/2023 8:07 AM ELECTRODE CLEANING MACHINE OPERATOR Encounter for screening mammogram for malignant neoplasm of breast from Last 3 Months or Most Recently Relevant to Health Maintenance Results * Pap with reflex to High Risk HPV and Genotyping (Cytology Component) (09/02/2024 10:04 AM CDT) Thin prep (Pap test) 09/02/2024 10:04 AM CDT 09/02/2024 10:04 AM CDT Narrative PATHOLOGY CH - 09/07/2024 1:24 PM CDT [facility] Department of Pathology [address] [place] [address] Final Report Note to Patients: This report [...] the details. Patient Name: AFRICA HARDEN Address: [address] [place] [address]- Gender: F : 1970 (Age: 54) Service: Location: N : [id number] [facility] #: [id number] Patient Type: SPECIMEN Taken: 09/02/2024 Received: 09/02/2024 Accessioned:: 09/03/2024 Reported: 09/07/2024 Physician(s): LOGAN Royal WHNP Diagnosis: SOURCE OF SPECIMEN Imaged Thinprep Pap Test w/ Reflex HPV - Vehicle Body Builder Cytologic Material: STATEMENT OF ADEQUACY - Specimen satisfactory for interpretation; endocervical/transformation zone component absent or insufficient GENERAL CATEGORIZATION: - Negative for intraepithelial lesion or malignancy FLORA Erazo(ASCP) Report Electronically Reviewed and Signed Out By FLORA Erazo(ASCP) 09/07/2024 13:24:05Specimen(s) Received: A: Imaged Thinprep Pap Test w/ Reflex HPV - Vehicle Body Builder Cytologic Material Clinical History: The Pap test [...] determined by the Surgical Pathology Department at [facility] as part of an ongoing quality project manager program and in compliance with federally mandated [...] characteristics determined by the Surgical Pathology Department [facility]. It has not been cleared or approved by the U. S. Food and Drug Administration. Hiram Moulton NP LAB CYTOLOGY ORDERABLES Fin al Result Performing Organization Address City/[facility] Co de Phone Number [facility] [address] [place] [address] * ThinPrep processing (Molecular component) (09/02/2024 8:00 AM CDT) [facility] ThinPrep processing (Molecular component) Specimen received for processing. [facility] Comment:Testing performed by : [facility], [address] [place] [address]., [id number] Endocervical 09/02/2024 8:00 AM CDT 09/03/2024 1:23 PM CDT Hiram Moulton NP LAB BODY FLUIDS AND STOOLS ORDERABLES Final Result Performing Organization Address [facility] Co de Phone Number [facility] [address] Department [place] [address] [facility] * TRANSTHORACIC ECHO (TTE) COMPLETE W DOPPLER/CF WO CONTRAST W BUBBLE (08/13/2024 3:19 PM CDT) Estimated EF 70 % CONS SCIMAGE Anatomical Region Laterality Modality Ultrasound 08/13/2024 2:33 PM CDT Narrative 08/13/2024 3:[address]T [address] [place] [address] Echocardiogram Report Patient Name: AFRICA HARDEN : [...] with limited views. Electronically Signed By: Benny SIMPSON 08/13/2024 3:31:16 PM CDT Procedure Note Benny Del Real MD - 08/13/[address] [place] [address] Echocardiogram Report Patient Name: AFRICA HARDEN : [...] with limited views. Electronically Signed By: Benny SIMPSON 08/13/2024 3:31:16 PM CDT us Provider Transcribed Order CV ECHO PROCEDURES Fi nal Result * Screening Mammogram Bilateral W Kevin (04/10/2023 8:07 AM ELECTRODE CLEANING MACHINE OPERATOR) Anatomical Region Laterality Modality Breast Bilateral Mammography 04/10/2023 8:21 AM ELECTRODE CLEANING MACHINE OPERATOR Impressions 04/10/2023 8:21 AM ELECTRODE CLEANING MACHINE OPERATOR There is no mammographic evidence of malignancy. A 1 year screening mammogram is recommended. BI-RADS: 1 - Negative. The patient has been or will be contacted. The patient will be entered into a reminder system with a target due date of 1 year for her next mammogram. Electronically signed by: Felipe Leo M.D. Narrative 04/10/2023 8:21 AM ELECTRODE CLEANING MACHINE OPERATOR EXAMINATION: SCREENING MAMMOGRAM BILATERAL W [...] been no suspicious interval change. Hiram Moulton MIXER CRANE OPERATOR IMG MAMMO PROCEDURES Final Result from Last 3 Months or Most Recently Relevant to Health Maintenance Insurance [facility] [employer] Care Teams Wound Care Coordinator Relationship Specialty Start Date End Date Janes Elkins PA [address] [place] [address] PCP - General 12/15/19 Arleth Morris MD [address] [place] [address] DR V[place]LEGAS [address] [place] [address] Consulting Physician Obstetrics and Gynecology 05/22/23
--- OUTSIDE RECORDS SUMMARY | 2024-09-30 13:13 | XMS_ITS | Encounter Summary ---
Author Organization [facility] Address [address] [place] [address] Phone Care Team Providers Care Manager Managed Care Name Role Phone Janes Elkins Naveen FAITH Primary Care Provider [phone] Veda Motley APRN, JUSTOWRITER OPERATOR Unavailable [phone] Miriam Aquino APRN, JUSTOWRITER OPERATOR Unavailable Sergio Hussein MD Unavailable Reason for Visit * Reason Comments Medication Refill Encounter Details Date Type Department Care Team (Late st Contact Info) Description 09/23/2021 Refill [facility] - Pulmonology & Sleep Medicine [facility] #2 [place] [phone] Veda Motley APRN, MEHNAZ #[address] [address] Medication Refill Social History Tobacco Use Types [...] 08/17/21 Office Visit Veda Motley APRN, MEHNAZ [facility] Pul & Sleep [facility] 05/18/21 Office Visit Veda Motley APRN, CNP [facility] & Sleep [facility] Showing recent visits within past 365 days [...] Group - Pulmonology & Sleep Medicine - [place] #[address] [place] [address] Veda Motley APRN, JUSTOWRITER OPERATOR #[address] [address] documented as of this encounter Visit Diagnoses Not on filedocumented in this encounter Additional Health Concerns Infection Onset Date Last Indicated Resolved Time COVID - 19 02/15/2022 02/15/2022 02/25/2022 12:1 6 AM STONE SANDBLASTER Respiratory Rule-Out 02/15/2022 02/15/2022 022 4:32 PM STONE SANDBLASTER COVID - 19 04/08/2023 04/10/2023 04/20/2023 12:1 6 AM STONE SANDBLASTER documented as of this encounter Care Teams Manager Managed Care Relationship Specialty Start Date End Date Janes Elkins, [facility] [address] [place] [address] PCP - General Physician Customer Leader 04/07/21 Veda Motley APRN, JUSTOWRITER OPERATOR #2 [facility] [address] [place] [address] Nurse Practitioner Advanced Practice Nurse 05/18/21 Miriam Aquino APRN, JUSTOWRITER OPERATOR #2 [place] [address] Nurse Practitioner Advanced Practice Nurse 05/26/22 Sergio Hussein MD #2 [facility] [address] [place] [address] Consulting Physician Colon and Rectal Surgery 07/24/23 documented as of this encounter
--- OUTSIDE RECORDS SUMMARY | 2024-09-30 13:13 | XMS_ITS | Encounter Summary ---
Author Organization [facility] Address [address] [place] [address] Phone Care Team Providers Care Lacquerer Name Role Phone Janes Elkins Naveen FAITH Primary Care Provider Veda Motley APRN, OVEN DUMPER Unavailable Miriam Aquino APRN, OVEN DUMPER Unavailable Sergio Hussein MD Unavailable Reason for Visit * Reason Comments Medication Refill Encounter Details Date Type Department Care Team (Late st Contact Info) Description 12/06/2022 [facility]ill [facility] #2 [place] [phone] Miriam Aquino APRN, OVEN DUMPER #2 [place] [address] Medication Refill Social History Tobacco Use Types [...] 07/06/22 Office Visit Miriam Aquino APRN, MEHNAZ [facility] Gastro [place] Showing recent visits within past 365 days [...] Group - Pulmonology & Sleep Medicine - [place] #2 [place] [address] Veda Motley APRN, MEHNAZ #[address] [address] documented as of this encounter Visit Diagnoses Diagnosis Nausea and vomiting, unspecified vomiting type documented in this encounter Additional Health Concerns Infection Onset Date Last Indicated Resolved Time COVID - 19 04/08/2023 04/10/2023 04/20/2023 12:1 6 AM GAS WELDING EQUIPMENT MECHANIC documented as of this encounter Care Teams Lacquerer Relationship Specialty Start Date End Date Janes Elkins, VIANNEY [address] [place] [address] PCP - General Physician Water [employer]er Systems Superintendent 04/07/21 Veda Motley APRN, OVEN DUMPER #2 [facility] [address] [place] [address] Nurse Practitioner Advanced Practice Nurse 05/18/21 Miriam Aquino APRN, OVEN DUMPER #2 [place] [address] Nurse Practitioner Advanced Practice Nurse 05/26/22 Sergio Hussein MD #[address] [address] Consulting Physician Colon and Rectal Surgery 07/24/23 documented as of this encounter
--- OUTSIDE RECORDS SUMMARY | 2024-09-30 13:13 | XMS_ITS | Encounter Summary ---
Author Organization [facility] Address [address] [place] [address] Care Team Providers Care Oil Field Laborer Name Role Phone aJnes Elkins Primary Care Provider [phone] Arleth Morris MD Unavailable [phone] Encounter Details Date Type Department Care Team (Late st Contact Info) Description 06/13/[address] [address] Lauren Lerner, RT Social History Tobacco Use Types Packs/Day Years Used Date Smoking Tobacco: Former Cigarettes Q uit: 11/09/2018 Smokeless Tobacco: Never Alcohol Use Standard Drinks/Week Comments Not Currently 0 (1 standard drink = 0.6 oz pur e alcohol) Comments No Sex and Gender Information Value Date Recorded Sex Assigned at Not on file Legal Sex Female 10:34 AM BAKER PASTRY Gender Identity Not on file Sexual Orientation Not on file documented as of this encounter Plan of Treatment Not on file documented as of this encounter Visit Diagnoses Not on filedocumented in this encounter Additional Health Concerns Infection Onset Date Last Indicated Resolved Time 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
--- OUTSIDE RECORDS SUMMARY | 2024-09-30 13:13 | XMS_ITS | Encounter Summary ---
Author Organization [facility] Address [address] [place] [address] Phone Care Team Providers Care Fruit And Vegetable Inspector Name Role Phone Janes Elkins Naveen FIATH Primary Care Provider Veda Motley APRN, FLOOR SURFACER Unavailable Miriam Aquino APRN, FLOOR SURFACER Unavailable Sergio Hussein MD Unavailable Reason for Visit * Reason Comments Medication Refill Encounter Details Date Type Department Care Team (Late st Contact Info) Description 12/05/2021 Refill [facility] - Pulmonology & Sleep Medicine [facility] [address] [place] [id number] Veda Motley APRN, MEHNAZ #[address] [address] Medication Refill Social History Tobacco Use Types [...] Group - Pulmonology & Sleep Medicine - [place] [address] [place] [address] Veda Motley APRN, FLOOR SURFACER #[address] [address] documented as of this encounter Visit Diagnoses Not on filedocumented in this encounter Additional Health Concerns Infection Onset Date Last Indicated Resolved Time COVID - 19 02/15/2022 02/15/2022 02/25/2022 12:1 6 AM STUDY DIRECTOR Respiratory Rule-Out 02/15/2022 02/15/2022 022 4:32 PM STUDY DIRECTOR COVID - 19 04/08/2023 04/10/2023 04/20/2023 12:1 6 AM STUDY DIRECTOR documented as of this encounter Care Teams Fruit And Vegetable Inspector Relationship Specialty Start Date End Date Janes Elkins, [facility] [address] [place] [address] PCP - General Physician Records Coordinator 04/07/21 Veda Motley APRN, FLOOR SURFACER #[address] [address] Nurse Practitioner Advanced Practice Nurse 05/18/21 Miriam Aquino APRN, FLOOR SURFACER #2 [place] [address] Nurse Practitioner Advanced Practice Nurse 05/26/22 Sergio Hussein MD #[address] [address] Consulting Physician Colon and Rectal Surgery 07/24/23 documented as of this encounter
--- OUTSIDE RECORDS SUMMARY | 2024-09-30 13:13 | XMS_ITS | Encounter Summary ---
Author Organization [facility] Address [address] [place] [address] Phone Care Team Providers Care Field Kiln Burner Name Role Phone Janes Elkins Naveen FAITH Primary Care Provider Veda Motley APRN, TRUCK LOADER Unavailable Miriam Aquino APRN, TRUCK LOADER Unavailable Sergio Hussein MD Unavailable Reason for Visit * Reason Comments Medication Refill Encounter Details Date Type Department Care Team (Late st Contact Info) Description 10/12/2022 [facility]ill [facility] - [facility] [address]2 [place] [phone] Miriam Aquino APRN, TRUCK LOADER [address]2 [place] [address] Medication Refill Social History Tobacco Use Types [...] Medicine [facility] [address] [place] [address] Veda Motley APRN, MEHNAZ #[address] [address] documented as of this encounter Visit Diagnoses Diagnosis Generalized abdominal pain Abdominal pain, generalized documented in this encounter Additional Health Concerns Infection Onset Date Last Indicated Resolved Time COVID - 19 04/08/2023 04/10/2023 04/20/2023 12:1 6 AM ARTIST BLACKSMITH documented as of this encounter Care Teams Field Kiln Burner Relationship Specialty Start Date End Date Janes Elkins PAC [address] [place] [address] PCP - General Physician Lifestyle Director 04/07/21 Veda Motley APRN, MEHNAZ #[address] [address] Nurse Practitioner Advanced Practice Nurse 05/18/21 Miriam Aquino APRN, TRUCK LOADER [address]2 [place] [address] Nurse Practitioner Advanced Practice Nurse 05/26/22 Sergio Hussein MD [address] [address] Consulting Physician Colon and Rectal Surgery 07/24/23 documented as of this encounter
--- OUTSIDE RECORDS SUMMARY | 2024-09-30 13:13 | XMS_ITS | Encounter Summary ---
Author Organization [facility] Address [address] [place] [address] Phone Care Team Providers Care Last Waxer Name Role Phone Janes Elkins Naveen FAITH Primary Care Provider Veda Motley APRN, PEDICURIST Unavailable [phone] Miriam Aquino APRN, PEDICURIST Unavailable Sergio Hussein MD Unavailable Reason for Visit * Reason Comments Medication Refill Encounter Details Date Type Department Care Team (Late st Contact Info) Description 10/18/2021 Refill [facility] - Pulmonology & Sleep Medicine [facility] [address]2 [place] [phone] Veda Motley APRN, MEHNAZ #[address] [address] Medication Refill Social History Tobacco Use Types [...] 08/17/21 Office Visit Veda Motley APRN, MEHNAZ [facility] Pul & [facility] 05/18/21 Office Visit Veda Motley APRN, CNP [facility] Pul & Sleep [facility] Showing recent visits within past 365 [...] Pulmonology & Sleep Medicine - [place] [address] [place] [address] Veda Motley APRN, MEHNAZ #[address] [address] documented as of this encounter Visit Diagnoses Not on filedocumented in this encounter Additional Health Concerns Infection Onset Date Last Indicated Resolved Time COVID - 19 02/15/2022 02/15/2022 02/25/2022 12:1 6 AM SPOT MAN Respiratory Rule-Out 02/15/2022 02/15/2022 022 4:32 PM SPOT MAN COVID - 19 04/08/2023 04/10/2023 04/20/2023 12:1 6 AM SPOT MAN documented as of this encounter Care Teams Last Waxer Relationship Specialty Start Date End Date Janes Elkins PAC [address] [place] [address] PCP - General Physician Delivery Route Driver 04/07/21 Veda Motley APRN, PEDICURIST #2 [facility] [address] [place] [address] Nurse Practitioner Advanced Practice Nurse 05/18/21 Miriam Aquino APRN, PEDICURIST #2 [place] [address] Nurse Practitioner Advanced Practice Nurse 05/26/22 Sergio Hussein MD #2 [facility] [address] [place] [address] Consulting Physician Colon and Rectal Surgery 07/24/23 documented as of this encounter
== END 2024-09-30 13:01 | disposition home or self-care (01) ==
LOC: CHSIMG 13:03
PROVIDERS: PCP Physician Assistant; Visit Provider Physician Assistant
DX: B87.3 Nasopharyngeal myiasis (principal)
CPT/HCPCS: 70486

== ENCOUNTER 2025-01-08 10:23 | Emergency (ER) | payer OTHER, SELFPAY ==
[2025-01-08] VITALS (18 sets, daily range): BP systolic 93–139; BP diastolic 61–77; PULSE 74–112; RESP 18–20; TEMP 36.6; O2SAT 91–97
--- NOTE | ~2025-01-08 | XR_ITS ---
EXAMINATION: XR chest 1V portable DATE: 01/08/2025 11:39 INDICATION: Shortness breath TECHNIQUE: A single frontal view of the chest was obtained. COMPARISON: June 25, 2024 FINDINGS: The lungs are clear. Heart shadow normal. Disc hardware in the lower cervical spine stable along with surgical clips left thyroid region. No pneumothorax or subdiaphragmatic free air seen. IMPRESSION: 1. No focal acute process. Reviewed, dictated and finalized at location A. SKATER IMPRESSION: 1. No focal acute process.
--- NOTE | ~2025-01-08 | CT_ITS ---
EXAMINATION: CT brain wo con DATE: 01/08/2025 11:38 INDICATION: Headache and seizure TECHNIQUE: Computed tomography (CT) of the head was performed without intravenous contrast. Sagittal and coronal reconstructions were performed. The mA was adjusted according to patient size. Iterative reconstruction technique was employed. The dose-length product was 681.00 mGy-cm. COMPARISON: head CT dated 06/12/2023 FINDINGS: No acute intracranial hemorrhage, acute infarction or abnormal extra axial fluid collection. Ventricles are normal and symmetric. No mass/mass effect. The orbits, paranasal sinuses and mastoid air cells are normal. IMPRESSION: 1. Normal head CT. Reviewed, dictated and finalized at location A. SS REGISTRAR IMPRESSION: 1. Normal head CT.
--- NOTE | 2025-01-08 10:25 | ED_ITS ---
HPI - Seizure General Chief Complaint: Headache Stated Complaint: headache & sore throat Time Seen by Provider: 01/08/25 10:25 Source: patient and family Mode of arrival: ambulatory Limitations: no limitations History of Present Illness HPI Narrative: Patient is a 54-year-old female with multiple complaints at this time and sent by the primary doctor for possible side effects/allergic reaction to her new statin and nitro. One month ago she started atorvastatin and isosorbide. She has heart disease. She has respiratory disease. She is currently having some tightness in the throat and down to the chest. She uses oxygen as needed. She has a sore throat. She is short of breath. She has recurrent chest pains. She has pseudoseizures. She has had a significant headache for the past 3 weeks. The headache correlates with isosorbide addition. Patient was told by the primary doctor to come to the ER for further evaluation with the new medications and possible side effects versus allergic reaction. Further they told her to stop taking isosorbide with the headaches. She is having facial pain and pressure is well. MD complaint: other (Pseudoseizures and was told no medication needed) Onset (ago): week(s) (3 weeks of headache) Description of Episode: other (Patient is getting recurrent pseudoseizures) -: second(s) Witnessed: Yes - by Bystander Trauma: No Seizure History: Yes (Pseudoseizures) Place: home Possible Precipitating Event: stress Associated symptoms: chest pain (From time to time and was started on isosorbide), cough, malaise and shortness of breath Treatments prior to arrival: none Are you currently using a commercial property administrator's license (CDL) as part of your employment, either self-employed or otherwise?: No Related Data Home Medications ?Medication ?Instructions ?Recorded ?Confirmed ?Last Taken ?Type albuterol sulfate 90 mcg/actuation 2 puff inhalation Q 4H PRN 02/22/19 08/14/23 08/13/23 History aerosol inhaler Shortness Of Breath Or Wheez ing ipratropium bromide 17 2 puff inhalation QID 08/14/23 06/12/23 History mcg/actuation HFA aerosol inhaler (Atrovent HFA) famotidine 40 mg tablet 40 mg PO DAILY 01/08/2208/0208/13/23 History fluticasone fur. 100 mcg-umeclid 1 inh inhalation BID 01/08/22 08/14/23 08/13/23 History 62.5 mcg-vilant 25 mcg inhalat.powder (Trelegy Ellipta) hydroxyzine HCl 25 mg tablet 25 mg PO BID 01/08/2202/2408/13/23 History meloxicam 15 mg tablet 15 mg PO DAILY 01/08/2208/0208/13/23 History montelukast 10 mg tablet 10 mg PO DAILY 01/08/2208/0208/13/23 History roflumilast 500 mcg tablet 500 mcg PO DAILY 08/14/23 0 08/14/23 08/13/23 History Allergies Allergy/AdvReac Type Severity Reaction Status Date / Time latex Allergy Rash Verified 01/08/25 10:27 Review of Systems 2 Review of Systems: All systems reviewed & are unremarkable except as noted in HPI and below Constitutional: Constitutional: Reports no additional constitutional complaints Eyes: Eyes: Reports no additional eye complaints ENT: Reports system reviewed and no additional complaints, except as documented Cardiovascular: Cardiovascular: Reports no additional cardiovascular complaints Respiratory: Respiratory: Reports no additional respiratory complaints Gastrointestinal: Gastrointestinal: Reports no additional gastrointestinal complaints Genitourinary: Genitourinary: Reports no additional female genitourinary complaints Musculoskeletal: Musculoskeletal: Reports no additional musculoskeletal complaints Integumentary/Breasts: Skin/Breast: Reports system reviewed and no additional complaints, except as docu Neurologic: Reports system reviewed and no additional complaints, except as documented Psychiatric: Psychiatric: Reports no additional psychiatric complaints Endocrine: Endocrine: Reports no additional endocrine complaints Hematologic/Lymphatic: Hematologic/Lymphatic: Reports no additional hematologic/lymphatic complaints Allergic/Immunologic: Allergic/Immunologic: Reports no additional allergic/immunologic complaints PMFSH Past Medical History Medical History Asthma exacerbation in COPD Surgical History Surgical History H/O neck surgery Social History Social History Alcohol intake: former Substance use: former Substance use type: marijuana Do You Feel Safe in your Home?: No Lack of Transportation: No Lack of Food: Never True Current Housing: I Have Housing Concerned About Future Housing: No Difficulty Paying Gas/Electric Bills: No Difficulty Paying for Meds: No Currently Unemployed: No Education: Decline to Answer Difficulty w/ Childcare or Family Care: No Spiritual care concerns: No Exam 2 Const: General: alert Nutritional Appearance: well nourished O rientation/consciousness: patient oriented x3 Other: Acute distress with her headache HENMT: Head: normal to inspection Ears: external ears normal F nathaniel/Nose/Sinus: Normal external nose present Throat: posterior oropharynx normal and uvula midline Eyes: Conjunctivae: conjunctivae normal Pupils: Equal, round and reactive pupils present EOM: EOMs intact bilaterally Neck: Neck: normal visual inspection Chest: Chest palpation & inspection: normal inspection of the chest Resp: Effort & Inspection: abnormal respiratory effort, not labored, no retractions, tachypneic and no use of accessory muscles Auscultation: not clear to auscultation bilaterally, no crackles, no rales, rhonchi, no wheezes, breath sounds present and diminished lung sounds Cardio: Rate: regular rate Rhythm: regular rhythm Heart sounds: no murmurs GI: Inspection: non-distended GI Palp: Yes Soft to palpation and No Tenderness to palpation present (GI) Auscultation: normal bowel sounds : General: Yes bladder normal to palpation Back/Spine/Pelvis: Back: no CVA tenderness Skin: General skin exam: normal color Rashes: no rashes Wounds: no wounds Neuro: General: patient oriented x3, moves all extremities and no meningeal signs Extrem: General: normal to inspection Psych: Appearance: grossly normal Mental Status: mental status grossly normal Affect: normal affect Attitude: cooperative Course Vital Signs Vital signs: Vital Signs Temperature 36.6 C 01/08/25 10:24 Pulse Rate 112 H 01/08/25 10:24 Respiratory Rate 20 01/08/25 10:24 Blood Pressure 139/73 01/08/25 10:24 Pulse Oximetry 94 01/08/25 10:24 Oxygen Delivery Room Air 01/08/25 10:24 Temperature 36.6 C 01/08/25 10:24 Pulse Rate 86 01/08/25 12:15 Respiratory Rate 18 01/08/25 12:15 Blood Pressure 114/75 01/08/25 12:45 Pulse Oximetry 91 01/08/25 12:46 Oxygen Delivery Room Air 01/08/25 12:45 MDM - Seizure MDM Narrative Medical decision making narrative: Patient is a 54-year-old female with multiple complaints and specifically her headache and her respiratory and cardiac need evaluation at this time. EKG and cardiac workup. Pulmonary workup. Steroids for possible side effects of medication and COPD flare. Toradol for pain. Lab Data Attestation: I reviewed the patient's lab results. 01/08/25 11:26 01/08/25 11:26 Labs: Lab Results 01/08/25 01/08/25 01/08/25 Range/Units 11:12 11: 11:40 WBC 6.4 (4.8-10.8) K/mm3 RBC 4.24 (4.20-5.40) M/mm3 Hgb 12.0 (12.0-15.0) g/dL Hct 38.5 (35.0-49.0) % MCV 90.8 (78.0-102.0) fL MCH 28.3 (27.0-31.0) pg MCHC 31.2 L (32-36) g/dL RDW 12.7 (11.6-14.4) % Plt Count 357 (150-420) K/mm3 MPV 8.9 L (9.2-11.8) fl Immature Gran % (Auto) Not Reportable Neut % (Auto) Not Reportable Lymph % (Auto) Not Reportable [place] % (Auto) Not Reportable Eos % (Auto) Not Reportable Baso % (Auto) Not Reportable Lymph # (Auto) Not Reportable [place] # (Auto) Not Reportable Eos # (Auto) Not Reportable Baso # (Auto) Not Reportable Abs Immat Gran (auto) Not Reportable Absolute Neuts (auto) Not Reportable Absolute Nucleated RBC Not Reportable Total Counted 100 Neutrophils % (Manual) 39 L (46-73) % Band Neutrophils % 0 (0-6) % Lymphocytes % (Manual) 40 (18-44) % Monocytes % (Manual) 13 H (3-9) % Eosinophils % (Manual) 7 H (1-6) % Nucleated RBC % Not Reportable Abs Neuts (Manual) 2.49 (1.3-6.7) K/mm3 Abs Lymphs (Manual) 2.56 (1.1-4.5) K/mm3 Abs Monocytes (Manual) 0.83 (0.1-0.90) K/mm3 Absolute Eos (Manual) 0.44 (0.02-0.50) K/mm3 Platelet Estimate Adequate (Adequate) Schistocytes Not Reportable PT 11.1 (9.50-12.1) Seconds INR 1.0 APTT 26.2 (23.9-30.70) Sec D-Dimer 0.24 (0.19-0.50) mg/L Sodium 143 (137-145) mmol/L Potassium 4.2 (3.4-5.0) mmol/L Chloride 104 (98-107) mmol/L Carbon Dioxide 33 H (22-30) mmol/L Anion Gap 6 (4-12) mmol/L BUN 16 D (7-17) mg/dL Creatinine 0.93 (0.7-1.0) mg/dL Estim Creat Clear Calc 56 ml/min Estimated GFR > 60 (59 - ) Glucose 92 (65-110) mg/dL Calculated Osmolality 297 H (285-295) mOsm/kg Lactic Acid 1.3 (0.7-2.0) mmol/L Calcium 9.2 (8.4-10.2) mg/dL Total Bilirubin 1.2 (0.2-1.3) mg/dL AST 28 (14-36) U/L ALT 25 (6-35) U/L Alkaline Phosphatase 79 (38-126) U/L Troponin I < 0.012 (0.000-0.034) ng/mL NT-Pro-B Natriuret Pep 209 H (19.9-100) pg/mL Total Protein 6.9 (6.3-8.2) g/dL Albumin 4.3 (3.5-5.1) g/dL Urine Color Yellow (Yellow) Urine Appearance Clear (Clear) Urine pH 6.0 (5.0-8.0) Ur Specific [place] 1.025 H (1.010-1.020) Urine Protein Negative (Negative) Urine Glucose (UA) Negative (Negative) Urine Ketones Negative (Negative) Ur Blood (Man) Negative (Negative) Urine Nitrate Negative (Negative) Urine Bilirubin Negative (Negative) Urine Urobilinogen 0.2 (0.2-1.0) mg/dL Leukocyte Esterase Rfl Negative (Negative) HERNANDO/UL Influenza A (RT-PCR) Negative (Negative) Influenza B (RT-PCR) Negative (Negative) RSV (RT-PCR) Negative (Negative) SARS-CoV-2 RNA (RT-PCR) Negative (Negative) Group A Strep (PCR) Not detected (Negative) Imaging Data Attestation: I personally reviewed and interpreted this imaging study as follows: Radiologist's impression: Chest x-rays negative for acute process CT scan of the head is negative for acute process ECG Data EKG #1: Attestation: I personally reviewed and interpreted this ECG as follows: ECG completion date: 01/08/25 ECG completion time: 11:17 EKG Interpretation: normal rate, sinus rhythm, no ectopy, no ST changes, normal QRS, normal QT, right axis and no acute changes Discharge Plan Discharge Clinical Impression: COPD with exacerbation, Medication side effect, Chronic hypoxic respiratory failure, on home oxygen therapy Cephalgia Qualifiers: Headache type: unspecified Headache chronicity pattern: acute headache I ntractability: not intractable Qualified Code(s): R51.9 - Headache, unspecified Patient Disposition: Home Condition: Stable Instructions: COPD (Chronic Obstructive Pulmonary Disease) (DC), Acute Headache (ED) Additional Instructions: Please stop your 2 new medications of atorvastatin and isosorbide. Talk to the doctor about making medication adjustments with these medicines that we have stopped at this time. Remember to use your home oxygen when needed. Patient Language: [place] Islander Prescriptions: New methylprednisolone [Medrol (Peng)] 4 mg tablets,dose pack See Rx Instructions .ROUTE .COMPLEX Qty: 21 0RF Rx Instructions: orally per package directions No Action albuterol sulfate 90 mcg/actuation HFA aerosol inhaler 2 puff INHALATION Q4H PRN (Reason: Shortness Of Breath Or Wheezing) Atrovent HFA 17 mcg/actuation HFA aerosol inhaler 2 puff INHALATION QID meloxicam 15 mg tablet 15 mg PO DAILY famotidine 40 mg tablet 40 mg PO DAILY montelukast 10 mg tablet 10 mg PO DAILY hydroxyzine HCl 25 mg tablet 25 mg PO BID Trelegy Ellipta 100-62.5-25 mcg blister with device 1 inh INHALATION BID roflumilast 500 mcg tablet 500 mcg PO DAILY guaifenesin [Mucus Relief ER] 600 mg Tablet Extended Release 12hr 1,200 mg PO Q12HR Qty: 14 0RF Follow-up/Referrals: Severo,GAYE Cuenca [Primary Care Provider] Time of Disposition: 12:55
--- NOTE | 2025-01-08 10:52 | PC.NURSE ---
dr bojorquez in room with pt
--- NOTE | 2025-01-08 11:04 | ECG_ITS ---
Test Date: 2025-01-08 11:13:22 Measurements Intervals [place] Rate: 85 P: 78 NE: 118 QRS: 96 QRSD: 78 T: 67 QT: 352 QTc: 420 Interpretive Statements SINUS RHYTHM WITH SHORT NE INTERVAL BORDERLINE RIGHT AXIS DEVIATION [QRS AXIS > 90] ABNORMAL ECG Compared to ECG 06/25/2024 12:49:33 Short NE interval now present Sinus tachycardia no longer present Atrial abnormality no longer present Poor R-wave progression no longer present Electronically Signed On 01-08-2025 17:30:12 REMODELER by Felipe Plunkett M.D.
--- OUTSIDE RECORDS SUMMARY | 2025-01-08 11:06 | XMS_ITS | Encounter Summary ---
Author Organization [facility] Address [address] [place] [address] Phone Care Team Providers Care Pharmacology Teacher Name Role Phone Janes Elkins Naveen FAITH Primary Care Provider [phone] Veda Motley APRN, MECHANICAL ENGINEERING SPECIALIST Unavailable [phone] Miriam Aquino APRN, MECHANICAL ENGINEERING SPECIALIST Unavailable Sergio Hussein MD Unavailable Reason for Visit * Reason Comments Medication Refill Encounter Details Date Type Department Care Team (Late st Contact Info) Description 10/12/2022 Refill [facility] - [facility] #2 [place] [id number] Miriam Aquino APRN, MECHANICAL ENGINEERING SPECIALIST [address] [place] [address] Medication Refill Social History Tobacco Use Types [...] documented in this encounter Plan of Treatment Not on file documented as of this encounter Visit Diagnoses Diagnosis Generalized abdominal pain Abdominal pain, generalized documented in this encounter Additional Health Concerns Infection Onset Date Last Indicated Resolved Time COVID - 19 04/08/2023 04/10/2023 04/20/2023 12:1 6 AM DRONE PILOT documented as of this encounter Care Teams Pharmacology Teacher Relationship Specialty Start Date End Date Janes Elkins PAC [address] [place] [address] PCP - General Physician Vehicle Fare Collector 04/07/21 Veda Motley APRN, MECHANICAL ENGINEERING SPECIALIST #[address] [address] Nurse Practitioner Advanced Practice Nurse 05/18/21 Miriam Aquino APRN, MECHANICAL ENGINEERING SPECIALIST #2 [place] [address] Nurse Practitioner Advanced Practice Nurse 05/26/22 Sergio Hussein MD #[address] [address] Consulting Physician Colon and Rectal Surgery 07/24/23 documented as of this encounter
--- OUTSIDE RECORDS SUMMARY | 2025-01-08 11:06 | XMS_ITS | Encounter Summary ---
Author Organization [facility] Address [address] [place] [address] Phone Care Team Providers Care Crisis Worker Name Role Phone TracyJanes wang Primary Care Provider [phone] Veda Motley APRN, CORNER CUTTER MACHINE OPERATOR Unavailable Miriam Aquino APRN, CORNER CUTTER MACHINE OPERATOR Unavailable Sergio Hussein MD Unavailable Reason for Visit * Reason Comments Medication Refill Encounter Details Date Type Department Care Team (Late st Contact Info) Description 09/23/2021 Refill [facility] - Pulmonology & Sleep Medicine - [place] #[address] [place] [address] Veda Motley APRN, CORNER CUTTER MACHINE OPERATOR #[address] [address] Medication Refill Social History Tobacco Use Types [...] Recorded In the last 10 days, have sana u been in contact with someone who [...] 08/17/21 Office Visit Veda Motley APRN, MEHNAZ [facility] [address] 05/18/21 Office Visit Veda Motley APRN, MEHNAZ [facility] [place] [facility] Showing recent visits within past [...] 19 02/15/2022 02/15/2022 02/25/2022 12:1 6 AM GATE CLERK Respiratory Rule-Out 02/15/2022 02/15/2022 022 4:32 PM GATE CLERK COVID - 19 04/08/2023 04/10/2023 04/20/2023 12:1 6 AM GATE CLERK documented as of this encounter Care Teams Crisis Worker Relationship Specialty Start Date End Date Janes Elkins, [facility] [address] [place] [address] PCP - General Physician Wrapper Stitcher 04/07/21 Veda Motley APRN, CORNER CUTTER MACHINE OPERATOR #2 [facility] [address] [place] [address] Nurse Practitioner Advanced Practice Nurse 05/18/21 Miriam Aquino APRN, CORNER CUTTER MACHINE OPERATOR #2 [place] [address] Nurse Practitioner Advanced Practice Nurse 05/26/22 Sergio Hussein MD #2 [facility] [address] [place] [address] Consulting Physician Colon and Rectal Surgery 07/24/23 documented as of this encounter
--- OUTSIDE RECORDS SUMMARY | 2025-01-08 11:06 | XMS_ITS | Encounter Summary ---
Author Organization [facility] Healthcare Address [address] [place] [address] Care Team Providers Care Field Pipelines Supervisor Name Role Phone Janes Elkins Primary Care Provider [phone] Arleth Morris MD Unavailable [phone] Encounter Details Date Type Department Care Team (Late st Contact Info) Description 06/13/2020 Telephone [facility] [address] [place] [address] Lauren Lerner RT Social History Tobacco Use Types Packs/Day Years Used Date Smoking Tobacco: Former Cigarettes Q uit: 11/09/2018 Smokeless Tobacco: Never Alcohol Use Standard Drinks/Week Comments Not Currently 0 (1 standard drink = 0.6 oz pur e alcohol) Comments No Sex and Gender Information Value Date Recorded Sex Assigned at Not on file Legal Sex Female 10:34 AM ACID SPLICER Gender Identity Not on file Sexual Orientation Not on file documented as of this encounter Plan of Treatment Not on file documented as of this encounter Visit Diagnoses Not on filedocumented in this encounter Additional Health Concerns Infection Onset Date Last Indicated Resolved Time 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
--- OUTSIDE RECORDS SUMMARY | 2025-01-08 11:06 | XMS_ITS | Encounter Summary ---
Author Organization [facility] Address [address] [place] [address] Phone Care Team Providers Care Medic Technician Name Role Phone Janes Elkins Naveen FAITH Primary Care Provider [phone] Veda Motley APRN, SAP BPC DEVELOPER Unavailable [phone] Miriam Aquino APRN, SAP BPC DEVELOPER Unavailable Sergio Hussein MD Unavailable Reason for Visit * Reason Comments Medication Refill Encounter Details Date Type Department Care Team (Late st Contact Info) Description 03/11/2023 Refill [facility] [address] [place] [id number] Miriam Aquino APRN, SAP BPC DEVELOPER [address] [place] [address] Medication Refill Social History Tobacco Use Types [...] Joann Adames RN - 03/11/2023 10:39 AM COLLECTIONS ASSISTANT Per nursing clinical judgement, provider to review [...] Dept 07/06/22 Office Visit Miriam Aquino APRN, SAP BPC DEVELOPER [facility] Showing recent visits within past 365 days and meeting all other requirements Future Appointments No visits were found meeting these conditions. Showing future appointments within next 90 days and meeting all other requirements ECTIONS ASSISTANT documented in this encounter Plan of Treatment Not on file documented as of this encounter Visit Diagnoses Not on filedocumented in this encounter Additional Health Concerns Infection Onset Date Last Indicated Resolved Time COVID - 19 04/08/2023 04/10/2023 04/20/2023 12:1 6 AM COLLECTIONS ASSISTANT documented as of this encounter Care Teams Medic Technician Relationship Specialty Start Date End Date Janes Elkins, VIANNEY [address] [place] [address] PCP - General Physician Elementary School Registrar 04/07/21 Veda Motley APRN, SAP BPC DEVELOPER #[address] [address] Nurse Practitioner Advanced Practice Nurse 05/18/21 Miriam Aquino APRN, SAP BPC DEVELOPER [address] [place] [address] Nurse Practitioner Advanced Practice Nurse 05/26/22 Sergio Hussein MD #[address] [address] Consulting Physician Colon and Rectal Surgery 07/24/23 documented as of this encounter
--- OUTSIDE RECORDS SUMMARY | 2025-01-08 11:06 | XMS_ITS | Clinical Summary ---
Author Organization [facility] Address [address] [place] [address] Care Team Providers Care Synchronous Motor Assembler Name Role Phone None, Provider MD Primary [...] of 2) 2021 COVID-19 Vaccine ( - 2024-2 6 season) 2024 Influenza Adult (#1) 2024 Hepatitis A Vaccines Aged Out No long er eligible based on patient's age to complete this topic Meningococcal B Vaccine Aged Out No l onger eligible based on patient's age to complete this topic Meningococcal Vaccine Aged Out No gricelda chloé eligible based on patient's age to complete this topic RSV Immunizations Under 20 Months Aged Out No longer eligible based on patient's age to complete this topic Insurance Care Teams Synchronous Motor Assembler Relationship Specialty Start Date End Date None, Provider, PCP - General 09/11/18
--- OUTSIDE RECORDS SUMMARY | 2025-01-08 11:06 | XMS_ITS | Encounter Summary ---
Author Organization [facility] Address [address] [place] [address] Phone Care Team Providers Care Farm Advisor Name Role Phone Janes Elkins Naveen FAITH Primary Care Provider [phone] Veda Motley APRN, HEEL ROOM SUPERVISOR Unavailable [phone] Miriam Aquino APRN, HEEL ROOM SUPERVISOR Unavailable Sergio Hussein MD Unavailable Reason for Visit * Reason Comments Medication Refill Encounter Details Date Type Department Care Team (Late st Contact Info) Description 12/06/2022 Refill [facility] - [facility] #[address] [place] [id number] Miriam Aquino APRN, HEEL ROOM SUPERVISOR [address] [place] [address] Medication Refill Social History Tobacco Use Types [...] Dept 07/06/22 Office Visit Miriam Aquino APRN, CNP [facility] Showing recent visits within past [...] 19 04/08/2023 04/10/2023 04/20/2023 12:1 6 AM COLLATERAL SPECIALIST documented as of this encounter Care Teams Farm Advisor Relationship Specialty Start Date End Date Janes Elkins PAC [address] [place] [address] PCP - General Physician Musical Instruments Assembler 04/07/21 Veda Motley APRN, CNP #[address] [address] Nurse Practitioner Advanced Practice Nurse 05/18/21 Miriam Aquino APRN, CNP [facility]2 [facility] [place] [address] Nurse Practitioner Advanced Practice Nurse 05/26/22 Sergio Hussein MD [address] [address] Consulting Physician Colon and Rectal Surgery 07/24/23 documented as of this encounter
--- OUTSIDE RECORDS SUMMARY | 2025-01-08 11:06 | XMS_ITS | Encounter Summary ---
Author Organization [facility] Address [address] [place] [address] Phone Care Team Providers Care Credit Collector Name Role Phone Tracyfelipe Janes FAITH Primary Care Provider [phone] Veda Motley APRN, BONUS CLERK Unavailable [phone] Miriam Aquino APRN, BONUS CLERK Unavailable Sergio Hussein MD Unavailable Reason for Visit * Reason Comments Medication Refill Encounter Details Date Type Department Care Team (Late Contact Info) Description 01/27/2022 Refill [facility] - Pulmonology & [facility] Medicine - [place] [address] [place] [address] Veda Motley APRN, MEHNAZ #[address] [address] Medication Refill Social History Tobacco Use Types Packs/Day Years Used Date Smoking Tobacco: Every Day Cigarettes 0.3 43.8 Started: 1980 Smokeless Tobacco: Never Alcohol Use [...] Jessica Goldberg RN - 01/29/2022 8:22 AM LOWER IN SUPERVISOR Medication failed the protocol, provider to review [...] 08/17/21 Office Visit Veda Motley APRN, MEHNAZ [facility] [address] 05/18/21 Office Visit Veda Motley APRN, MEHNAZ [facility] [address] Showing recent visits within past 365 days and meeting all other requirements Future Appointments Date Type Provider Dept 02/15/22 Appointment Veda Motley APRN, MEHNAZ [facility] [address] Showing future appointments within next 90 days and meeting all other requirements R IN SUPERVISOR documented in this encounter Plan of Treatment Not on file documented as of this encounter Visit Diagnoses Not on filedocumented in this encounter Additional Health Concerns Infection Onset Date Last Indicated Resolved Time COVID - 19 02/15/2022 02/15/2022 02/25/2022 12:1 6 AM LOWER IN SUPERVISOR Respiratory Rule-Out 02/15/2022 02/15/2022 022 4:32 PM LOWER IN SUPERVISOR COVID - 19 04/08/2023 04/10/2023 04/20/2023 12:1 6 AM LOWER IN SUPERVISOR documented as of this encounter Care Teams Credit Collector Relationship Specialty Start Date End Date Janes Elkins, [facility] [address] [place] [address] PCP - General Physician Airfield Operations Specialist 04/07/21 Veda Motley APRN, BONUS CLERK #[address] [address] Nurse Practitioner Advanced Practice Nurse 05/18/21 Miriam Aquino APRN, BONUS CLERK [address] [place] [address] Nurse Practitioner Advanced Practice Nurse 05/26/22 Sergio Hussein MD #[address] [address] Consulting Physician Colon and Rectal Surgery 07/24/23 documented as of this encounter
--- OUTSIDE RECORDS SUMMARY | 2025-01-08 11:06 | XMS_ITS | Encounter Summary ---
Author Organization [facility] Address [address] [place] [address] Phone Care Team Providers Care Upper Cutter Name Role Phone Janes Elkins Naveen FAITH Primary Care Provider [phone] Veda Motley APRN, GASOLINE SERVICE ATTENDANT Unavailable [phone] Miriam Aquino APRN, GASOLINE SERVICE ATTENDANT Unavailable Sergio Hussein MD Unavailable Reason for Visit * Reason Comments Medication Refill Encounter Details Date Type Department Care Team (Late st Contact Info) Description 06/30/2024 Refill [facility] [address] [place] [address] Miriam Aquino APRN, GASOLINE SERVICE ATTENDANT [address] [place] [address] Medication Refill Social History Tobacco Use Types Packs/Day Years Used Date Smoking Tobacco: Former Cigarettes 1 43.8 S tarted: 1982 Smokeless Tobacco: Never Alcohol [...] on filedocumented in this encounter Care Teams Upper Cutter Relationship Specialty Start Date End Date Janes Elkins PAC [address] [place] [address] PCP - General Physician Alarm Installer 04/07/21 Veda Motley APRN, CNP #[address] [address] Nurse Practitioner Advanced Practice Nurse 05/18/21 Miriam Aquino APRN, CNP [address] [place] [address] Nurse Practitioner Advanced Practice Nurse 05/26/22 Sergio Hussein MD #[address] [facility] [address] [address] [address] Consulting Physician Colon and Rectal Surgery 07/24/23 documented as of this encounter
--- OUTSIDE RECORDS SUMMARY | 2025-01-08 11:06 | XMS_ITS | Encounter Summary ---
Author Organization [facility] Address [address] [place] [address] Phone Care Team Providers Care Branch Sales Manager Name Role Phone Tracyfelipe Janes FAITH Primary Care Provider [phone] Veda Motley APRN, OPEN HEARTH DOOR LINER Unavailable [phone] Miriam Aquino APRN, OPEN HEARTH DOOR LINER Unavailable Sergio Hussein MD Unavailable Reason for Visit * Reason Comments Medication Refill Encounter Details Date Type Department Care Team (Late st Contact Info) Description 10/18/2021 Refill [facility] - [facility]monology & [facility] Medicine - [place] [address] [place] [address] Veda Motley APRN, OPEN HEARTH DOOR LINER #[address] [address] Medication Refill Social History Tobacco Use Types [...] 08/17/21 Office Visit Veda Motley APRN, MEHNAZ [facility] [address] 05/18/21 Office Visit Veda Motley APRN, CNP [facility] [place] [facility] Showing recent visits within past [...] 19 02/15/2022 02/15/2022 02/25/2022 12:1 6 AM WING COMMANDER Respiratory Rule-Out 02/15/2022 02/15/2022 022 4:32 PM WING COMMANDER COVID - 19 04/08/2023 04/10/2023 04/20/2023 12:1 6 AM WING COMMANDER documented as of this encounter Care Teams Branch Sales Manager Relationship Specialty Start Date End Date Janes Elkins PAC [address] [place] [address] PCP - General Physician Pershing Missile Crewmember 04/07/21 Veda Motley APRN, OPEN HEARTH DOOR LINER #[address] [address] Nurse Practitioner Advanced Practice Nurse 05/18/21 Miriam Aquino APRN, MEHNAZ [address] [place] [address] Nurse Practitioner Advanced Practice Nurse 05/26/22 Sergio Hussein MD #[address] [address] Consulting Physician Colon and Rectal Surgery 07/24/23 documented as of this encounter
--- OUTSIDE RECORDS SUMMARY | 2025-01-08 11:06 | XMS_ITS | Encounter Summary ---
Author Organization [facility] Address [address] [place] [address] Phone Care Team Providers Care Farmworker Fruit Name Role Phone Janes Elkins Naveen FAITH Primary Care Provider [phone] Veda Motley APRN, SALES ASSISTANTS AND SALESPERSONS Unavailable [phone] Miriam Aquino APRN, SALES ASSISTANTS AND SALESPERSONS Unavailable Sergio Hussein MD Unavailable Reason for Visit * Reason Comments Medication Refill Encounter Details Date Type Department Care Team (Late st Contact Info) Description 01/29/2023 Refill [facility] - [facility] #2 [place] [address] Miriam Aquino APRN, SALES ASSISTANTS AND SALESPERSONS [address] [place] [address] Medication Refill Social History Tobacco Use Types [...] Joann Adames RN - 02/07/2023 8:45 AM FINE JEWELRY SALES ASSOCIATE Medication failed the protocol, provider to review [...] 07/06/22 Office Visit Miriam Aquino APRN, CNP [facility] Showing recent visits within past 365 days and meeting all other requirements Future Appointments No visits were found meeting these conditions. Showing future appointments within next 90 days and meeting all other requirements JEWELRY SALES ASSOCIATE documented in this encounter Plan of Treatment Not on file documented as of this encounter Visit Diagnoses Diagnosis Nausea and vomiting, unspecified vomiting type documented in this encounter Additional Health Concerns Infection Onset Date Last Indicated Resolved Time COVID - 19 04/08/2023 04/10/2023 04/20/2023 12:1 6 AM FINE JEWELRY SALES ASSOCIATE documented as of this encounter Care Teams Farmworker Fruit Relationship Specialty Start Date End Date Janes Elkins PAC [address] [place] [address] PCP - General Physician Cleaning Specialist 04/07/21 Veda Motley APRN, CNP #[address] [address] Nurse Practitioner Advanced Practice Nurse 05/18/21 Miriam Aquino APRN, MEHNAZ [address]2 [facility] [place] [address] Nurse Practitioner Advanced Practice Nurse 05/26/22 Sergio Hussein MD [address] [address] Consulting Physician Colon and Rectal Surgery 07/24/23 documented as of this encounter
--- OUTSIDE RECORDS SUMMARY | 2025-01-08 11:06 | XMS_ITS | Encounter Summary ---
Author Organization [facility] Address [address] [place] [address] Phone Care Team Providers Care Doughnut Fryer Name Role Phone TracyJanes wang Primary Care Provider [phone] Veda Motley APRN, MACHINE CLOTHING MAN Unavailable [phone] Miriam Aquino APRN, MACHINE CLOTHING MAN Unavailable Sergio Hussein MD Unavailable Reason for Visit * Reason Comments Medication Refill Encounter Details Date Type Department Care Team (Late st Contact Info) Description 10/12/2022 Refill [facility] - Pulmonology & Sleep Medicine [facility] #[address] [place] [address] Veda Motley APRN, MEHNAZ #[address] [address] Medication Refill Social History Tobacco Use Types [...] Office Visit Veda Motley APRN, MEHNAZ [facility] [address] 02/15/22 Office Visit Veda Motley APRN, MEHNAZ [facility] [place] [facility] [address] Showing recent visits within past [...] Motley APRN, CNP [facility] [place] [address] 02/15/22 Office Visit Veda Motley APRN, MEHNAZ [facility] [place] [facility] [address] Showing recent visits within past 365 days and meeting all other requirements Future Appointments No visits were found meeting these conditions. Showing future appointments within next 90 days and meeting all other requirements documented in this encounter Plan of Treatment Not on file documented as of this encounter Visit Diagnoses Diagnosis Other emphysema documented in this encounter Additional Health Concerns Infection Onset Date Last Indicated Resolved Time COVID - 19 04/08/2023 04/10/2023 04/20/2023 12:1 6 AM HADOOP DEVELOPER documented as of this encounter Care Teams Doughnut Fryer Relationship Specialty Start Date End Date Janes Elkins, [facility] [address] [place] [address] PCP - General Physician Supervisor Volunteer Services 04/07/21 Veda Motley APRN, MACHINE CLOTHING MAN #[address] [address] Nurse Practitioner Advanced Practice Nurse 05/18/21 Miriam Aquino APRN, MACHINE CLOTHING MAN #[address] [place] [address] Nurse Practitioner Advanced Practice Nurse 05/26/22 Sergio Hussein MD #[address] [address] Consulting Physician Colon and Rectal Surgery 07/24/23 documented as of this encounter
--- OUTSIDE RECORDS SUMMARY | 2025-01-08 11:06 | XMS_ITS | Encounter Summary ---
Author Organization [facility] Address [address] [place] [address] Phone Care Team Providers Care Utilization Reviewer Name Role Phone Tracyfelipe Janes FAITH Primary Care Provider [phone] Veda Motley APRN, TAXI TRUCK DRIVER Unavailable [phone] Miriam Aquino APRN, TAXI TRUCK DRIVER Unavailable Sergio Hussein MD Unavailable Reason for Visit * Reason Comments Medication Refill Encounter Details Date Type Department Care Team (Late Contact Info) Description 12/05/2021 Refill [facility] - [facility]ology & [facility] Medicine - [place] [address] [place] [address] Veda Motley APRN, MEHNAZ #[address] [address] Medication Refill Social History Tobacco Use Types Packs/Day Years Used Date Smoking Tobacco: Every Day Cigarettes 0.5 43.8 Started: 1980 Smokeless Tobacco: Never Alcohol [...] 08/17/21 Office Visit Veda Motley APRN, MEHNAZ [facility] [place] [address] 05/18/21 Office Visit Veda Motley APRN, MEHNAZ [facility] [address] Showing recent visits within past 365 days and meeting all other requirements Future Appointments Date Type Provider Dept 02/15/22 Appointment Veda Motley APRN, MEHNAZ [facility] [address] Showing future appointments within next 90 days and meeting all other requirements documented in this encounter Plan of Treatment Not on file documented as of this encounter Visit Diagnoses Not on filedocumented in this encounter Additional Health Concerns Infection Onset Date Last Indicated Resolved Time COVID - 19 02/15/2022 02/15/2022 02/25/2022 12:1 6 AM BEAD BUILDER Respiratory Rule-Out 02/15/2022 02/15/2022 022 4:32 PM BEAD BUILDER COVID - 19 04/08/2023 04/10/2023 04/20/2023 12:1 6 AM BEAD BUILDER documented as of this encounter Care Teams Utilization Reviewer Relationship Specialty Start Date End Date Janes Elkins PAC [address] [place] [address] PCP - General Physician Thread Tool Grinder Set Up Operator 04/07/21 Veda Motley APRN, TAXI TRUCK DRIVER #2 [facility] [address] [place] [address] Nurse Practitioner Advanced Practice Nurse 05/18/21 Miriam Aquino APRN, TAXI TRUCK DRIVER #[address] [place] [address] Nurse Practitioner Advanced Practice Nurse 05/26/22 Sergio Hussein MD #2 [facility] [address] [place] [address] Consulting Physician Colon and Rectal Surgery 07/24/23 documented as of this encounter
--- OUTSIDE RECORDS SUMMARY | 2025-01-08 11:06 | XMS_ITS | Encounter Summary ---
Author Organization [facility] Address [address] [place] [address] Phone Care Team Providers Care Defective Cigarette Slitter Name Role Phone Janes Elkins Naveen FAITH Primary Care Provider [phone] Veda Motley APRN, DRIER HELPER Unavailable [phone] Miriam Aquino APRN, DRIER HELPER Unavailable Sergio Hussein MD Unavailable Reason for Visit * Reason Comments Medication Refill Encounter Details Date Type Department Care Team (Late st Contact Info) Description 10/21/2023 Refill [facility] #2 [place] [address] Miriam Aquino APRN, DRIER HELPER [address] [place] [address] Medication Refill Social History Tobacco Use Types Packs/Day Years Used Date Smoking Tobacco: Every Day Cigarettes 1 43.8 Started: 1980 Smokeless Tobacco: Never Alcohol [...] PM CDT Medication refilled and signed per [facility] chronic medication standing order for pediatric and adult patients. documented in this encounter Plan of Treatment Not on file documented as of this encounter Visit Diagnoses Not on filedocumented in this encounter Care Teams Defective Cigarette Slitter Relationship Specialty Start Date End Date Janes Elkins PAC [address] [place] [address] PCP - General Physician Bilingual Executive Assistant 04/07/21 Veda Motley APRN, DRIER HELPER #[address] [address] Nurse Practitioner Advanced Practice Nurse 05/18/21 Miriam Aquino APRN, DRIER HELPER #2 [place] [address] Nurse Practitioner Advanced Practice Nurse 05/26/22 Sergio Hussein MD #[address] [address] Consulting Physician Colon and Rectal Surgery 07/24/23 documented as of this encounter
--- OUTSIDE RECORDS SUMMARY | 2025-01-08 11:06 | XMS_ITS | Encounter Summary ---
Author Organization [facility] Address [address] [place] [address] Phone Care Team Providers Care Coverage Specialist Rn Name Role Phone Tracyfelipe Janes FAITH Primary Care Provider [phone] Veda Motley APRN, SPECIAL DELIVERY WORKER Unavailable [phone] Miriam Aquino APRN, SPECIAL DELIVERY WORKER Unavailable Sergio Hussein MD Unavailable Reason for Visit * Reason Comments Medication Refill Encounter Details Date Type Department Care Team (Late Contact Info) Description 11/13/2021 Refill [facility] Medicine [facility] #2 [place] [address] Veda Motley APRN, MEHNAZ #[address] [address] Medication Refill Social History Tobacco Use Types [...] 08/17/21 Office Visit Veda Motley APRN, MEHNA[facility] [place] [facility] [address] 05/18/21 Office Visit Veda Motley APRN, MEHNAZ [facility] Showing recent visits within past 365 days [...] 19 02/15/2022 02/15/2022 02/25/2022 12:1 6 AM CHRONIC CONDITION NURSE Respiratory Rule-Out 02/15/2022 02/15/2022 022 4:32 PM CHRONIC CONDITION NURSE COVID - 19 04/08/2023 04/10/2023 04/20/2023 12:1 6 AM CHRONIC CONDITION NURSE documented as of this encounter Care Teams Coverage Specialist Rn Relationship Specialty Start Date End Date Janes Elkins PAC [address] [place] [address] PCP - General Physician Spanish Tutor 04/07/21 Veda Motley APRN, SPECIAL DELIVERY WORKER #2 [facility] [address] [place] [address] Nurse Practitioner Advanced Practice Nurse 05/18/21 Miriam Aquino APRN, SPECIAL DELIVERY WORKER #2 [place] [address] Nurse Practitioner Advanced Practice Nurse 05/26/22 Sergio Hussein MD #2 [facility] [address] [place] [address] Consulting Physician Colon and Rectal Surgery 07/24/23 documented as of this encounter
--- OUTSIDE RECORDS SUMMARY | 2025-01-08 11:06 | XMS_ITS | Encounter Summary ---
Author Organization [facility] Address [address] [place] [address] Phone Care Team Providers Care Mail Carrier Technician Name Role Phone TracyJanes wang Primary Care Provider [phone] Veda Motley APRN, TECHNICAL SERVICE REPRESENTATIVE Unavailable [phone] Miriam Aquino APRN, TECHNICAL SERVICE REPRESENTATIVE Unavailable Sergio Hussein MD Unavailable Reason for Visit * Reason Comments Medication Refill Encounter Details Date Type Department Care Team (Late st Contact Info) Description 06/13/2023 Refill [facility] - Pulmonology & Sleep Medicine [facility] [address] [place] [address] Veda Motley APRN, MEHNAZ [address] [address] Medication Refill Social History Tobacco Use Types [...] Motley APRN, CNP [facility] 08/24/22 Office Visit Veda Motley APRN, CNP [facility] Showing recent visits within past 365 days and meeting all other requirements Future Appointments Date Type Provider Dept 09/03/23 Appointment Veda Motley APRN, CNP [facility] Showing future appointments within next 90 days and meeting all other requirements documented in this encounter Plan of Treatment Not on file documented as of this encounter Visit Diagnoses Diagnosis Other emphysema documented in this encounter Care Teams Mail Carrier Technician Relationship Specialty Start Date End Date Janes Elkins PAC [address] [place] [address] PCP - General Physician Fire Hydrant Mechanic 04/07/21 Veda Motley APRN, CNP [address] [address] Nurse Practitioner Advanced Practice Nurse 05/18/21 Miriam Aquino APRN, TECHNICAL SERVICE REPRESENTATIVE #2 [facility] [place] [address] Nurse Practitioner Advanced Practice Nurse 05/26/22 Sergio Hussein MD [address] [address] Consulting Physician Colon and Rectal Surgery 07/24/23 documented as of this encounter
--- OUTSIDE RECORDS SUMMARY | 2025-01-08 11:06 | XMS_ITS | Clinical Summary ---
Author Organization [facility] Address [address] [place] [address] Phone Care Team Providers Care Seal Delivery Vehicle Team Technician Name Role Phone Severo Janes FAITH Primary Care Provider [phone] Veda Motley APRN, IN FLIGHT CREW MEMBER Unavailable [phone] Miriam Aquino APRN, IN FLIGHT CREW MEMBER Unavailable Sergio Hussein MD Unavailable Allergies Active [...] AEROSOL POWDER, BREATH ACTIVATEDIndica tions:Centrilob ular emphysema take 1 Puff by inhalation daily. 06/13/19 [...] line. 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 Subacute cough 02/15/2022 Mixed simple and mucopurulent chronic bronchitis 08/17/2021 Personal history of tobacco use 05/18/2021 SOB (shortness of breath) 05/18/2021 Centrilobular emphysema 05/18/2021 Encounters Date Type Department Care Team Description 12/15/2024 Transcribe Orders [facility] Patient Access Admitting [address] [place] [address] Janes Elkins PAC Acute bronchitis due to other specified organisms (Primary Dx) 12/04/2024 [facility] & [facility] - [place] [address] [place] [address] Veda Motley APRN, MEHNAZ Medication Refill from Last 3 Months Family [...] 43.8 S tarted: 1982 Smokeless Tobacco: Never Tobacco [...] 07/05/2024 7:04 PM CDT Plan of Treatment Health Maintenance Due Date Last Done Comments Hepatitis C Virus (HCV) Screening 1970 Hepatitis B Immunization (1 of 3 - 19+ 3-dose series) 1990 Pneumococcal Immunization (50+ years) (1 of 2 - PCV) 1990 Pap Smear 02/17/1992 Cervical Cancer Screening (CCS) 2001 HPV/Cotest 2001 Cologuard 02/17/2016 Immunochemical Fecal Occult Blood 02/17/2016 Respiratory Syncytial Virus (RSV) Immunization (Adult) (1 - Risk 50-74 years 1-dose series) 2021 Zoster Immunization (1 of 2) 2021 Mammogram 04/10/2024 04/10/2023 Influenza Immunization (#1) 2024 SARS-COV-2 Immunization ( season) 2024 Colonoscopy 12/06/2028 12/06/2021, 07/2021, 12/06/2021 Colorectal Cancer Screening 12/06/2028 DTaP/Tdap/Td Immunization Discontinued 12/22/2022, 10/2015 TdaP Immunization [...] CHEST W/O CONTRAST Routine 02/13/2024 10:23 AM GASTROENTEROLOGY PROFESSOR Lung nodule GI IMAGING - COLONOSCOPY Routine 12/06/2021 11:26 AM CDT from Last 3 Months or Most Recently Relevant to Health Maintenance Results * CT CHEST W/O CONTRAST (02/13/2024 10:23 AM GASTROENTEROLOGY PROFESSOR) Anatomical Region Laterality Modality Chest N/A Computed Tomogra phy 02/20/2024 1:40 PM GASTROENTEROLOGY PROFESSOR Impressions 02/20/2024 1:43 PM GASTROENTEROLOGY PROFESSOR IMPRESSION: 1. Interval decrease in density of [...] 4. No lymphadenopathy. Narrative 02/20/2024 1:43 PM GASTROENTEROLOGY PROFESSOR EXAM DESCRIPTION: CT CHEST W/O CONTRAST REASON [...] Shira Ch M.D. TW: ROGELIO Report ID: [id number] Reading Location: [id number] Procedure Note Shira Ch MD - 02/20/2024 [...] Shira Ch M.D. TW: TW Report ID: [id number] Reading Location: [id number] IMPRESSION: 1. Interval decrease in density of [...] new suspicious nodule present. 4. No lymphadenopathy. MEHNAZ Olmedo APRN CT ORDERABLES Fin al Result * GI IMAGING - COLONOSCOPY (12/06/2021 11:26 AM CDT) Bethany Gore MD IMG DIAGNOSTIC ORDERABLES Final Result from Last 3 Months or Most Recently Relevant to Health Maintenance Insurance MEDICAID [place] Care Teams Seal Delivery Vehicle Team Technician Relationship Specialty Start Date End Date Janes Elkins PAC [address] [place] [address] PCP - General Physician Mine Technician 04/07/21 Veda Motley APRN, CNP #[address] [address] Nurse Practitioner Advanced Practice Nurse 05/18/21 Miriam Aquino APRN, MEHNAZ [address] [place] [address] Nurse Practitioner Advanced Practice Nurse 05/26/22 Sergio Hussein MD #[address] [address] Consulting Physician Colon and Rectal Surgery 07/24/23
--- OUTSIDE RECORDS SUMMARY | 2025-01-08 11:06 | XMS_ITS | Clinical Summary ---
Author Organization [facility] Address [address] [place] [address] Care Team Providers Care Inspector And Mender Name Role Phone Janes Elkins Primary Care Provider [phone] Arleth Morris MD Unavailable [phone] Allergies Active Allergy Reactions Criticality Noted Date [...] multiples MIs and CVAs -Primary OB in [place] - offered hyst/BSO given patient concern for gynecologic cause of symptoms. Evaluated by pulmonology and determined to be high risk for anesthesia given severe COPD. [facility]erred [facility] for further consideration of future surgical management. -Followed by GI ([facility]) for chronic abdominal pain/ IBS-C: [...] she is not on any treatment. -General surgery([facility]) 07/30/23: Low concern for biliary [...] post- menopausal state. -Discussed patient case with [facility]- agreed that patient unlikely to benefit from [...] resources for pelvic floor PT including PT authorization representative for options closer to her home [] [...] with bright red blood -underwent hsc/D&C at [place] in 05/2023, pathology benign -provera per primary [...] 01/30/2023 Assessment & Plan (01/30/2023 1:02 PM INSIDE SALES RECRUITER): Discussed possible causes of decreased sexual desire [...] Encounters Date Type Department Care Team Description 10/21/2024 2:20 PM CDT - 10/21/2024 11:59 PM CDT Hospital Encounter [facility] [address] [place] [address] History of [place] (myocardial infarction) Discharge Disposition: Discharge to home or self [...] on file Legal Sex Female 10:34 AM INSIDE SALES RECRUITER Gender Identity Not on file Sexual Orientation [...] Sign Reading Time Taken Comments Blood Pressure 112/63 10/21/2024 3:01 PM CDT Pulse 63 10/21/2024 3:01 PM CDT Temperature 36.3 C (97.4 F) 05/22/2023 1:24 PM CDT Respiratory Rate 16 05/22/2023 1:24 PM CDT Oxygen Saturation 93% 01/07/2024 4:3 0 PM INSIDE SALES RECRUITER Rn discussed with pt. Per pt, she [...] Name Priority Date/Time Associated Diagnosis Comments CT HEART MORPHOLOGY AND CORONARY ARTERIES W CONTRAST Schedule Routine, Read Routine (OP Routine) 10/21/2024 3:57 PM CDT History of [place] (myocardial infarction) PAP WITH REFLEX TO HIGH RISK HPV Routine 09/02/2024 10:04 AM CDT Well woman exam SCREENING MAMMOGRAM BILATERAL W KEVIN Schedule Routine, Read Routine (OP Routine) 04/10/2023 8:07 AM INSIDE SALES RECRUITER Encounter for screening mammogram for malignant neoplasm of breast from Last 3 Months or Most Recently Relevant to Health Maintenance Results * CTA Heart and Coronary Arteries W Morphology when Performed (10/21/2024 3:57 PM CDT) Anatomical Region Laterality Modality Chest N/A Computed Tomogra phy 10/22/2024 10:2 2 AM CDT Impressions 10/22/2024 12:52 PM CDT 1. Mild stenosis in the mid right coronary artery. 2. Circumferential wall thickening of the esophagus, likely esophagitis. 3. Solid 3 mm right upper lobe nodule. Comparison to prior imaging recommended to assess for long-term stability. If prior imaging is unavailable, a low dose CT chest can be considered in 12 months to reassess if the patient is high risk for lung cancer. Dictated by: Froilan Rockwell M.D. The radiology attending physician has personally reviewed this study, and had reviewed and/or edited this written report and agrees with it. Electronically signed by: Sonja Granados M.D. Narrative 10/22/2024 12:52 PM CDT EXAMINATION: CORONARY CT ANGIOGRAM HISTORY: History of myocardial infarction. TECHNIQUE: CT angiography of the coronary arteries was performed after the administration of 100 mL of Optiray 350. Images were also obtained precontrast for the purposes of calcium scoring. 10 mg of metoprolol was administered intravenously prior to the examination. The patient's heart rate and blood pressure at the time of the examination were 65 beats per minute and 112/63 mmHg. Images were transferred to a 3D workstation for additional post-processing. FINDINGS: The coronary arteries are right system dominant. There is no anomalous coronary artery origin or course. Right coronary system: Calcified plaque at the midportion of the right coronary artery causing mild stenosis. Left coronary system: No evidence of atherosclerotic disease. The calculated calcium score is 25. Other findings: Emphysema. Circumferential wall thickening of the esophagus. Small hiatal hernia. Solid 3 mm right upper lobe nodule (). Calcified granulomas at the lower lobes bilaterally. Procedure Note Sonja Granados MD - 10/22/2024 EXAMINATION: CORONARY CT ANGIOGRAM HISTORY: History of myocardial infarction. TECHNIQUE: CT angiography of the coronary arteries was performed after the administration of 100 mL of Optiray 350. Images were also obtained precontrast for the purposes of calcium scoring. 10 mg of metoprolol was administered intravenously prior to the examination. The patient's heart rate and blood pressure at the time of the examination were 65 beats per minute and 112/63 mmHg. Images were transferred to a 3D workstation for additional post-processing. FINDINGS: The coronary arteries are right system dominant. There is no anomalous coronary artery origin or course. Right coronary system: Calcified plaque at the midportion of the right coronary artery causing mild stenosis. Left coronary system: No evidence of atherosclerotic disease. The calculated calcium score is 25. Other findings: Emphysema. Circumferential wall thickening of the esophagus. Small hiatal hernia. Solid 3 mm right upper lobe nodule (). Calcified granulomas at the lower lobes bilaterally. IMPRESSION: 1. Mild stenosis in the mid right coronary artery. 2. Circumferential wall thickening of the esophagus, likely esophagitis. 3. Solid 3 mm right upper lobe nodule. Comparison to prior imaging recommended to assess for long-term stability. If prior imaging is unavailable, a low dose CT chest can be considered in 12 months to reassess if the patient is high risk for lung cancer. Dictated by: Froilan Rockwell M.D. The radiology attending physician has personally reviewed this study, and had reviewed and/or edited this written report and agrees with it. Electronically signed by: oSnja Granados M.D. us Provider Transcribed Order IMG CT PROCEDURES Fin al Result * Pap with reflex to High Risk HPV and Genotyping (Cytology Component) (09/02/2024 10:04 AM CDT) Thin prep (Pap test) 09/02/2024 10:04 AM CDT 09/02/2024 10:04 AM CDT Narrative PATHOLOGY CH - 09/07/2024 1:24 PM CDT [facility] Department of Pathology [address] [place] [id number] Final Report Note to Patients: This report [...] the details. Patient Name: AFRICA HARDEN Address: [address] [place] [address]- Gender: F : 1970 (Age: 54) Service: Location: N : [id number] Hospital #: [id number] Patient Type: SPECIMEN Taken: 09/02/2024 Received: 09/02/2024 Accessioned:: 09/03/2024 Reported: 09/07/2024 Physician(s): LOGAN Royal WHNP Diagnosis: SOURCE OF SPECIMEN Imaged Thinprep Pap Test w/ Reflex HPV - Hazardous Substances Scientist Cytologic Material: STATEMENT OF ADEQUACY - Specimen satisfactory for interpretation; endocervical/transformation zone component absent or insufficient GENERAL CATEGORIZATION: - Negative for intraepithelial lesion or malignancy FLORA Erazo(ASCP) Report Electronically Reviewed and Signed Out By FLORA Erazo(ASCP) 09/07/2024 13:24:05Specimen(s) Received: A: Imaged Thinprep Pap Test w/ Reflex HPV - Hazardous Substances Scientist Cytologic Material Clinical History: The Pap test [...] determined by the Surgical Pathology Department at [facility] as part of an ongoing clinical quality assurance associate program and in compliance with federally mandated [...] characteristics determined by the Surgical Pathology Department [facility]. It has not been cleared or approved by the U. S. Food and Drug Administration. Hiram Moulton NP LAB CYTOLOGY ORDERABLES Fin al Result Performing Organization Address City/State/[facility] Co de Phone Number PATHOLOGY [address] [place] [address] * Screening Mammogram Bilateral W Kevin (04/10/2023 8:07 AM INSIDE SALES RECRUITER) Anatomical Region Laterality Modality Breast Bilateral Mammography 04/10/2023 8:21 AM INSIDE SALES RECRUITER Impressions 04/10/2023 8:21 AM INSIDE SALES RECRUITER There is no mammographic evidence of malignancy. A 1 year screening mammogram is recommended. BI-RADS: 1 - Negative. The patient has been or will be contacted. The patient will be entered into a reminder system with a target due date of 1 year for her next mammogram. Electronically signed by: Felipe Leo M.D. Narrative 04/10/2023 8:21 AM INSIDE SALES RECRUITER EXAMINATION: SCREENING MAMMOGRAM BILATERAL W KEVIN ORDERING [...] been no suspicious interval change. Hiram Moulton NP IMG MAMMO PROCEDURES Final Result from Last 3 Months or Most Recently Relevant to Health Maintenance Insurance [facility] [employer] Care Teams Inspector And Mender Relationship Specialty Start Date End Date Janes Elkins PA [address] [place] [address] PCP - General 12/15/19 Arleth Morris MD [address] [place] [address] [place] [address] Consulting Physician Obstetrics and Gynecology 05/22/23
--- OUTSIDE RECORDS SUMMARY | 2025-01-08 11:06 | XMS_ITS | Encounter Summary ---
Author Organization [facility] Address [address] [place] [address] Phone Care Team Providers Care Test Engineering Intern Name Role Phone Tracyfelipe Janes FAITH Primary Care Provider [phone] Veda Motley APRN, ONLINE PROGRAM COORDINATOR Unavailable [phone] Miriam Aquino APRN, ONLINE PROGRAM COORDINATOR Unavailable Sergio Hussein MD Unavailable Reason for Visit * Reason Comments Medication Refill Encounter Details Date Type Department Care Team (Late Contact Info) Description 2022 Refill [facility] - Pulmonology & [facility] Medicine - [place] [address] [place] [address] Veda Motley APRN, MEHNAZ [address] [address] Medication Refill Social History Tobacco Use Types [...] Coronavirus/COVID-19? No / Unsure 02/15/2022 2:55 PM TELEVISION REPAIRMAN documented as of this encounter Miscellaneous Notes * Telephone Encounter - Jessica Goldberg RN - 2022 3:24 PM TELEVISION REPAIRMAN Medication failed the protocol, provider to review [...] Dept 02/15/22 Office Visit Veda Motley APRN, ONLINE PROGRAM COORDINATOR [facility] [place] [facility] [address] 08/17/21 Office Visit Veda Motley APRN, ONLINE PROGRAM COORDINATOR [facility] [address] 05/18/21 Office Visit Veda Motley APRN, ONLINE PROGRAM COORDINATOR [facility] Showing recent visits within past 365 days and meeting all other requirements Future Appointments No visits were found meeting these conditions. Showing future appointments within next 90 days and meeting all other requirements VISION REPAIRMAN documented in this encounter Plan of Treatment Not on file documented as of this encounter Visit Diagnoses Not on filedocumented in this encounter Additional Health Concerns Infection Onset Date Last Indicated Resolved Time COVID - 19 02/15/2022 02/15/2022 02/25/2022 12:1 6 AM TELEVISION REPAIRMAN COVID - 19 04/08/2023 04/10/2023 04/20/2023 12:1 6 AM TELEVISION REPAIRMAN documented as of this encounter Care Teams Test Engineering Intern Relationship Specialty Start Date End Date Janes Elkins, [facility] [address] [place] [address] PCP - General Physician Engineer/Conductor 04/07/21 Veda Motley APRN, ONLINE PROGRAM COORDINATOR #2 [facility] [address] [place] [address] Nurse Practitioner Advanced Practice Nurse 05/18/21 Miriam Aquino APRN, ONLINE PROGRAM COORDINATOR [address] [place] [address] Nurse Practitioner Advanced Practice Nurse 05/26/22 Sergio Hussein MD #2 [facility] [address] [place] [address] Consulting Physician Colon and Rectal Surgery 07/24/23 documented as of this encounter
--- OUTSIDE RECORDS SUMMARY | 2025-01-08 11:06 | XMS_ITS | Encounter Summary ---
Author Organization [facility] Address [address] [place] [address] Phone Care Team Providers Care Video Tape Transferrer Name Role Phone TracyJanes wang Primary Care Provider [phone] Veda Motley APRN, STRUCTURAL WORKER Unavailable [phone] Miriam Aquino APRN, STRUCTURAL WORKER Unavailable Sergio Hussein MD Unavailable Reason for Visit * Reason Comments Medication Refill Encounter Details Date Type Department Care Team (Late Contact Info) Description 02/03/2023 Refill [facility] - Pulmonology & Sleep Medicine - [place] [address] [place] [address] Veda Motley APRN, MEHNAZ #[address] [address] Medication Refill Social History Tobacco Use Types [...] 02/04/2023 8:02 AM CST Refill too soon INATION MAN documented in this encounter Plan of Treatment Not on file documented as of this encounter Visit Diagnoses Diagnosis Centrilobular emphysema Other emphysema documented in this encounter Additional Health Concerns Infection Onset Date Last Indicated Resolved Time COVID - 19 04/08/2023 04/10/2023 04/20/2023 12:1 6 AM COMBINATION MAN documented as of this encounter Care Teams Video Tape Transferrer Relationship Specialty Start Date End Date Janes Elkins PAC [address] [place] [address] PCP - General Physician Heater Room Helper 04/07/21 Veda Motley APRN, STRUCTURAL WORKER #[address] [address] Nurse Practitioner Advanced Practice Nurse 05/18/21 Miriam Aquino APRN, STRUCTURAL WORKER #[address] [place] [address] Nurse Practitioner Advanced Practice Nurse 05/26/22 Sergio Hussein MD #[address] [address] Consulting Physician Colon and Rectal Surgery 07/24/23 documented as of this encounter
--- OUTSIDE RECORDS SUMMARY | 2025-01-08 11:06 | XMS_ITS | Patient Health Record ---
Author Organization [facility] Address [address] [place] [address] Care Team Providers Care Tool Programmer Name Role Phone Marcelino Gil Unavailable [phone] Joao Carlson Unavailable Unavailable Reason For Referral No Information Medications Medication SIG (Take, Route, Fr equency, Duration) Notes Start Date End Date Status Ibuprofen Active tiZANidine HCl 4 MG Orally Active Problems Problem Type SNOMED Code ICD Code Onset Dates Problem Status W/U Status Risk Notes Problem Cervical spondylosis without myelopathy (136076596) Spondylosis without myelopathy or radiculopathy, cervical region (M47.812) Active confirmed Problem Cervical radiculopathy (85432648) Radiculopathy, cervical region (M54.12) Active confirmed Plan Of Treatment No Information Insurance Providers Payer Name Payer Address Payer Phone Subscriber Number Group Number Insured Name Patient Relationship to Insured Coverage Start Date Coverage End Date LITIGATION [employer] Harden Self - patient is the insured ATTY SUE [employer] [address] [place] [address] [place] [id number] [place] Harden Self - patient is the insured
--- NOTE | 2025-01-08 11:11 | PC.NURSE ---
Covid culture sent with lab
[2025-01-08 11:31] LABS: Hematocrit 38.5 % (35.0-49.0); Hemoglobin 12.0 g/dL (12.0-15.0); Mean Corpuscular HGB Conc 31.2 g/dL (32-36); Mean Corpuscular Hemoglobin 28.3 pg (27.0-31.0); Mean Corpuscular Volume 90.8 fL (78.0-102.0); Platelet Count Result 357 K/mm3 (150-420); Red Blood Count 4.24 M/mm3 (4.20-5.40); White Blood Count 6.4 K/mm3 (4.8-10.8)
--- OUTSIDE RECORDS SUMMARY | 2025-01-08 11:42 | XMS_ITS | Encounter Summary ---
Author Organization [facility] Address [address] [place] [address] Care Team Providers Care Garbage Truck Driver Name Role Phone Janes Elkins Primary Care Provider [phone] Arleth Morris MD Unavailable [phone] Encounter Details Date Type Department Care Team (Late st Contact Info) Description 06/13/2020 Telephone [facility] [address] [place] [address] Lauren Lerner RT Social History Tobacco Use Types Packs/Day Years Used Date Smoking Tobacco: Former Cigarettes Q uit: 11/09/2018 Smokeless Tobacco: Never Alcohol Use Standard Drinks/Week Comments Not Currently 0 (1 standard drink = 0.6 oz pur e alcohol) Comments No Sex and Gender Information Value Date Recorded Sex Assigned at Not on file Legal Sex Female 10:34 AM WEB EDITOR Gender Identity Not on file Sexual Orientation Not on file documented as of this encounter Plan of Treatment Not on file documented as of this encounter Visit Diagnoses Not on filedocumented in this encounter Additional Health Concerns Infection Onset Date Last Indicated Resolved Time MRSA 01/11/2017 03/02/2017 10/19/2020 5:00 AM CDT documented as of this encounter Care Teams Garbage Truck Driver Relationship Specialty Start Date End Date Janes Elkins PA [address] [place] [address] PCP - General 12/15/19 Arleth Morris MD [address] [place] [address] Consulting Physician Obstetrics and Gynecology 05/22/23 documented as of this encounter
--- OUTSIDE RECORDS SUMMARY | 2025-01-08 11:42 | XMS_ITS | Encounter Summary ---
Author Organization [facility] Address [address] [place] [address] Phone Care Team Providers Care Credit And Loan Collections Supervisor Name Role Phone Janes Elkins Naveen FAITH Primary Care Provider [phone] Veda Motley APRN, STREET AND BUILDING DECORATOR Unavailable [phone] Miriam Aquino APRN, STREET AND BUILDING DECORATOR Unavailable Sergio Hussein MD Unavailable Reason for Visit * Reason Comments Medication Refill Encounter Details Date Type Department Care Team (Late st Contact Info) Description 10/12/2022 [facility]ill [facility] #2 [place] [id number] Miriam Aquino APRN, STREET AND BUILDING DECORATOR [address] [place] [address] Medication Refill Social History Tobacco Use Types [...] 19 04/08/2023 04/10/2023 04/20/2023 12:1 6 AM RULING MACHINE FEEDER documented as of this encounter Care Teams Credit And Loan Collections Supervisor Relationship Specialty Start Date End Date Janes Elkins PAC [address] [place] [address] PCP - General Physician Web Site Specialist 04/07/21 Veda Motley APRN, STREET AND BUILDING DECORATOR #[address] [address] Nurse Practitioner Advanced Practice Nurse 05/18/21 Miriam Aquino APRN, STREET AND BUILDING DECORATOR #2 [place] [address] Nurse Practitioner Advanced Practice Nurse 05/26/22 Sergio Hussein MD #[address] [address] Consulting Physician Colon and Rectal Surgery 07/24/23 documented as of this encounter
--- OUTSIDE RECORDS SUMMARY | 2025-01-08 11:42 | XMS_ITS | Clinical Summary ---
Author Organization [facility] Address [address] [place] [address] Care Team Providers Care Size Cutter Name Role Phone None, Provider MD Primary [...] to complete this topic Insurance Care Teams Size Cutter Relationship Specialty Start Date End Date None, Provider, PCP - General 09/11/18
--- OUTSIDE RECORDS SUMMARY | 2025-01-08 11:42 | XMS_ITS | Encounter Summary ---
Author Organization [facility] Address [address] [place] [address] Phone Care Team Providers Care Wardrobe Technician Name Role Phone Tracyfelipe Janes FAITH Primary Care Provider [phone] Veda Motley APRN, BROADCAST MAINTENANCE TECHNICIAN Unavailable [phone] Miriam Aquino APRN, BROADCAST MAINTENANCE TECHNICIAN Unavailable Sergio Hussein MD Unavailable Reason for Visit * Reason Comments Medication Refill Encounter Details Date Type Department Care Team (Late Contact Info) Description 01/27/2022 Refill [facility] - Pulmonology & [facility] Medicine - [place] #2 [place] [address] Veda Motley APRN, MEHNAZ #[address] [address] Medication Refill Social History Tobacco Use Types [...] Jessica Goldberg RN - 01/29/2022 8:22 AM METAL BOX MAKER Medication failed the protocol, provider to review [...] days and meeting all other requirements L BOX MAKER documented in this encounter Plan of Treatment Not on file documented as of this encounter Visit Diagnoses Not on filedocumented in this encounter Additional Health Concerns Infection Onset Date Last Indicated Resolved Time COVID - 19 02/15/2022 02/15/2022 02/25/2022 12:1 6 AM METAL BOX MAKER Respiratory Rule-Out 02/15/2022 02/15/2022 022 4:32 PM METAL BOX MAKER COVID - 19 04/08/2023 04/10/2023 04/20/2023 12:1 6 AM METAL BOX MAKER documented as of this encounter Care Teams Wardrobe Technician Relationship Specialty Start Date End Date Janes Elkins, [facility] [address] [place] [address] PCP - General Physician Exploration Driller 04/07/21 Veda Motley APRN, BROADCAST MAINTENANCE TECHNICIAN #[address] [address] Nurse Practitioner Advanced Practice Nurse 05/18/21 Miriam Aquino APRN, BROADCAST MAINTENANCE TECHNICIAN #2 [place] [address] Nurse Practitioner Advanced Practice Nurse 05/26/22 Sergio Hussein MD #[address] [address] Consulting Physician Colon and Rectal Surgery 07/24/23 documented as of this encounter
--- OUTSIDE RECORDS SUMMARY | 2025-01-08 11:42 | XMS_ITS | Encounter Summary ---
Author Organization [facility] Address [address] [place] [address] Phone Care Team Providers Care Government Contracts Manager Name Role Phone Janes Elkins Naveen FAITH Primary Care Provider [phone] Veda Motley APRN, SUPPORT SERVICES SPECIALIST Unavailable [phone] Miriam Aquino APRN, SUPPORT SERVICES SPECIALIST Unavailable Sergio Hussein MD Unavailable Reason for Visit * Reason Comments Medication Refill Encounter Details Date Type Department Care Team (Late st Contact Info) Description 12/06/2022 Refill [facility] [address] [place] [id number] Miriam Aquino APRN, SUPPORT SERVICES SPECIALIST [address] [place] [address] Medication Refill Social History Tobacco Use Types [...] 07/06/22 Office Visit Miriam Aquino APRN, CNP [facility] Showing recent visits within past [...] 19 04/08/2023 04/10/2023 04/20/2023 12:1 6 AM SOLE CONDITIONER documented as of this encounter Care Teams Government Contracts Manager Relationship Specialty Start Date End Date Janes Elkins PAC [address] [place] [address] PCP - General Physician Director Of Design 04/07/21 Veda Motley APRN, CNP #[address] [address] Nurse Practitioner Advanced Practice Nurse 05/18/21 Miriam Aquino APRN, CNP #2 [facility] [place] [address] Nurse Practitioner Advanced Practice Nurse 05/26/22 Sergio Hussein MD [address] [address] Consulting Physician Colon and Rectal Surgery 07/24/23 documented as of this encounter
--- OUTSIDE RECORDS SUMMARY | 2025-01-08 11:42 | XMS_ITS | Clinical Summary ---
Author Organization [facility] Address [address] [place] [address] Care Team Providers Care Spectacle Truer Name Role Phone Janes Elkins Primary Care Provider [phone] Arleth Morris MD Unavailable [phone] Allergies Active Allergy Reactions Criticality Noted Date [...] multiples MIs and CVAs -Primary OB in [place] - offered hyst/BSO given patient concern for gynecologic cause of symptoms. Evaluated by pulmonology and determined to be high risk for anesthesia given severe COPD. Referred to [facility] for further consideration of future surgical management. -Followed by GI ([facility]) for chronic abdominal pain/ IBS-C: last [...] she is not on any treatment. -General surgery([facility]) 07/30/23: Low concern for biliary etiology [...] post- menopausal state. -Discussed patient case with [facility]- agreed that patient unlikely to benefit from [...] resources for pelvic floor PT including PT cage clerk for options closer to her home [] [...] with bright red blood -underwent hsc/D&C at [place] in 05/2023, pathology benign -provera per primary [...] 01/30/2023 Assessment & Plan (01/30/2023 1:02 PM OLIVE GROWER): Discussed possible causes of decreased sexual desire [...] - 10/21/2024 11:59 PM CDT Hospital Encounter [facility] [address] [place] [address] History of PR (myocardial infarction) Discharge Disposition: Discharge to home [...] on file Legal Sex Female 10:34 AM OLIVE GROWER Gender Identity Not on file Sexual Orientation [...] Oxygen Saturation 93% 01/07/2024 4:3 0 PM OLIVE GROWER Rn discussed with pt. Per pt, she [...] Routine) 10/21/2024 3:57 PM CDT History of PR (myocardial infarction) PAP WITH REFLEX TO HIGH RISK HPV Routine 09/02/2024 10:04 AM CDT Well woman exam SCREENING MAMMOGRAM BILATERAL W KEVIN Schedule Routine, Read Routine (OP Routine) 04/10/2023 8:07 AM OLIVE GROWER Encounter for screening mammogram for malignant neoplasm [...] it. Electronically signed by: Sonja Granados M.D. us Provider Transcribed Order IMG CT PROCEDURES Fin al Result * Pap with reflex to High Risk HPV and Genotyping (Cytology Component) (09/02/2024 10:04 AM CDT) Thin prep (Pap test) 09/02/2024 10:04 AM CDT 09/02/2024 10:04 AM CDT Narrative PATHOLOGY CH - 09/07/2024 1:24 PM CDT [facility] Department of Pathology [address] [place] [address] Final Report Note to Patients: This [...] the details. Patient Name: AFRICA HARDEN Address: [address] [place] [address]- Gender: F : 1970 (Age: 54) Service: Location: N : [id number] Hospital #: [id number] Patient Type: SPECIMEN Taken: 09/02/2024 Received: 09/02/2024 Accessioned:: 09/03/2024 Reported: 09/07/2024 Physician(s): LOGAN Royal WHNP Diagnosis: SOURCE OF SPECIMEN Imaged Thinprep Pap Test w/ Reflex HPV - Food And Beverage Lead Cytologic Material: STATEMENT OF ADEQUACY - Specimen satisfactory for interpretation; endocervical/transformation zone component absent or insufficient GENERAL CATEGORIZATION: - Negative for intraepithelial lesion or malignancy FLORA Erazo(ASCP) Report Electronically Reviewed and Signed Out By FLORA Erazo(ASCP) 09/07/2024 13:24:05Specimen(s) Received: A: Imaged Thinprep Pap Test w/ Reflex HPV - Food And Beverage Lead Cytologic Material Clinical History: The Pap test [...] determined by the Surgical Pathology Department at [facility] as part of an ongoing software quality assurance analyst program and in compliance with federally mandated [...] characteristics determined by the Surgical Pathology Department [facility]. It has not been cleared or approved by the U. S. Food and Drug Administration. Hiram Moulton NP LAB CYTOLOGY ORDERABLES Fin al Result Performing Organization Address City/State/[facility] Co de Phone Number PATHOLOGY [address] [place] [address] * Screening Mammogram Bilateral W Kevin (04/10/2023 8:07 AM OLIVE GROWER) Anatomical Region Laterality Modality Breast Bilateral Mammography 04/10/2023 8:21 AM OLIVE GROWER Impressions 04/10/2023 8:21 AM OLIVE GROWER There is no mammographic evidence of malignancy. A 1 year screening mammogram is recommended. BI-RADS: 1 - Negative. The patient has been or will be contacted. The patient will be entered into a reminder system with a target due date of 1 year for her next mammogram. Electronically signed by: Felipe Leo M.D. Narrative 04/10/2023 8:21 AM OLIVE GROWER EXAMINATION: SCREENING MAMMOGRAM BILATERAL W KEVIN ORDERING [...] Recently Relevant to Health Maintenance Insurance [facility] [employer] DIS[employer] Care Teams Spectacle Truer Relationship Specialty Start Date End Date Janes Elkins PA [address] [place] [address] PCP - General 12/15/19 Arleth Morris MD [address] [address] [place] [address] [place] [address] Consulting Physician Obstetrics and Gynecology 05/22/23
--- OUTSIDE RECORDS SUMMARY | 2025-01-08 11:42 | XMS_ITS | Encounter Summary ---
Author Organization [facility] Address [address] [place] [address] Phone Care Team Providers Care Admin Secretary Name Role Phone TracyJanes wang Primary Care Provider [phone] Veda Motley APRN, RN [facility] DIALYS[facility] Unavailable [phone] Miriam Aquino APRN, RN HEMO DIALYSIS Unavailable Sergio Hussein MD Unavailable Reason for Visit * Reason Comments Medication Refill Encounter Details Date Type Department Care Team (Late st Contact Info) Description 06/13/2023 [facility] & [facility] Medicine [facility] #[address] [place] [address] Veda Motley APRN, MEHNAZ #[address] [address] Medication Refill Social History Tobacco Use Types [...] Motley APRN, CNP [facility] Showing recent visits within past 365 [...] emphysema documented in this encounter Care Teams Admin Secretary Relationship Specialty Start Date End Date Janes Elkins PAC [address] [place] [address] PCP - General Physician Substance Abuse Services Director 04/07/21 Veda Motley APRN, CNP #[address] [address] Nurse Practitioner Advanced Practice Nurse 05/18/21 Miriam Aquino APRN, RN H[facility]O DIALYSIS #[address] [place] [address] Nurse Practitioner Advanced Practice Nurse 05/26/22 Sergio Hussein MD [address] [address] Consulting Physician Colon and Rectal Surgery 07/24/23 documented as of this encounter
--- OUTSIDE RECORDS SUMMARY | 2025-01-08 11:42 | XMS_ITS | Clinical Summary ---
Author Organization [facility] Address [address] [place] [address] Phone Care Team Providers Care Business Management Manager Name Role Phone Severo Janes FAITH Primary Care Provider [phone] Veda Motley APRN, SOFT SUGAR CUTTER Unavailable [phone] Miriam Aquino APRN, SOFT SUGAR CUTTER Unavailable Sergio Hussein MD Unavailable Allergies Active [...] Department Care Team Description 12/15/2024 Transcribe Orders [facility] Patient Access Admitting [address] [place] [address] Janes Elkins PAC Acute bronchitis due to other specified organisms (Primary Dx) [facility] [place] #2 [place] [address] Veda Motley APRN, MEHNAZ Medication Refill from [...] CHEST W/O CONTRAST Routine 02/13/2024 10:23 AM HSE ADVISOR Lung nodule GI IMAGING - COLONOSCOPY Routine 12/06/2021 11:26 AM CDT from Last 3 Months or Most Recently Relevant to Health Maintenance Results * CT CHEST W/O CONTRAST (02/13/2024 10:23 AM HSE ADVISOR) Anatomical Region Laterality Modality Chest N/A Computed Tomogra phy 02/20/2024 1:40 PM HSE ADVISOR Impressions 02/20/2024 1:43 PM HSE ADVISOR IMPRESSION: 1. Interval decrease in density of [...] 4. No lymphadenopathy. Narrative 02/20/2024 1:43 PM HSE ADVISOR EXAM DESCRIPTION: CT CHEST W/O CONTRAST REASON [...] Shira Ch M.D. TW: ROGELIO Report ID: [id number] Reading Location: [id number] Procedure Note Shira Ch MD - 02/20/2024 [...] Shira Ch M.D. TW: TW Report ID: [id number] Reading Location: [id number] IMPRESSION: 1. Interval decrease in density of [...] Health Maintenance Insurance MEDICAID [place] Care Teams Business Management Manager Relationship Specialty Start Date End Date Janes Elkins PAC [address] [place] [address] PCP - General Physician Patient Financial Representative 04/07/21 Veda Motley APRN, CNP #[address] [address] Nurse Practitioner Advanced Practice Nurse 05/18/21 Miriam Aquino APRN, MEHNAZ #[address] [place] [address] Nurse Practitioner Advanced Practice Nurse 05/26/22 Sergio Hussein MD #[address] [address] Consulting Physician Colon and Rectal Surgery 07/24/23
--- OUTSIDE RECORDS SUMMARY | 2025-01-08 11:42 | XMS_ITS | Encounter Summary ---
Author Organization [facility] Address [address] [place] [address] Phone Care Team Providers Care Correctional Counselor Name Role Phone Tracyfelipe Janes FAITH Primary Care Provider [phone] Veda Motley APRN, CUSTOMER ENGAGEMENT REPRESENTATIVE Unavailable [phone] Miriam Aquino APRN, CUSTOMER ENGAGEMENT REPRESENTATIVE Unavailable Sergio Hussein MD Unavailable Reason for Visit * Reason Comments Medication Refill Encounter Details Date Type Department Care Team (Late Contact Info) Description 11/13/2021 Refill [facility] #[address] [place] [address] Veda Motley APRN, MEHNAZ #[address] [address] Medication Refill Social History Tobacco Use Types [...] 08/17/21 Office Visit Veda Motley APRN, MEHNAZ [facility] [place] [facility] [address] 05/18/21 Office Visit Veda Motley APRN, MEHNAZ [facility] Showing recent visits within past 365 days [...] 19 02/15/2022 02/15/2022 02/25/2022 12:1 6 AM CASTER INVESTMENT CASTING Respiratory Rule-Out 02/15/2022 02/15/2022 022 4:32 PM CASTER INVESTMENT CASTING COVID - 19 04/08/2023 04/10/2023 04/20/2023 12:1 6 AM CASTER INVESTMENT CASTING documented as of this encounter Care Teams Correctional Counselor Relationship Specialty Start Date End Date Janes Elkins PAC [address] [place] [address] PCP - General Physician Bandage Winding Machine Operator 04/07/21 Veda Motley APRN, CUSTOMER ENGAGEMENT REPRESENTATIVE #2 [facility] [address] [place] [address] Nurse Practitioner Advanced Practice Nurse 05/18/21 Miriam Aquino APRN, CUSTOMER ENGAGEMENT REPRESENTATIVE #2 [place] [address] Nurse Practitioner Advanced Practice Nurse 05/26/22 Sergio Hussein MD #2 [facility] [address] [place] [address] Consulting Physician Colon and Rectal Surgery 07/24/23 documented as of this encounter
--- OUTSIDE RECORDS SUMMARY | 2025-01-08 11:42 | XMS_ITS | Encounter Summary ---
Author Organization [facility] Address [address] [place] [address] Phone Care Team Providers Care Batcher Operator Name Role Phone Jnaes Elkins Naveen FAITH Primary Care Provider [phone] Veda Motley APRN, BLOOD BANK WORKER Unavailable [phone] Miriam Aquino APRN, BLOOD BANK WORKER Unavailable Sergio Hussein MD Unavailable Reason for Visit * Reason Comments Medication Refill Encounter Details Date Type Department Care Team (Late st Contact Info) Description 03/11/2023 Refill [facility] #2 [place] [phone] Miriam Aquino APRN, BLOOD BANK WORKER [address] [place] [address] Medication Refill Social History Tobacco Use Types [...] Joann Adames RN - 03/11/2023 10:39 AM CRIB TENDER Per nursing clinical judgement, provider to review [...] Dept 07/06/22 Office Visit Miriam Aquino APRN, BLOOD BANK WORKER [facility] Showing recent visits within past 365 days and meeting all other requirements Future Appointments No visits were found meeting these conditions. Showing future appointments within next 90 days and meeting all other requirements TENDER documented in this encounter Plan of Treatment Not on file documented as of this encounter Visit Diagnoses Not on filedocumented in this encounter Additional Health Concerns Infection Onset Date Last Indicated Resolved Time COVID - 19 04/08/2023 04/10/2023 04/20/2023 12:1 6 AM CRIB TENDER documented as of this encounter Care Teams Batcher Operator Relationship Specialty Start Date End Date Janes Elkins, VIANNEY [address] [place] [address] PCP - General Physician Plumber Gasfitter 04/07/21 Veda Motley APRN, BLOOD BANK WORKER #[address] [address] Nurse Practitioner Advanced Practice Nurse 05/18/21 Miriam Aquino APRN, BLOOD BANK WORKER #2 [place] [address] Nurse Practitioner Advanced Practice Nurse 05/26/22 Sergio Hussein MD #[address] [address] Consulting Physician Colon and Rectal Surgery 07/24/23 documented as of this encounter
--- OUTSIDE RECORDS SUMMARY | 2025-01-08 11:42 | XMS_ITS | Encounter Summary ---
Author Organization [facility] Address [address] [place] [address] Phone Care Team Providers Care Senior Tableau Developer Name Role Phone Janes Elkins Naveen FAITH Primary Care Provider [phone] Veda Motley APRN, TACK MAKER Unavailable [phone] Miriam Aquino APRN, TACK MAKER Unavailable Sergio Hussein MD Unavailable Reason for Visit * Reason Comments Medication Refill Encounter Details Date Type Department Care Team (Late st Contact Info) Description 01/29/2023 Refill [facility] #2 [place] [address] Miriam Aquino APRN, TACK MAKER [address] [place] [address] Medication Refill Social History Tobacco Use Types [...] Joann Adames RN - 02/07/2023 8:45 AM SHINGLE CATCHER Medication failed the protocol, provider to review [...] 07/06/22 Office Visit Miriam Aquino APRN, CNP [facility] Showing recent visits within past 365 days and meeting all other requirements Future Appointments No visits were found meeting these conditions. Showing future appointments within next 90 days and meeting all other requirements GLE CATCHER documented in this encounter Plan of Treatment Not on file documented as of this encounter Visit Diagnoses Diagnosis Nausea and vomiting, unspecified vomiting type documented in this encounter Additional Health Concerns Infection Onset Date Last Indicated Resolved Time COVID - 19 04/08/2023 04/10/2023 04/20/2023 12:1 6 AM SHINGLE CATCHER documented as of this encounter Care Teams Senior Tableau Developer Relationship Specialty Start Date End Date Janes lEkins PAC [address] [place] [address] PCP - General Physician Crate Tier 04/07/21 Veda Motley APRN, CNP #[address] [address] Nurse Practitioner Advanced Practice Nurse 05/18/21 Miriam Aquino APRN, MEHNAZ [facility] [facility] [place] [address] Nurse Practitioner Advanced Practice Nurse 05/26/22 Sergio Hussein MD [address] [address] Consulting Physician Colon and Rectal Surgery 07/24/23 documented as of this encounter
--- OUTSIDE RECORDS SUMMARY | 2025-01-08 11:42 | XMS_ITS | Encounter Summary ---
Author Organization [facility] Address [address] [place] [address] Phone Care Team Providers Care Employee Benefits Administrator Name Role Phone TracyJanes wang Primary Care Provider [phone] Veda Motley APRN, ENVIRONMENTAL HEALTH AIDE Unavailable [phone] Miriam Aquino APRN, ENVIRONMENTAL HEALTH AIDE Unavailable Sergio Hussein MD Unavailable Reason for Visit * Reason Comments Medication Refill Encounter Details Date Type Department Care Team (Late st Contact Info) Description 10/12/2022 Refill [facility] - Pulmonology & Sleep Medicine [facility] #2 [place] [address] Veda Motley APRN, MEHNAZ #[address] [address] Medication Refill Social History Tobacco Use Types [...] Motley APRN, MEHNAZ [facility] [place] [facility] [address] Showing recent visits [...] Motley APRN, CNP [facility] [place] [address] 02/15/22 Office Visit Veda Motley APRN, MEHNAZ [facility] [place] [facility] [address] Showing recent visits [...] 19 04/08/2023 04/10/2023 04/20/2023 12:1 6 AM OFFICE SERVICE COORDINATOR documented as of this encounter Care Teams Employee Benefits Administrator Relationship Specialty Start Date End Date Janes Elkins, [facility] [address] [place] [address] PCP - General Physician Business Education Professor 04/07/21 Veda Motley APRN, ENVIRONMENTAL HEALTH AIDE #[address] [address] Nurse Practitioner Advanced Practice Nurse 05/18/21 Miriam Aquino APRN, ENVIRONMENTAL HEALTH AIDE #2 [place] [address] Nurse Practitioner Advanced Practice Nurse 05/26/22 Sergio Hussein MD #[address] [address] Consulting Physician Colon and Rectal Surgery 07/24/23 documented as of this encounter
--- OUTSIDE RECORDS SUMMARY | 2025-01-08 11:42 | XMS_ITS | Encounter Summary ---
Author Organization [facility] Address [address] [place] [address] Phone Care Team Providers Care Title One Reading Teacher Name Role Phone Tracyfelipe Janes FAITH Primary Care Provider [phone] Veda Motley APRN, AMERICAN SIGN LANGUAGE TEACHER Unavailable [phone] Miriam Aquino APRN, AMERICAN SIGN LANGUAGE TEACHER Unavailable Sergio Hussein MD Unavailable Reason for Visit * Reason Comments Medication Refill Encounter Details Date Type Department Care Team (Late Contact Info) Description 12/05/2021 Refill [facility] - Pulmonology & Sleep Medicine - [place] [address] [place] [address] Veda Motley APRN, MEHNAZ [address] [address] Medication Refill Social History Tobacco Use Types [...] Motley APRN, MEHNAZ [facility] [place] [address] 05/18/21 Office Visit Veda Motley APRN, MEHNAZ [facility] [place] [address] Showing recent visits within past 365 days and meeting all other requirements Future Appointments Date Type Provider Dept 02/15/22 Appointment Veda Motley APRN, MEHNAZ [facility] [place] Showing future appointments within next 90 days and meeting all other requirements documented in this encounter Plan of Treatment Not on file documented as of this encounter Visit Diagnoses Not on filedocumented in this encounter Additional Health Concerns Infection Onset Date Last Indicated Resolved Time COVID - 19 02/15/2022 02/15/2022 02/25/2022 12:1 6 AM PROFESSOR OF VOICE Respiratory Rule-Out 02/15/2022 02/15/2022 022 4:32 PM PROFESSOR OF VOICE COVID - 19 04/08/2023 04/10/2023 04/20/2023 12:1 6 AM PROFESSOR OF VOICE documented as of this encounter Care Teams Title One Reading Teacher Relationship Specialty Start Date End Date Janes Elkins PAC [address] [place] [address] PCP - General Physician Director Security Risk Management 04/07/21 Veda Motley APRN, AMERICAN SIGN LANGUAGE TEACHER #2 [facility] [address] [place] [address] Nurse Practitioner Advanced Practice Nurse 05/18/21 Miriam Aquino APRN, AMERICAN SIGN LANGUAGE TEACHER #2 [place] [address] Nurse Practitioner Advanced Practice Nurse 05/26/22 Sergio Hussein MD #2 [facility] [address] [place] [address] Consulting Physician Colon and Rectal Surgery 07/24/23 documented as of this encounter
--- OUTSIDE RECORDS SUMMARY | 2025-01-08 11:42 | XMS_ITS | Encounter Summary ---
Author Organization [facility] Address [address] [place] [address] Phone Care Team Providers Care Pattern Vault Clerk Name Role Phone TracyJanes wang Primary Care Provider [phone] Veda Motley APRN, DATA MANAGEMENT ANALYST Unavailable [phone] Miriam Aquino APRN, DATA MANAGEMENT ANALYST Unavailable Sergio Hussein MD Unavailable Reason for Visit * Reason Comments Medication Refill Encounter Details Date Type Department Care Team (Late Contact Info) Description 02/03/2023 Refill [facility] - Pulmonology & Sleep Medicine - [place] [address] [place] [address] Veda Motley APRN, MEHNAZ #[address] [address] Medication Refill Social History Tobacco Use Types [...] 02/04/2023 8:02 AM CST Refill too soon EST SUPERVISOR documented in this encounter Plan of Treatment Not on file documented as of this encounter Visit Diagnoses Diagnosis Centrilobular emphysema Other emphysema documented in this encounter Additional Health Concerns Infection Onset Date Last Indicated Resolved Time COVID - 19 04/08/2023 04/10/2023 04/20/2023 12:1 6 AM HARVEST SUPERVISOR documented as of this encounter Care Teams Pattern Vault Clerk Relationship Specialty Start Date End Date Janes Elkins PAC [address] [place] [address] PCP - General Physician Poured Pipe Maker 04/07/21 Veda Motley APRN, DATA MANAGEMENT ANALYST #[address] [address] Nurse Practitioner Advanced Practice Nurse 05/18/21 Miriam Aquino APRN, DATA MANAGEMENT ANALYST [address]2 [place] [address] Nurse Practitioner Advanced Practice Nurse 05/26/22 Sergio Hussein MD #[address] [address] Consulting Physician Colon and Rectal Surgery 07/24/23 documented as of this encounter
--- OUTSIDE RECORDS SUMMARY | 2025-01-08 11:42 | XMS_ITS | Encounter Summary ---
Author Organization [facility] Address [address] [place] [address] Phone Care Team Providers Care Inward Toll Operator Name Role Phone Janes Elkins Naveen FAITH Primary Care Provider [phone] Veda Motley APRN, MOLD STACKER Unavailable [phone] Miriam Aquino APRN, MOLD STACKER Unavailable Sergio Hussein MD Unavailable Reason for Visit * Reason Comments Medication Refill Encounter Details Date Type Department Care Team (Late st Contact Info) Description 10/21/2023 Refill [facility] - Gastroenterology [facility] [address] [place] [address] Miriam Aquino APRN, MOLD STACKER [address] [place] [address] Medication Refill Social History Tobacco Use Types [...] on filedocumented in this encounter Care Teams Inward Toll Operator Relationship Specialty Start Date End Date Janes Elkins PAC [address] [place] [address] PCP - General Physician Stereotyper 04/07/21 Veda Motley APRN, MOLD STACKER #[address] [address] Nurse Practitioner Advanced Practice Nurse 05/18/21 Miriam Aquino APRN, MOLD STACKER [address] [place] [address] Nurse Practitioner Advanced Practice Nurse 05/26/22 Sergio Hussein MD #[address] [address] Consulting Physician Colon and Rectal Surgery 07/24/23 documented as of this encounter
--- OUTSIDE RECORDS SUMMARY | 2025-01-08 11:42 | XMS_ITS | Encounter Summary ---
Author Organization [facility] Address [address] [place] [address] Phone Care Team Providers Care Exhibition Carver Name Role Phone Tracyfelipe Janes FAITH Primary Care Provider [phone] Veda Motley APRN, TRACE EVIDENCE TECHNICIAN Unavailable [phone] Miriam Aquino APRN, TRACE EVIDENCE TECHNICIAN Unavailable Sergio Hussein MD Unavailable Reason for Visit * Reason Comments Medication Refill Encounter Details Date Type Department Care Team (Late Contact Info) Description 2022 Refill [facility] - Pulmonology & Sleep Medicine - [place] [address] [place] [address] Veda Motley APRN, MEHNAZ #[address] [address] Medication Refill Social History Tobacco Use Types [...] Coronavirus/COVID-19? No / Unsure 02/15/2022 2:55 PM PERSONAL CARE AID documented as of this encounter Miscellaneous Notes * Telephone Encounter - Jessica Goldberg RN - 2022 3:24 PM PERSONAL CARE AID Medication failed the protocol, provider to review [...] Dept 02/15/22 Office Visit Veda Motley APRN, TRACE EVIDENCE TECHNICIAN [facility] [place] [facility] 08/17/21 Office Visit Veda Motley APRN, TRACE EVIDENCE TECHNICIAN [facility] [place] [facility] 05/18/21 Office Visit Veda Motley APRN, TRACE EVIDENCE TECHNICIAN [facility] [place] [facility] Showing recent visits within past 365 days and meeting all other requirements Future Appointments No visits were found meeting these conditions. Showing future appointments within next 90 days and meeting all other requirements ONAL CARE AID documented in this encounter Plan of Treatment Not on file documented as of this encounter Visit Diagnoses Not on filedocumented in this encounter Additional Health Concerns Infection Onset Date Last Indicated Resolved Time COVID - 19 02/15/2022 02/15/2022 02/25/2022 12:1 6 AM PERSONAL CARE AID COVID - 19 04/08/2023 04/10/2023 04/20/2023 12:1 6 AM PERSONAL CARE AID documented as of this encounter Care Teams Exhibition Carver Relationship Specialty Start Date End Date Janes Elkins, [facility] [address] [place] [address] PCP - General Physician Retort Forker 04/07/21 Veda Motley APRN, TRACE EVIDENCE TECHNICIAN #2 [facility] [address] [place] [address] Nurse Practitioner Advanced Practice Nurse 05/18/21 Miriam Aquino APRN, TRACE EVIDENCE TECHNICIAN #[address] [place] [address] Nurse Practitioner Advanced Practice Nurse 05/26/22 Sergio Hussein MD #2 [facility] [address] [place] [address] Consulting Physician Colon and Rectal Surgery 07/24/23 documented as of this encounter
--- OUTSIDE RECORDS SUMMARY | 2025-01-08 11:42 | XMS_ITS | Encounter Summary ---
Author Organization [facility] Address [address] [place] [address] Phone Care Team Providers Care Wildlife Conservationist Name Role Phone Tracyfelipe Janes FAITH Primary Care Provider [phone] Veda Motley APRN, RN PEDIATRIC ICU Unavailable [phone] Miriam Aquino APRN, RN PEDIATRIC ICU Unavailable Sergio Hussein MD Unavailable Reason for Visit * Reason Comments Medication Refill Encounter Details Date Type Department Care Team (Late st Contact Info) Description 10/18/2021 Refill [facility] - Pulmonology & Sleep Medicine - [place] [address] [place] [address] Veda Motley APRN, RN PEDIATRIC ICU #[address] [address] Medication Refill Social History Tobacco Use Types [...] Motley APRN, CNP [facility] [place] [facility] Showing recent visits within past 365 [...] 19 02/15/2022 02/15/2022 02/25/2022 12:1 6 AM LICENSING MANAGER Respiratory Rule-Out 02/15/2022 02/15/2022 022 4:32 PM LICENSING MANAGER COVID - 19 04/08/2023 04/10/2023 04/20/2023 12:1 6 AM LICENSING MANAGER documented as of this encounter Care Teams Wildlife Conservationist Relationship Specialty Start Date End Date Janes Elkins PAC [address] [place] [address] PCP - General Physician Marketing Reporting Analyst 04/07/21 Veda Motley APRN, RN PEDIATRIC ICU #[address] [address] Nurse Practitioner Advanced Practice Nurse 05/18/21 Miriam Aquino APRN, MEHNAZ [address] [place] [address] Nurse Practitioner Advanced Practice Nurse 05/26/22 Sergio Hussein MD #[address] [address] Consulting Physician Colon and Rectal Surgery 07/24/23 documented as of this encounter
--- OUTSIDE RECORDS SUMMARY | 2025-01-08 11:42 | XMS_ITS | Encounter Summary ---
Author Organization [facility] Address [address] [place] [address] Phone Care Team Providers Care New Account Interviewer Name Role Phone TracyJanes wang Primary Care Provider [phone] Veda Motley APRN, STRETCHING MACHINE OPERATOR Unavailable Miriam Aquino APRN, STRETCHING MACHINE OPERATOR Unavailable Sergio Hussein MD Unavailable Reason for Visit * Reason Comments Medication Refill Encounter Details Date Type Department Care Team (Late st Contact Info) Description 09/23/2021 Refill [facility] - Pulmonology & Sleep Medicine - [place] [address] [place] [address] Veda Motley APRN, STRETCHING MACHINE OPERATOR #[address] [address] Medication Refill Social History Tobacco Use Types [...] Motley APRN, MEHNAZ [facility] [place] [facility] Showing recent visits within past [...] 19 02/15/2022 02/15/2022 02/25/2022 12:1 6 AM RESEARCH DEVELOPMENT MANAGER Respiratory Rule-Out 02/15/2022 02/15/2022 022 4:32 PM RESEARCH DEVELOPMENT MANAGER COVID - 19 04/08/2023 04/10/2023 04/20/2023 12:1 6 AM RESEARCH DEVELOPMENT MANAGER documented as of this encounter Care Teams New Account Interviewer Relationship Specialty Start Date End Date Janes Elkins, [facility] [address] [place] [address] PCP - General Physician Mascara Molder 04/07/21 Veda Motley APRN, STRETCHING MACHINE OPERATOR #2 [facility] [address] [place] [address] Nurse Practitioner Advanced Practice Nurse 05/18/21 Miriam Aquino APRN, STRETCHING MACHINE OPERATOR #[address] [place] [address] Nurse Practitioner Advanced Practice Nurse 05/26/22 Sergio Hussein MD #2 [facility] [address] [place] [address] Consulting Physician Colon and Rectal Surgery 07/24/23 documented as of this encounter
--- OUTSIDE RECORDS SUMMARY | 2025-01-08 11:42 | XMS_ITS | Encounter Summary ---
Author Organization [facility] Address [address] [place] [address] Phone Care Team Providers Care Workers Compensation Claims Supervisor Name Role Phone Janes Elkins Naveen FAITH Primary Care Provider [phone] Veda Motley APRN, PERSONAL SUPPORT WORKER Unavailable [phone] Miriam Aquino APRN, PERSONAL SUPPORT WORKER Unavailable Sergio Hussein MD Unavailable Reason for Visit * Reason Comments Medication Refill Encounter Details Date Type Department Care Team (Late st Contact Info) Description 06/30/2024 Refill [facility] - Gastroenterology [facility] #[address] [place] [address] Miriam Aquino APRN, PERSONAL SUPPORT WORKER [address] [place] [address] Medication Refill Social History Tobacco Use Types [...] on filedocumented in this encounter Care Teams Workers Compensation Claims Supervisor Relationship Specialty Start Date End Date Janes Elkins PAC [address] [place] [address] PCP - General Physician Transmission Tester 04/07/21 Veda Motley APRN, CNP #[address] [address] Nurse Practitioner Advanced Practice Nurse 05/18/21 Miriam Aquino APRN, CNP [address] [place] [address] Nurse Practitioner Advanced Practice Nurse 05/26/22 Sergio Hussein MD #[address] [facility] [address] [address] Consulting Physician Colon and Rectal Surgery 07/24/23 documented as of this encounter
[2025-01-08 11:43] LABS: Alanine Aminotransferase 25 U/L (6-35); Albumin Level 4.3 g/dL (3.5-5.1); Alkaline Phosphatase 79 U/L (38-126); Anion Gap 6 mmol/L (4-12); Aspartate Amino Transferase 28 U/L (14-36); Bilirubin,Total 1.2 mg/dL (0.2-1.3); Blood Urea Nitrogen 16 mg/dL (7-17); Calcium 9.2 mg/dL (8.4-10.2); Carbon Dioxide 33 mmol/L (22-30); Chloride 104 mmol/L (98-107); Estimated CRCL calculation 56 ml/min; Estimated Glomerular Filt Rate > 60; Glucose 92 mg/dL (65-110); Osmolality Calculated 297 mOsm/kg (285-295); Potassium 4.2 mmol/L (3.4-5.0); Sodium 143 mmol/L (137-145); Total Protein 6.9 g/dL (6.3-8.2)
[2025-01-08 11:46] LABS: INR 1.0; Partial Thromboplastin Time 26.2 Sec (23.9-30.70); Prothrombin Time 11.1 Seconds (9.50-12.1)
[2025-01-08] MEDS: KETOROLAC 30 MG/ML VIAL (*BKC) IV PUSH (11:46)
[2025-01-08 11:47] LABS: Add Urine Microscopic? NO; Appearance Urine Clear (Clear); Glucose Urine UA Negative (Negative); Leukocyte Esterase Ur Negative LEU/UL (Negative); Nitrate Urine Negative (Negative); Specific Grav Ur 1.025 (1.010-1.020)
[2025-01-08 11:54] LABS: NT Pro B Type Natriuretic Pept 209 pg/mL (19.9-100); Troponin I < 0.012 ng/mL (0.000-0.034)
[2025-01-08 11:55] LABS: Strep Group A RT-PCR NOT DETECTED (Negative)
[2025-01-08 11:55] LABS: Band Neutrophils Percent 0 % (0-6); Eosinophils Absolute Manual 0.44 K/mm3 (0.02-0.50); Eosinophils Percent Manual 7 % (1-6); Lymphocytes Absolute Manual 2.56 K/mm3 (1.1-4.5); Lymphocytes Percent Manual 40 % (18-44); Monocytes Absolute Manual 0.83 K/mm3 (0.1-0.90); Monocytes Percent Manual 13 % (3-9); Neutrophils Absolute Manual 2.49 K/mm3 (1.3-6.7); Neutrophils Percent Manual 39 % (46-73); Total Cells Counted 100
[2025-01-08 12:07] LABS: Influenza A QL RT-PCR Negative (Negative); Influenza B QL RT-PCR Negative (Negative); RSV RNA, RT-PCR Negative (Negative); SARS-CoV-2 RNA PCR Negative (Negative)
--- NOTE | 2025-01-08 12:51 | PC.NURSE ---
dr bojorquez speaking with pt and family member.
--- NOTE | 2025-01-11 13:46 | PC.NURSE ---
PRELIMINARY BLOOD CULTURE RESULTS: NO GROWTH IN 24 HOURS. WAITING FOR FINAL CULTURE REPORT.
--- NOTE | 2025-01-12 12:44 | PC.NURSE ---
preliminary blood cultures x2 reviewed. no growth in 48 hours
--- NOTE | 2025-01-15 15:17 | PC.NURSE ---
blood, final, no growth
== END 2025-01-08 13:03 | disposition home or self-care (01) ==
PROVIDERS: Emergency Provider Emergency Medicine; PCP Physician Assistant
DX: J44.1 Chronic obstructive pulmonary disease with (acute) exacerbation (principal); J96.11 Chronic respiratory failure with hypoxia; T50.915A Adverse effect of multiple unspecified drugs, medicaments and biological substances, initial encounter; Z99.81 Dependence on supplemental oxygen; R51.9 Headache, unspecified; Z20.822 Contact with and (suspected) exposure to COVID-19
CPT/HCPCS: 36415; 70450; 71045; 80053; 81003; 83605; 83880; 84484; 85025; 85380; 85610; 85730; 87637; 87651; 93005; 96374; 96375; 99284; J1885; J2919